=== PATIENT | male | born 1940 | race Caucasian/White ===

== ENCOUNTER 2017-06-27 11:31 | Inpatient (IN) | payer OTHER ==
[~2017-06-27] VITALS: Ht 182.9 cm; Wt 94.8 kg
[~2017-06-27 11:31] MED LIST: BENZ100C84 PO; CZR50 PO; FURO-85 PO; INSU0.01 SC; POTA20TA13 PO; TPRSR25 PO; TRAM-10 PO
--- NOTE | 2017-06-27 11:59 | EMERGENCY ROOM VISIT NOTE ---
History Report prepared by Smiley: Homa Heredia Under the Supervision of: Dr. James Olivo M.D. First contact with patient: 11:44 Chief Complaint: ILLNESS Stated Complaint: FLUID LEAKING FROM LEG AND STOMACH - HEART CONDITI History of Present Illness The patient is a 77 year old male who presents to the Emergency Room with complaints of sudden fluid leakage from his legs bilaterally and his abdomen beginning last night. The patient states that he is short of breath and that his abdomen feels "full." The patient has a pacemaker and is on Lasix. He also has kidney failure. Source of History: patient Onset: last night Position: abdomen, leg (bilateral) Quality: other (leaking) Timing: other (sudden) Associated Symptoms: + SOB, + abdominal pain (feels "full") Review of Systems See HPI for pertinent positives & negatives. A total of 10 systems reviewed and were otherwise negative. Past Medical & Surgical Medical Problems: (1) Anticoagulated on warfarin (2) Aortic stenosis (3) Atrial fibrillation (4) Balance disorder (5) Benign hypertension (6) CHF (congestive heart failure) (7) Chronic systolic heart failure (8) CKD (chronic kidney disease) stage 3, GFR 30-59 ml/min (9) Coronary artery disease (10) Depression (11) Diabetes mellitus type 2 (12) Diabetic peripheral neuropathy (13) Diabetic peripheral neuropathy associated with type 2 diabetes mellitus (14) Foot deformity (15) History of acute renal failure (16) History of diabetic ulcer of foot (17) History of MRSA infection of lungs (18) Hyperlipidemia (19) Hypothyroidism (20) LBBB (left bundle branch block) (21) Loss of sensation (22) Mild obstructive sleep apnea (23) Pulmonary hypertension (24) Rheumatoid arthritis (25) Secondary pulmonary hypertension Surgical Problems: (1) Status post A-V fisutla LUE (2) Status post coronary artery bypass grafting (3) Status post Maze operation for atrial fibrillation (4) Status post tracheostomy Family History FH: COPD (chronic obstructive pulmonary disease) FATHER SISTER SISTER FH: coronary artery disease MOTHER FH: diabetes mellitus SISTER FH: heart disease BROTHER BROTHER BROTHER SISTER Social History Smoking Status: Never Smoker Alcohol Use: none Drug Use: none Marital Status: Housing Status: lives with family Occupation Status: retired Current/Historical Medications Scheduled Amiodarone HCl (Amiodarone HCl), 200 MG PO DAILY Aspirin (Aspirin 81), 81 MG PO HS Budesonide (Pulmicort Respules 0.25MG/2ML), 2 ML INH BID Calcitriol (Calcitriol), 0.25 MCG PO 3XWK Cephalexin Monohydrate (Cephalexin), 500 MG PO BID Cholecalciferol (Vitamin D 1000 Unit), 2,000 INTER.UNIT PO HS Digoxin (Digoxin), 0.125 MG PO Q2D Docusate Sodium (Colace), 1 CAP PO HS Gabapentin (Neurontin), 200 MG PO BID Hydroxychloroquine Sulfate (Hydroxychloroquine Sulfat), 400 MG PO HS Insulin Human NPH (Humulin N), 12 UNITS SQ BID Levothyroxine Sodium (Levothyroxine Sodium), 112 MCG PO DAILY Losartan Potassium (Losartan Potassium), 12.5 MG PO DAILY Magnesium Oxide (Magnesium Oxide), 400 MG PO HS Pantoprazole (Pantoprazole Sodium), 40 MG PO DAILY Prednisone (Prednisone), 5 MG PO DAILY Sertraline HCl (Sertraline HCl), 25 MG PO HS Sertraline HCl (Sertraline HCl), 100 MG PO HS Sildenafil Citrate (Pulmonary (Sildenafil Citrate), 20 MG PO BID Simvastatin (Simvastatin), 10 MG PO HS Torsemide (Demadex), 20 MG PO DAILY Trazodone HCl (Trazodone HCl), 50 MG PO HS Warfarin Sodium (Warfarin Sodium), 2.5 MG PO 2XWK Warfarin Sodium (Warfarin Sodium), 5 MG PO 5XWK Scheduled PRN Acetaminophen (Tylenol), 650 MG PO Q4H PRN for Mild Pain Benzonatate (Tessalon Perles), 100-200 MG PO TID PRN for Cough Ipratropium [place] (Atrovent 0.02% Soln), 2.5 ML NEB TID PRN for SOB/Wheezing Levalbuterol (Levalbuterol HCl), 3 ML NEB TID PRN for SOB/Wheezing Nitroglycerin (Nitrostat), 0.4 MG UT UD PRN for Chest Pain Polyethylene Glycol 3350 (Miralax), 1 PKT PO DAILY PRN for Constipation Saline ([place] Nasal [place]), 2 SPRAYS NATALIO UD PRN for Nasal Dryness/Congestion Tramadol (Ultram), 50 MG PO Q12 PRN for Pain Allergies Coded Allergies: Lisinopril (Unverified Allergy, Unknown, dizzy, 06/27/17) Physical Exam Vital Signs Date Time Temp Pulse Resp B/P (MAP) Pulse Ox O2 Delivery O2 Flow Rate FiO2 06/27/17 13:25 71 14 134/82 94 Room Air 06/27/17 12:23 70 20 132/75 94 Room Air 06/27/17 12:21 70 06/27/17 12:14 96 Room Air 06/27/17 11:36 36.6 75 20 122/71 96 Room Air Physical Exam GENERAL: Patient is a healthy-appearing well-nourished male HEAD: Normocephalic atraumatic EYES: Ocular movements intact pupils equal and react to light OROPHARYNX mucous membranes are moist no exudates present no erythema or edema present NECK: Supple no nuchal rigidity CHEST: Good equal expansion LUNGS: Clear and equal to auscultation CARDIAC: Normal S1 and S2 ABDOMEN: Soft nontender no guarding BACK: No CVA tenderness SKIN: Multiple weeping wounds to abdomen and pelvis. Skin is tight. EXTREMITIES: No pain upon palpation normal muscle strength in all groups. 2+ pitting edema of upper legs. NEURO: Patient is following commands and answering questions appropriately. Alert and oriented x3 Cranial Nerves 2-12 grossly intact Medical Decision & Procedures ER Provider Diagnostic Interpretation: X-ray results as stated below per interpretation by me and the radiologist: CHEST ONE VIEW PORTABLE CLINICAL HISTORY: 77 years-old Male presenting with Pt c/o diffuse swelling, fluid leaking from legs and stomach. TECHNIQUE: Portable upright AP view of the chest was obtained. COMPARISON: 06/22/2016. FINDINGS: Left-sided pacer with leads to the right atrium and right ventricular apex now in place. An abandoned epicardial pacing wire may be present. Median sternotomy wire breakage is now evident, new from prior. Additional surgical device projects over the cardiac silhouette, which remains enlarged. Numerous surgical clips project over the aortic arch. Prominence of pulmonary vasculature. Apparent vague left retrocardiac opacity may be present. No large effusion or pneumothorax. Osseous structures normal. Upper abdomen normal. IMPRESSION: 1. Cardiomegaly with pulmonary vascular congestion. No aye evidence of pulmonary edema at this time. 2. Vague retrocardiac opacity is present. This could indicate atelectasis or mild developing pulmonary edema. 3. Additional new findings as above. Electronically signed by: Bryant Horn M.D. 06/27/2017 12:30 PM Dictated Date/Time: 06/27/2017 12:26 PM Laboratory Results Test 06/27/17 12:09 06/27/17 12:14 06/27/17 13:00 Ovalocytes 1+ Total Bilirubin 0.8 mg/dl (0.2-1) Aspartate Amino Transf (AST/SGOT) 19 U/L (15-37) Alanine Aminotransferase (ALT/SGPT) 23 U/L (12-78) Alkaline Phosphatase 108 U/L (45-117) Total Creatine Kinase 85 U/L (39-308) Creatine Kinase MB 2.1 ng/ml (0.5-3.6) Creatine Kinase MB Ratio 2.5 (0-3.0) Pro-B-Type Natriuretic Peptide 2147 pg/ml (0-1800) Total Protein 7.6 gm/dl (6.4-8.2) Albumin 3.4 gm/dl (3.4-5.0) Globulin 4.2 gm/dl (2.5-4.0) Albumin/Globulin Ratio 0.8 (0.9-2) Bedside Hemoglobin 11.9 g/dl (14.0-18.0) Bedside Hematocrit 35 % (42-52) Bedside Sodium 143 mEq/L (135-144) Bedside Potassium 3.8 mEq/L (3.3-5.0) Bedside Chloride 101 mEq/L (101-112) Bedside Total CO2 28 mEq/l (24-31) Bedside Blood Urea Nitrogen 39 mg/dl (7-18) Bedside Creatinine 1.9 mg/dl (0.6-1.3) Bedside Glucose (other) 100 mg/dl (70-99) Bedside Ionized Calcium (Tracey) 1.10 mmol/l (1.12-1.32) Urine Color YELLOW Urine Appearance CLEAR (CLEAR) Urine pH 5.5 (4.5-7.5) Urine Specific [place] 1.012 (1.000-1.030) Urine Protein NEG (NEG) Urine Glucose (UA) NEG (NEG) Urine Ketones NEG (NEG) Urine Occult Blood NEG (NEG) Urine Nitrite NEG (NEG) Urine Bilirubin NEG (NEG) Urine Urobilinogen NEG (NEG) Urine Leukocyte Esterase NEG (NEG) Labs reviewed by ED physician. Medications Administered Medications (Trade) Dose Ordered Sig/Nicolette Route Start Time Stop Time Status Last Admin Dose Admin Torsemide (Demadex Tab) 20 mg NOW STAT PO 06/27/17 12:28 06/27/17 12:29 DC 06/27/17 13:03 20 MG ECG Indication: other (heart condition) Rate (beats per minute): 70 Rhythm: other (paced rhythm) Findings: no acute ischemic change, no ectopy ED Course 1148: Past medical records reviewed. The patient was evaluated in room B6. A complete history and physical examination was performed. 1228: Ordered Torsemide 20 mg PO. 1330: Upon reexamination the patient is resting. I discussed results and treatment plan with the patient. He verbalizes agreement and understanding. I spoke with Dr. Holbrook from the [facility]. The patient will be evaluated for further management. Medical Decision Differential diagnosis: Etiologies such as infections, reactive airway disease, pneumonia, pneumothorax , COPD, CHF, cardiac ischemia, pulmonary embolism, musculoskeletal, gastrointestinal, as well as others were entertained. This is a 77-year-old male who presents emergency department complaining of fluid leak from both his legs as well as his abdomen. The patient has a history of congestive heart failure. He was given torsemide by his PCP yesterday however his leaking continue today so he was sent into the emergency department. I gave the patient additional dose of torsemide and discussed the case with the hospitalist service. In addition the patient also has an elevation in his troponin. Medication Reconcilliation Current Medication List: was personally reviewed by me Blood Pressure Screening Patient's blood pressure: Normal blood pressure Consults Time Called: 1235 Consulting Physician: Dr. Holbrook- [facility] Returned Call: [phone] I discussed the patient's case with Dr. Holbrook, he has agreed to evaluate the patient for further management and care. Impression Primary Impression: CHF exacerbation Scribe Attestation The scribe's documentation has been prepared under my direction and personally reviewed by me in its entirety. I confirm that the note above accurately reflects all work, treatment, procedures, and medical decision making performed by me. Departure Information Dispostion Being Evaluated By Hospitalist Prescriptions Docusate Sodium (COLACE) 100 Mg Cap 1 CAP PO HS for 15 Days, CAP Prov: Yogesh Holbrook MD 06/27/17 Digoxin (Digoxin) 0.125 Mg Tab 0.125 MG PO Q2D, #30 Prov: Yogesh Holbrook MD 06/27/17 Amiodarone HCl (Amiodarone HCl) 200 Mg Tab 200 MG PO DAILY, #30 Prov: Yogesh Holbrook MD 06/27/17 Levalbuterol (Levalbuterol HCl) 1.25 Mg/3 Ml Nebu 3 ML NEB TID Y for SOB/Wheezing, #1 Prov: Yogesh Holbrook MD 06/27/17 Ipratropium [place] (Atrovent 0.02% Soln) 2.5 Ml Nebu 2.5 ML NEB TID Y for SOB/Wheezing, #1 Prov: Yogesh Holbrook MD 06/27/17 Referrals Bryan Valerio MD (PCP) Patient Instructions My [facility] Problem Qualifiers Primary Impression: CHF exacerbation Congestive heart failure type: unspecified congestive heart failure type Qualified Codes: I50.9 - Heart failure, unspecified
[2017-06-27] MEDS ORDERED: CRD200 PO ×2 (12:23→14:09)
[2017-06-27] MEDS ORDERED: GABA-112 PO (12:23)
[2017-06-27] MEDS ORDERED: TORS20TA2 PO (12:23)
[2017-06-27] MEDS ORDERED: INSHNI SQ (12:23)
[2017-06-27] MEDS ORDERED: ALBUTEROL 0.5% NEB SOLN 2.5 MG/0.5 ML VIAL INH ONE (12:26)
[2017-06-27 12:27] LABS: ISTAT CREATININE 1.9 mg/dl (0.6-1.3); ISTAT HEMOGLOBIN 11.9 g/dl (14.0-18.0); ISTAT IONIZED CALCIUM 1.1 mmol/l (1.12-1.32)
[2017-06-27] MEDS ORDERED: KFL500HP PO (12:27)
[2017-06-27] MEDS ORDERED: TORSEMIDE 20 MG TAB PO STA (12:28)
--- NOTE | 2017-06-27 12:32 | DIAGNOSTIC IMAGING REPORT ---
CHEST ONE VIEW PORTABLE CLINICAL HISTORY: 77 years-old Male presenting with Pt c/o diffuse swelling, fluid leaking from legs and stomach. TECHNIQUE: Portable upright AP view of the chest was obtained. COMPARISON: 06/22/2016. FINDINGS: Left-sided pacer with leads to the right atrium and right ventricular apex now in place. An abandoned epicardial pacing wire may be present. Median sternotomy wire breakage is now evident, new from prior. Additional surgical device projects over the cardiac silhouette, which remains enlarged. Numerous surgical clips project over the aortic arch. Prominence of pulmonary vasculature. Apparent vague left retrocardiac opacity may be present. No large effusion or pneumothorax. Osseous structures normal. Upper abdomen normal. IMPRESSION: 1. Cardiomegaly with pulmonary vascular congestion. No aye evidence of pulmonary edema at this time. 2. Vague retrocardiac opacity is present. This could indicate atelectasis or mild developing pulmonary edema. 3. Additional new findings as above. Electronically signed by: Bryant Horn M.D. 06/27/2017 12:30 PM Dictated Date/Time: 06/27/2017 12:26 PM
[2017-06-27 12:38] LABS: BUN/CREATININE RATIO 22.9 (10-20); CALCIUM 8.9 mg/dl (8.5-10.1); CREATININE 1.9 mg/dl (0.60-1.40); POTASSIUM 3.8 mmol/L (3.5-5.1)
[2017-06-27 12:44] LABS: ALB/GLOB RATIO 0.8 (0.9-2); CKMB/CK RATIO 2.5 (0-3.0)
[2017-06-27 13:04] LABS: ANISOCYTOSIS PRESENT; BASO % 0.3 %; BASO ABS # 0.02 K/uL (0-0.2); COMPLETE YES; EOS % 0.7 %; HEMATOCRIT 35.7 % (42-52); HYPOCHROMIA PRESENT; IG% 0.1 %; LYMPH % 12.9 %; LYMPH ABS # 0.91 K/uL (1.2-3.4); MEAN CELL VOLUME 77.8 fL (80-100); MEAN CORPUSCULAR HEMOGLOBIN 20.9 pg (25-34); MEAN CORPUSCULAR HGB CONC 26.9 g/dl (32-36); MICROCYTOSIS PRESENT; MONO % 12.8 %; NEUT % 73.2 %; OVALOCYTES 1+; PLATELET COUNT 139 K/uL (130-400); PLT ESTIMATE NORMAL; RED BLOOD COUNT 4.59 M/uL (4.7-6.1); WHITE BLOOD COUNT 7.05 K/uL (4.8-10.8)
[2017-06-27 13:23] LABS: URINE APPEARANCE CLEAR (CLEAR); URINE BILIRUBIN NEG (NEG); URINE COLOR YELLOW; URINE NITRITE NEG (NEG); URINE PH 5.5 (4.5-7.5); URINE SPECIFIC GRAVITY 1.012 (1.000-1.030); UROBILINOGEN NEG (NEG)
[2017-06-27 13:26] LABS: MANUAL MICROSCOPIC REQUIRED? NO; REVIEW REQ? NO
[2017-06-27] MEDS ORDERED: MAGNESIUM HYDROXIDE SUSP 30 ML UDC PO PRN (14:00)
[2017-06-27] MEDS ORDERED: ACETAMINOPHEN 325 MG TAB PO PRN (14:00)
[2017-06-27] MEDS ORDERED: ALUMINUM/MAGNESIUM/SIMETH (MAALOX MAX) 30 ML UDC PO PRN (14:00)
[2017-06-27] MEDS ORDERED: NITROGLYCERIN 0.4 MG SL PER TAB CHARGE SL PRN (14:00)
[2017-06-27] MEDS ORDERED: TRAMADOL HCL 50 MG TAB PO PRN (14:00)
[2017-06-27] MEDS ORDERED: ONDANSETRON INJ 2 MG/ML 2 ML VIAL IV PRN (14:00)
[2017-06-27] MEDS ORDERED: ATRINSX NEB ×2 (14:09→18:45)
[2017-06-27] MEDS ORDERED: LNX125 PO (14:09)
[2017-06-27] MEDS ORDERED: DOCU-94 PO (14:09)
[2017-06-27] MEDS ORDERED: XPNINS125 NEB ×2 (14:09→18:45)
[2017-06-27] MEDS ORDERED: POLYETHYLENE (MIRALAX) 17 GM PACK PO PRN (14:45)
[2017-06-27 14:52] LABS: INR 2.2 (0.9-1.1); PROTHROMBIN TIME (PATIENT) 24.8 SECONDS (9.0-12.0)
--- NOTE | 2017-06-27 15:20 | DIAGNOSTIC IMAGING REPORT ---
ULTRASOUND VENOUS DOPPLER LWR EXT BILA CLINICAL HISTORY: Leg edema COMPARISON STUDY: 09/10/2012 FINDINGS: Real-time and color flow Doppler imaging were performed. Flow was seen within the femoral, popliteal and calf veins with no intraluminal thrombus demonstrated. The saphenous vein is patent. IMPRESSION: No evidence of lower extremity DVT. Electronically signed by: Andrea Sylvester M.D. 06/27/2017 3:19 PM Dictated Date/Time: 06/27/2017 3:19 PM
--- NOTE | 2017-06-27 15:24 | HISTORY & PHYSICAL EXAMINATION ---
DATE OF ADMISSION: 06/27/2017 CHIEF COMPLAINT: Increasing lower extremity edema. HISTORY OF PRESENT ILLNESS: This 77-year-old male with past medical history significant for systolic and diastolic biventricular CHF, status post pacemaker, history of paroxysmal atrial fibrillation on Coumadin, history of CAD status post CABG, history of pulmonary hypertension, history of chronic kidney disease stage III, history of depression, hyperlipidemia, history of MRSA pneumonia, history of mild obstructive sleep apnea, history of type 2 diabetes, chronic left bundle branch block, aortic valve stenosis, rheumatoid arthritis involving multiple sites, cor pulmonale, history of junctional bradycardia, history of hypothyroidism, history of peripheral neuropathy, presents with increasing lower extremity edema and increasing weight gain. The patient saw yesterday primary care doctor and found to have increasing lower extremity edema, gained about 10 pounds of weight gain in last 1 month and also edema and skin tears in his l left lower extremity. He was started on Keflex for possible cellulitis and an extra dose of torsemide was given but his symptoms did not improve so he came to the ER today. The patient states lately he is gaining weight. His abdominal girth is increasing and sometimes seeping from his belly and from lower extremities and since yesterday he has also noticed erythema in left lower extremity is getting worse. He cannot climb steps but he is ambulating okay with walker. No shortness of breath while ambulating. He can ambulate all around the house without difficulty. Denies any chest pain, has chronic cough, no fever, no chills, occasional headaches, occasional dizziness and some blurred vision. No nausea, no vomiting, no abdominal pain. Normal bowel and bladder movements. No blood in the stools or black stools, no blood in the urine. Appetite is okay. Currently resting comfortably and hemodynamically stable. The patient has extensive heart disease abnormal nuclear stress test and atrial fibrillation in june 2012. He had a cardiac catheterization at [facility] in 2011 showed multiple disease and he underwent CABG x3 at [place]. Postop course was complicated with resulting 30 days inpatient in [facility]. He was intubated a couple of times. He had elevated pulmonary artery pressure and hypoxia shortly after intubation. He developed acute renal failure necessitating dialysis. He was on dialysis for a couple months. He is status post tracheostomy at that time. He also had a respiratory cultures positive for Stenotrophomonas status post completion of a 10-day course of Bactrim and also blood cultures grew Enterobacter and was placed on broad-spectrum antibiotics, cefepime, which was changed to Levaquin per ID.Since then his kidney function not totally recovered and also since then he has had multiple admissions for heart failure. ALLERGIES: ALLERGIC TO LISINOPRIL. PAST MEDICAL HISTORY: As mentioned above. PAST SURGICAL HISTORY: CABG, cardiac catheterization, tracheostomy, dialysis catheter placement left ventricle, status post pacemaker. MEDICATIONS: The patient is on cephalexin 500 mg 1 tablet p.o. b.i.d. for 7 days, Xopenex and ipratropium nebs t.i.d. p.r.n., Zocor 10 mg p.o. at bedtime, Zoloft 125 mg p.o. daily, Protonix 40 mg p.o. daily, Humulin 10 units in the morning and evening, Plaquenil 400 mg p.o. at bedtime, trazodone 50 mg p.o. at bedtime p.r.n., torsemide 20 mg p.o. daily, take 10 mg p.r.n. for weight gain, tramadol 50 mg p.o. b.i.d. p.r.n., calcitriol 0.5 mg capsule 3 times a week, prednisone 5 mg p.o. daily, levothyroxine 112 mcg p.o. daily, magnesium oxide 400 mg p.o. at bedtime, Coumadin 2.5 mg twice weekly and 5 mg 5 times a week, amiodarone 200 mg p.o. daily, gabapentin 200 mg p.o. b.i.d., losartan 12.5 mg p.o. daily, digoxin 125 mcg 3 times a week, Revatio 20 mg p.o. b.i.d., Colace 100 mg p.o. at bedtime, MiraLax 17 mg p.o. daily p.r.n., budesonide 1 nebulization twice daily, aspirin 81 mg p.o. daily, vitamin D 2000 unit capsule p.o. daily. FAMILY HISTORY: Significant for father had COPD. Mother had heart problems. Sister has COPD. SOCIAL HISTORY: . No smoke history. No alcohol history. No drug use. REVIEW OF SYMPTOMS: As per HPI. Rest of review of symptoms negative. PHYSICAL EXAMINATION: GENERAL: The patient is obese, not in distress. VITAL SIGNS: Temperature 36.6, pulse 71, respiratory rate 14, blood pressure 134/84, oxygen 94% room air. HEAD, EYES, EARS, NOSE, AND THROAT: No pallor, no icterus. Pupils equal, round react to light. NECK: No JVD, no neck masses, no carotid bruits. CARDIOVASCULAR: S1, S2 heard, regular rate and rhythm, no murmur, no gallop. RESPIRATORY SYSTEM: Normal AP diameter. No accessory muscle use. No wheezing, no crackles. ABDOMEN: Soft, bowel sounds present, nontender, mild distention seen. CENTRAL NERVOUS SYSTEM: Cranial nerves II-XII grossly intact. Nonfocal. EXTREMITIES: Bilateral lower extremity gross edema present +2, right lower extremity erythematous and hard. LABORATORY DATA: Sodium 141, potassium 3.8, chloride 101, bicarb 30, BUN 13, creatinine 1.9, serum glucose 100, calcium 8.9, total bilirubin 0.8, AST 19, ALT 23, alkaline phosphatase 108, total creatine kinase 85, troponin I less than 0.04. BNP 2147. WBC 7.05, hemoglobin 9.6, hematocrit 35.7, platelets 139. Urinalysis negative. Chest x-ray: Cardiomegaly with pulmonary vascular congestion and no aye evidence of pulmonary edema. Basilar retrocardiac opacities present. EKG: paced rhythm rate of 70. ASSESSMENT AND PLAN: This is a 77-year-old male who presents with acute congestive heart failure. 1. 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 The patient is status post pacemaker. The patient failed outpatient treatment with increasing p.o. torsemide. Will place him on IV Lasix b.i.d. Consult cardiology for further recommendations. Daily weights, I's and O's, monitor in tele floor. 2. Acute renal failure on chronic kidney disease stage III. Baseline creatinine around 1.4-1.6. presented with 1.9. Starting on IV diuretics for chf. We will consult nephrology further recommendation. The patient was on dialysis in the past after his CABG. 3. Diabetes. We will place him on insulin sliding scale. Follow hemoglobin A1c levels. 4. Pulmonary hypertension. Continue this Revatio . 5. Hypothyroidism. Continue Synthroid. 6. Hyperlipidemia. Continue Zocor. 7. Depression. Continue Zoloft. 8. Atrial fibrillation. Continue his amiodarone and digoxin. Continue his Coumadin. Follow PT/INR. 9. Lower extremity cellulitis, placed on IV vancomycin and also will check for DVT. 10. Rheumatoid arthritis. Continue Plaquenil and prednisone. 11. Hypertension. On diuretics. on losartan. We will monitor the blood pressure. 12. Deep venous thrombosis prophylaxis. On Coumadin. Follow PT/INR. DISPOSITION: Close monitor in tele floor. Expect to discharge home and follow with family doctor, cardiology and nephrology. The patient is DNR as per my discussions with the patient and his daughter. PAUL
[2017-06-27 15:29] VITALS: BP 131/82; PULSE 73; TEMP 36.6; O2SAT 95; Ht 182.9 cm; Wt 94.8 kg
[2017-06-27] MEDS ORDERED: WARFARIN SOD 2.5 MG TAB PO SCH (16:00)
[2017-06-27] MEDS ORDERED: VANCOMYCIN CONSULT ACTIVE PRN (16:15)
[2017-06-27] MEDS ORDERED: SODIUM CHLORIDE 0.9% IV ONE (16:30)
[2017-06-27] MEDS ORDERED: VANCOMYCIN IV ONE (16:30)
[2017-06-27] MEDS: FUROSEMIDE INJ 40 MG in SYRINGE 0 ML IV SCH (16:58)
[2017-06-27] MEDS ORDERED: PLMINSR25 INH (17:23)
[2017-06-27] MEDS ORDERED: NITR0.4S UT (17:23)
--- NOTE | 2017-06-27 18:28 | Pharmacy Progress Note ---
Pharmacy Abx Initial Consult Date of Service Jun 27, 2017. Pharmacy Dosing Scope Date of Consult: 06/27/17 Consultation requested by: Dr. Holbrook Pharmacy is consulted to initiate vancomycin IV dosing therapy, order appropriate labs and adjust drug dose/frequency. Subjective The patient is a 77 year old male admitted on Jun 27, 2017 at 14:05. Objective Height (Feet): 6 Height (Inches): 0.00 Weight (Kilograms): 102.100 Vital Signs (Past 12Hrs) Vital Signs Past 12 Hours Date Time Temp Pulse Resp B/P (MAP) Pulse Ox O2 Delivery O2 Flow Rate FiO2 06/27/17 15:29 36.6 73 18 131/82 95 Room Air 06/27/17 14:48 73 18 139/75 94 Room Air 06/27/17 13:25 71 14 134/82 94 Room Air 06/27/17 12:23 70 20 132/75 94 Room Air 06/27/17 12:21 70 06/27/17 12:14 96 Room Air 06/27/17 11:36 36.6 75 20 122/71 96 Room Air Lab Results (24Hrs) Laboratory Tests (24 Hours) Test 06/27/17 12:09 White Blood Count 7.05 K/uL (4.8-10.8) Red Blood Count 4.59 M/uL (4.7-6.1) L Hemoglobin 9.6 g/dL (14.0-18.0) L Hematocrit 35.7 % (42-52) L Mean Corpuscular Volume 77.8 fL (80-100) L Mean Corpuscular Hemoglobin 20.9 pg (25-34) L Mean Corpuscular Hemoglobin Concent 26.9 g/dl (32-36) L Platelet Count 139 K/uL (130-400) Neutrophils (%) (Auto) 73.2 % Lymphocytes (%) (Auto) 12.9 % Monocytes (%) (Auto) 12.8 % Eosinophils (%) (Auto) 0.7 % Basophils (%) (Auto) 0.3 % Neutrophils # (Auto) 5.16 K/uL (1.4-6.5) Lymphocytes # (Auto) 0.91 K/uL (1.2-3.4) L Monocytes # (Auto) 0.90 K/uL (0.11-0.59) H Eosinophils # (Auto) 0.05 K/uL (0-0.5) Basophils # (Auto) 0.02 K/uL (0-0.2) Total Creatine Kinase 85 U/L (39-308) Risk Factors for Resistance * 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 He has a recent weight gain of 10 pounds with increased abdominal girth. His legs have increased in size as well as erythema. His legs and abdomen are weeping. He has tears on his legs. Plan vancomycin for treatment of cellulitis Vancomycin IV * Loading dose: 2550 mg (25 mg/kg) * Maintenance dose: 1750 mg IV (17 mg/kg) every 24 hours (population pharmacokinetics suggest half-life of 18.7 hr) * Goal trough level for cellulitis with history of MRSA : 15 to 20 mcg/mL * Trough ordered for 06/29/17 (prior to third dose but ordered early to check for accumulation) Pharmacy will continue to follow and will adjust dose/frequency as necessary. Thank you.
--- NOTE | 2017-06-27 18:29 | Cardiology Consultation ---
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 Patient is well known to the undersigned as I follow him as an outpatient he has a complex cardiac history as delineated below. The patient is followed by [facility] and the [facility] heart failure clinic with a home blue to scale and his weights have been trending up. We've been in close contact with the patient and he had felt subjectively well. Over the last 24 hours he has noted progressive swelling in his lower extremities, the left versus right, and he has some ulcerations on his left mid thigh that were weeping clear fluid. Yesterday his torsemide had been increased to 20 mg 2 times per day. He had been advised to take several extra doses of oral torsemide recently for weight increases. Overall, he states his shortness of breath is stable and not worse than his recent baseline. He is just concerned about the fluid in his legs and also abdominal fluid retention. His creatinine in the emergency room was 1.9 mg/dL, he has known moderate chronic kidney disease and as an outpatient his creatinine has trended from 1.3 to 2.55 to 1.4 over the last 3 months most recent reading in May 2017 of 1.4 mg /dl. History Past Medical History: His cardiac history dates back to June, when he was seen by the undersigned in outpatient consultation due to findings of atrial fibrillation in recent abnormal nuclear stress test. He had transitioned to a new primary care provider just before that and had not been followed by Cardiology in the past. At that point he described having been on Coumadin for atrial fibrillation for approximately 8 years. A nuclear stress test was performed as part of an ongoing evaluation of atrial fibrillation which was abnormal. Cardiac catheterization was performed in May, at [facility] with findings of multivessel disease. On 06/01/12 patient underwent CABG x 3 (PERSAUD to LAD, SVG to PL CX, and SVG to PDA ) and bi atrial Ching -Maze with left atrial appendage clip. Over the years he has been followed closely for biventricular systolic heart failure with progressive decline in his LVEF over the years most recent in the 30% range. He also has progressive right heart failure with right ventricular chamber enlargement and findings of pulmonary hypertension felt to be due to a mixed picture of left heart failure/diastolic and systolic dysfunction as well as underlying lung disease. His diuretic dose has been limited by underlying chronic kidney disease. He has had arrhythmia issues with having had paroxysmal atrial fibrillation despite having had the surgical Ching Maze procedure , and early in 2016 atrial flutter was noted. He developed progressive conduction system disease with sinus bradycardia, atrial flutter with slow ventricular rates, and left bundle branch block. This ultimately prompted placement of a biventricular pacemaker on 03/02/[address] Null at [facility], with successful reversion back to sinus rhythm post procedure on amiodarone therapy. Moderate aortic valve stenosis. Past Surgical History: As noted above Social History: , his spouse of cancer a few years ago. He has 2 children. His daughter typically accompanies him to the visit. His lifelong nonsmoker. Family History: History of COPD and mother and coronary heart disease in father both of whom passed with her 70s. Review Of Systems See above for pertinent positives & negatives. A total of 10 systems reviewed and were otherwise negative. Allergies Coded Allergies: Lisinopril (Unverified Allergy, Unknown, dizzy, 06/27/17) Medications Reported Home Medications Medications Dose Route/Sig Max Daily Dose Days Date Category Dose Instructions Colace (Docusate Sodium) 100 Mg Cap 1 Cap PO HS 15 06/27/17 Rx Digoxin 0.125 Mg Tab 0.125 Mg PO Q2D 06/27/17 Rx Amiodarone HCl 200 Mg Tab 200 Mg PO DAILY 06/27/17 Rx Levalbuterol HCl (Levalbuterol) 1.25 Mg/3 Ml Nebu 3 Ml NEB TID PRN 06/27/17 Rx Atrovent 0.02% Soln (Ipratropium [place]) 2.5 Ml Nebu 2.5 Ml NEB TID PRN 06/27/17 Rx Cephalexin (Cephalexin Monohydrate) 1 Homepack Ea 500 Mg PO BID 06/27/17 Reported started evening of 06/26/17 Neurontin (Gabapentin) 100 Mg Cap 200 Mg PO BID 06/27/17 Reported Sildenafil Citrate (Sildenafil Citrate (Pulmonary) 20 Mg Tab 20 Mg PO BID 06/27/17 Reported Losartan Potassium 25 Mg Tab 12.5 Mg PO DAILY 06/27/17 Reported Humulin N (Insulin Human NPH) 100 Units/Ml Susp 12 Units SQ BID 06/27/17 Reported Demadex (Torsemide) 20 Mg Tab 20 Mg PO DAILY 06/27/17 Reported Tylenol (Acetaminophen) 325 Mg Tab 650 Mg PO Q4H PRN 06/21/16 Reported NEEDED FOR MILD PAIN RATED 1-3 ON A SCALE OF "0-10" [place] Nasal [place] (Saline) 0.65 % Spr 2 Sprays NATALIO UD PRN 06/21/16 Reported Miralax (Polyethylene Glycol 3350) 1 Pow Pow 1 Pkt PO DAILY PRN 06/21/16 Reported Warfarin Sodium 5 Mg Tab 5 Mg PO 5XWK 06/21/16 Reported 5mg monday and monday Warfarin Sodium 2.5 Mg Tab 2.5 Mg PO 2XWK 06/21/16 Reported monday and monday Sertraline HCl 100 Mg Tab 100 Mg PO HS 06/21/16 Reported TAKE ONE 100 MG TABLET ALONG WITH ONE 25 MG TABLET TO EQUAL BEDTIME DOSE OF 125 MG Sertraline HCl 25 Mg Tab 25 Mg PO HS 06/21/16 Reported TAKE ONE 25 MG TABLET ALONG WITH ONE 100 MG TABLET TO EQUAL BEDTIME DOSE OF 125 MG Trazodone HCl 50 Mg Tab 50 Mg PO HS 06/21/16 Reported Pantoprazole Sodium (Pantoprazole) 40 Mg Tab 40 Mg PO DAILY 06/21/16 Reported Simvastatin 10 Mg Tab 10 Mg PO HS 06/21/16 Reported Calcitriol 0.25 Mcg Cap 0.25 Mcg PO 3XWK 06/21/16 Reported TAKE THIS MEDICATION EVERY MONDAY,MONDAY AND MONDAY. Prednisone 5 Mg Tab 5 Mg PO DAILY 06/21/16 Reported Hydroxychloroquine Sulfat (Hydroxychloroquine Sulfate) 200 Mg Tab 400 Mg PO HS 06/21/16 Reported Levothyroxine Sodium 112 Mcg Tab 112 Mcg PO DAILY 03/04/14 Reported Tessalon Perles (Benzonatate) 100 Mg Cap 100-200 Mg PO TID PRN 12/16/13 Reported DO NOT CUT,CRUSH OR CHEW Aspirin 81 (Aspirin) 81 Mg Tab 81 Mg PO HS 12/16/13 Reported Ultram (Tramadol HCl) 50 Mg Tab 50 Mg PO Q12 PRN 12/16/13 Reported Magnesium Oxide 400 Mg Cap 400 Mg PO HS 06/08/13 Reported Vitamin D 1000 Unit (Cholecalciferol) 1,000 Unit Cap 2,000 Inter.unit PO HS 06/08/13 Reported Pulmicort Respules 0.25MG/2ML (Budesonide) 0.25 Mg/2 Ml Nebu 2 Ml INH BID 09/10/12 Reported Nitrostat (Nitroglycerin) 0.4 Mg Sub 0.4 Mg UT UD PRN 09/10/[address] ONE TABLET UNDER THE TONGUE, IF CHEST PAIN CONTINUES TAKE ANOTHER TABLET AND CALL 911 Physical Exam Vital Signs (Last 8hrs): Last 8 Hrs Date Time Temp Pulse Resp B/P (MAP) Pulse Ox O2 Delivery O2 Flow Rate FiO2 06/27/17 14:48 73 18 139/75 94 Room Air 06/27/17 13:25 71 14 134/82 94 Room Air 06/27/17 12:23 70 20 132/75 94 Room Air 06/27/17 12:21 70 06/27/17 12:14 96 Room Air 06/27/17 11:36 36.6 75 20 122/71 96 Room Air General Appearance: Chronically ill in appearance Head: Normocephalic Atraumatic. Eyes: PERRLA, EOMI, conjunctiva and sclera clear Neck: Supple. No carotid bruits noted. No JVD. No HJD. Respiratory: Mildly decreased breath sounds at bases, no rhonchi or wheezing Cardiovascular: Reg rate and rhythm. S1 and S2 noted. 2/6 systolic murmur Abdomen: Abdominal distention consistent with fluid retention noted Extremities: 2+ lower extremity edema, right greater than left, several ulcerations on the medial aspect left thigh weeping clear fluid Neuro: No focal deficits. Data Last Resulted 06/27/17 12:09 Red Blood Count 4.59, Mean Corpuscular Volume 77.8, Mean Corpuscular Hemoglobin 20.9, Mean Corpuscular Hemoglobin Concent 26.9, Neutrophils (%) (Auto) 73.2, Lymphocytes (%) (Auto) 12.9, Monocytes (%) (Auto) 12.8, Eosinophils (%) (Auto) 0.7, Basophils (%) (Auto) 0.3, Neutrophils # (Auto) 5.16, Lymphocytes # (Auto) 0.91, Monocytes # (Auto) 0.90, Eosinophils # (Auto) 0.05, Basophils # (Auto) 0.02 Last Resulted 06/27/17 12:09 Past 24 Hours Test 06/27/17 12:09 Range/Units Creatine Kinase MB 2.1 0.5-3.6 ng/ml Creatine Kinase MB Ratio 2.5 0-3.0 Prothromb Time International Ratio 2.2 H 0.9-1.1 Prothrombin Time 24.8 H 9.0-12.0 SECONDS Total Creatine Kinase 85 39-308 U/L Troponin I 0.048 *H 0-0.045 ng/ml EKG performed on arrival to the emergency room reveals sinus rhythm, AV sequential pacemaker. Chest x-ray concerning for interstitial edema Summary of most recent outpatient transthoracic echocardiogram performed 12/30/16 , prior to biventricular pacemaker insertion The LV wall thickness is mildly increased (concentric). The septal motion is abnormal consistent with right ventricular pressure and volume overload as well as left bundle branch block. The remaining left ventricular wall segments are mildly to moderately hypokinetic. The qualitative LV ejection fraction is 3034% (moderately reduced). The right ventricular cavity is severely dilated. The right ventricular systolic function is moderately reduced . The left ventricular diastolic function is severely abnormal (grade III). Moderate aortic valve stenosis is present. Mild aortic valve regurgitation is present. Moderate mitral regurgitation is present. Moderate to severe tricuspid regurgitation is present. Intermediate IVC size and collapsability. Right atrial pressure estimated at 8 mmHg. Moderate to severe pulmonary hypertension is present. The estimated pulmonary artery systolic pressure is 54mm Hg. Compared to the prior study dated 09/09/2016, there has been an interval decline in the overall left ventricular and right ventricular systolic function. The severity Assessment & Plan Impression: 77-year-old male 1. 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 Underlying stage III chronic kidney disease Plan: Hold oral torsemide. Patient has had a 10 pound weight gain at home despite progressive increase in dose of oral diuretic. Patient has been admitted to [facility] in January 2017, for medication adjustment/ optimization prior to biventricular pacemaker implantation. At that time, his creatinine was in the 2.2 -2.4 mg/dl range. He received an IV furosemide infusion, with significant diuresis and subsequent improvement in his creatinine. I discussed dosing of his furosemide by phone with Dr Turner of nephrology. Will continue current dose of 40 mg IV BID , next dose due at 2100 for now. If necessary will consider furosemide infusion as hospital stay develops if necessary. Continue coumadin. Continue sildenafil. Update Echo to follow-up left ventricular ejection fraction and pulmonary pressure. I however am going to wait a few days to obtain echocardiogram until after we diurese him a little bit to try to optimize his pulmonary filling pressures. Tayler Márquez, DO
[2017-06-27] MEDS ORDERED: DSY50 PO (18:45)
[2017-06-27 18:56] VITALS: BP 138/83; PULSE 69; TEMP 36.5; O2SAT 94
[2017-06-27 19:10] VITALS: BP 145/75; PULSE 69; TEMP 36.6; O2SAT 94
[2017-06-27] MEDS: BUDESONIDE 0.25 MG/2 ML VIAL (PULMICORT) INH SCH (19:56)
[2017-06-27 19:59] VITALS: PULSE 81; O2SAT 95
[2017-06-27] MEDS ORDERED: SERTRALINE HCL 100 MG TAB PO SCH (21:00)
[2017-06-27] MEDS ORDERED: SERTRALINE HCL 50 MG TAB PO SCH (21:00)
[2017-06-27] MEDS: TRAZODONE HCL 50 MG TAB PO SCH (21:09)
[2017-06-27] MEDS: MAGNESIUM OXIDE 400 MG TAB PO SCH (21:09)
[2017-06-27] MEDS: SILDENAFIL CITRATE 20 MG TAB PO SCH (21:09)
[2017-06-27] MEDS: SERTRALINE HCL PO SCH ×2 (21:10)
[2017-06-27] MEDS: HYDROXYCHLOROQUINE SULFATE 200 MG TAB PO SCH (21:10)
[2017-06-27] MEDS: GABAPENTIN 100 MG CAP PO SCH (21:11)
[2017-06-27] MEDS: SIMVASTATIN 10 MG TAB PO SCH (21:11)
[2017-06-27] MEDS: CHOLECALCIFEROL 1000 INTER.UNIT TAB PO SCH (21:11)
[2017-06-27] MEDS: ASPIRIN 81 MG ECTAB PO SCH (21:30)
[2017-06-27 23:59] VITALS: O2SAT 95
[2017-06-28] VITALS (13 sets, daily range): BP systolic 94–133; BP diastolic 63–76; PULSE 69–88; TEMP 36.4–36.7; O2SAT 92–100
[2017-06-28] MEDS: LEVOTHYROXINE 112 MCG TAB PO SCH (05:34)
[2017-06-28 06:41] LABS: INR 2.1 (0.9-1.1); PROTHROMBIN TIME (PATIENT) 23.5 SECONDS (9.0-12.0)
[2017-06-28 07:10] LABS: BUN/CREATININE RATIO 21.8 (10-20); CALCIUM 8.4 mg/dl (8.5-10.1); CREATININE 1.7 mg/dl (0.60-1.40); MAGNESIUM 2.5 mg/dl (1.8-2.4); POTASSIUM 3.3 mmol/L (3.5-5.1)
[2017-06-28 07:12] LABS: HEMATOCRIT 32.8 % (42-52); MEAN CELL VOLUME 76.6 fL (80-100); MEAN CORPUSCULAR HEMOGLOBIN 22.2 pg (25-34); PLATELET COUNT 116 K/uL (130-400); RED BLOOD COUNT 4.28 M/uL (4.7-6.1); WHITE BLOOD COUNT 6.13 K/uL (4.8-10.8)
[2017-06-28 07:13] LABS: ANISOCYTOSIS PRESENT; BASO % 0.7 %; BASO ABS # 0.04 K/uL (0-0.2); COMPLETE YES; EOS % 1.3 %; HYPOCHROMIA PRESENT; IG% 0.2 %; LYMPH % 16.2 %; LYMPH ABS # 0.99 K/uL (1.2-3.4); MICROCYTOSIS PRESENT; NEUT % 71.6 %; PLT ESTIMATE DECREASED; TEAR DROP CELLS OCCASIONAL
[2017-06-28] MEDS: BUDESONIDE 0.25 MG/2 ML VIAL (PULMICORT) INH SCH ×2 (07:45→19:29)
[2017-06-28] MEDS: CALCITRIOL 0.25 MCG CAP PO SCH (07:48)
[2017-06-28] MEDS: PANTOprazole SOD 40 MG TAB PO SCH (07:48)
[2017-06-28] MEDS: FUROSEMIDE INJ 40 MG in SYRINGE 0 ML IV SCH ×2 (07:48→17:22)
[2017-06-28] MEDS: SILDENAFIL CITRATE 20 MG TAB PO SCH ×2 (07:48→21:08)
[2017-06-28] MEDS: GABAPENTIN 100 MG CAP PO SCH ×2 (07:49→21:08)
[2017-06-28] MEDS: LOSARTAN POTASSIUM 25 MG TAB PO SCH (07:49)
[2017-06-28] MEDS ORDERED: POTASSIUM CHLORIDE 10 MEQ TABCR PO ONE ×2 (08:30→10:15)
--- NOTE | 2017-06-28 10:49 | NEPHROLOGY CONSULTATION ---
DATE OF CONSULTATION: 06/28/2017 ATTENDING OF RECORD: Dr. Holbrook. REASON FOR CONSULTATION: JAVY and volume overload. HISTORY OF PRESENT ILLNESS: This is a 77-year-old male with biventricular heart failure, requiring a pacemaker as well as paroxysmal atrial fibrillation on Coumadin, status post CABG, who has pulmonary hypertension and CKD stage III with a baseline creatinine in the low 1s. The patient did have JAVY in the past, requiring dialysis and kidney function eventually recovered. He also has underlying type 2 diabetes, aortic stenosis, and rheumatoid arthritis. Cardiology has been working aggressively as an outpatient to try to control his fluid status. The patient though has been having worsening lower extremity swelling and had about a 10-pound weight gain and edema in his legs was worsening to the point that a boil broke open on his left upper extremity and started oozing fluid and his abdomen was much more distended. The patient started on IV diuretics of Lasix 40 IV b.i.d. and kept his legs up and his leg swelling has improved greatly over the last 24 hours and abdominal distention is also improving. The patient is negative close to 2 liters since admission. The patient did have an elevated creatinine on admission up to 1.9 and despite IV diuretics, creatinine has improved down to 1.7. Troponin has been around 0.05 and denying any chest pain. PAST MEDICAL HISTORY: CKD stage III with baseline creatinine in the low 1s with a history of JAVY, requiring dialysis in the past, biventricular heart failure with heart disease requiring bypass, pulmonary hypertension, aortic stenosis, type 2 diabetes, obstructive sleep apnea, hyperlipidemia, depression, rheumatoid arthritis, and hypothyroidism. PAST SURGICAL HISTORY: Bypass surgery, pacemaker, tracheostomy and dialysis catheter placement. FAMILY HISTORY: Significant for heart disease and lung disease. SOCIAL HISTORY: No alcohol. No drugs. No tobacco. Lives at home with family. REVIEW OF SYSTEMS: No shortness of breath. No chest pain. Positive abdominal distention. No constipation. No dysuria. Positive for worsening lower extremity edema. Good appetite. No fevers or chills. No headaches. Positive chronic hoarseness of voice. No blurry vision. No itching. All other review of systems is otherwise negative. CURRENT MEDICATIONS: Coumadin; vancomycin; calcitriol 0.25 Monday, Monday, and Monday; Cozaar 12.5 daily; Protonix 40 mg daily; prednisone 5 mg daily; levothyroxine 112 mcg daily; aspirin 81 mg at night; vitamin D 2000 units at night; Neurontin 200 mg p.o. b.i.d.; Plaquenil 400 mg at night; Revatio 20 mg p.o. b.i.d.; Zocor 10 mg at night; trazodone 50 mg at night; mag oxide 400 mg at night; Zoloft 125 mg at night and Lasix 40 IV b.i.d. PHYSICAL EXAMINATION: VITAL SIGNS: Temperature 36.4, pulse 71, respirations 14, blood pressure 123/76, and satting 95% on room air. GENERAL: Awake, alert, and oriented x3. EYES: No scleral icterus. ENT: Moist mucous membranes. NECK: Supple. PULMONARY: Clear to auscultation. CARDIAC: A 3/6 systolic murmur. ABDOMEN: Bowel sounds positive. Soft. Positive mild distention. EXTREMITIES: +1-2 edema NEUROLOGICALLY: Nonfocal. DERMATOLOGIC: He does have some open wounds from the worsening edema. No ulcers noted. LABORATORY DATA: Sodium level is 144, potassium 3.3, chloride is 105, bicarb is 33, BUN is 37, creatinine is 1.7, glucose 112, calcium is 8.4, and mag is 2.5. White count 6, H&H 9 and 32, and platelet count is 116. INR is 2. UA is bland. IMPRESSION AND PLAN: Acute kidney injury on chronic kidney disease stage III in the setting of volume overload, requiring leg elevation and Lasix 40 IV b.i.d. and is negative 2 liters. So, would continue the current diuretics since urinating better and edema appears to be improving. Fortunately, despite the diuresis, creatinine is trending down. I would like to follow the trend. Hopefully, will improve back down to baseline. No indication for emergent dialysis at this time. The patient is clinically improving. I greatly appreciate cardiology as well as primary hospitalist help in the treatment of this complicated unfortunate patient. PAUL
--- NOTE | 2017-06-28 15:03 | Cardiology Follow-Up ---
Subjective General Date of Service: Jun 28, 2017. Chief Complaint: follow up edema Pt evaluation today including: conversation w/ patient, physical exam History of Present Illness The patient is a 77 year old male seen in follow up. Patient notes Leg edema better. Abdomen still bloated. Ulceration on left thigh no longer oozing fluid. Allergies Coded Allergies: Lisinopril (Unverified Allergy, Unknown, dizzy, 06/27/17) Social History Smoking Status: Never Smoker Hx Tobacco Use In Past Year?: No Hx Alcohol Use - Type And Amou: No Hx Substance Use - Type And Am: No Problem List Medical Problems: (1) Atrial flutter Status: Acute (2) Bradycardia Status: Acute (3) CHF (congestive heart failure) Status: Acute (4) CHF exacerbation Status: Acute (5) Shortness of breath Status: Acute Physical Exam Vital Signs Last Vital Signs Documentation Date Time Temp Pulse Resp B/P (MAP) Pulse Ox O2 Delivery O2 Flow Rate FiO2 06/28/17 12:00 96 Room Air 06/28/17 11:30 36.6 71 20 126/66 (86) Physical Exam Constitutional: Level of Distress: chronically ill Psychiatric: Orientation: to time, to place, to person Neck: supple, trachea midline Lungs: Auscultation: no rhonchi Cardiovascular: Heart Auscultation: RRR, II/ [place] Abdomen: Inspection & Palpation: pertinent finding (Bloated, fluid retention) Extremities: pertinent finding (1-2+ L > R edema ) Neurologic: Gait & Station: pertinent finding (no focal deficits ) Assessment and Plan Assessment and Plan Impression: 77-year-old male 1. 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 Underlying stage III chronic kidney disease Plan: Diuresed 2.5 L prior to midnight and 2.4 L so far today. Continue furosemide 40 mg IV BID. INR at goal. Tayler Márquez DO Laboratory Results Last 24 Hours Test 06/27/17 16:30 06/27/17 18:27 06/27/17 19:15 06/28/17 06:04 Bedside Glucose 106 mg/dl 125 mg/dl Troponin I 0.047 ng/ml 0.050 ng/ml White Blood Count 6.13 K/uL Red Blood Count 4.28 M/uL Hemoglobin 9.5 g/dL Hematocrit 32.8 % Mean Corpuscular Volume 76.6 fL Mean Corpuscular Hemoglobin 22.2 pg Mean Corpuscular Hemoglobin Concent 29.0 g/dl Platelet Count 116 K/uL Neutrophils (%) (Auto) 71.6 % Lymphocytes (%) (Auto) 16.2 % Monocytes (%) (Auto) 10.0 % Eosinophils (%) (Auto) 1.3 % Basophils (%) (Auto) 0.7 % Neutrophils # (Auto) 4.40 K/uL Lymphocytes # (Auto) 0.99 K/uL Monocytes # (Auto) 0.61 K/uL Eosinophils # (Auto) 0.08 K/uL Basophils # (Auto) 0.04 K/uL RDW Standard Deviation 58.6 fL RDW Coefficient of Variation 20.9 % Immature Granulocyte % (Auto) 0.2 % Immature Granulocyte # (Auto) 0.01 K/uL Platelet Estimate DECREASED Hypochromasia PRESENT Anisocytosis PRESENT Microcytosis PRESENT Tear Drop Cells OCCASIONAL Prothrombin Time 23.5 SECONDS Prothromb Time International Ratio 2.1 Sodium Level 144 mmol/L Potassium Level 3.3 mmol/L Chloride Level 105 mmol/L Carbon Dioxide Level 33 mmol/L Anion Gap 6.0 mmol/L Blood Urea Nitrogen 37 mg/dl Creatinine 1.70 mg/dl Est Creatinine Clear Calc Drug Dose 43.6 ml/min Estimated GFR () 43.5 Estimated GFR (Non- 37.5 BUN/Creatinine Ratio 21.8 Random Glucose 112 mg/dl Calcium Level 8.4 mg/dl Magnesium Level 2.5 mg/dl Test 06/28/17 11:27 Bedside Glucose 141 mg/dl
[2017-06-28] MEDS ORDERED: VANCOMYCIN INJ 1,750 MG in SODIUM CHLORIDE 0.9% 500ML 500 ML IV SCH (16:00)
[2017-06-28] MEDS: WARFARIN SOD 5 MG TAB PO SCH (17:22)
[2017-06-28] MEDS: VANCOMYCIN INJ 1,750 MG in SODIUM CHLORIDE 0.9% 250ML 250 ML IV SCH (17:47)
--- NOTE | 2017-06-28 18:18 | Progress Note ---
Internal Med Progress Note Date of Service: Jun 28, 2017. Provider Documentation: SUBJECTIVE: resting comfortably no chest pain or sob diuresing well lower extremity edema improving OBJECTIVE: Vital Signs-as noted below Exam: General-alert and awake. Not in distress ENT-normal hearing Neck-no neck masses Lungs-cta b/l no wheezing or crackles Heart-s1 and s2 heard regular rhythm no murmurs Abdomen-soft bowel sounds present non tender no distension Extremities-b.l lower ext edema left lower extremity erythema improving Neuro-alert and awake moves extremities Lab data as noted below. ASSESSMENT & PLAN: This is a 77-year-old male who presents with acute congestive heart failure. 1. 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 The patient is status post pacemaker. The patient failed outpatient treatment with increasing p.o. torsemide. diuresing well on iv lasix 40mg bid i/o negative 1.4lt today so far to continue current tx appreciate cardiology and nephrology inputs. 2. Acute renal failure on chronic kidney disease stage III. Baseline creatinine around 1.4-1.6. presented with 1.9. Started on IV diuretics for chf. cr 1.7 today f/u labs. 3. Diabetes. on insulin sliding scale. Follow hemoglobin A1c levels. 4. Pulmonary hypertension. Continue this Revatio . 5. Hypothyroidism. Continue Synthroid. 6. Hyperlipidemia. Continue Zocor. 7. Depression. Continue Zoloft. 8. Atrial fibrillation. Continue his amiodarone and digoxin. Continue his Coumadin. Follow PT/INR. INR 2.1 today. 9. Lower extremity cellulitis, placed on IV vancomycin . improving. 10. Rheumatoid arthritis. Continue Plaquenil and prednisone. 11. Hypertension. On diuretics. on losartan. We will monitor the blood pressure. 12. Deep venous thrombosis prophylaxis. On Coumadin. Follow PT/INR. DISPOSITION monitor in tele pt/ot Vital Signs: Date Time Temp Pulse Resp B/P (MAP) Pulse Ox O2 Delivery O2 Flow Rate FiO2 06/28/17 16:52 95 Room Air 06/28/17 15:31 36.5 74 16 109/64 (79) 95 Room Air 06/28/17 12:00 96 Room Air 06/28/17 11:30 36.6 71 20 126/66 (86) 96 Room Air 06/28/17 09:00 92 Room Air 06/28/17 07:45 71 14 95 Room Air 06/28/17 07:39 36.4 88 18 123/76 (92) 94 Room Air 06/28/17 04:00 36.4 71 18 94/63 (73) 92 Room Air 06/28/17 04:00 92 Room Air 06/28/17 00:00 36.5 72 19 133/75 (94) 93 Room Air 06/27/17 23:59 95 Room Air 06/27/17 20:00 Room Air 06/27/17 19:59 81 14 95 Room Air 06/27/17 19:10 36.6 69 16 145/75 (98) 94 Room Air 06/27/17 18:56 36.5 69 20 138/83 (101) 94 Room Air Lab Results: Results Past 24 Hours Test 06/27/17 18:27 06/27/17 19:15 06/28/17 06:04 06/28/17 11:27 Range/Units Troponin I 0.047 0.050 0-0.045 ng/ml Bedside Glucose 125 141 70-99 mg/dl White Blood Count 6.13 4.8-10.8 K/uL Red Blood Count 4.28 4.7-6.1 M/uL Hemoglobin 9.5 14.0-18.0 g/dL Hematocrit 32.8 42-52 % Mean Corpuscular Volume 76.6 80-100 fL Mean Corpuscular Hemoglobin 22.2 25-34 pg Mean Corpuscular Hemoglobin Concent 29.0 32-36 g/dl Platelet Count 116 130-400 K/uL Neutrophils (%) (Auto) 71.6 % Lymphocytes (%) (Auto) 16.2 % Monocytes (%) (Auto) 10.0 % Eosinophils (%) (Auto) 1.3 % Basophils (%) (Auto) 0.7 % Neutrophils # (Auto) 4.40 1.4-6.5 K/uL Lymphocytes # (Auto) 0.99 1.2-3.4 K/uL Monocytes # (Auto) 0.61 0.11-0.59 K/uL Eosinophils # (Auto) 0.08 0-0.5 K/uL Basophils # (Auto) 0.04 0-0.2 K/uL RDW Standard Deviation 58.6 36.4-46.3 fL RDW Coefficient of Variation 20.9 11.5-14.5 % Immature Granulocyte % (Auto) 0.2 % Immature Granulocyte # (Auto) 0.01 0.00-0.02 K/uL Platelet Estimate DECREASED Hypochromasia PRESENT Anisocytosis PRESENT Microcytosis PRESENT Tear Drop Cells OCCASIONAL Prothrombin Time 23.5 9.0-12.0 SECONDS Prothromb Time International Ratio 2.1 0.9-1.1 Sodium Level 144 136-145 mmol/L Potassium Level 3.3 3.5-5.1 mmol/L Chloride Level 105 98-107 mmol/L Carbon Dioxide Level 33 21-32 mmol/L Anion Gap 6.0 3-11 mmol/L Blood Urea Nitrogen 37 7-18 mg/dl Creatinine 1.70 0.60-1.40 mg/dl Est Creatinine Clear Calc Drug Dose 43.6 ml/min Estimated GFR () 43.5 Estimated GFR (Non- 37.5 BUN/Creatinine Ratio 21.8 10-20 Random Glucose 112 70-99 mg/dl Calcium Level 8.4 8.5-10.1 mg/dl Magnesium Level 2.5 1.8-2.4 mg/dl Test 06/28/17 16:18 Range/Units Bedside Glucose 165 70-99 mg/dl
[2017-06-28] MEDS: MAGNESIUM OXIDE 400 MG TAB PO SCH (21:08)
[2017-06-28] MEDS: SIMVASTATIN 10 MG TAB PO SCH (21:08)
[2017-06-28] MEDS: SERTRALINE HCL PO SCH ×2 (21:08)
[2017-06-28] MEDS: ASPIRIN 81 MG ECTAB PO SCH (21:08)
[2017-06-28] MEDS: HYDROXYCHLOROQUINE SULFATE 200 MG TAB PO SCH (21:08)
[2017-06-28] MEDS: TRAZODONE HCL 50 MG TAB PO SCH (21:08)
[2017-06-28] MEDS: CHOLECALCIFEROL 1000 INTER.UNIT TAB PO SCH (21:08)
[2017-06-29] VITALS (7 sets, daily range): BP systolic 118–140; BP diastolic 69–73; PULSE 70–76; TEMP 36.4–36.6; O2SAT 93–98
[2017-06-29] MEDS: LEVOTHYROXINE 112 MCG TAB PO SCH (06:11)
[2017-06-29 06:35] LABS: CREATININE 1.5 mg/dl (0.60-1.40)
[2017-06-29 06:36] LABS: BUN/CREATININE RATIO 24.1 (10-20); CALCIUM 8.9 mg/dl (8.5-10.1); MAGNESIUM 2.6 mg/dl (1.8-2.4); POTASSIUM 3.4 mmol/L (3.5-5.1)
[2017-06-29 07:13] LABS: HEMATOCRIT 36.4 % (42-52); MEAN CELL VOLUME 78.3 fL (80-100); MEAN CORPUSCULAR HEMOGLOBIN 20.9 pg (25-34); MEAN CORPUSCULAR HGB CONC 26.6 g/dl (32-36); PLATELET COUNT 109 K/uL (130-400); RED BLOOD COUNT 4.65 M/uL (4.7-6.1); WHITE BLOOD COUNT 6.12 K/uL (4.8-10.8)
[2017-06-29 07:14] LABS: INR 2.1 (0.9-1.1); PROTHROMBIN TIME (PATIENT) 23.4 SECONDS (9.0-12.0)
[2017-06-29] MEDS: BUDESONIDE 0.25 MG/2 ML VIAL (PULMICORT) INH SCH ×2 (07:25→19:28)
[2017-06-29] MEDS ORDERED: POTASSIUM CHLORIDE 20 MEQ TABCR PO ONE (07:30)
[2017-06-29] MEDS: LOSARTAN POTASSIUM 25 MG TAB PO SCH (07:39)
[2017-06-29] MEDS: FUROSEMIDE INJ 40 MG in SYRINGE 0 ML IV SCH ×2 (07:39→16:40)
[2017-06-29] MEDS: PANTOprazole SOD 40 MG TAB PO SCH (07:40)
[2017-06-29] MEDS: GABAPENTIN 100 MG CAP PO SCH ×2 (07:40→20:02)
[2017-06-29] MEDS: SILDENAFIL CITRATE 20 MG TAB PO SCH ×2 (07:40→20:00)
--- NOTE | 2017-06-29 07:40 | Nephrology Progress Note ---
Nephrology Progress Note Date of Service: Jun 29, 2017. Subjective 77 yo male with mitch on ckd with volume overload and open blister which was draining and still runner. pt feels much better. appetite is good. breathing is good. pt feels his abdomen and legs are improving. not as much fluid on board. Objective Date Time Temp Pulse Resp B/P (MAP) Pulse Ox O2 Delivery O2 Flow Rate FiO2 06/29/17 07:25 72 14 98 Room Air 06/29/17 04:00 Room Air 06/29/17 04:00 36.5 74 18 118/73 (88) 93 Room Air 06/29/17 00:00 Room Air 06/28/17 23:40 36.7 72 19 108/69 (82) 95 Room Air 06/28/17 20:01 95 Room Air 06/28/17 19:38 36.4 77 16 128/72 (90) 100 06/28/17 19:30 69 14 96 Room Air 06/28/17 16:52 95 Room Air 06/28/17 15:31 36.5 74 16 109/64 (79) 95 Room Air 06/28/17 12:00 96 Room Air 06/28/17 11:30 36.6 71 20 126/66 (86) 96 Room Air 06/28/17 09:00 92 Room Air 06/28/17 07:45 71 14 95 Room Air 06/28/17 07:39 36.4 88 18 123/76 (92) 94 Room Air Physical Exam: General-aaox3 Eyes-no scleral icterus ENT-mmm, chronic hoarse voice Neck-supple Lungs-cta Heart-3/6 systolic murmur Abdomen-bs+/mildly distended Extremities-+1 to 2 edema up into his thighs, +mild erythema around open blister on left upper thigh Neuro-nonfocal Current Inpatient Medications Medications (Trade) Dose Ordered Sig/Nicolette Route Start Time Stop Time Status Last Admin Dose Admin Acetaminophen (Tylenol Tab) 650 mg Q4H PRN PO 06/27/17 14:00 07/27/17 13:59 Al Hydrox/Mg Hydrox/Simethicone (Maalox Max Susp) 15 ml Q4H PRN PO 06/27/17 14:00 07/27/17 13:59 Magnesium Hydroxide (Milk Of Magnesia Susp) 30 ml Q12H PRN PO 06/27/17 14:00 07/27/17 13:59 Ondansetron HCl (Zofran Inj) 4 mg Q6H PRN IV 06/27/17 14:00 07/27/17 13:59 Nitroglycerin (Nitrostat Tab) 0.4 mg UD PRN SL 06/27/17 14:00 07/27/17 13:59 Aspirin (Ecotrin Tab) 81 mg HS PO 06/27/17 21:00 07/27/17 20:59 06/28/17 21:08 81 MG Budesonide (Pulmicort Respules 0.25MG/ 2ML Neb Soln) 0.5 mg BIDR INH 06/27/17 20:00 07/27/17 19:59 06/29/17 07:25 0.5 MG Calcitriol (Rocaltrol Cap) 0.25 mcg MoWeFr@0900 PO 06/28/17 09:00 07/28/17 08:59 06/28/17 07:48 0.25 MCG Cholecalciferol (Vitamin D Tab) 2,000 inter.unit HS PO 06/27/17 21:00 07/27/17 20:59 06/28/17 21:08 2,000 INTER.UNIT Gabapentin (Neurontin Cap) 200 mg BID PO 06/27/17 21:00 07/27/17 20:59 06/28/17 21:08 200 MG Hydroxychloroquine Sulfate (Plaquenil Tab) 400 mg HS PO 06/27/17 21:00 07/27/17 20:59 06/28/17 21:08 400 MG Levothyroxine Sodium (Synthroid Tab) 112 mcg DAILYBB PO 06/28/17 06:00 07/28/17 06:59 06/29/17 06:11 112 MCG Losartan Potassium (coZAAR TAB) 12.5 mg DAILY PO 06/28/17 09:00 07/28/17 08:59 06/28/17 07:49 12.5 MG Pantoprazole Sodium (Protonix Tab) 40 mg DAILY PO 06/28/17 09:00 07/28/17 08:59 06/28/17 07:48 40 MG Prednisone (PredniSONE TAB) 5 mg DAILY PO 06/28/17 09:00 07/28/17 08:59 06/28/17 07:50 5 MG Sildenafil Citrate (Revatio Tab) 20 mg BID PO 06/27/17 21:00 07/27/17 20:59 06/28/17 21:08 20 MG Simvastatin (Zocor Tab) 10 mg HS PO 06/27/17 21:00 07/27/17 20:59 06/28/17 21:08 10 MG Tramadol HCl (Ultram Tab) 50 mg Q12 PRN PO 06/27/17 14:00 07/27/17 13:59 Trazodone HCl (Desyrel Tab) 50 mg HS PO 06/27/17 21:00 07/27/17 20:59 06/28/17 21:08 50 MG Warfarin Sodium (Coumadin Tab) 2.5 mg TuSa@1600 PO 06/27/17 16:00 07/27/17 15:59 06/27/17 16:58 2.5 MG Warfarin Sodium (Coumadin Tab) 5 mg SuMoWeThFr@1600 PO 06/28/17 16:00 07/28/17 15:59 06/28/17 17:22 5 MG Magnesium Oxide (Mag-Ox Tab) 400 mg HS PO 06/27/17 21:00 07/27/17 20:59 06/28/17 21:08 400 MG Polyethylene (Miralax Powder Packet) 17 gm DAILY PRN PO 06/27/17 14:45 07/27/17 14:44 Furosemide 40 mg/ Syringe 4 ml @ 4 mls/min BID17 IV 06/27/17 17:00 07/27/17 16:59 06/28/17 17:22 4 MLS/MIN Sertraline HCl (Zoloft Tab) 125 mg HS PO 06/27/17 21:00 07/27/17 20:59 06/28/17 21:08 125 MG Vancomycin HCl (Consult) 1 ea UD PRN N/A 06/27/17 16:15 07/27/17 16:14 Vancomycin HCl 1750 mg/Sodium Chloride 285 ml @ 100 mls/hr DAILY@1600 IV 06/28/17 16:00 07/08/17 15:59 06/28/17 17:47 100 MLS/HR Last 24 Hours Test 06/28/17 11:27 06/28/17 16:18 06/28/17 20:24 06/29/17 05:40 Bedside Glucose 141 mg/dl 165 mg/dl 163 mg/dl White Blood Count 6.12 K/uL Red Blood Count 4.65 M/uL Hemoglobin 9.7 g/dL Hematocrit 36.4 % Mean Corpuscular Volume 78.3 fL Mean Corpuscular Hemoglobin 20.9 pg Mean Corpuscular Hemoglobin Concent 26.6 g/dl Platelet Count 109 K/uL RDW Standard Deviation 59.7 fL RDW Coefficient of Variation 21.1 % Prothrombin Time 23.4 SECONDS Prothromb Time International Ratio 2.1 Sodium Level 145 mmol/L Potassium Level 3.4 mmol/L Chloride Level 107 mmol/L Carbon Dioxide Level 35 mmol/L Anion Gap 3.0 mmol/L Blood Urea Nitrogen 36 mg/dl Creatinine 1.50 mg/dl Est Creatinine Clear Calc Drug Dose 48.0 ml/min Estimated GFR () 50.6 Estimated GFR (Non- 43.7 BUN/Creatinine Ratio 24.1 Random Glucose 139 mg/dl Calcium Level 8.9 mg/dl Magnesium Level 2.6 mg/dl Test 06/29/17 06:40 Bedside Glucose 156 mg/dl Assessment & Plan mitch on ckd stage 3-creatinine continues to improve as we diurese the patient and pt mobilizes the third spaced fluid better. continue current diuretics. about 3 liters negative. pt inquiring about going home today. ok from renal perspective to go home today but would prefer one more day of iv diuresis to help with the edema in his legs. defer to hospitalist and cardiology. hypokalemia-repleting prn. k is low today from the iv diuretics.
[2017-06-29 07:54] LABS: ESTIMATED AVERAGE GLUCOSE 166 mg/dl; HA1C FLAG Normal (Normal)
[2017-06-29 08:07] LABS: ANISOCYTOSIS PRESENT; BASO % 0.3 %; BASO ABS # 0.02 K/uL (0-0.2); COMPLETE YES; EOS % 1.3 %; GIANT PLATELETS 2+; LYMPH % 14.7 %; MICROCYTOSIS PRESENT; MONO % 9.6 %; NEUT % 74.1 %; POIKILOCYTOSIS PRESENT
--- NOTE | 2017-06-29 10:28 | Cardiology Follow-Up ---
Subjective General Date of Service: Jun 29, 2017. Chief Complaint: follow up edema Pt evaluation today including: conversation w/ patient, physical exam History of Present Illness The patient is a 77 year old male seen in follow up. Patient feels improved. Edema better. Ulceration on left thigh sore and red. Telemetry reveals SR, AV sequential pacing. Allergies Coded Allergies: Lisinopril (Unverified Allergy, Unknown, dizzy, 06/27/17) Social History Smoking Status: Never Smoker Hx Tobacco Use In Past Year?: No Hx Alcohol Use - Type And Amou: No Hx Substance Use - Type And Am: No Problem List Medical Problems: (1) Atrial flutter Status: Acute (2) Bradycardia Status: Acute (3) CHF (congestive heart failure) Status: Acute (4) CHF exacerbation Status: Acute (5) Shortness of breath Status: Acute Physical Exam Vital Signs Last Vital Signs Documentation Date Time Temp Pulse Resp B/P (MAP) Pulse Ox O2 Delivery O2 Flow Rate FiO2 06/29/17 07:56 36.4 71 19 125/69 (87) 98 Room Air Physical Exam Constitutional: Level of Distress: chronically ill Psychiatric: Orientation: to time, to place, to person Neck: supple, trachea midline Lungs: Auscultation: no rhonchi Cardiovascular: Heart Auscultation: RRR, II/ [place] Abdomen: Inspection & Palpation: pertinent finding (Bloated, fluid retention) Extremities: pertinent finding (1-2+ L > R edema , red ucleration of medial left thigh) Neurologic: Gait & Station: pertinent finding (no focal deficits ) Assessment and Plan Assessment and Plan Impression: 77-year-old male 1. 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 Underlying stage III chronic kidney disease 3. left thigh ulcer Plan: Still diuresing well. Continue furosemide 40 mg IV BID. INR at goal. I am concerned about the thigh ulcer. He has a pacemaker, and we need to avoid bacteremia. Remain in hospital at least another 24 hrs for IV antibiotics and IV furosemide. Check wound culture given MRSA in past. Will need oral antibiotics at minimum at time of discharge. Replace potassium Tayler Márquez, DO Laboratory Results Last 24 Hours Test 06/28/17 11:27 06/28/17 16:18 06/28/17 20:24 06/29/17 05:40 Bedside Glucose 141 mg/dl 165 mg/dl 163 mg/dl White Blood Count 6.12 K/uL Red Blood Count 4.65 M/uL Hemoglobin 9.7 g/dL Hematocrit 36.4 % Mean Corpuscular Volume 78.3 fL Mean Corpuscular Hemoglobin 20.9 pg Mean Corpuscular Hemoglobin Concent 26.6 g/dl Platelet Count 109 K/uL Neutrophils (%) (Auto) 74.1 % Lymphocytes (%) (Auto) 14.7 % Monocytes (%) (Auto) 9.6 % Eosinophils (%) (Auto) 1.3 % Basophils (%) (Auto) 0.3 % Neutrophils # (Auto) 4.53 K/uL Lymphocytes # (Auto) 0.90 K/uL Monocytes # (Auto) 0.59 K/uL Eosinophils # (Auto) 0.08 K/uL Basophils # (Auto) 0.02 K/uL RDW Standard Deviation 59.7 fL RDW Coefficient of Variation 21.1 % Immature Granulocyte % (Auto) 0.0 % Immature Granulocyte # (Auto) 0.00 K/uL Giant Platelets 2+ Poikilocytosis PRESENT Anisocytosis PRESENT Microcytosis PRESENT Prothrombin Time 23.4 SECONDS Prothromb Time International Ratio 2.1 Sodium Level 145 mmol/L Potassium Level 3.4 mmol/L Chloride Level 107 mmol/L Carbon Dioxide Level 35 mmol/L Anion Gap 3.0 mmol/L Blood Urea Nitrogen 36 mg/dl Creatinine 1.50 mg/dl Est Creatinine Clear Calc Drug Dose 48.0 ml/min Estimated GFR () 50.6 Estimated GFR (Non- 43.7 BUN/Creatinine Ratio 24.1 Random Glucose 139 mg/dl Estimated Average Glucose 166 mg/dl Hemoglobin A1c 7.4 % Calcium Level 8.9 mg/dl Magnesium Level 2.6 mg/dl Test 06/29/17 06:40 Bedside Glucose 156 mg/dl
[2017-06-29] MEDS ORDERED: CIPROFLOXACIN 500 MG TAB PO STA (13:35)
[2017-06-29] MEDS ORDERED: VANCOMYCIN TROUGH SCH (15:30)
--- NOTE | 2017-06-29 15:59 | Progress Note ---
Internal Med Progress Note Date of Service: Jun 29, 2017. Provider Documentation: SUBJECTIVE: resting comfortably has pain in left thigh where he has open sore with bleb swelling in lower extremity improved afebrile no sob wanted to go home OBJECTIVE: Vital Signs-as noted below Exam: General-alert and awake. Not in distress ENT-normal hearing Neck-no neck masses Lungs-cta b/l no wheezing or crackles Heart-s1 and s2 heard regular rhythm no murmurs Abdomen-soft bowel sounds present non tender no distension Extremities-b.l lower ext edema left lower extremity erythema improving, medial aspect of thigh has 1cm open sore with bleb Neuro-alert and awake moves extremities Lab data as noted below. ASSESSMENT & PLAN: This is a 77-year-old male who presents with acute congestive heart failure. 1. 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 The patient is status post pacemaker. The patient failed outpatient treatment with increasing p.o. torsemide. diuresing well on iv lasix 40mg bid i/o negative 3lts so far to continue current tx appreciate cardiology and nephrology inputs. 2. Acute renal failure on chronic kidney disease stage III. Baseline creatinine around 1.4-1.6. presented with 1.9. Started on IV diuretics for chf. cr 1.5 today- at baseline f/u labs. 3. Diabetes. on insulin sliding scale. Follow hemoglobin A1c levels: 7.4 4. Pulmonary hypertension. Continue this Revatio . 5. Hypothyroidism. Continue Synthroid. 6. Hyperlipidemia. Continue Zocor. 7. Depression. Continue Zoloft. 8. Atrial fibrillation. Continue his amiodarone and digoxin. Continue his Coumadin. Follow PT/INR. INR 2.1 today. 9. Lower extremity cellulitis, with open sore on left thigh. placed on IV vancomycin . improving.added cipro.wound care 10. Rheumatoid arthritis. Continue Plaquenil and prednisone. 11. Hypertension. On diuretics. on losartan. We will monitor the blood pressure. 12. Deep venous thrombosis prophylaxis. On Coumadin. Follow PT/INR. DISPOSITION monitor in tele pt/ot possible d/c in am Vital Signs: Date Time Temp Pulse Resp B/P (MAP) Pulse Ox O2 Delivery O2 Flow Rate FiO2 06/29/17 15:50 36.5 76 20 123/70 (87) 96 Room Air 06/29/17 12:03 36.5 74 19 124/73 (90) 96 Room Air 06/29/17 12:00 Room Air 06/29/17 08:00 Room Air 06/29/17 07:56 36.4 71 19 125/69 (87) 98 Room Air 06/29/17 07:25 72 14 98 Room Air 06/29/17 04:00 Room Air 06/29/17 04:00 36.5 74 18 118/73 (88) 93 Room Air 06/29/17 00:00 Room Air 06/28/17 23:40 36.7 72 19 108/69 (82) 95 Room Air 06/28/17 20:01 95 Room Air 06/28/17 19:38 36.4 77 16 128/72 (90) 100 06/28/17 19:30 69 14 96 Room Air 06/28/17 16:52 95 Room Air Lab Results: Results Past 24 Hours Test 06/28/17 16:18 06/28/17 20:24 06/29/17 05:40 06/29/17 06:40 Range/Units Bedside Glucose 165 163 156 70-99 mg/dl White Blood Count 6.12 4.8-10.8 K/uL Red Blood Count 4.65 4.7-6.1 M/uL Hemoglobin 9.7 14.0-18.0 g/dL Hematocrit 36.4 42-52 % Mean Corpuscular Volume 78.3 80-100 fL Mean Corpuscular Hemoglobin 20.9 25-34 pg Mean Corpuscular Hemoglobin Concent 26.6 32-36 g/dl Platelet Count 109 130-400 K/uL Neutrophils (%) (Auto) 74.1 % Lymphocytes (%) (Auto) 14.7 % Monocytes (%) (Auto) 9.6 % Eosinophils (%) (Auto) 1.3 % Basophils (%) (Auto) 0.3 % Neutrophils # (Auto) 4.53 1.4-6.5 K/uL Lymphocytes # (Auto) 0.90 1.2-3.4 K/uL Monocytes # (Auto) 0.59 0.11-0.59 K/uL Eosinophils # (Auto) 0.08 0-0.5 K/uL Basophils # (Auto) 0.02 0-0.2 K/uL RDW Standard Deviation 59.7 36.4-46.3 fL RDW Coefficient of Variation 21.1 11.5-14.5 % Immature Granulocyte % (Auto) 0.0 % Immature Granulocyte # (Auto) 0.00 0.00-0.02 K/uL Giant Platelets 2+ Poikilocytosis PRESENT Anisocytosis PRESENT Microcytosis PRESENT Prothrombin Time 23.4 9.0-12.0 SECONDS Prothromb Time International Ratio 2.1 0.9-1.1 Sodium Level 145 136-145 mmol/L Potassium Level 3.4 3.5-5.1 mmol/L Chloride Level 107 98-107 mmol/L Carbon Dioxide Level 35 21-32 mmol/L Anion Gap 3.0 3-11 mmol/L Blood Urea Nitrogen 36 7-18 mg/dl Creatinine 1.50 0.60-1.40 mg/dl Est Creatinine Clear Calc Drug Dose 48.0 ml/min Estimated GFR () 50.6 Estimated GFR (Non- 43.7 BUN/Creatinine Ratio 24.1 10-20 Random Glucose 139 70-99 mg/dl Estimated Average Glucose 166 mg/dl Hemoglobin A1c 7.4 4.5-5.6 % Calcium Level 8.9 8.5-10.1 mg/dl Magnesium Level 2.6 1.8-2.4 mg/dl Test 06/29/17 11:15 06/29/17 15:17 Range/Units Bedside Glucose 172 70-99 mg/dl
[2017-06-29] MEDS: WARFARIN SOD 5 MG TAB PO SCH (16:39)
[2017-06-29] MEDS: VANCOMYCIN INJ 1,750 MG in SODIUM CHLORIDE 0.9% 250ML 250 ML IV SCH (16:43)
[2017-06-29] MEDS: SERTRALINE HCL PO SCH ×2 (19:58)
[2017-06-29] MEDS: ASPIRIN 81 MG ECTAB PO SCH (19:58)
[2017-06-29] MEDS: CIPROFLOXACIN 500 MG TAB PO SCH (19:59)
[2017-06-29] MEDS: SIMVASTATIN 10 MG TAB PO SCH (19:59)
[2017-06-29] MEDS: MAGNESIUM OXIDE 400 MG TAB PO SCH (20:00)
[2017-06-29] MEDS: HYDROXYCHLOROQUINE SULFATE 200 MG TAB PO SCH (20:00)
[2017-06-29] MEDS: CHOLECALCIFEROL 1000 INTER.UNIT TAB PO SCH (20:01)
[2017-06-29] MEDS: TRAZODONE HCL 50 MG TAB PO SCH (20:02)
[2017-06-30 00:13] VITALS: BP 117/64; PULSE 72; TEMP 36.6; O2SAT 94
[2017-06-30 04:19] VITALS: BP 121/76; PULSE 71; TEMP 36.5; O2SAT 95
[2017-06-30] MEDS: LEVOTHYROXINE 112 MCG TAB PO SCH (05:43)
[2017-06-30 06:30] LABS: INR 2.2 (0.9-1.1); PROTHROMBIN TIME (PATIENT) 24.7 SECONDS (9.0-12.0)
[2017-06-30 06:48] LABS: BUN/CREATININE RATIO 18.8 (10-20); CALCIUM 8.6 mg/dl (8.5-10.1); CREATININE 1.7 mg/dl (0.60-1.40); MAGNESIUM 2.5 mg/dl (1.8-2.4); POTASSIUM 3.9 mmol/L (3.5-5.1)
--- NOTE | 2017-06-30 06:55 | Nephrology Progress Note ---
Nephrology Progress Note Date of Service: Jun 30, 2017. Subjective 77 yo male with mitch on ckd with volume overload and open blister on left upper thigh. pt feels much better. leg swelling improved and abdominal distention also improved. pt really wants to go home today. Objective Date Time Temp Pulse Resp B/P (MAP) Pulse Ox O2 Delivery O2 Flow Rate FiO2 06/30/17 04:19 36.5 71 16 121/76 (91) 95 06/30/17 04:00 Room Air 06/30/17 00:13 36.6 72 16 117/64 (81) 94 06/30/17 00:00 Room Air 06/29/17 20:00 Room Air 06/29/17 19:38 36.6 72 22 140/71 (94) 98 Room Air 06/29/17 19:33 70 14 95 Room Air 06/29/17 16:00 Room Air 06/29/17 15:50 36.5 76 20 123/70 (87) 96 Room Air 06/29/17 12:03 36.5 74 19 124/73 (90) 96 Room Air 06/29/17 12:00 Room Air 06/29/17 08:00 Room Air 06/29/17 07:56 36.4 71 19 125/69 (87) 98 Room Air 06/29/17 07:25 72 14 98 Room Air Physical Exam: General-aaox3 Eyes-no scleral icterus ENT-mmm, chronic hoarse voice Neck-supple Lungs-clear Heart-3/6 systolic murmur Abdomen-bs+/mildly distended Extremities-+1 edema up into his thighs, +mild erythema around open blister on left upper thigh Neuro-nonfocal Current Inpatient Medications Medications (Trade) Dose Ordered Sig/Nicolette Route Start Time Stop Time Status Last Admin Dose Admin Acetaminophen (Tylenol Tab) 650 mg Q4H PRN PO 06/27/17 14:00 07/27/17 13:59 Al Hydrox/Mg Hydrox/Simethicone (Maalox Max Susp) 15 ml Q4H PRN PO 06/27/17 14:00 07/27/17 13:59 Magnesium Hydroxide (Milk Of Magnesia Susp) 30 ml Q12H PRN PO 06/27/17 14:00 07/27/17 13:59 Ondansetron HCl (Zofran Inj) 4 mg Q6H PRN IV 06/27/17 14:00 07/27/17 13:59 Nitroglycerin (Nitrostat Tab) 0.4 mg UD PRN SL 06/27/17 14:00 07/27/17 13:59 Aspirin (Ecotrin Tab) 81 mg HS PO 06/27/17 21:00 07/27/17 20:59 06/29/17 19:58 81 MG Budesonide (Pulmicort Respules 0.25MG/ 2ML Neb Soln) 0.5 mg BIDR INH 06/27/17 20:00 07/27/17 19:59 06/29/17 19:28 0.5 MG Calcitriol (Rocaltrol Cap) 0.25 mcg MoWeFr@0900 PO 06/28/17 09:00 07/28/17 08:59 06/28/17 07:48 0.25 MCG Cholecalciferol (Vitamin D Tab) 2,000 inter.unit HS PO 06/27/17 21:00 07/27/17 20:59 06/29/17 20:01 2,000 INTER.UNIT Gabapentin (Neurontin Cap) 200 mg BID PO 06/27/17 21:00 07/27/17 20:59 06/29/17 20:02 200 MG Hydroxychloroquine Sulfate (Plaquenil Tab) 400 mg HS PO 06/27/17 21:00 07/27/17 20:59 06/29/17 20:00 400 MG Levothyroxine Sodium (Synthroid Tab) 112 mcg DAILYBB PO 06/28/17 06:00 07/28/17 06:59 06/30/17 05:43 112 MCG Losartan Potassium (coZAAR TAB) 12.5 mg DAILY PO 06/28/17 09:00 07/28/17 08:59 06/29/17 07:39 12.5 MG Pantoprazole Sodium (Protonix Tab) 40 mg DAILY PO 06/28/17 09:00 07/28/17 08:59 06/29/17 07:40 40 MG Prednisone (PredniSONE TAB) 5 mg DAILY PO 06/28/17 09:00 07/28/17 08:59 06/29/17 07:40 5 MG Sildenafil Citrate (Revatio Tab) 20 mg BID PO 06/27/17 21:00 07/27/17 20:59 06/29/17 20:00 20 MG Simvastatin (Zocor Tab) 10 mg HS PO 06/27/17 21:00 07/27/17 20:59 06/29/17 19:59 10 MG Tramadol HCl (Ultram Tab) 50 mg Q12 PRN PO 06/27/17 14:00 07/27/17 13:59 Trazodone HCl (Desyrel Tab) 50 mg HS PO 06/27/17 21:00 07/27/17 20:59 06/29/17 20:02 50 MG Warfarin Sodium (Coumadin Tab) 2.5 mg TuSa@1600 PO 06/27/17 16:00 07/27/17 15:59 06/27/17 16:58 2.5 MG Warfarin Sodium (Coumadin Tab) 5 mg SuMoWeThFr@1600 PO 06/28/17 16:00 07/28/17 15:59 06/29/17 16:39 5 MG Magnesium Oxide (Mag-Ox Tab) 400 mg HS PO 06/27/17 21:00 07/27/17 20:59 06/29/17 20:00 400 MG Polyethylene (Miralax Powder Packet) 17 gm DAILY PRN PO 06/27/17 14:45 07/27/17 14:44 Furosemide 40 mg/ Syringe 4 ml @ 4 mls/min BID17 IV 06/27/17 17:00 07/27/17 16:59 06/29/17 16:40 4 MLS/MIN Sertraline HCl (Zoloft Tab) 125 mg HS PO 06/27/17 21:00 07/27/17 20:59 06/29/17 19:58 100 MG Vancomycin HCl (Consult) 1 ea UD PRN N/A 06/27/17 16:15 07/27/17 16:14 Vancomycin HCl 1750 mg/Sodium Chloride 285 ml @ 100 mls/hr DAILY@1600 IV 06/28/17 16:00 07/08/17 15:59 06/29/17 16:43 100 MLS/HR Ciprofloxacin (Cipro Tab) 500 mg BID PO 06/29/17 21:00 07/09/17 20:59 06/29/17 19:59 500 MG Last 24 Hours Test 06/29/17 11:15 06/29/17 15:17 06/29/17 16:38 06/29/17 20:13 Bedside Glucose 172 mg/dl 162 mg/dl 158 mg/dl Vancomycin Level Trough 14.6 mcg/ml Test 06/30/17 05:41 Prothrombin Time 24.7 SECONDS Prothromb Time International Ratio 2.2 Sodium Level 140 mmol/L Potassium Level 3.9 mmol/L Chloride Level 105 mmol/L Carbon Dioxide Level 33 mmol/L Anion Gap 2.0 mmol/L Blood Urea Nitrogen 32 mg/dl Creatinine 1.70 mg/dl Est Creatinine Clear Calc Drug Dose 42.1 ml/min Estimated GFR () 43.5 Estimated GFR (Non- 37.5 BUN/Creatinine Ratio 18.8 Random Glucose 140 mg/dl Calcium Level 8.6 mg/dl Magnesium Level 2.5 mg/dl Date/Time Source Procedure Growth Status 06/29/17 14:20 Skin Thigh Gram Stain Pending Received 06/29/17 14:20 Skin Thigh Wound Culture Pending Received Assessment & Plan mitch on ckd stage 3-creatinine initially improved from 2 to 1.5 and is up to 1.7 this morning. will stop the iv diuretics and give him his oral torsemide 20mg a day. ok from renal perspective to go home on previous dose of diuretics and recheck bmp again in a week. volume status much improved. respectfully defer to cardiology.
[2017-06-30 07:01] LABS: HEMATOCRIT 35.3 % (42-52); MEAN CELL VOLUME 78.6 fL (80-100); MEAN CORPUSCULAR HEMOGLOBIN 21.6 pg (25-34); MEAN CORPUSCULAR HGB CONC 27.5 g/dl (32-36); PLATELET COUNT 116 K/uL (130-400); RED BLOOD COUNT 4.49 M/uL (4.7-6.1); WHITE BLOOD COUNT 6.56 K/uL (4.8-10.8)
[2017-06-30 07:03] LABS: ANISOCYTOSIS PRESENT; BASO % 0.3 %; BASO ABS # 0.02 K/uL (0-0.2); COMPLETE YES; EOS % 1.2 %; GIANT PLATELETS 1+; HYPOCHROMIA PRESENT; IG% 0.2 %; LYMPH % 14.6 %; LYMPH ABS # 0.96 K/uL (1.2-3.4); MONO % 9.9 %; NEUT % 73.8 %; OVALOCYTES 1+; PLT ESTIMATE DECREASED
[2017-06-30 07:04] VITALS: PULSE 75; O2SAT 96
[2017-06-30] MEDS: BUDESONIDE 0.25 MG/2 ML VIAL (PULMICORT) INH SCH (07:04)
[2017-06-30 08:03] VITALS: BP 141/75; PULSE 61; TEMP 36.5; O2SAT 96
[2017-06-30] MEDS ORDERED: TORSEMIDE 20 MG TAB PO SCH (09:00)
[2017-06-30] MEDS: CALCITRIOL 0.25 MCG CAP PO SCH (09:06)
[2017-06-30] MEDS: SILDENAFIL CITRATE 20 MG TAB PO SCH (09:06)
[2017-06-30] MEDS: PANTOprazole SOD 40 MG TAB PO SCH (09:07)
[2017-06-30] MEDS: GABAPENTIN 100 MG CAP PO SCH (09:07)
[2017-06-30] MEDS: CIPROFLOXACIN 500 MG TAB PO SCH (09:07)
[2017-06-30] MEDS: LOSARTAN POTASSIUM 25 MG TAB PO SCH (09:07)
--- NOTE | 2017-06-30 09:34 | Cardiology Follow-Up ---
Subjective General Date of Service: Jun 30, 2017. Chief Complaint: follow up edema Pt evaluation today including: conversation w/ patient, physical exam History of Present Illness The patient is a 77 year old male patient feeling improved. Diuresed another 3 L overnight. AM weight pending. Creatinine 1.7 mg/dl this am, compared to 1.9 on admission. Telemetry reveals stable SR Allergies Coded Allergies: Lisinopril (Unverified Allergy, Unknown, dizzy, 06/27/17) Social History Smoking Status: Never Smoker Hx Tobacco Use In Past Year?: No Hx Alcohol Use - Type And Amou: No Hx Substance Use - Type And Am: No Problem List Medical Problems: (1) Atrial flutter Status: Acute (2) Bradycardia Status: Acute (3) CHF (congestive heart failure) Status: Acute (4) CHF exacerbation Status: Acute (5) Shortness of breath Status: Acute Physical Exam Vital Signs Last Vital Signs Documentation Date Time Temp Pulse Resp B/P (MAP) Pulse Ox O2 Delivery O2 Flow Rate FiO2 06/30/17 08:03 36.5 61 16 141/75 (97) 96 Room Air Physical Exam Constitutional: Level of Distress: chronically ill Psychiatric: Orientation: to time, to place, to person Neck: supple, trachea midline Lungs: Auscultation: no rhonchi Cardiovascular: Heart Auscultation: RRR, II/ [place] Abdomen: Inspection & Palpation: pertinent finding (Bloated, fluid retention) Extremities: pertinent finding (1-2+ L > R edema , red ucleration of medial left thigh) Neurologic: Gait & Station: pertinent finding (no focal deficits ) Assessment and Plan Assessment and Plan Impression: 77-year-old male 1. 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 Underlying stage III chronic kidney disease 3. left thigh ulcer Plan: Agree with nephro plan to DC IV diuretic and RX home torsemide 20 mg daily. Was on torsemide 20 mg daily recently prior to this admission, I would DC on torsemide 20 mg, 1.5 tablets daily in am (30 mg daily) and repeat BMP in next week about Monday. Continue blue tooth scale monitoring. Will need oral antibiotics at minimum at time of discharge. Would avoid bactrim due to CKD. Perhaps Keflex is good option (although pt does have h/o MRSA in past). Tayler Márquez, Laboratory Results Last 24 Hours Test 06/29/17 11:15 06/29/17 15:17 06/29/17 16:38 06/29/17 20:13 Bedside Glucose 172 mg/dl 162 mg/dl 158 mg/dl Vancomycin Level Trough 14.6 mcg/ml Test 06/30/17 05:41 06/30/17 06:39 White Blood Count 6.56 K/uL Red Blood Count 4.49 M/uL Hemoglobin 9.7 g/dL Hematocrit 35.3 % Mean Corpuscular Volume 78.6 fL Mean Corpuscular Hemoglobin 21.6 pg Mean Corpuscular Hemoglobin Concent 27.5 g/dl Platelet Count 116 K/uL Neutrophils (%) (Auto) 73.8 % Lymphocytes (%) (Auto) 14.6 % Monocytes (%) (Auto) 9.9 % Eosinophils (%) (Auto) 1.2 % Basophils (%) (Auto) 0.3 % Neutrophils # (Auto) 4.84 K/uL Lymphocytes # (Auto) 0.96 K/uL Monocytes # (Auto) 0.65 K/uL Eosinophils # (Auto) 0.08 K/uL Basophils # (Auto) 0.02 K/uL RDW Standard Deviation 60.0 fL RDW Coefficient of Variation 21.2 % Immature Granulocyte % (Auto) 0.2 % Immature Granulocyte # (Auto) 0.01 K/uL Platelet Estimate DECREASED Giant Platelets 1+ Hypochromasia PRESENT Anisocytosis PRESENT Ovalocytes 1+ Prothrombin Time 24.7 SECONDS Prothromb Time International Ratio 2.2 Sodium Level 140 mmol/L Potassium Level 3.9 mmol/L Chloride Level 105 mmol/L Carbon Dioxide Level 33 mmol/L Anion Gap 2.0 mmol/L Blood Urea Nitrogen 32 mg/dl Creatinine 1.70 mg/dl Est Creatinine Clear Calc Drug Dose 42.1 ml/min Estimated GFR () 43.5 Estimated GFR (Non- 37.5 BUN/Creatinine Ratio 18.8 Random Glucose 140 mg/dl Calcium Level 8.6 mg/dl Magnesium Level 2.5 mg/dl Bedside Glucose 175 mg/dl
[2017-06-30] MEDS ORDERED: LCTX PO (09:53)
[2017-06-30] MEDS ORDERED: DOXY100C41 PO (09:53)
[2017-06-30] MEDS ORDERED: AMOX875T PO (09:53)
[2017-06-30] MEDS ORDERED: DMD20 PO (09:54)
--- NOTE | 2017-06-30 10:03 | Discharge Instructions ---
Discharge Instructions Date of Service Jun 30, 2017. Admission Reason for Admission: CHF Discharge Discharge Diagnosis / Problem: acute chf, arf, cellulitis Discharge Goals Goal(s): Decrease discomfort, Improve function Activity Recommendations Activity Limitations: resume your previous activity . Instructions / Follow-Up Instructions / Follow-Up FOLLOWUP WITH FAMILY DOCTOR Bryan Mcginnis ON June AT 12:45PM. FOLLOWUP WITH CARDIOLOGY SCHEDULED. LAB: BMP IN 4-5 DAYS AND FOLLOW RESULTS WITH FAMILY DOCTOR. CHANGE IN MEDICATION: CHANGED TORSEMIDE TO 30MG ONCE DAILY.( ONE AND HALF PILL OF 20MG TABLET). NEW ANTIBIOTICS FOR ONE WEEK COURSE: DOXYCYCLINE 100MG TWICE DAILY AUGMENTIN 875MG TWICE DAILY AND PROBIOTIC LACTINEX 2 TAB TWICE DAILY Call your Primary Care doctor if any of the following symptoms or problems start or get worse: * Shortness of breath or difficulty breathing * Wake up at night short of breath * Chest pain * Cough * Swelling of your hands, feet, or legs * More fatigued or tired with your normal activity * Palpitations - sudden fast heart beats WEIGHT * Weigh yourself every morning after using the bathroom. * Use the same scale. * Wear the same amount of clothing. * Write your weight down on a chart. * Call your Primary Care doctor if you gain more than 2-3 pounds in 1-2 days. MEDICATIONS * Use this discharge instruction sheet for medication instructions. * Take your medications at the time your doctor ordered. * Do not skip a dose of your medicines. * If you miss a dose of medicine, take it as soon as possible, but DO NOT DOUBLE A DOSE. * Read your medicine information when you get home. * Know all of the side effects of your medicine. If in doubt, ask your pharmacist * Call your Primary Care doctor's office if you have any side effects. * Be sure all of your doctors know what medicine and herbs you take (including cold, flu, and herbal medicine). Take the following with you to your follow-up doctor appointments: * Weight Chart * Medication List * List of questions Do not drink excessive alcohol, beer or wine. Current Hospital Diet Patient's current hospital diet: AHA Diet (Heart Healthy), Diabetes Type 2 Diet Discharge Diet Recommended Diet: AHA Diet (Heart Healthy), Diabetes Type 2 Diet Pending Studies Studies pending at discharge: no Laboratory Results Hemoglobin A1c Test 06/29/17 05:40 Range/Units Estimated Average Glucose 166 mg/dl Hemoglobin A1c 7.4 H 4.5-5.6 % Medical Emergencies . Who to Call and When: Call 911 or go to the Emergency Room if: * If at any time you feel your situation is an emergency * You have tightness or pain in your chest that does not go away with rest or Nitroglycerin * You are very short of breath even with rest . Non-Emergent Contact Non-Emergency issues call your: Primary Care Provider . . "Provider Documentation" section prepared by Yogesh Holbrook. . VTE Core Measure Inpt VTE Proph given/why not?: Warfarin (Coumadin)
[2017-06-30 10:13] VITALS: BP 141/75; PULSE 61; TEMP 36.5; O2SAT 96
--- NOTE | 2017-06-30 19:18 | Progress Note ---
Internal Med Progress Note Date of Service: Jun 30, 2017. Provider Documentation: SUBJECTIVE: resting comfortably ambulated ok eating ok no sob ok to go home OBJECTIVE: Vital Signs-as noted below Exam: General-alert and awake. Not in distress ENT-normal hearing Neck-no neck masses Lungs-cta b/l no wheezing or crackles Heart-s1 and s2 heard regular rhythm no murmurs Abdomen-soft bowel sounds present non tender no distension Extremities-b.l lower ext edema left lower extremity erythema improving, medial aspect of thigh has 1cm open sore with bleb-improving Neuro-alert and awake moves extremities Lab data as noted below. ASSESSMENT & PLAN: This is a 77-year-old male who presents with acute congestive heart failure. 1. 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 The patient is status post pacemaker. The patient failed outpatient treatment with increasing p.o. torsemide. diuresing well on iv lasix 40mg bid i/o negative 3lts so far to continue current tx appreciate cardiology and nephrology inputs. discharged on toresmide 30mg daily f/u wth pcp and cardiology 2. Acute renal failure on chronic kidney disease stage III. Baseline creatinine around 1.4-1.6. presented with 1.9. Started on IV diuretics for chf. cr 1.5 06/29/17 cr 1.7 on 06/30/17 - discharged on torsemide 30mg daily f/u labs with pcp 3. Diabetes. on insulin sliding scale. Follow hemoglobin A1c levels: 7.4. d/c on home meds 4. Pulmonary hypertension. Continue this Revatio . 5. Hypothyroidism. Continue Synthroid. 6. Hyperlipidemia. Continue Zocor. 7. Depression. Continue Zoloft. 8. Atrial fibrillation. Continue his amiodarone and digoxin. Continue his Coumadin. Follow PT/INR. INR 2.2 today. 9. Lower extremity cellulitis, with open sore on left thigh. placed on IV vancomycin . improving. d/salvador on doxycycline and po Augmentin. 10. Rheumatoid arthritis. Continue Plaquenil and prednisone. 11. Hypertension. On diuretics. on losartan. We will monitor the blood pressure. Discharged home Vital Signs: Date Time Temp Pulse Resp B/P (MAP) Pulse Ox O2 Delivery O2 Flow Rate FiO2 06/30/17 10:13 36.5 61 16 96 Room Air 06/30/17 08:03 36.5 61 16 141/75 (97) 96 Room Air 06/30/17 08:00 Room Air 06/30/17 07:04 75 14 96 Room Air 06/30/17 04:19 36.5 71 16 121/76 (91) 95 06/30/17 04:00 Room Air 06/30/17 00:13 36.6 72 16 117/64 (81) 94 06/30/17 00:00 Room Air 06/29/17 20:00 Room Air 06/29/17 19:38 36.6 72 22 140/71 (94) 98 Room Air 06/29/17 19:33 70 14 95 Room Air Lab Results: Results Past 24 Hours Test 06/29/17 20:13 06/30/17 05:41 06/30/17 06:39 Range/Units Bedside Glucose 158 175 70-99 mg/dl White Blood Count 6.56 4.8-10.8 K/uL Red Blood Count 4.49 4.7-6.1 M/uL Hemoglobin 9.7 14.0-18.0 g/dL Hematocrit 35.3 42-52 % Mean Corpuscular Volume 78.6 80-100 fL Mean Corpuscular Hemoglobin 21.6 25-34 pg Mean Corpuscular Hemoglobin Concent 27.5 32-36 g/dl Platelet Count 116 130-400 K/uL Neutrophils (%) (Auto) 73.8 % Lymphocytes (%) (Auto) 14.6 % Monocytes (%) (Auto) 9.9 % Eosinophils (%) (Auto) 1.2 % Basophils (%) (Auto) 0.3 % Neutrophils # (Auto) 4.84 1.4-6.5 K/uL Lymphocytes # (Auto) 0.96 1.2-3.4 K/uL Monocytes # (Auto) 0.65 0.11-0.59 K/uL Eosinophils # (Auto) 0.08 0-0.5 K/uL Basophils # (Auto) 0.02 0-0.2 K/uL RDW Standard Deviation 60.0 36.4-46.3 fL RDW Coefficient of Variation 21.2 11.5-14.5 % Immature Granulocyte % (Auto) 0.2 % Immature Granulocyte # (Auto) 0.01 0.00-0.02 K/uL Platelet Estimate DECREASED Giant Platelets 1+ Hypochromasia PRESENT Anisocytosis PRESENT Ovalocytes 1+ Prothrombin Time 24.7 9.0-12.0 SECONDS Prothromb Time International Ratio 2.2 0.9-1.1 Sodium Level 140 136-145 mmol/L Potassium Level 3.9 3.5-5.1 mmol/L Chloride Level 105 98-107 mmol/L Carbon Dioxide Level 33 21-32 mmol/L Anion Gap 2.0 3-11 mmol/L Blood Urea Nitrogen 32 7-18 mg/dl Creatinine 1.70 0.60-1.40 mg/dl Est Creatinine Clear Calc Drug Dose 42.1 ml/min Estimated GFR () 43.5 Estimated GFR (Non- 37.5 BUN/Creatinine Ratio 18.8 10-20 Random Glucose 140 70-99 mg/dl Calcium Level 8.6 8.5-10.1 mg/dl Magnesium Level 2.5 1.8-2.4 mg/dl
--- NOTE | 2017-06-30 19:21 | Discharge Summary ---
Discharge Summary Date of Service Jun 30, 2017. Discharge Summary Admission Date: Jun 27, 2017 at 14:05 Discharge Date: Jun 30, 2017 Discharge Disposition: Home with services Principal Diagnosis: acute chf arf cellulitis Secondary Diagnoses/Problems: systolic and diastolic biventricular CHF, status post pacemaker, history of paroxysmal atrial fibrillation on Coumadin, history of CAD status post CABG, history of pulmonary hypertension, history of chronic kidney disease stage III, history of depression, hyperlipidemia, history of MRSA pneumonia, history of mild obstructive sleep apnea, history of type 2 diabetes, chronic left bundle branch block, aortic valve stenosis, rheumatoid arthritis involving multiple sites, cor pulmonale, history of junctional bradycardia, history of hypothyroidism, history of peripheral neuropathy, Procedures: CXR: 1. Cardiomegaly with pulmonary vascular congestion. No aye evidence of pulmonary edema at this time. 2. Vague retrocardiac opacity is present. This could indicate atelectasis or mild developing pulmonary edema. VENOUS DOPPLER: No evidence of lower extremity DVT. Consultations: CARDIOLOGY NEPHROLOGY Medication Reconciliation New Medications: Amoxicillin & Pot Clavulanate (Augmentin 875-125 mg) 1 Tab Tab 875 MG PO BID, #14 TAB Doxycycline (Monohydrate) (Monodox) 100 Mg Cap 100 MG PO BID for 7 Days, #14 CAP Lactobacillus Acidophilus (Lactinex) Tab 2 TAB PO BID for 10 Days, TAB Torsemide (Torsemide) 20 Mg Tab 30 MG PO DAILY for 30 Days, 2 Refills Continued Medications: Acetaminophen (Tylenol) 325 Mg Tab 650 MG PO Q4H PRN for Mild Pain, TAB NEEDED FOR MILD PAIN RATED 1-3 ON A SCALE OF "0-10" Amiodarone HCl (Amiodarone HCl) 200 Mg Tab 200 MG PO DAILY, #30 Aspirin (Aspirin 81) 81 Mg Tab 81 MG PO HS Benzonatate (Tessalon Perles) 100 Mg Cap 100-200 MG PO TID PRN for Cough, CAP DO NOT CUT,CRUSH OR CHEW Budesonide (Pulmicort Respules 0.25MG/2ML) 0.25 Mg/2 Ml Nebu 2 ML INH BID, EA Calcitriol (Calcitriol) 0.25 Mcg Cap 0.25 MCG PO 3XWK TAKE THIS MEDICATION EVERY MONDAY,MONDAY AND MONDAY. Cholecalciferol (Vitamin D 1000 Unit) 1,000 Unit Cap 2000 INTER.UNIT PO HS, CAP Digoxin (Digoxin) 0.125 Mg Tab 0.125 MG PO Q2D, #30 Docusate Sodium (Colace) 100 Mg Cap 1 CAP PO HS for 15 Days, CAP Gabapentin (Neurontin) 100 Mg Cap 200 MG PO BID, CAP Hydroxychloroquine Sulfate (Hydroxychloroquine Sulfat) 200 Mg Tab 400 MG PO HS Insulin Human NPH (Humulin N) 100 Units/Ml Susp 12 UNITS SQ BID Ipratropium [place] (Atrovent 0.02% Soln) 2.5 Ml Nebu 2.5 ML NEB TID PRN for SOB/Wheezing, #1 Levalbuterol (Levalbuterol HCl) 1.25 Mg/3 Ml Nebu 3 ML NEB TID PRN for SOB/Wheezing, #1 Levothyroxine Sodium (Levothyroxine Sodium) 112 Mcg Tab 112 MCG PO DAILY Losartan Potassium (Losartan Potassium) 25 Mg Tab 12.5 MG PO DAILY Magnesium Oxide (Magnesium Oxide) 400 Mg Cap 400 MG PO HS Nitroglycerin (Nitrostat) 0.4 Mg Sub 0.4 MG UT UD PRN for Chest Pain, BTL PLACE ONE TABLET UNDER THE TONGUE, IF CHEST PAIN CONTINUES TAKE ANOTHER TABLET AND CALL 911 Pantoprazole (Pantoprazole Sodium) 40 Mg Tab 40 MG PO DAILY Polyethylene Glycol 3350 (Miralax) 1 Pow Pow 1 PKT PO DAILY PRN for Constipation, GM Prednisone (Prednisone) 5 Mg Tab 5 MG PO DAILY, #30 Saline (Vian Nasal [place]) 0.65 % Spr 2 SPRAYS NATALIO UD PRN for Nasal Dryness/Congestion Sertraline HCl (Sertraline HCl) 25 Mg Tab 25 MG PO HS TAKE ONE 25 MG TABLET ALONG WITH ONE 100 MG TABLET TO EQUAL BEDTIME DOSE OF 125 MG Sertraline HCl (Sertraline HCl) 100 Mg Tab 100 MG PO HS TAKE ONE 100 MG TABLET ALONG WITH ONE 25 MG TABLET TO EQUAL BEDTIME DOSE OF 125 MG Sildenafil Citrate (Pulmonary (Sildenafil Citrate) 20 Mg Tab 20 MG PO BID, #60 Simvastatin (Simvastatin) 10 Mg Tab 10 MG PO HS Tramadol (Ultram) 50 Mg Tab 50 MG PO Q12 PRN for Pain, TAB Trazodone HCl (Trazodone HCl) 50 Mg Tab 50 MG PO HS Warfarin Sodium (Warfarin Sodium) 2.5 Mg Tab 2.5 MG PO 2XWK monday and monday Warfarin Sodium (Warfarin Sodium) 5 Mg Tab 5 MG PO 5XWK 5mg monday and monday Discontinued Medications: Cephalexin Monohydrate (Cephalexin) 1 Homepack Ea 500 MG PO BID, #14 started evening of 06/26/17 Torsemide (Demadex) 20 Mg Tab 20 MG PO DAILY, TAB Admission Information HPI (per Admitting provider): This 77-year-old male with past medical history significant for systolic and diastolic biventricular CHF, status post pacemaker, history of paroxysmal atrial fibrillation on Coumadin, history of CAD status post CABG, history of pulmonary hypertension, history of chronic kidney disease stage III, history of depression, hyperlipidemia, history of MRSA pneumonia, history of mild obstructive sleep apnea, history of type 2 diabetes, chronic left bundle branch block, aortic valve stenosis, rheumatoid arthritis involving multiple sites, cor pulmonale, history of junctional bradycardia, history of hypothyroidism, history of peripheral neuropathy, presents with increasing lower extremity edema and increasing weight gain. The patient saw yesterday primary care doctor and found to have increasing lower extremity edema, gained about 10 pounds of weight gain in last 1 month and also edema and skin tears in his l left lower extremity. He was started on Keflex for possible cellulitis and an extra dose of torsemide was given but his symptoms did not improve so he came to the ER today. The patient states lately he is gaining weight. His abdominal girth is increasing and sometimes seeping from his belly and from lower extremities and since yesterday he has also noticed erythema in left lower extremity is getting worse. He cannot climb steps but he is ambulating okay with walker. No shortness of breath while ambulating. He can ambulate all around the house without difficulty. Denies any chest pain, has chronic cough, no fever, no chills, occasional headaches, occasional dizziness and some blurred vision. No nausea, no vomiting, no abdominal pain. Normal bowel and bladder movements. No blood in the stools or black stools, no blood in the urine. Appetite is okay. Currently resting comfortably and hemodynamically stable. The patient has extensive heart disease abnormal nuclear stress test and atrial fibrillation in june 2012. He had a cardiac catheterization at [facility] in 2011 showed multiple disease and he underwent CABG x3 at [place]. Postop course was complicated with resulting 30 days inpatient in [facility]. He was intubated a couple of times. He had elevated pulmonary artery pressure and hypoxia shortly after intubation. He developed acute renal failure necessitating dialysis. He was on dialysis for a couple months. He is status post tracheostomy at that time. He also had a respiratory cultures positive for Stenotrophomonas status post completion of a 10-day course of Bactrim and also blood cultures grew Enterobacter and was placed on broad-spectrum antibiotics, cefepime, which was changed to Levaquin per ID.Since then his kidney function not totally recovered and also since then he has had multiple admissions for heart failure. Physical Exam (per Admitting): GENERAL: The patient is obese, not in distress. VITAL SIGNS: Temperature 36.6, pulse 71, respiratory rate 14, blood pressure 134/84, oxygen 94% room air. HEAD, EYES, EARS, NOSE, AND THROAT: No pallor, no icterus. Pupils equal, round react to light. NECK: No JVD, no neck masses, no carotid bruits. CARDIOVASCULAR: S1, S2 heard, regular rate and rhythm, no murmur, no gallop. RESPIRATORY SYSTEM: Normal AP diameter. No accessory muscle use. No wheezing, no crackles. ABDOMEN: Soft, bowel sounds present, nontender, mild distention seen. CENTRAL NERVOUS SYSTEM: Cranial nerves II-XII grossly intact. Nonfocal. EXTREMITIES: Bilateral lower extremity gross edema present +2, right lower extremity erythematous and hard. Hospital Course This is a 77-year-old male who presents with acute congestive heart failure. 1. 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 The patient is status post pacemaker. The patient failed outpatient treatment with increasing p.o. torsemide. diuresing well on iv lasix 40mg bid i/o negative 3lts so far to continue current tx appreciate cardiology and nephrology inputs. discharged on toresmide 30mg daily f/u wth pcp and cardiology 2. Acute renal failure on chronic kidney disease stage III. Baseline creatinine around 1.4-1.6. presented with 1.9. Started on IV diuretics for chf. cr 1.5 06/29/17 cr 1.7 on 06/30/17 - discharged on torsemide 30mg daily f/u labs with pcp 3. Diabetes. on insulin sliding scale. Follow hemoglobin A1c levels: 7.4. d/c on home meds 4. Pulmonary hypertension. Continue this Revatio . 5. Hypothyroidism. Continue Synthroid. 6. Hyperlipidemia. Continue Zocor. 7. Depression. Continue Zoloft. 8. Atrial fibrillation. Continue his amiodarone and digoxin. Continue his Coumadin. Follow PT/INR. INR 2.2 today. 9. Lower extremity cellulitis, with open sore on left thigh. placed on IV vancomycin . improving. d/salvador on doxycycline and po Augmentin. 10. Rheumatoid arthritis. Continue Plaquenil and prednisone. 11. Hypertension. On diuretics. on losartan. We will monitor the blood pressure. Discharged home Total time spent on discharge = 35MINUTES This includes examination of the patient, discharge planning, medication reconciliation, and communication with other providers. Discharge Instructions Discharge Instructions Date of Service Jun 30, 2017. Admission Reason for Admission: CHF Discharge Discharge Diagnosis / Problem: acute chf, arf, cellulitis Discharge Goals Goal(s): Decrease discomfort, Improve function Activity Recommendations Activity Limitations: resume your previous activity . Instructions / Follow-Up Instructions / Follow-Up FOLLOWUP WITH FAMILY DOCTOR Bryan Mcginnis ON June AT 12:45PM. FOLLOWUP WITH CARDIOLOGY SCHEDULED. LAB: BMP IN 4-5 DAYS AND FOLLOW RESULTS WITH FAMILY DOCTOR. CHANGE IN MEDICATION: CHANGED TORSEMIDE TO 30MG ONCE DAILY.( ONE AND HALF PILL OF 20MG TABLET). NEW ANTIBIOTICS FOR ONE WEEK COURSE: DOXYCYCLINE 100MG TWICE DAILY AUGMENTIN 875MG TWICE DAILY AND PROBIOTIC LACTINEX 2 TAB TWICE DAILY Call your Primary Care doctor if any of the following symptoms or problems start or get worse: * Shortness of breath or difficulty breathing * Wake up at night short of breath * Chest pain * Cough * Swelling of your hands, feet, or legs * More fatigued or tired with your normal activity * Palpitations - sudden fast heart beats WEIGHT * Weigh yourself every morning after using the bathroom. * Use the same scale. * Wear the same amount of clothing. * Write your weight down on a chart. * Call your Primary Care doctor if you gain more than 2-3 pounds in 1-2 days. MEDICATIONS * Use this discharge instruction sheet for medication instructions. * Take your medications at the time your doctor ordered. * Do not skip a dose of your medicines. * If you miss a dose of medicine, take it as soon as possible, but DO NOT DOUBLE A DOSE. * Read your medicine information when you get home. * Know all of the side effects of your medicine. If in doubt, ask your pharmacist * Call your Primary Care doctor's office if you have any side effects. * Be sure all of your doctors know what medicine and herbs you take (including cold, flu, and herbal medicine). Take the following with you to your follow-up doctor appointments: * Weight Chart * Medication List * List of questions Do not drink excessive alcohol, beer or wine. Current Hospital Diet Patient's current hospital diet: AHA Diet (Heart Healthy), Diabetes Type 2 Diet Discharge Diet Recommended Diet: AHA Diet (Heart Healthy), Diabetes Type 2 Diet Pending Studies Studies pending at discharge: no Laboratory Results Hemoglobin A1c Test 06/29/17 05:40 Range/Units Estimated Average Glucose 166 mg/dl Hemoglobin A1c 7.4 H 4.5-5.6 % Medical Emergencies . Who to Call and When: Call 911 or go to the Emergency Room if: * If at any time you feel your situation is an emergency * You have tightness or pain in your chest that does not go away with rest or Nitroglycerin * You are very short of breath even with rest . Non-Emergent Contact Non-Emergency issues call your: Primary Care Provider . . "Provider Documentation" section prepared by Yogesh Holbrook. . VTE Core Measure Inpt VTE Proph given/why not?: Warfarin (Coumadin)
[2017-06-30] MEDS ORDERED: BUDESONIDE 0.5 MG/2 ML VIAL (PULMICORT) INH SCH (20:00)
[2017-06-30] MEDS ORDERED: VANCOMYCIN INJ 1,750 MG in SODIUM CHLORIDE 0.9% 250ML 250 ML IV SCH (22:00)
[2017-07-17] MEDS ORDERED: ASPI-435 PO (02:23)
[2017-07-17] MEDS ORDERED: SILD1TAB20 PO (12:23)
[2017-07-17] MEDS ORDERED: CZR25 PO (12:23)
[2017-07-26] MEDS ORDERED: TORS20TA2 PO (11:00)
== END 2017-06-30 10:42 | disposition home health service (06) | DRG 291 ==
LOC: C.EDB 11:33 → C.2E 14:05 → ENRESERV 14:46
PROVIDERS: ADMIT Internal Medicine; ATTEND Internal Medicine
DX: I13.0 Hypertensive heart and chronic kidney disease with heart failure and stage 1 through stage 4 chronic kidney disease, or unspecified chronic kidney disease (principal); I50.41 Acute combined systolic (congestive) and diastolic (congestive) heart failure; N17.9 Acute kidney failure, unspecified; L03.116 Cellulitis of left lower limb; L03.115 Cellulitis of right lower limb; L97.909 Non-pressure chronic ulcer of unspecified part of unspecified lower leg with unspecified severity; I48.92 Unspecified atrial flutter; Z95.0 Presence of cardiac pacemaker; Z79.01 Long term (current) use of anticoagulants; I48.91 Unspecified atrial fibrillation; E11.40 Type 2 diabetes mellitus with diabetic neuropathy, unspecified; E78.5 Hyperlipidemia, unspecified; Z95.1 Presence of aortocoronary bypass graft; E03.9 Hypothyroidism, unspecified; N18.3 Chronic kidney disease, stage 3 (moderate); I27.2 Other secondary pulmonary hypertension; M06.9 Rheumatoid arthritis, unspecified; I44.7 Left bundle-branch block, unspecified

== ENCOUNTER 2017-07-11 13:12 | Emergency (ER) | payer OTHER ==
[~2017-07-11] VITALS: Ht 182.9 cm; Wt 95.3 kg
[~2017-07-11 13:12] MED LIST changes: +AMOX875T PO; +ATRINSX NEB; -BENZ100C84 PO; +CRD200 PO; -CZR50 PO; +DMD20 PO; +DOCU-94 PO; +DSY50 PO; -FURO-85 PO; +GABA-112 PO; +INSHNI SQ; -INSU0.01 SC; +LCTX PO; +LNX125 PO; +PLMINSR25 INH; -POTA20TA13 PO; -TPRSR25 PO; +XPNINS125 NEB
[2017-07-11 13:29] VITALS: TEMP 36.6; Ht 182.9 cm; Wt 95.3 kg
[2017-07-11 15:42] VITALS: BP 125/72; PULSE 71; O2SAT 96
--- NOTE | 2017-07-12 10:11 | EMERGENCY ROOM VISIT NOTE ---
ED Visit Note First contact with patient: 13:48 Chief Complaint: I accidentally cut part of my PICC line. History of Present Illness: Mr. Sanders is a 77-year-old white male who ambulates into the ED accompanied by a care provider. He reports he was trying to cut off a piece of string that was on the netting surrounding his PICC line and he accidentally cut off the distal aspect of the PICC line. Patient reports he has a PICC line in for antibiotic therapy. He has no other complaints at this time. There is no drainage from or bleeding from the PICC line. Review of Systems: As noted above in history of present illness. Past Medical History: (1) Anticoagulated on warfarin (2) Aortic stenosis (3) Atrial fibrillation (4) Balance disorder (5) Benign hypertension (6) CHF (congestive heart failure) (7) Chronic systolic heart failure (8) CKD (chronic kidney disease) stage 3, GFR 30-59 ml/min (9) Coronary artery disease (10) Depression (11) Diabetes mellitus type 2 (12) Diabetic peripheral neuropathy (13) Diabetic peripheral neuropathy associated with type 2 diabetes mellitus (14) Foot deformity (15) History of acute renal failure (16) History of diabetic ulcer of foot (17) History of MRSA infection of lungs (18) Hyperlipidemia (19) Hypothyroidism (20) LBBB (left bundle branch block) (21) Loss of sensation (22) Mild obstructive sleep apnea (23) Pulmonary hypertension (24) Rheumatoid arthritis (25) Secondary pulmonary hypertension Surgical Problems: (1) Status post A-V fisutla LUE (2) Status post coronary artery bypass grafting (3) Status post Maze operation for atrial fibrillation (4) Status post tracheostomy Current Medications: Medications Dose Route/Sig Max Daily Dose Days Date Category Dose Instructions Colace (Docusate Sodium) 100 Mg Cap 100 Mg PO DAILY 07/11/17 Reported Torsemide 20 Mg Tab 30 Mg PO DAILY 30 06/30/17 Rx Digoxin 0.125 Mg Tab 0.125 Mg PO Q2D 06/27/17 Rx Amiodarone HCl 200 Mg Tab 200 Mg PO DAILY 06/27/17 Rx Levalbuterol HCl (Levalbuterol) 1.25 Mg/3 Ml Nebu 3 Ml NEB TID PRN 06/27/17 Rx Atrovent 0.02% Soln (Ipratropium [place]) 2.5 Ml Nebu 2.5 Ml NEB TID PRN 06/27/17 Rx Neurontin (Gabapentin) 100 Mg Cap 200 Mg PO BID 06/27/17 Reported Sildenafil Citrate (Sildenafil Citrate (Pulmonary) 20 Mg Tab 20 Mg PO BID 06/27/17 Reported Losartan Potassium 25 Mg Tab 12.5 Mg PO DAILY 06/27/17 Reported Humulin N (Insulin Human NPH) 100 Units/Ml Susp 12 Units SQ BID 06/27/17 Reported Tylenol (Acetaminophen) 325 Mg Tab 650 Mg PO Q4H PRN 06/21/16 Reported NEEDED FOR MILD PAIN RATED 1-3 ON A SCALE OF "0-10" [place] Nasal [place] (Saline) 0.65 % Spr 2 Sprays NATALIO UD PRN 06/21/16 Reported Miralax (Polyethylene Glycol 3350) 1 Pow Pow 1 Pkt PO DAILY 06/21/16 Reported Warfarin Sodium 5 Mg Tab 5 Mg PO 5XWK 06/21/16 Reported Take on Monday, Monday, Monday, and Monday Warfarin Sodium 2.5 Mg Tab 2.5 Mg PO 2XWK 06/21/16 Reported Take on Monday and Monday Sertraline HCl 100 Mg Tab 100 Mg PO HS 06/21/16 Reported TAKE ONE 100 MG TABLET ALONG WITH ONE 25 MG TABLET TO EQUAL BEDTIME DOSE OF 125 MG Sertraline HCl 25 Mg Tab 25 Mg PO HS 06/21/16 Reported TAKE ONE 25 MG TABLET ALONG WITH ONE 100 MG TABLET TO EQUAL BEDTIME DOSE OF 125 MG Trazodone HCl 50 Mg Tab 50 Mg PO HS 06/21/16 Reported Pantoprazole Sodium (Pantoprazole) 40 Mg Tab 40 Mg PO DAILY 06/21/16 Reported Simvastatin 10 Mg Tab 10 Mg PO HS 06/21/16 Reported Calcitriol 0.25 Mcg Cap 0.25 Mcg PO 3XWK 06/21/16 Reported TAKE THIS MEDICATION EVERY MONDAY,MONDAY AND MONDAY. Prednisone 5 Mg Tab 5 Mg PO DAILY 06/21/16 Reported Hydroxychloroquine Sulfat (Hydroxychloroquine Sulfate) 200 Mg Tab 400 Mg PO HS 06/21/16 Reported Levothyroxine Sodium 112 Mcg Tab 112 Mcg PO DAILY 03/04/14 Reported Aspirin 81 (Aspirin) 81 Mg Tab 81 Mg PO HS 12/16/13 Reported Ultram (Tramadol HCl) 50 Mg Tab 50 Mg PO Q12 PRN 12/16/13 Reported Magnesium Oxide 400 Mg Cap 400 Mg PO HS 06/08/13 Reported Vitamin D 1000 Unit (Cholecalciferol) 1,000 Unit Cap 2,000 Inter.unit PO HS 06/08/13 Reported Pulmicort Respules 0.25MG/2ML (Budesonide) 0.25 Mg/2 Ml Nebu 2 Ml INH BID 09/10/12 Reported Allergies to Medications: Lisinopril. Social History: Patient is not employed; he feels safe in his home environment; he admits to tobacco use. Physical Examination: Vital Signs: Date Time Temp Pulse Resp B/P (MAP) Pulse Ox O2 Delivery O2 Flow Rate FiO2 07/11/17 15:42 71 18 125/72 96 07/11/17 13:29 36.6 86 16 102/61 94 Room Air GENERAL: 77-year-old male in distress, chronically ill-appearing, afebrile and hemodynamically stable. NEUROLOGICAL: Awake, alert and oriented to person and place. Answering questions appropriately and following commands. Good hand eye coordination. ED Course: Patient is assessed as noted above. Patient's medication list was reviewed. The IV team was contacted and evaluated the patient; they recommended replacing the line. Patient's case was reviewed with Dr. Bustillos; she consented the patient for replacement of his PICC line per IV team completed PICC line insertion without complication. Patient and care provider were educated about today's findings and instructed on his treatment plan; they verbalized understanding and agreement with this plan. Clinical Impression: PICC line replacement. Disposition: Patient discharged with his care provider in stable condition; he remained symptom-free. Plan: Was encouraged that patient continue his current medications. IV team had written instructions for PICU on use and they were encouraged to follow these recommendations. Was encouraged that the patient return to the ED or follow-up with his PCP as needed.
[2017-07-17] MEDS ORDERED: ASPI-435 PO (02:23)
[2017-07-17] MEDS ORDERED: SILD1TAB20 PO (12:23)
[2017-07-17] MEDS ORDERED: CZR25 PO (12:23)
[2017-07-26] MEDS ORDERED: TORS20TA2 PO (11:00)
== END 2017-07-11 15:42 | disposition home or self-care (01) ==
LOC: C.EDB 13:15 → C.EDD 15:42
DX: Z45.2 Encounter for adjustment and management of vascular access device (principal); I48.91 Unspecified atrial fibrillation; I13.0 Hypertensive heart and chronic kidney disease with heart failure and stage 1 through stage 4 chronic kidney disease, or unspecified chronic kidney disease; I50.22 Chronic systolic (congestive) heart failure; N18.3 Chronic kidney disease, stage 3 (moderate); M06.9 Rheumatoid arthritis, unspecified; I27.2 Other secondary pulmonary hypertension; F32.9 Major depressive disorder, single episode, unspecified; E03.9 Hypothyroidism, unspecified; I25.10 Atherosclerotic heart disease of native coronary artery without angina pectoris; E78.5 Hyperlipidemia, unspecified; E11.42 Type 2 diabetes mellitus with diabetic polyneuropathy; Z72.0 Tobacco use; Z86.14 Personal history of Methicillin resistant Staphylococcus aureus infection; Z93.0 Tracheostomy status; Z95.1 Presence of aortocoronary bypass graft; Z98.890 Other specified postprocedural states; Z79.01 Long term (current) use of anticoagulants; Z79.4 Long term (current) use of insulin; Z79.52 Long term (current) use of systemic steroids; Z79.82 Long term (current) use of aspirin; Z79.899 Other long term (current) drug therapy

== ENCOUNTER → 2017-07-12 | Outpatient (CLI) | payer OTHER ==
[~2017-07-12] MED LIST changes: +ACET-1311 PO; +AMIO200T4 PO; -AMOX875T PO; +ASPI-435 PO; +ATRINSX INH; +CALC1CAP36 PO; +CHOL100027 PO; +CZR25 PO; +INSU1INJ23 SC; -LCTX PO; +LEVO112T4 PO; +MAGN400C2 PO; +NRN100 PO; +PLQ200 PO; +POLY335019 PO; +PRED-301 PO; +PRT/40 PO; +SALI0.6510 NAE; +SERT1TAB88 PO; +SILD1TAB20 PO; +SIMV-150 PO; +TORS10TA14 PO; +TORS20TA2 PO; +TRAZ1TAB5 PO; +ULT50 PO; +WARF-246 PO; +WARF-280 PO; +XPNINS125 INH; +ZLF/100 PO
[2017-07-12 18:03] LABS: ALT/SGPT 19 U/L (12-78); BLOOD UREA NITROGEN 45 mg/dl (7-18); BUN/CREATININE RATIO 24.9 (10-20); CARBON DIOXIDE 32 mmol/L (21-32); CHLORIDE 104 mmol/L (98-107); GLUCOSE 109 mg/dl (70-99); POTASSIUM 4.2 mmol/L (3.5-5.1); SODIUM 140 mmol/L (136-145)
[2017-07-12 18:06] LABS: ALB/GLOB RATIO 0.8 (0.9-2); ALKALINE PHOSPHATASE 114 U/L (45-117); AST/SGOT 22 U/L (15-37)
[2017-07-12 19:11] LABS: HEMATOCRIT 31.8 % (42-52); MEAN CELL VOLUME 77.9 fL (80-100); MEAN CORPUSCULAR HEMOGLOBIN 21.1 pg (25-34); PLATELET COUNT 124 K/uL (130-400); RED BLOOD COUNT 4.08 M/uL (4.7-6.1); WHITE BLOOD COUNT 6.89 K/uL (4.8-10.8)
[2017-07-12 19:12] LABS: PLT ESTIMATE DECREASED
== END | disposition home or self-care (01) ==
LOC: C.LABSPEC 06:35
PROVIDERS: ATTEND Internal Medicine Infectious Disease

== ENCOUNTER 2017-07-17 15:14 | Inpatient (IN) | payer OTHER ==
[2017-07-17] VITALS (17 sets, daily range): BP systolic 114–138; BP diastolic 50–83; PULSE 70–74; TEMP 36–37.3; O2SAT 90–100; Ht 182.9 cm; Wt 93.9 kg
[~2017-07-17] VITALS: Ht 182.9 cm; Wt 93.9 kg
[~2017-07-17 15:14] MED LIST changes: -ACET-1311 PO; -AMIO200T4 PO; -ATRINSX INH; -CALC1CAP36 PO; -CHOL100027 PO; -DOCU-94 PO; -INSU1INJ23 SC; -LEVO112T4 PO; -MAGN400C2 PO; -NRN100 PO; -PLQ200 PO; -POLY335019 PO; -PRED-301 PO; -PRT/40 PO; -SALI0.6510 NAE; -SERT1TAB88 PO; -SIMV-150 PO; -TORS10TA14 PO; -TORS20TA2 PO; -TRAZ1TAB5 PO; -ULT50 PO; -WARF-246 PO; -WARF-280 PO; -XPNINS125 INH; -ZLF/100 PO
[2017-07-17] MEDS ORDERED: DOCU-94 PO (15:31)
[2017-07-17] MEDS ORDERED: OXYMETAZOLINE HCL 0.05% NA SPR 15 ML BTL ONE (15:45)
[2017-07-17] MEDS ORDERED: LIDOCAINE/EPINEPHRINE 1% 20 ML VIAL INFIL ONE (15:45)
[2017-07-17] MEDS ORDERED: LEVO112T4 PO (16:15)
[2017-07-17 16:41] LABS: VEN BLD GAS O2 SATURATION 92.5 %
[2017-07-17] MEDS ORDERED: OPTIRAY 320 IV PRN (16:45)
[2017-07-17] MEDS ORDERED: NRN100 PO (16:56)
[2017-07-17] MEDS ORDERED: INSU1INJ23 SC (16:56)
[2017-07-17] MEDS ORDERED: ULT50 PO (16:56)
[2017-07-17] MEDS ORDERED: TORS20TA2 PO (16:56)
[2017-07-17] MEDS ORDERED: TRAZ1TAB5 PO (16:59)
[2017-07-17] MEDS ORDERED: AMIO200T4 PO (17:01)
[2017-07-17] MEDS ORDERED: LNX125 PO (17:01)
[2017-07-17 17:05] LABS: BUN/CREATININE RATIO 27.7 (10-20); CALCIUM 8.5 mg/dl (8.5-10.1); CREATININE 1.7 mg/dl (0.60-1.40); MAGNESIUM 2.5 mg/dl (1.8-2.4); POTASSIUM 4.2 mmol/L (3.5-5.1)
[2017-07-17] MEDS ORDERED: SODIUM CHLORIDE 0.9% 500ML 500 ML IV STA (17:09)
--- NOTE | 2017-07-17 17:15 | DIAGNOSTIC IMAGING REPORT ---
CHEST ONE VIEW PORTABLE HISTORY: 77 years-old Male s/p fall acute chest injury status post fall. Initial exam. COMPARISON: Chest radiograph 07/07/2017 TECHNIQUE: Portable upright AP view of the chest FINDINGS: Cardiac silhouette is moderately enlarged, unchanged. Left atrial appendage exclusion device is seen. Left subclavian pacer is seen with leads intact. Prior median sternotomy. There is atherosclerosis of the aorta. There is prominent vascular congestion without overt pulmonary edema. No pneumothorax or pleural effusion. Chronic left basilar opacity is noted suggesting atelectasis or scarring. There has been interval removal of the right-sided PICC. IMPRESSION: 1. Cardiomegaly and pulmonary vascular congestion without overt pulmonary edema. 2. Interval removal of the right-sided PICC. The above report was generated using voice recognition software. It may contain grammatical, syntax or spelling errors. Electronically signed by: Ad Bello M.D. 07/17/2017 5:14 PM Dictated Date/Time: 07/17/2017 5:12 PM
[2017-07-17 17:21] LABS: HEMATOCRIT 25.2 % (42-52); MEAN CELL VOLUME 76.6 fL (80-100); MEAN CORPUSCULAR HEMOGLOBIN 20.7 pg (25-34); PLATELET COUNT 141 K/uL (130-400); RED BLOOD COUNT 3.29 M/uL (4.7-6.1); WHITE BLOOD COUNT 8.99 K/uL (4.8-10.8)
[2017-07-17 17:22] LABS: ANISOCYTOSIS PRESENT; BASO % 0.3 %; BASO ABS # 0.03 K/uL (0-0.2); COMPLETE YES; EOS % 0.7 %; HYPOCHROMIA PRESENT; IG% 0.4 %; LYMPH % 8.7 %; LYMPH ABS # 0.78 K/uL (1.2-3.4); MICROCYTOSIS PRESENT; MONO % 8.3 %; NEUT % 81.6 %; OVALOCYTES 1+; PLT ESTIMATE NORMAL; POLYCHROMASIA 1+; SCHISTOCYTES OCCASIONAL
--- NOTE | 2017-07-17 17:53 | DIAGNOSTIC IMAGING REPORT ---
HEAD WITHOUT CONTRAST (CT) CLINICAL HISTORY: 77 years-old Male with fall on coumadin, epistaxis. Acute fall while on anticoagulation therapy. Head injury. Initial exam. TECHNIQUE: Multiple axial CT images of the head were obtained without contrast. A dose lowering technique was utilized adhering to the principles of ALARA. COMPARISON: CT head 06/12/2009. FINDINGS: No acute intracranial hemorrhage, midline shift, mass, large territorial ischemia or abnormal extra-axial collection. There is mild atrophy with ex vacuo ventriculomegaly. The calvarium is intact. The mastoid air cells and middle air cavities are generally clear with the exception of a trace left mastoid effusion. Moderate air-fluid levels are seen within the maxillary sinuses. There is apparent nasogastric tube present within the right turbinate. IMPRESSION: 1. No acute intracranial abnormality. 2. Moderate paranasal sinus disease The above report was generated using voice recognition software. It may contain grammatical, syntax or spelling errors. Electronically signed by: Ad Bello M.D. 07/17/2017 5:52 PM Dictated Date/Time: 07/17/2017 5:48 PM
[2017-07-17 17:58] LABS: INR 3.1 (0.9-1.1); PARTIAL THROMBOPLASTIN RATIO 1.5; PROTHROMBIN TIME (PATIENT) 34.2 SECONDS (9.0-12.0)
--- NOTE | 2017-07-17 17:59 | DIAGNOSTIC IMAGING REPORT ---
FACIAL BONES-MXILLOFAC WITHOUT CLINICAL HISTORY: 77 years-old Male presenting with fall, prolonged epistaxis. Acute fall with facial trauma. COMPARISON STUDY: CT head and cervical spine of same day. TECHNIQUE: High-resolution CT scan of the facial bones is performed. Images are reviewed in the axial, sagittal, and coronal planes. IV contrast was not administered for this examination. A dose lowering technique was utilized adhering to the principles of ALARA. FINDINGS: The zygomatic arches, pterygoid plates, maxillary brody, orbital brody and mandible appear intact. Moderate degenerative changes of the temporomandibular joints are noted. There is an acute minimally displaced fracture of the right nasal bone with acute nondisplaced left nasal bone fracture also noted. The nasal septum and vomer appear to be intact. Moderate mucosal thickening involves the paranasal sinuses with hemorrhage and air-fluid levels present within the bilateral maxillary sinuses. Hemorrhage and mucosal thickening seen within the ethmoid air cells and nasal turbinates. Tube devices are present within the bilateral nasal turbinates. Moderate degree of secretions are seen within the nasopharynx. Moderate soft tissue swelling surrounds the nasal bone fractures. Negative for opaque foreign body. Orbits are symmetric. Remaining soft tissues are unremarkable. Multilevel degenerative changes of the cervical spine are noted. IMPRESSION: 1. Acute bilateral nasal bone fractures with mild displacement on the right. Moderate degree of associated hemorrhage and mucosal thickening is seen within the paranasal sinuses with air-fluid levels of the bilateral maxillary sinuses. 2. No additional acute facial bone fracture or dislocation identified. 3. Moderate degenerative changes of the bilateral temporomandibular joints. The above report was generated using voice recognition software. It may contain grammatical, syntax or spelling errors. Electronically signed by: Ad Bello M.D. 07/17/2017 5:57 PM Dictated Date/Time: 07/17/2017 5:52 PM
--- NOTE | 2017-07-17 18:08 | DIAGNOSTIC IMAGING REPORT ---
CHEST CT WITH CONTRAST HISTORY: Acute fall while on Coumadin therapy. Patient presents with abdominal wall bruising. Initial exam. s/p fall on coumadin TECHNIQUE: Multiaxial CT images of the chest were performed following the intravenous administration of 65 mL Optiray 320 IV contrast. A dose lowering technique was utilized adhering to the principles of ALARA. COMPARISON: CT abdomen and pelvis 06/21/2016. FINDINGS: Right lobe of the thyroid is asymmetrically enlarged compared to the left. Punctate calcifications are seen within the left thyroid lobe. Findings suggest multinodular thyroid. Scattered nonenlarged lymph nodes are seen about the mediastinum. No pathologic adenopathy by CT size criteria. Left subclavian pacer is present with leads intact. There is moderate enlargement of the heart, notably involving the right heart. Prior median sternotomy and CABG with [place] coronary arterial calcifications seen. Annular calcifications involving the aortic and mitral valves. Moderate atherosclerotic plaquing is seen within the aorta. No evidence of vascular injury. There is no pneumothorax. Small left pleural effusion is noted. Bilateral partially calcified pleural plaques are seen with unchanged pleural based consolidative opacity of the medial basal left lower lobe, 4.9 cm which appears stable from 06/21/2016 suggesting round atelectasis. Additional pleural plaques with areas of atelectasis are seen bilaterally. Centrilobular opacities are noted within a subsegmental distribution within the right upper and lower lobes the lesser extent within the left lower lobe.. The questioned 10 mm nodule of the inferior segment lingula is not identified. Moderate layering secretions are seen within the airway Abdominal structures demonstrate trace perihepatic ascites with marginal nodularity of the liver suggesting cirrhosis. Soft tissues are unremarkable. Evaluation of the bony structures demonstrates no acute fracture. No compression deformity there appears to be chronic nonunion of the midline sternotomy. IMPRESSION: 1. No acute posttraumatic abnormality of the chest identified. No pneumothorax or fracture identified. 2. Bilateral pleural plaques redemonstrated with round atelectasis of the left lower lobe. Findings suggest prior asbestos exposure. 3. Centrilobular subsegmental groundglass opacities of the bilateral lower lobes and right upper lobe suggest pneumonitis. Moderate degree of layering secretions are seen in the airway. Correlate with clinical history to exclude aspiration pneumonitis. 4. Cardiomegaly. 5. Trace left pleural effusion. 6. Cirrhosis with trace perihepatic ascites partially imaged. Electronically signed by: Ad Bello M.D. 07/17/2017 6:06 PM Dictated Date/Time: 07/17/2017 5:57 PM
--- NOTE | 2017-07-17 18:12 | DIAGNOSTIC IMAGING REPORT ---
CERVICAL SPINE W/O CLINICAL HISTORY: 77 years-old Male with fall on coumadin. Acute neck injury status post fall. Initial exam. COMPARISON: None. TECHNIQUE: Multiple axial CT images of the cervical spine were obtained without contrast. A dose lowering technique was utilized adhering to the principles of ALARA. FINDINGS: No acute fracture or subluxation of the cervical spine. The bones are mildly demineralized. Multilevel facet arthropathy and uncovertebral spurring is noted. Posterior intervertebral disc space narrowing is most pronounced at the C5-C6 interspace. Degenerative changes are noted about C1-C2. No high-grade central canal or foraminal narrowing identified, however CT is suboptimal in evaluating these findings. No pneumothorax. There is atherosclerotic plaquing the bilateral carotid bulbs. Layering secretions are seen within the nasopharynx. There is moderate sphenoid sinus disease. Mastoid air cells and middle ear cavities are clear. IMPRESSION: 1. No acute cervical spine fracture or subluxation. 2. Multilevel facet arthropathy and uncovertebral spurring. Posterior intervertebral disc space narrowing is most pronounced at C5-C6. The above report was generated using voice recognition software. It may contain grammatical, syntax or spelling errors. Electronically signed by: Ad Bello M.D. 07/17/2017 6:10 PM Dictated Date/Time: 07/17/2017 6:06 PM
[2017-07-17] MEDS ORDERED: CLINDAMYCIN 600 MG/54 ML D5W IV ONE (18:15)
[2017-07-17] MEDS ORDERED: PHYTONADIONE INJ 10 MG in SODIUM CHLORIDE 0.9% 50ML 50 ML IV ONE (18:15)
--- NOTE | 2017-07-17 18:19 | DIAGNOSTIC IMAGING REPORT ---
ABD/PELVIS IV CONTRAST ONLY HISTORY: 77 years-old Male s/p fall on coumadin, abdominal wall bruising acute fall with abdominal wall bruising. Patient is currently on anticoagulation therapy. COMPARISON: CT abdomen and pelvis 06/21/2016, CT chest of same day. TECHNIQUE: Multiple axial CT images of the abdomen and pelvis were obtained following intravenous administration of 65 mL Optiray 320. A dose lowering technique was used consistent with the principals of GRETCHEN. FINDINGS: Small bilateral pleural effusions are again noted with redemonstration of pleural plaques and round atelectasis of the medial left lower lobe, 5.[address] chest same day for further details. Centrilobular opacities of the lung bases are noted. Unchanged 7 mm nodular opacity of the left lung base is again seen suggesting scarring. There is no pneumoperitoneum. Marked enlargement of the heart is again seen as described on chest CT of same day. Heterogeneous appearance of the liver is noted with marginal nodularity suggesting cirrhosis. Mild perihepatic ascites is noted. Gallbladder is mildly contracted. The spleen, pancreas and adrenal glands are within normal limits. Cyst of the medial interpolar left kidney is seen, 2.4 cm. Kidneys are otherwise within normal limits. Ureters and urinary bladder are unremarkable. No significant prostate enlargement. There is moderate to extensive atherosclerotic plaquing of the abdominal aorta. No bulky retroperitoneal adenopathy or retroperitoneal hematoma. Small sliding type hiatal hernia. No bowel obstruction or focal bowel wall thickening. Scattered colonic diverticulosis without diverticulitis. Trace ascites tracks along the paracolic gutters. Moderate stool burden. Appendix not seen, no secondary signs of acute appendicitis. Small fat filled umbilical hernia is seen, diastases 1.7 cm. Mild diffuse body wall edema is present. 6 mm sclerotic focus of the posterior right iliac bone is seen suggesting bone island. Severe multilevel degenerative changes of the lumbar spine is seen without acute fracture. IMPRESSION: 1. No acute intra-abdominal or intrapelvic abnormality identified. No evidence of solid organ injury or fracture. 2. Evidence of cirrhotic liver disease with trace intra-abdominal and intrapelvic ascites. 3. Colonic diverticulosis without diverticulitis. 4. Small bilateral pleural effusions with left lung base round atelectasis. Superimposed centrilobular nodules of the lung bases suggest pneumonitis, further evaluated on CT chest of same day. 5. Cardiomegaly. 6. No evidence of retroperitoneal hematoma. The above report was generated using voice recognition software. It may contain grammatical, syntax or spelling errors. Electronically signed by: Ad Bello M.D. 07/17/2017 6:18 PM Dictated Date/Time: 07/17/2017 6:11 PM
[2017-07-17] MEDS ORDERED: CLINDAMYCIN IV 900 MG in DEXTROSE 5% ADD-VANTAGE 100ML 100 ML IV SCH (18:30)
[2017-07-17] MEDS ORDERED: PRED-301 PO (18:45)
[2017-07-17] MEDS ORDERED: PLQ200 PO (18:45)
[2017-07-17] MEDS ORDERED: ZLF/100 PO (18:45)
[2017-07-17] MEDS ORDERED: PRT/40 PO (18:45)
[2017-07-17] MEDS ORDERED: SIMV-150 PO (18:45)
[2017-07-17] MEDS ORDERED: SERT1TAB88 PO (18:45)
[2017-07-17] MEDS ORDERED: CALC1CAP36 PO (18:45)
[2017-07-17] MEDS ORDERED: WARF-246 PO (18:55)
[2017-07-17] MEDS ORDERED: WARF-280 PO (18:55)
[2017-07-17] MEDS ORDERED: POLY335019 PO (18:59)
[2017-07-17] MEDS ORDERED: SALI0.6510 NAE (18:59)
[2017-07-17] MEDS ORDERED: ACET-1311 PO (19:01)
[2017-07-17] MEDS ORDERED: ONDANSETRON INJ 2 MG/ML 2 ML VIAL IV PRN (19:15)
[2017-07-17] MEDS ORDERED: POLYETHYLENE (MIRALAX) 17 GM PACK PO PRN (19:15)
--- NOTE | 2017-07-17 21:10 | History and Physical ---
History & Physical Date & Time of Service: Jul 17, 2017 at 20:54 Chief Complaint: Fall, Severe Epistaxis Primary Care Physician: Bryan Valerio MD History of Present Illness Source: patient, family Patient is a 77 yo male who was brought the ER today for complaints of fall and severe epistaxis that ensued right after. The patient states he was on his tractor cutting grass earlier today when it ran out of gas, he parked it and began walking up a ramp into his apartment when he had a slight feeling of dizziness so he went to reach for the hand rail on the ramp and missed, and ended up falling on his right side across the ramp, his abdomen was against the edge of the ramp and half his body was in the flower bed next to the ramp. His daughter lives in the same building and another daughter right next door; they attempted to hold pressure but the bleeding did not stop so they came to the ER. The patient was bleeding from his nose close to 90 minutes before he came to the ER and had rocket packing placed. He denies feeling any bleeding in his posterior pharynx any longer. States he did not feel any difficulty breathing until after the epistaxis occurred. He denied any CP or additional dizziness/ lightheadedness. He denies any symptoms of palpitations, DIETRICH, N/V/D, melena, hematochezia, urinary symptoms, or fever/chills. He states he has a slight headache now after the fall but otherwise has no complaints. He reports having some difficulty breathing since the fall as well which he relates to feeling irritation/mucus and probably blood in his airway that he can't seem to expectorate. Past Medical/Surgical History Medical Problems: (1) Anticoagulated on warfarin Status: Chronic (2) Aortic stenosis Permanent Comment: moderate on echo 03/17/2016 Status: Chronic (3) Atrial fibrillation Status: Chronic (4) Benign hypertension Status: Chronic (5) Chronic systolic heart failure Permanent Comment: LV EF 45-49% by echo 03/17/2016 Status: Chronic (6) CKD (chronic kidney disease) stage 3, GFR 30-59 ml/min Permanent Comment: baseline creatinine 1.5 12/30/13 Status: Chronic (7) Coronary artery disease Status: Chronic (8) Depression Status: Chronic (9) Diabetes mellitus type 2 Status: Chronic (10) Diabetic peripheral neuropathy Status: Chronic (11) History of acute renal failure Permanent Comment: required hemodialysis 2012 after CABG Status: Chronic (12) History of MRSA infection of lungs Status: Chronic (13) Hyperlipidemia Status: Chronic (14) Hypothyroidism Status: Chronic (15) Mild obstructive sleep apnea Status: Chronic (16) Pulmonary hypertension Status: Chronic (17) Rheumatoid arthritis Status: Chronic (18) Secondary pulmonary hypertension Status: Chronic Surgical Problems: (1) Status post A-V fisutla LUE Status: Chronic (2) Status post coronary artery bypass grafting Permanent Comment: 06/01/12 [facility] [place] Dr. Frank CABG x 3 PERSAUD - LAD, SVG - PL, SVG - PDA Status: Chronic (3) Status post Maze operation for atrial fibrillation Permanent Comment: 06/01/12 [facility] [place] Dr. Frank Status: Chronic (4)Pacemaker placement (5) Status post tracheostomy Permanent Comment: after CABG 2011 Status: Chronic Family History FH: COPD (chronic obstructive pulmonary disease) FATHER SISTER SISTER FH: coronary artery disease MOTHER FH: diabetes mellitus SISTER FH: heart disease BROTHER BROTHER BROTHER SISTER Social History Smoking Status: Never Smoker Drug Use: none Marital Status: Housing status: lives with family Occupational Status: retired Immunizations History of Influenza Vaccine: Yes Influenza Vaccine Date: Aug 08, 2013 History of Tetanus Vaccine?: Yes Tetanus Immunization Date: Jun 09, 2012 History of Pneumococcal: Yes Pneumococcal Date: Oct 08, 2012 History of Hepatitis B Vaccine: No Multi-Drug Resistant Organisms History of MDRO: Yes Type of MDRO: MRSA, CRE Allergies Coded Allergies: Lisinopril (Unverified Allergy, Unknown, dizzy, 07/11/17) Home Medications Scheduled Amiodarone Hcl (Cordarone), 200 MG PO DAILY Aspirin (Aspirin 81), 81 MG PO QAM Budesonide (Pulmicort Respules 0.25MG/2ML), 2 ML INH BID Calcitriol (Calcitriol), 0.25 MCG PO 3XWK Cholecalciferol (Vitamin D 1000 Unit), 2,000 INTER.UNIT PO HS Digoxin (Digoxin), 0.125 MG PO Q2D Docusate Sodium (Colace), 100 MG PO DAILY Gabapentin (Gabapentin), 200 MG PO BID Hydroxychloroquine Sulfate (Hydroxychloroquine Sulfat), 400 MG PO HS Insulin Isophane (Human) (Humulin N Kwikpen), 12 UNITS SC BID Levothyroxine Sodium (Levothyroxine Sodium), 112 MCG PO DAILY Losartan Potassium (Losartan Potassium), 12.5 MG PO DAILY Magnesium Oxide (Magnesium Oxide), 400 MG PO HS Pantoprazole (Pantoprazole Sodium), 40 MG PO DAILY Polyethylene Glycol 3350 (Miralax), 1 PKT PO DAILY Prednisone (Prednisone), 5 MG PO DAILY Sertraline HCl (Sertraline HCl), 25 MG PO HS Sertraline HCl (Sertraline HCl), 100 MG PO HS Sildenafil Citrate (Pulmonary (Sildenafil Citrate), 20 MG PO BID Simvastatin (Simvastatin), 10 MG PO HS Torsemide (Demadex), 20 MG PO DAILY Trazodone Hcl (Desyrel), 25-50 MG PO HS Warfarin Sodium (Warfarin Sodium), 2.5 MG PO 2XWK Warfarin Sodium (Warfarin Sodium), 5 MG PO 5XWK Scheduled PRN Acetaminophen (Tylenol), 650 MG PO Q4H PRN for Mild Pain Ipratropium Iroquois (Atrovent 0.02% Soln), 2.5 ML NEB TID PRN for SOB/Wheezing Levalbuterol (Levalbuterol HCl), 3 ML NEB TID PRN for SOB/Wheezing Saline (Hart[place] Nasal Souris), 2 SPRAYS NATALIO UD PRN for Nasal Dryness/Congestion Tramadol HCl (Tramadol HCl), 50 MG PO Q12 PRN for Pain Review of Systems 10 systems reviewed; pertinent positives are in the HPI, all other reviewed systems negative Physical Exam Vital Signs Date Time Temp Pulse Resp B/P (MAP) Pulse Ox O2 Delivery O2 Flow Rate FiO2 07/17/17 20:53 36.4 70 18 120/66 99 07/17/17 19:39 36.0 70 20 134/71 100 5.0 07/17/17 19:11 36.2 70 21 120/69 100 Partial Rebreather 5.0 Mask 07/17/17 19:10 36.7 70 21 120/69 100 5.0 07/17/17 18:48 70 20 121/70 99 Oxymask 5.0 07/17/17 18:45 36.3 70 20 125/69 99 5.0 07/17/17 18:34 36.5 70 18 138/72 99 5.0 07/17/17 18:27 36.6 70 18 114/63 98 5.0 07/17/17 18:16 36.6 70 22 119/67 94 0.0 07/17/17 18:10 99 Oxymask 5.0 07/17/17 18:09 36.7 70 22 119/67 100 11.0 07/17/17 17:46 70 20 107/53 100 Non-Rebreather 11.0 07/17/17 17:04 70 15 107/53 99 Partial Rebreather 11.0 07/17/17 16:54 70 07/17/17 15:18 71 20 102/57 87 Room Air General Appearance: WD/WN, no apparent distress Head: normocephalic, + evidence of trama Eyes: PERRL, EOMI, sclerae normal ENT: hearing grossly normal, + nasal drainage (bilateral rhinorockets with dried blood surrounding the packs), + trismus Neck: supple, no JVD, no carotid bruits, trachea midline Respiratory/Chest: chest non-tender, no respiratory distress, no accessory muscle use, + decreased breath sounds Cardiovascular: regular rate, rhythm, no edema, no gallop, + systolic murmur, + abnormal peripheral pulses (LE distal pulses not palpable) Abdomen/GI: normal bowel sounds, non tender, soft, no organomegaly Back: normal inspection, no CVA tenderness Extremities/Musculoskelatal: no calf tenderness, normal capillary refill, no pedal edema, non-tender Neurologic/Psych: no motor/sensory deficits, alert, normal mood/affect, oriented x 3 Skin: warm/dry, no rash, + pallor Diagnostics Laboratory Results Results Past 24 Hours Test 07/17/17 16:23 07/17/17 16:32 Range/Units White Blood Count 8.99 4.8-10.8 K/uL Red Blood Count 3.29 4.7-6.1 M/uL Hemoglobin 6.8 14.0-18.0 g/dL Hematocrit 25.2 42-52 % Mean Corpuscular Volume 76.6 80-100 fL Mean Corpuscular Hemoglobin 20.7 25-34 pg Mean Corpuscular Hemoglobin Concent 27.0 32-36 g/dl Platelet Count 141 130-400 K/uL Neutrophils (%) (Auto) 81.6 % Lymphocytes (%) (Auto) 8.7 % Monocytes (%) (Auto) 8.3 % Eosinophils (%) (Auto) 0.7 % Basophils (%) (Auto) 0.3 % Neutrophils # (Auto) 7.33 1.4-6.5 K/uL Lymphocytes # (Auto) 0.78 1.2-3.4 K/uL Monocytes # (Auto) 0.75 0.11-0.59 K/uL Eosinophils # (Auto) 0.06 0-0.5 K/uL Basophils # (Auto) 0.03 0-0.2 K/uL RDW Standard Deviation 56.8 36.4-46.3 fL RDW Coefficient of Variation 20.5 11.5-14.5 % Immature Granulocyte % (Auto) 0.4 % Immature Granulocyte # (Auto) 0.04 0.00-0.02 K/uL Nucleated RBC Absolute Count (auto) 0.07 0-0 K/uL Nucleated Red Blood Cells % 0.8 % Platelet Estimate NORMAL Polychromasia 1+ Hypochromasia PRESENT Anisocytosis PRESENT Microcytosis PRESENT Ovalocytes 1+ Schistocytes OCCASIONAL Prothrombin Time 34.2 9.0-12.0 SECONDS Prothromb Time International Ratio 3.1 0.9-1.1 Activated Partial Thromboplast Time 37.8 21.0-31.0 SECONDS Partial Thromboplastin Ratio 1.5 Venous Blood pH 7.38 7.36-7.41 Venous Blood Partial Pressure CO2 46 38.0-50.0 mmHg Venous Blood Partial Pressure O2 78 mmHg Venous Blood HCO3 26 mmol/L Venous Blood Oxygen Saturation 92.5 % Venous Blood Base Excess 1.0 mEq/L Sodium Level 141 136-145 mmol/L Potassium Level 4.2 3.5-5.1 mmol/L Chloride Level 106 98-107 mmol/L Carbon Dioxide Level 28 21-32 mmol/L Anion Gap 7.0 3-11 mmol/L Blood Urea Nitrogen 47 7-18 mg/dl Creatinine 1.70 0.60-1.40 mg/dl Est Creatinine Clear Calc Drug Dose 38.7 ml/min Estimated GFR () 43.5 Estimated GFR (Non- 37.5 BUN/Creatinine Ratio 27.7 10-20 Random Glucose 103 70-99 mg/dl Calcium Level 8.5 8.5-10.1 mg/dl Magnesium Level 2.5 1.8-2.4 mg/dl Total Bilirubin 0.5 0.2-1 mg/dl Direct Bilirubin 0.3 0-0.2 mg/dl Aspartate Amino Transf (AST/SGOT) 20 15-37 U/L Alanine Aminotransferase (ALT/SGPT) 18 12-78 U/L Alkaline Phosphatase 109 45-117 U/L Troponin I 0.038 0-0.045 ng/ml Pro-B-Type Natriuretic Peptide 1743 0-1800 pg/ml Total Protein 6.6 6.4-8.2 gm/dl Albumin 3.0 3.4-5.0 gm/dl Bedside Lactic Acid Venous 1.31 0.90-1.70 mmol/L Impression Assessment and Plan ACUTE BLOOD LOSS ANEMIA FROM EPISTAXIS: -has nasal packing placed in the ER which have tamponaded the epistaxis -recheck CBC in AM -receiving transfusion with 2 unit PRBCs -baseline Hb in 9's FALL: -due to dizziness and inability to grab onto the hand rail while the patient was walking up a ramp -monitor in tele -pacemaker interrogation (recently placed) -obtain serial CM -check orthostatics HYPOXIA: -likely secondary to pneumonitis as per CT chest -no PE -questionable aspiration during the epistaxis -will continue clindamycin to cover for open nasal bone fracture as well as possibility of aspiration CHRONIC SYSTOLIC CHF: -CXR negative -last TTE EF 30-34% -daily weights -monitor intake and output -not in exacerbation at this time -continue fluid restriction CKD STAGE III: -recent baseline creatinine of 1.6-1.7; at baseline presently -has had prior history of chf exacerbation and cardiorenal syndrome -monitor fluid status and renal function closely ATRIAL FIBRILLATION: -was on warfarin, INR supratherapeutic; Dr. Montero spoke with Cardiology and were ok with reversing INR; hold coumadin until epistaxis and Hb stable -s/p pacemaker -s/p maze (in 2011) -continued on amiodarone and digoxin; check dig level HTN: -stable -continue losartan -monitor and titrate PULMONARY HTN: -continue revatio CHRONIC THROMBOCYTOPENIA: -platelet count stable -monitor DM TYPE II: -last HbA1c -at home on insulin isophane; will hold and use lantus + SSI CHRONIC LLE WOUND INFECTION: -on invanz for 4 more days -has a PICC line -follows with ID and wound care clinic CAD: -prior history of CABG -continue aspirin and statin -not on BB due to intolerance/bradycardia HYPOTHYROIDISM: -continue levothyroxine CECILIA: -cpap qHS RA: -continue hydroxychloroquine and prednisone DEPRESSION: -continue sertraline and trazodone VTE Prophylaxis VTE Risk Assessment Done? Y/N: Yes Risk Level: Moderate
[2017-07-17] MEDS ORDERED: GLUCOSE 10 TABS/TUBE PO PRN (21:45)
[2017-07-17] MEDS ORDERED: LEVALBUTEROL 1.25MG/3ML NEB INH PRN (21:45)
[2017-07-17] MEDS ORDERED: GLUCOSE 40% GEL 15 GM TUBE PO PRN (21:45)
[2017-07-17] MEDS ORDERED: IPRATROPIUM BROMIDE NEB SOLN 0.02% 2.5 ML VIAL INH PRN (21:45)
[2017-07-17] MEDS ORDERED: DEXTROSE 50% 50 ML SYR IV PRN (21:45)
[2017-07-17] MEDS ORDERED: SODIUM CHLORIDE 0.65% NA SOLN 45 ML (OCEAN) NAE PRN (21:45)
[2017-07-17] MEDS ORDERED: CALCITRIOL 0.25 MCG CAP PO SCH (21:45)
[2017-07-17] MEDS ORDERED: GLUCAGON FOR INJ 1 MG VIAL SQ PRN (21:45)
[2017-07-17] MEDS: ACETAMINOPHEN 325 MG TAB PO PRN (22:03)
[2017-07-17] MEDS: ERTAPENEM IV 1 GM in SODIUM CHLOR 0.9% AD-VAN 50ML 50 ML IV SCH (22:48)
[2017-07-17] MEDS: TRAMADOL HCL 50 MG TAB PO PRN (23:12)
[2017-07-17] MEDS ORDERED: CHOL100027 PO (23:33)
[2017-07-17] MEDS ORDERED: MAGN400C2 PO (23:41)
[2017-07-18] VITALS (11 sets, daily range): BP systolic 96–137; BP diastolic 56–78; PULSE 68–94; TEMP 36.5–36.8; O2SAT 94–98
[2017-07-18] MEDS ORDERED: HYDROmorphone INJ 0.5 MG/0.5 ML SYR IV PRN (02:00)
[2017-07-18] MEDS: OXYCODONE/ACETAMINOPHEN 5-325 TAB PO PRN ×2 (02:04→11:59)
[2017-07-18] MEDS: CLINDAMYCIN IV 900 MG in DEXTROSE 5% 100ML 100 ML IV SCH ×2 (03:39→11:59)
[2017-07-18 04:07] LABS: MEAN CELL VOLUME 77.1 fL (80-100); MEAN CORPUSCULAR HEMOGLOBIN 22.3 pg (25-34); MEAN CORPUSCULAR HGB CONC 28.9 g/dl (32-36); PLATELET COUNT 122 K/uL (130-400); PLT ESTIMATE DECREASED; RED BLOOD COUNT 3.63 M/uL (4.7-6.1); WHITE BLOOD COUNT 8.91 K/uL (4.8-10.8)
[2017-07-18 04:15] LABS: CKMB/CK RATIO 3.1 (0-3.0)
[2017-07-18] MEDS: LEVOTHYROXINE 112 MCG TAB PO SCH (04:45)
[2017-07-18] MEDS ORDERED: BUDESONIDE 0.25 MG/2 ML VIAL (PULMICORT) INH SCH (08:00)
[2017-07-18] MEDS: LOSARTAN POTASSIUM 25 MG TAB PO SCH (08:14)
[2017-07-18] MEDS: PANTOprazole SOD 40 MG TAB PO SCH (08:15)
[2017-07-18] MEDS: TORSEMIDE 20 MG TAB PO SCH (08:16)
[2017-07-18] MEDS: ASPIRIN 81 MG ECTAB PO SCH (08:16)
[2017-07-18] MEDS: CHOLECALCIFEROL 1000 INTER.UNIT TAB PO SCH (08:17)
[2017-07-18] MEDS: AMIODARONE 200 MG TAB PO SCH (08:17)
[2017-07-18] MEDS: DOCUSATE SODIUM 100 MG CAP PO SCH (08:17)
[2017-07-18] MEDS: GABAPENTIN 100 MG CAP PO SCH ×2 (08:18→19:49)
[2017-07-18] MEDS: SERTRALINE HCL 50 MG TAB PO SCH (08:18)
[2017-07-18] MEDS: HYDROXYCHLOROQUINE SULFATE 200 MG TAB PO SCH (08:18)
[2017-07-18] MEDS: SIMVASTATIN 10 MG TAB PO SCH (08:19)
[2017-07-18] MEDS: SERTRALINE HCL 100 MG TAB PO SCH (08:19)
[2017-07-18] MEDS: SILDENAFIL CITRATE 20 MG TAB PO SCH ×2 (08:19→19:49)
[2017-07-18] MEDS: INSULIN HUMAN NPH SC SCH ×2 (08:21→16:33)
[2017-07-18] MEDS ORDERED: TORSEMIDE 20 MG TAB PO SCH (09:00)
[2017-07-18 09:21] LABS: INR 1.7 (0.9-1.1); PROTHROMBIN TIME (PATIENT) 19.1 SECONDS (9.0-12.0)
[2017-07-18 09:41] LABS: BUN/CREATININE RATIO 28.7 (10-20); CALCIUM 8.9 mg/dl (8.5-10.1); CREATININE 1.5 mg/dl (0.60-1.40); MAGNESIUM 2.7 mg/dl (1.8-2.4); POTASSIUM 4.4 mmol/L (3.5-5.1)
[2017-07-18] MEDS: ACETAMINOPHEN 325 MG TAB PO PRN (11:04)
--- NOTE | 2017-07-18 11:37 | Medical Consult ---
Consultation Date of Consultation: Jul 18, 2017. 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 Patient was being treated with IV ertapenem for a 2 week course, scheduled and this week. He was admitted to the hospital after suffering a fall and fracturing nose, with severe nosebleed leading to significant anemia. Has been treated and improved and being followed by ENT. His thigh wound has been improving, apparently had some increased erythema 1-2 days ago which has since resolved. No purulent drainage. No report of fever or chills. Otherwise has been tolerating antibiotic without apparent difficulty. Past Medical/Surgical History Medical Problems: (1) Atrial flutter Status: Acute (2) Bradycardia Status: Acute (3) CHF (congestive heart failure) Status: Acute (4) CHF exacerbation Status: Acute (5) Shortness of breath Status: Acute Medical Problems: (1) Anticoagulated on warfarin (2) Aortic stenosis (3) Atrial fibrillation (4) Balance disorder (5) Benign hypertension (6) CHF (congestive heart failure) (7) Chronic systolic heart failure (8) CKD (chronic kidney disease) stage 3, GFR 30-59 ml/min (9) Coronary artery disease (10) Depression (11) Diabetes mellitus type 2 (12) Diabetic peripheral neuropathy (13) Diabetic peripheral neuropathy associated with type 2 diabetes mellitus (14) Fall (15) Foot deformity (16) History of acute renal failure (17) History of diabetic ulcer of foot (18) History of MRSA infection of lungs (19) Hyperlipidemia (20) Hypothyroidism (21) LBBB (left bundle branch block) (22) Loss of sensation (23) Mild obstructive sleep apnea (24) Pulmonary hypertension (25) Rheumatoid arthritis (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 (27) Severe epistaxis Surgical Problems: (1) Status post A-V fisutla LUE (2) Status post coronary artery bypass grafting (3) Status post Maze operation for atrial fibrillation (4) Status post tracheostomy Family History FH: COPD (chronic obstructive pulmonary disease) FATHER SISTER SISTER FH: coronary artery disease MOTHER FH: diabetes mellitus SISTER FH: heart disease BROTHER BROTHER BROTHER SISTER Social History Smoking Status: Never Smoker Drug Use: none Marital Status: Housing Status: lives with family Occupation Status: retired Allergies Coded Allergies: Lisinopril (Unverified Allergy, Unknown, dizzy, 07/11/17) Current Inpatient Medications Current Inpatient Medications Medications (Trade) Dose Ordered Sig/Nicolette Route Start Time Stop Time Status Last Admin Dose Admin Ioversol (Optiray 320) 100 ml UD PRN IV 07/17/17 16:45 07/21/17 16:44 Acetaminophen (Tylenol Tab) 650 mg Q4H PRN PO 07/17/17 19:15 08/16/17 19:14 07/18/17 11:04 650 MG Ondansetron HCl (Zofran Inj) 4 mg Q6H PRN IV 07/17/17 19:15 08/16/17 19:14 Polyethylene (Miralax Powder Packet) 17 gm DAILY PRN PO 07/17/17 19:15 08/16/17 19:14 Amiodarone HCl (Cordarone Tab) 200 mg DAILY PO 07/18/17 09:00 08/17/17 08:59 07/18/17 08:17 200 MG Aspirin (Ecotrin Tab) 81 mg QAM PO 07/18/17 09:00 08/17/17 08:59 07/18/17 08:16 81 MG Cholecalciferol (Vitamin D Tab) 2,000 inter.unit HS PO 07/18/17 21:00 08/17/17 20:59 07/18/17 08:17 2,000 INTER.UNIT Digoxin (Lanoxin Tab) 0.125 mg Q2D PO 07/18/17 16:00 08/17/17 15:59 Docusate Sodium (coLACE CAP) 100 mg DAILY PO 07/18/17 09:00 08/17/17 08:59 07/18/17 08:17 100 MG Gabapentin (Neurontin Cap) 200 mg BID PO 07/18/17 09:00 08/17/17 08:59 07/18/17 08:18 200 MG Hydroxychloroquine Sulfate (Plaquenil Tab) 400 mg HS PO 07/18/17 21:00 08/17/17 20:59 07/18/17 08:18 400 MG Insulin Human NPH (novoLIN-N NPH) 12 units BIDM SC 07/18/17 07:30 08/17/17 07:29 07/18/17 08:21 12 UNITS Ipratropium Seymour (Atrovent 0.02% 0.5MG/2.5ML Neb) 0.5 mg TID PRN INH 07/17/17 21:45 08/16/17 21:44 Levalbuterol (Xopenex 1.25MG/ 3ML Neb) 1.25 mg TID PRN INH 07/17/17 21:45 08/16/17 21:44 Levothyroxine Sodium (Synthroid Tab) 112 mcg DAILYBB PO 07/18/17 06:00 08/17/17 05:59 07/18/17 04:45 112 MCG Losartan Potassium (coZAAR TAB) 12.5 mg DAILY PO 07/18/17 09:00 08/17/17 08:59 07/18/17 08:14 12.5 MG Pantoprazole Sodium (Protonix Tab) 40 mg DAILY PO 07/18/17 09:00 08/17/17 08:59 07/18/17 08:15 40 MG Prednisone (PredniSONE TAB) 5 mg DAILY PO 07/18/17 09:00 08/17/17 08:59 07/18/17 08:19 5 MG Sodium Chloride ([place] Nasal [place]) 2 sprays UD PRN NATALIO 07/17/17 21:45 08/16/17 21:44 Sertraline HCl (Zoloft Tab) 100 mg HS PO 07/18/17 21:00 08/17/17 20:59 07/18/17 08:19 100 MG Sildenafil Citrate (Revatio Tab) 20 mg BID PO 07/18/17 09:00 08/17/17 08:59 07/18/17 08:19 20 MG Simvastatin (Zocor Tab) 10 mg HS PO 07/18/17 21:00 08/17/17 20:59 07/18/17 08:19 10 MG Tramadol HCl (Ultram Tab) 50 mg Q12 PRN PO 07/17/17 21:45 08/16/17 21:44 07/17/17 23:12 50 MG Trazodone HCl (Desyrel Tab) 25 mg HS PO 07/18/17 21:00 08/17/17 20:59 Magnesium Oxide (Mag-Ox Tab) 400 mg HS PO 07/18/17 21:00 08/17/17 20:59 Sertraline HCl (Zoloft Tab) 25 mg HS PO 07/18/17 21:00 08/17/17 20:59 07/18/17 08:18 25 MG Glucose (Glucose 40% Gel) 15-30 GRAMS 15 GRAMS... UD PRN PO 07/17/17 21:45 08/16/17 21:44 Glucose (Glucose Chew Tab) 4-8 Tablets 4 Tabl... UD PRN PO 07/17/17 21:45 08/16/17 21:44 Dextrose (Dextrose 50% 50ML Syringe) 25-50ML OF 50% DW IV FOR... UD PRN IV 07/17/17 21:45 08/16/17 21:44 Glucagon (Glucagon Inj) 1 mg UD PRN SQ 07/17/17 21:45 08/16/17 21:44 Torsemide (Demadex Tab) 30 mg DAILY PO 07/18/17 09:00 08/17/17 08:59 07/18/17 08:16 30 MG Calcitriol (Rocaltrol Cap) 0.25 mcg MoWeFr PO 07/19/17 09:00 08/18/17 08:59 Clindamycin Phosphate 900 mg/ Dextrose 106 ml @ 100 mls/hr Q8H IV 07/18/17 04:00 07/25/17 03:59 07/18/17 03:39 100 MLS/HR Ertapenem 1 gm/ Sodium Chloride 50 ml @ 120 mls/hr Q24H IV 07/17/17 22:30 07/21/17 22:29 07/17/17 22:48 120 MLS/HR Oxycodone/ Acetaminophen (Percocet 5-325mg Tab) 1 tab Q4H PRN PO 07/18/17 02:00 08/01/17 01:59 07/18/17 02:04 1 TAB Hydromorphone HCl (Dilaudid Inj) 0.5 mg Q3H PRN IV 07/18/17 02:00 08/01/17 01:59 Budesonide (Pulmicort Respules 0.5MG/ 2ML Neb Soln) 0.5 mg BIDR INH 07/18/17 20:00 08/17/17 19:59 Review of Systems All systems were reviewed and are negative except as per HPI Physical Exam Date Time Temp Pulse Resp B/P (MAP) Pulse Ox O2 Delivery O2 Flow Rate FiO2 07/18/17 08:00 98 Room Air 07/18/17 07:31 36.5 71 22 137/78 (97) 98 Room Air 07/18/17 07:09 94 18 97 Room Air 07/18/17 04:00 94 Room Air 07/18/17 03:58 36.8 70 18 116/69 (85) 95 Room Air 07/17/17 23:59 94 Room Air 07/17/17 23:43 37.3 74 22 131/83 (99) 94 Room Air 07/17/17 22:40 37.1 70 18 131/83 94 07/17/17 21:42 36.9 70 18 127/74 99 07/17/17 21:37 36.4 70 20 120/72 99 Mask 5.0 07/17/17 21:28 70 18 119/57 93 07/17/17 21:20 70 18 121/50 90 07/17/17 21:13 70 18 121/50 93 5.0 07/17/17 21:05 70 18 127/80 96 07/17/17 20:53 36.4 70 18 120/66 99 07/17/17 19:39 36.0 70 20 134/71 100 5.0 07/17/17 19:11 36.2 70 21 120/69 100 Partial Rebreather 5.0 Mask 07/17/17 19:10 36.7 70 21 120/69 100 5.0 07/17/17 18:48 70 20 121/70 99 Oxymask 5.0 07/17/17 18:45 36.3 70 20 125/69 99 5.0 07/17/17 18:34 36.5 70 18 138/72 99 5.0 07/17/17 18:27 36.6 70 18 114/63 98 5.0 07/17/17 18:16 36.6 70 22 119/67 94 0.0 07/17/17 18:10 99 Oxymask 5.0 07/17/17 18:09 36.7 70 22 119/67 100 11.0 07/17/17 17:46 70 20 107/53 100 Non-Rebreather 11.0 07/17/17 17:04 70 15 107/53 99 Partial Rebreather 11.0 07/17/17 16:54 70 07/17/17 15:18 71 20 102/57 87 Room Air General Appearance: WD/WN, no apparent distress Head: normocephalic, atraumatic Eyes: normal inspection, EOMI, sclerae normal ENT: pharynx normal, + pertinent finding ( bruising around face) Neck: supple, no adenopathy, thyroid normal, trachea midline Respiratory/Chest: chest non-tender, lungs clear, normal breath sounds, no respiratory distress Cardiovascular: regular rate, rhythm, no gallop, + systolic murmur Abdomen/GI: normal bowel sounds, non tender, soft, no organomegaly Back: normal inspection, no CVA tenderness Extremities/Musculoskelatal: no calf tenderness, non-tender Neurologic/Psych: alert, oriented x 3 Skin: normal color, no rash, + pertinent finding ( multiple bruises, thigh wounds appear without purulence or significant cellulitis) Laboratory Results -------- RUN DATE: 07/03/[address] [facility] LAB PAGE 1 RUN TIME: 1044 Specimen Inquiry PATIENT: [facility]: [id number] LOC: [facility] # : [id number] AGE/SX: 77/M ROOM: 08 REG : 06/27/[address]: Yogesh Holbrook MD : 1940 BED: 1 DIS : 06/30/17 STATUS: DIS IN TLOC: SPEC #: [id number] ALEJANDRO: 06/29/17 STATUS: COMP REQ #: [id number] RECD: 06/29/17 [facility] DR: Fahad Márquez, D.O. SOURCE: SKIN ENTR: 06/29/17-[address]: Bryan Valerio MD [facility]: THIGH Oncu, Guicho Mora, Yogesh Holland MD ORDERED: SURF WND CU/[facility] [place] COMMENTS: Has Specimen Been Obtained/Collected? 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 PHONED TO 'S OFFICE ([facility]) ON 07/03/17 AT 0904 BY Finn Elias / Dionne Hightower. Results were verbalized back to JAZMINE. RESULTS WERE ALSO CALLED TO [facility] INFECTION CONTROL ANSWERING MACHINE ON 07/03/17 BY [employer]. 2. KLEBSIELLA PNEUMONIAE Target Route Dose RX AB Cost M.I.C. IQ ------ ----- ------ -- ------ -------- - ------ TRIMET/SULFA R >2/38 AMPICILLIN/SUL R >16/8 CEFAZOLIN R >16 CEFOTAXIME R >32 CEFTRIAXONE R >32 CEFEPIME R >16 CEFUROXIME R >16 IMIPENEM R >8 GENTAMICIN I 8 TOBRAMYCIN R >8 TIGECYCLINE S <=2 AMIKACIN S <=16 CIPROFLOXACIN R >2 LEVOFLOXACIN R >4 ERTAPENEM R >4 PIP/TAZO R >64 CONTINUED ON NEXT PAGE RUN DATE: 07/03/[address] [facility] LAB PAGE 2 RUN TIME: 1044 Specimen Inquiry SPEC: [id number] PATIENT: NATHAN ESCALANTE [id number] ( Continued) Procedure Result Verified Site SURFACE WOUND CULTURE Final (continued) S = SENSITIVE I = INTERMEDIATE R = RESISTANT Last 24 Hours Test 07/17/17 16:23 07/17/17 16:32 07/17/17 20:30 07/18/17 02:38 White Blood Count 8.99 K/uL Red Blood Count 3.29 M/uL Hemoglobin 6.8 g/dL Hematocrit 25.2 % Mean Corpuscular Volume 76.6 fL Mean Corpuscular Hemoglobin 20.7 pg Mean Corpuscular Hemoglobin Concent 27.0 g/dl Platelet Count 141 K/uL Neutrophils (%) (Auto) 81.6 % Lymphocytes (%) (Auto) 8.7 % Monocytes (%) (Auto) 8.3 % Eosinophils (%) (Auto) 0.7 % Basophils (%) (Auto) 0.3 % Neutrophils # (Auto) 7.33 K/uL Lymphocytes # (Auto) 0.78 K/uL Monocytes # (Auto) 0.75 K/uL Eosinophils # (Auto) 0.06 K/uL Basophils # (Auto) 0.03 K/uL RDW Standard Deviation 56.8 fL RDW Coefficient of Variation 20.5 % Immature Granulocyte % (Auto) 0.4 % Immature Granulocyte # (Auto) 0.04 K/uL Nucleated RBC Absolute Count (auto) 0.07 K/uL Nucleated Red Blood Cells % 0.8 % Platelet Estimate NORMAL Polychromasia 1+ Hypochromasia PRESENT Anisocytosis PRESENT Microcytosis PRESENT Ovalocytes 1+ Schistocytes OCCASIONAL Prothrombin Time 34.2 SECONDS Prothromb Time International Ratio 3.1 Activated Partial Thromboplast Time 37.8 SECONDS Partial Thromboplastin Ratio 1.5 Venous Blood pH 7.38 Venous Blood Partial Pressure CO2 46 mmHg Venous Blood Partial Pressure O2 78 mmHg Venous Blood HCO3 26 mmol/L Venous Blood Oxygen Saturation 92.5 % Venous Blood Base Excess 1.0 mEq/L Sodium Level 141 mmol/L Potassium Level 4.2 mmol/L Chloride Level 106 mmol/L Carbon Dioxide Level 28 mmol/L Anion Gap 7.0 mmol/L Blood Urea Nitrogen 47 mg/dl Creatinine 1.70 mg/dl Est Creatinine Clear Calc Drug Dose 38.7 ml/min Estimated GFR () 43.5 Estimated GFR (Non- 37.5 BUN/Creatinine Ratio 27.7 Random Glucose 103 mg/dl Calcium Level 8.5 mg/dl Magnesium Level 2.5 mg/dl Total Bilirubin 0.5 mg/dl Direct Bilirubin 0.3 mg/dl Aspartate Amino Transf (AST/SGOT) 20 U/L Alanine Aminotransferase (ALT/SGPT) 18 U/L Alkaline Phosphatase 109 U/L Troponin I 0.038 ng/ml Pro-B-Type Natriuretic Peptide 1743 pg/ml Total Protein 6.6 gm/dl Albumin 3.0 gm/dl Bedside Lactic Acid Venous 1.31 mmol/L Bedside Glucose 148 mg/dl 136 mg/dl Test 07/18/17 03:26 07/18/17 08:47 White Blood Count 8.91 K/uL Red Blood Count 3.63 M/uL Hemoglobin 8.1 g/dL Hematocrit 28.0 % Mean Corpuscular Volume 77.1 fL Mean Corpuscular Hemoglobin 22.3 pg Mean Corpuscular Hemoglobin Concent 28.9 g/dl RDW Standard Deviation 55.5 fL RDW Coefficient of Variation 19.8 % Platelet Count 122 K/uL Nucleated RBC Absolute Count (auto) 0.07 K/uL Nucleated Red Blood Cells % 0.8 % Platelet Estimate DECREASED Total Creatine Kinase 68 U/L Creatine Kinase MB 2.1 ng/ml Creatine Kinase MB Ratio 3.1 Troponin I 0.041 ng/ml Prothrombin Time 19.1 SECONDS Prothromb Time International Ratio 1.7 Sodium Level 141 mmol/L Potassium Level 4.4 mmol/L Chloride Level 106 mmol/L Carbon Dioxide Level 31 mmol/L Anion Gap 4.0 mmol/L Blood Urea Nitrogen 43 mg/dl Creatinine 1.50 mg/dl Est Creatinine Clear Calc Drug Dose 43.8 ml/min Estimated GFR () 50.6 Estimated GFR (Non- 43.7 BUN/Creatinine Ratio 28.7 Random Glucose 170 mg/dl Calcium Level 8.9 mg/dl Magnesium Level 2.7 mg/dl Digoxin Level 0.8 ng/ml Patient Name: NATHAN ESCALANTE Unit Number: [id number] Dictated: 07/17/171810 Transcribed: 07/17/171810 JRB Printed Date/Time: [~ rep prt dt]/[~ rep prt tm] [~ rep ct labl] - [~ rep ct ivnm] [facility] [place] [address] Dictated: 07/17/171810 Transcribed: 07/17/171810 JRB Printed Date/Time: [~ rep prt dt]/[~ rep prt tm] [~ rep ct labl] - [~ rep ct ivnm] [~ rep ct add3]] ABD/PELVIS IV CONTRAST ONLY HISTORY: 77 years-old Male s/p fall on coumadin, abdominal wall bruising acute fall with abdominal wall bruising. Patient is currently on anticoagulation therapy. COMPARISON: CT abdomen and pelvis 06/21/2016, CT chest of same day. TECHNIQUE: Multiple axial CT images of the abdomen and pelvis were obtained following intravenous administration of 65 mL Optiray 320. A dose lowering technique was used consistent with the principals of GRETCHEN. FINDINGS: Small bilateral pleural effusions are again noted with redemonstration of pleural plaques and round atelectasis of the medial left lower lobe, 5.[address] chest same day for further details. Centrilobular opacities of the lung bases are noted. Unchanged 7 mm nodular opacity of the left lung base is again seen suggesting scarring. There is no pneumoperitoneum. Marked enlargement of the heart is again seen as described on chest CT of same day. Heterogeneous appearance of the liver is noted with marginal nodularity suggesting cirrhosis. Mild perihepatic ascites is noted. Gallbladder is mildly contracted. The spleen, pancreas and adrenal glands are within normal limits. Cyst of the medial interpolar left kidney is seen, 2.4 cm. Kidneys are otherwise within normal limits. Ureters and urinary bladder are unremarkable. No significant prostate enlargement. There is moderate to extensive atherosclerotic plaquing of the abdominal aorta. No bulky retroperitoneal adenopathy or retroperitoneal hematoma. Small sliding type hiatal hernia. No bowel obstruction or focal bowel wall thickening. Scattered colonic diverticulosis without diverticulitis. Trace ascites tracks along the paracolic gutters. Moderate stool burden. Appendix not seen, no secondary signs of acute appendicitis. Small fat filled umbilical hernia is seen, diastases 1.7 cm. Mild diffuse body wall edema is present. 6 mm sclerotic focus of the posterior right iliac bone is seen suggesting bone island. Severe multilevel degenerative changes of the lumbar spine is seen without acute fracture. IMPRESSION: 1. No acute intra-abdominal or intrapelvic abnormality identified. No evidence of solid organ injury or fracture. 2. Evidence of cirrhotic liver disease with trace intra-abdominal and intrapelvic ascites. 3. Colonic diverticulosis without diverticulitis. 4. Small bilateral pleural effusions with left lung base round atelectasis. Superimposed centrilobular nodules of the lung bases suggest pneumonitis, further evaluated on CT chest of same day. 5. Cardiomegaly. 6. No evidence of retroperitoneal hematoma. The above report was generated using voice recognition software. It may contain grammatical, syntax or spelling errors. Electronically signed by: Ad Bello M.D. 07/17/2017 6:18 PM Dictated Date/Time: 07/17/2017 6:11 PM The status of this report is Signed. Draft = Not yet reviewed or approved by Radiologist. Signed = Reviewed and approved by Radiologist. <AttendingPhy></AttendingPhy> <FamilyPhy>Bryan Valerio MD</FamilyPhy> <PrimaryPhy>Bryan Valerio MD</PrimaryPhy> <UnitNumber>[id number]</ UnitNumber> <VisitNumber>[id number]</VisitNumber> <PatientName>NATHAN ESCALANTE< /PatientName> <DateOfBirth>1940</DateOfBirth> <Location>[facility]</Location> < ServiceDate>07/17/17</ServiceDate> <MNE>ESINDI</MNE> <OrderingPhy>Jose Luis Montero M.D.</OrderingPhy> <OrderingPhyMNE>f rep ord dr james</OrderingPhyMNE> < DictatingPhyMNE>f rep dict dr james</DictatingPhyMNE> <CCListMNE>f rep ct mne</ CCListMNE> <AdmittingPhyMNE>f pt admit dr james</AdmittingPhyMNE> <AttendingPhyMNE >f pt attend dr james</AttendingPhyMNE> <ConsultingPhyMNE>f pt consult dr james</ConsultingPhyMNE> <FamilyPhyMNE>f pt fam dr james</FamilyPhyMNE> <OtherPhyMNE>f pt other dr james</OtherPhyMNE> < PrimaryPhyMNE>f pt prim care dr ajmes</PrimaryPhyMNE> <ReferringPhyMNE>f pt referring dr james</ReferringPhyMNE> Assessment & Plan chronic left lower extremity open wounds with secondary infection with resistant Klebsiella, on treatment with IV ertapenem. Patient should continue for now to complete course as planned. Wound Care to follow. We will continue to follow while in hospital.
[2017-07-18] MEDS ORDERED: OXYMETAZOLINE HCL 0.05% NA SPR 15 ML BTL PRN (13:00)
[2017-07-18 13:06] LABS: CKMB/CK RATIO 3.7 (0-3.0)
--- NOTE | 2017-07-18 13:31 | Progress Note ---
Medicine Progress Note Date & Time of Visit: Jul 18, 2017 at 10:11. (Marlen Rowley PA-C) Subjective Patient seen after being admitted yesterday (07/17) for acute blood loss anemia from epistaxis in setting of nasal fracture s/p fall, pneumonitis with questionable aspiration. Bilateral rhino rockets were placed in ER yesterday with successful hemostasis. Patient is on Coumadin for Afib. INR of 3.1 in ER was reversed with IV Vitamin K. He received 2 units of pRBCs for Hg of 6.8. Denies further bleeding. Per daughter, patient fell yesterday while walking up a ramp in his yard, became dizzy, tried to grab railing but fell sustaining nasal fractures and skin tears to his right shoulder, right arm, and left knee. No further dizziness. Daughter reports chronic cough with clear sputum. She reports concern for aspiration as she heard "gurgling" during the epistaxis. Patient reports persistent headache not controlled with Percocet. Feels generally weak, requiring assistance to transfer to the commode, while usually he can ambulate unassisted. Has left medial thigh wound being treated with Invanz (3 days of treatment remaining) via RUE PICC line as directed by Dr. Childs. No longer having drainage from the LLE wound. Daughter states there was increased erythema and warmth around the left thigh wound yesterday post-fall which improved today. [place] subjectively warm this morning, but has been afebrile. Had mild nausea which resolved. Tolerating liquid diet. Denies chest pain, SOB, vomiting, difficulty voiding, LE edema. (Marlen Rowley PA-C) Objective Last 8 Hrs Date Time Temp Pulse Resp B/P (MAP) Pulse Ox O2 Delivery O2 Flow Rate FiO2 07/18/17 08:00 98 Room Air 07/18/17 07:31 36.5 71 22 137/78 (97) 98 Room Air 07/18/17 07:09 94 18 97 Room Air 07/18/17 04:00 94 Room Air 07/18/17 03:58 36.8 70 18 116/69 (85) 95 Room Air Physical Exam: General-alert 77 year old male, sitting up in bedside chair, appears mildly uncomfortable, daughter at bedside Eyes- anicteric ENT- ecchymosis of nose and bilateral maxillary areas, rhino rockets in bilateral nares with dried blood surrounding, one clot visible in posterior pharynx, no active bleeding Neck- + JVD, trachea midline Lungs-decreased breath sounds, no wheezing, rhonchi, or crackles, no respiratory distress Heart- RRR, + systolic murmur Abdomen-mildly protuberant, soft, nontender, normal BS, (limited exam while sitting up in chair) Extremities- PICC line present RUE, no edema, + venous stasis discoloration bilateral lower legs, DP pulses not palpable Neuro-alert, oriented x 3, affect normal Skin- dressings in place on right shoulder, right upper arm, left knee (skin tear present underneath), left medial thigh (1 cm superficial ulceration underneath without erythema or drainage) Laboratory Results: Last 24 Hours Test 07/17/17 16:23 07/17/17 16:32 07/17/17 20:30 07/18/17 02:38 White Blood Count 8.99 K/uL Red Blood Count 3.29 M/uL Hemoglobin 6.8 g/dL Hematocrit 25.2 % Mean Corpuscular Volume 76.6 fL Mean Corpuscular Hemoglobin 20.7 pg Mean Corpuscular Hemoglobin Concent 27.0 g/dl Platelet Count 141 K/uL Neutrophils (%) (Auto) 81.6 % Lymphocytes (%) (Auto) 8.7 % Monocytes (%) (Auto) 8.3 % Eosinophils (%) (Auto) 0.7 % Basophils (%) (Auto) 0.3 % Neutrophils # (Auto) 7.33 K/uL Lymphocytes # (Auto) 0.78 K/uL Monocytes # (Auto) 0.75 K/uL Eosinophils # (Auto) 0.06 K/uL Basophils # (Auto) 0.03 K/uL RDW Standard Deviation 56.8 fL RDW Coefficient of Variation 20.5 % Immature Granulocyte % (Auto) 0.4 % Immature Granulocyte # (Auto) 0.04 K/uL Nucleated RBC Absolute Count (auto) 0.07 K/uL Nucleated Red Blood Cells % 0.8 % Platelet Estimate NORMAL Polychromasia 1+ Hypochromasia PRESENT Anisocytosis PRESENT Microcytosis PRESENT Ovalocytes 1+ Schistocytes OCCASIONAL Prothrombin Time 34.2 SECONDS Prothromb Time International Ratio 3.1 Activated Partial Thromboplast Time 37.8 SECONDS Partial Thromboplastin Ratio 1.5 Venous Blood pH 7.38 Venous Blood Partial Pressure CO2 46 mmHg Venous Blood Partial Pressure O2 78 mmHg Venous Blood HCO3 26 mmol/L Venous Blood Oxygen Saturation 92.5 % Venous Blood Base Excess 1.0 mEq/L Sodium Level 141 mmol/L Potassium Level 4.2 mmol/L Chloride Level 106 mmol/L Carbon Dioxide Level 28 mmol/L Anion Gap 7.0 mmol/L Blood Urea Nitrogen 47 mg/dl Creatinine 1.70 mg/dl Est Creatinine Clear Calc Drug Dose 38.7 ml/min Estimated GFR () 43.5 Estimated GFR (Non- 37.5 BUN/Creatinine Ratio 27.7 Random Glucose 103 mg/dl Calcium Level 8.5 mg/dl Magnesium Level 2.5 mg/dl Total Bilirubin 0.5 mg/dl Direct Bilirubin 0.3 mg/dl Aspartate Amino Transf (AST/SGOT) 20 U/L Alanine Aminotransferase (ALT/SGPT) 18 U/L Alkaline Phosphatase 109 U/L Troponin I 0.038 ng/ml Pro-B-Type Natriuretic Peptide 1743 pg/ml Total Protein 6.6 gm/dl Albumin 3.0 gm/dl Bedside Lactic Acid Venous 1.31 mmol/L Bedside Glucose 148 mg/dl 136 mg/dl Test 07/18/17 03:26 07/18/17 08:47 White Blood Count 8.91 K/uL Red Blood Count 3.63 M/uL Hemoglobin 8.1 g/dL Hematocrit 28.0 % Mean Corpuscular Volume 77.1 fL Mean Corpuscular Hemoglobin 22.3 pg Mean Corpuscular Hemoglobin Concent 28.9 g/dl RDW Standard Deviation 55.5 fL RDW Coefficient of Variation 19.8 % Platelet Count 122 K/uL Nucleated RBC Absolute Count (auto) 0.07 K/uL Nucleated Red Blood Cells % 0.8 % Platelet Estimate DECREASED Total Creatine Kinase 68 U/L Creatine Kinase MB 2.1 ng/ml Creatine Kinase MB Ratio 3.1 Troponin I 0.041 ng/ml Prothrombin Time 19.1 SECONDS Prothromb Time International Ratio 1.7 Sodium Level 141 mmol/L Potassium Level 4.4 mmol/L Chloride Level 106 mmol/L Carbon Dioxide Level 31 mmol/L Anion Gap 4.0 mmol/L Blood Urea Nitrogen 43 mg/dl Creatinine 1.50 mg/dl Est Creatinine Clear Calc Drug Dose 43.8 ml/min Estimated GFR () 50.6 Estimated GFR (Non- 43.7 BUN/Creatinine Ratio 28.7 Random Glucose 170 mg/dl Calcium Level 8.9 mg/dl Magnesium Level 2.7 mg/dl Digoxin Level 0.8 ng/ml (Marlen Rowley PA-C) Assessment & Plan ACUTE BLOOD LOSS ANEMIA 2/2 EPISTAXIS In setting of Coumadin use (INR 3.1 on presentation). ER provider discussed with cardiology, Coumadin held, given 10 mg IV vitamin K -> INR 1.7 today Nasal packing placed in ER, removed by ENT Dr. Buck today, no bleeding upon removal Hg 6.8 on presentation (baseline 9's), transfused 2 units pRBC with appropriate response (Hg 8.1) Discussed with Dr. Merritt, appreciate input, no need for Vit K, would have considered Vit K for procedure, however packing had just been removed when I finished speaking with her Continue to hold Coumadin until acceptable from ENT standpoint Noted to have schistocytes on CBC with diff on admission Recheck CBC with diff in AM S/P FALL Reported dizziness at time of fall Ddx includes symptomatic anemia, orthostasis, r/o arrhythmia Monitor in telemetry Awaiting pacemaker interrogation Check orthostatic VS Troponin negative x 2 (3rd set pending) HYPOXIA- resolved, now saturating well on RA CT chest suggestive of pneumonitis Has chronic cough with clear sputum, afebrile, no leukocytosis Has been on clindamycin for nasal packing and to cover for ? aspiration; per Dr. Buck, ok to d/c clindamycin from ENT standpoint ABDOMINAL PAIN/ CIRRHOSIS/ ASCITES CT a/p showed cirrhosis with trace intra-abdominal and intrapelvic ascites Cirrhosis is a new finding, also noted to have schistocytes on CBC with diff Attending physician discussed case with GI, recommended outpatient GI evaluation CHRONIC SYSTOLIC CHF Clinically compensated CXR on admission showed pulmonary vascular congestion without overt pulmonary edema Last TTE showed EF 30-34% Monitor daily weights and I/O CKD STAGE III Creatinine 1.5 (stable from baseline 1.6-1.7) Monitor renal function ATRIAL FIBRILLATION Was on Coumadin, INR 3.1 on admission, ER provider discussed with cardiology, given 10 mg IV vitamin K -> INR 1.7 today Coumadin on hold for epistaxis, anemia S/p pacemaker, s/p maze in 2011 Rate is controlled Continue amiodarone and digoxin (dig level WNL) HTN Stable, continue losartan PULMONARY HTN Continue Revatio CHRONIC THROMBOCYTOPENIA Platelet count 140s ->120's Monitor DM TYPE II A1c 7.4 in 06/2017 Hold home insulin isophane Utilize Lantus and Novolog sliding scale CHRONIC LLE WOUND INFECTION On Invanz via PICC line, has 3 days left per daughter ID consulted, seen by Dr. Childs, appreciate input Wound care nurse consulted CAD S/P CABG Continue aspirin and statin Per H&P, not on beta shana due to intolerance/ bradycardia HYPOTHYROIDISM Continue levothyroxine CECILIA Continue CPAP RHEUMATOID ARTHRITIS continue hydroxychloroquine and prednisone DEPRESSION Continue sertraline and trazodone CODE STATUS DNR as per admitting physician order DVT PROPHYLAXIS SCD's due to epistaxis/ anemia DISPOSITION Telemetry Follows with Dr. Valerio for primary care PT/ OT evals requested Patient seen in collaboration with Dr. Johnson. Please see her addendum. Current Inpatient Medications: Current Inpatient Medications Medications (Trade) Dose Ordered Sig/Nicolette Route Start Time Stop Time Status Last Admin Dose Admin Ioversol (Optiray 320) 100 ml UD PRN IV 07/17/17 16:45 07/21/17 16:44 Acetaminophen (Tylenol Tab) 650 mg Q4H PRN PO 07/17/17 19:15 08/16/17 19:14 07/17/17 22:03 650 MG Ondansetron HCl (Zofran Inj) 4 mg Q6H PRN IV 07/17/17 19:15 08/16/17 19:14 Polyethylene (Miralax Powder Packet) 17 gm DAILY PRN PO 07/17/17 19:15 08/16/17 19:14 Amiodarone HCl (Cordarone Tab) 200 mg DAILY PO 07/18/17 09:00 08/17/17 08:59 07/18/17 08:17 200 MG Aspirin (Ecotrin Tab) 81 mg QAM PO 07/18/17 09:00 08/17/17 08:59 07/18/17 08:16 81 MG Cholecalciferol (Vitamin D Tab) 2,000 inter.unit HS PO 07/18/17 21:00 08/17/17 20:59 07/18/17 08:17 2,000 INTER.UNIT Digoxin (Lanoxin Tab) 0.125 mg Q2D PO 07/18/17 16:00 08/17/17 15:59 Docusate Sodium (coLACE CAP) 100 mg DAILY PO 07/18/17 09:00 08/17/17 08:59 07/18/17 08:17 100 MG Gabapentin (Neurontin Cap) 200 mg BID PO 07/18/17 09:00 08/17/17 08:59 07/18/17 08:18 200 MG Hydroxychloroquine Sulfate (Plaquenil Tab) 400 mg HS PO 07/18/17 21:00 08/17/17 20:59 07/18/17 08:18 400 MG Insulin Human NPH (novoLIN-N NPH) 12 units BIDM SC 07/18/17 07:30 08/17/17 07:29 07/18/17 08:21 12 UNITS Ipratropium [place] (Atrovent 0.02% 0.5MG/2.5ML Neb) 0.5 mg TID PRN INH 07/17/17 21:45 08/16/17 21:44 Levalbuterol (Xopenex 1.25MG/ 3ML Neb) 1.25 mg TID PRN INH 07/17/17 21:45 08/16/17 21:44 Levothyroxine Sodium (Synthroid Tab) 112 mcg DAILYBB PO 07/18/17 06:00 08/17/17 05:59 07/18/17 04:45 112 MCG Losartan Potassium (coZAAR TAB) 12.5 mg DAILY PO 07/18/17 09:00 08/17/17 08:59 07/18/17 08:14 12.5 MG Pantoprazole Sodium (Protonix Tab) 40 mg DAILY PO 07/18/17 09:00 08/17/17 08:59 07/18/17 08:15 40 MG Prednisone (PredniSONE TAB) 5 mg DAILY PO 07/18/17 09:00 08/17/17 08:59 07/18/17 08:19 5 MG Sodium Chloride ([place] Nasal [place]) 2 sprays UD PRN NATALIO 07/17/17 21:45 08/16/17 21:44 Sertraline HCl (Zoloft Tab) 100 mg HS PO 07/18/17 21:00 08/17/17 20:59 07/18/17 08:19 100 MG Sildenafil Citrate (Revatio Tab) 20 mg BID PO 07/18/17 09:00 08/17/17 08:59 07/18/17 08:19 20 MG Simvastatin (Zocor Tab) 10 mg HS PO 07/18/17 21:00 08/17/17 20:59 07/18/17 08:19 10 MG Tramadol HCl (Ultram Tab) 50 mg Q12 PRN PO 07/17/17 21:45 08/16/17 21:44 07/17/17 23:12 50 MG Trazodone HCl (Desyrel Tab) 25 mg HS PO 07/18/17 21:00 08/17/17 20:59 Magnesium Oxide (Mag-Ox Tab) 400 mg HS PO 07/18/17 21:00 08/17/17 20:59 Sertraline HCl (Zoloft Tab) 25 mg HS PO 07/18/17 21:00 08/17/17 20:59 07/18/17 08:18 25 MG Glucose (Glucose 40% Gel) 15-30 GRAMS 15 GRAMS... UD PRN PO 07/17/17 21:45 08/16/17 21:44 Glucose (Glucose Chew Tab) 4-8 Tablets 4 Tabl... UD PRN PO 07/17/17 21:45 08/16/17 21:44 Dextrose (Dextrose 50% 50ML Syringe) 25-50ML OF 50% DW IV FOR... UD PRN IV 07/17/17 21:45 08/16/17 21:44 Glucagon (Glucagon Inj) 1 mg UD PRN SQ 07/17/17 21:45 08/16/17 21:44 Torsemide (Demadex Tab) 30 mg DAILY PO 07/18/17 09:00 08/17/17 08:59 07/18/17 08:16 30 MG Calcitriol (Rocaltrol Cap) 0.25 mcg MoWeFr PO 07/19/17 09:00 08/18/17 08:59 Clindamycin Phosphate 900 mg/ Dextrose 106 ml @ 100 mls/hr Q8H IV 07/18/17 04:00 07/25/17 03:59 07/18/17 03:39 100 MLS/HR Ertapenem 1 gm/ Sodium Chloride 50 ml @ 120 mls/hr Q24H IV 07/17/17 22:30 07/21/17 22:29 07/17/17 22:48 120 MLS/HR Oxycodone/ Acetaminophen (Percocet 5-325mg Tab) 1 tab Q4H PRN PO 07/18/17 02:00 08/01/17 01:59 07/18/17 02:04 1 TAB Hydromorphone HCl (Dilaudid Inj) 0.5 mg Q3H PRN IV 07/18/17 02:00 08/01/17 01:59 Budesonide (Pulmicort Respules 0.5MG/ 2ML Neb Soln) 0.5 mg BIDR INH 07/18/17 20:00 08/17/17 19:59 (Marlen Rowley PA-C) ADDENDUM: I have seen and evaluated the patient above and agree with the assessment and plan. I would like to add that I believe his presence of shistocytes and thrombocytopenia, possibly his chronic abdominal discomfort are related to new onset cirrhosis 2/2 NAFLD seen on imaging this admission. He has minimal ascites and without fevers, chills and with chronicity of abdominal pain without changes as well as falling down last night into the railing, this was discussed with the GI provider international specialist and felt to be appropriate for an outpatient referral and workup. Will cont to focus this admission on replacing blood loss and preventing bleeding. I am sendding an outpatient note to his [employer], Dr. Márquez, that we are leaving him off coumadin at least for one week per ENT and will defer to him to restart it for stroke prophylaxis in atrial fibrilation. I also discussed the case with the international specialist Rate Setter who advised that in this setting, the Invanz should provide enough coverage of upper airway anaerobes in addition to the blood that might have been aspirated last night. For now, the patient has only continued to improve and is off oxygen, doing well post-rocket removal without cautery. Will cont close monitoring, following ENT instructions and trend H/H. PT/OT were also ordered to ensure he is safe to return home at discharge. DO Alex (Lillie Johnson, )
--- NOTE | 2017-07-18 14:06 | ENT CONSULTATION ---
DATE OF CONSULTATION: 07/18/2017 DATE OF CONSULTATION: 07/18/2017 I have been asked by Dr. Johnson to evaluate this patient with epistaxis and nasal fractures. HISTORY OF PRESENT ILLNESS: The patient is a 77-year-old male who presented to the [facility] Emergency Room yesterday after falling where he sustained nasal trauma and for which Dr. JoseL uis Montero in the Emergency Room placed a 7.5 cm Rapid Rhino balloon in the right nasal cavity as well as try to place a similar pack in the left side, but was not successful in placing it fully. This did control his epistaxis. Dr. Montero did call me about this patient and I asked him to call me if he was unable to control the epistaxis. Since the packs were placed, he has had no further epistaxis or bloody postnasal drip. The patient is on warfarin for chronic atrial fibrillation and his INR upon presenting to the Emergency Room was 3.1. He was given vitamin K and required 2 units of packed red blood cells due to having anemia with a hematocrit of 25.2, which subsequently increased to 28.0 after replacement of packed red blood cells. The patient currently is complaining of some right greater than left nasal discomfort and sinus discomfort as expected. His INR this morning was 1.7. He had a CT scan of the maxillofacial area which I reviewed the report as well as the films and there does appear to be bilateral nasal bone fractures with a slight depression of a right nasal bone fracture and a nondisplaced left nasal bone fracture with perhaps mild deviation of the bony nasal dorsum to the left on the CT scan. There are no other facial fractures seen on the CT scan. ALLERGIES: LISINOPRIL. CURRENT MEDICATIONS: Clindamycin, Tylenol p.r.n., amiodarone, baby aspirin, DuoNebs, calcitriol, vitamin D, digoxin, Colace, Neurontin, hydroxychloroquine, Dilaudid p.r.n., insulin, Xopenex p.r.n., levothyroxine, losartan, magnesium oxide, Zofran p.r.n., Percocet p.r.n., pantoprazole, MiraLax p.r.n., prednisone, Zoloft, sildenafil, Zocor, Demadex, tramadol p.r.n., trazodone. PAST MEDICAL HISTORY: 1. Atrial fibrillation. 2. Aortic stenosis. 3. Hypertension. 4. Congestive heart failure. 5. Chronic renal insufficiency. 6. Coronary artery disease. 7. Type 2 diabetes mellitus. 8. Depression. 9. Diabetic peripheral neuropathy. 10. Dyslipidemia. 11. Hypothyroidism. 12. Mild obstructive sleep apnea. 13. Pulmonary hypertension. 14. Rheumatoid arthritis. PAST SURGICAL HISTORY: 1. Status post pacemaker placement. 2. Status post left upper extremity AV fistula. 3. Status post coronary artery bypass grafting x3 vessels in 2011. 4. Status post maze operation for atrial fibrillation. 5. Status post tracheostomy. FAMILY HISTORY: Noncontributory. No bleeding disorders or malignant hyperthermia. SOCIAL HISTORY: The patient is . He lives with his family. His daughter is at the bedside. He is retired. There is no tobacco, alcohol or illicit drug use. REVIEW OF SYSTEMS: The patient has no current epistaxis or bloody postnasal drip. He does complain of right greater than left nasal and sinus pain. He has some mild lightheadedness but no shortness of breath or chest pain. PHYSICAL EXAMINATION: GENERAL: This is an elderly white male in no acute distress who has abrasions over his nasal dorsum as well as bilateral periorbital mild ecchymosis. He has mild nasal dorsal deviation to the left. He has a right-sided Rapid Rhino balloon that is in place and filled with saline rather than air as it should be. He has a left Rapid Rhino that is 3/4 out of his left nasal cavity and also filled with saline as opposed to air as it should be. He does not have any bloody postnasal drip. He is awake and alert and oriented x3. Cranial nerves II-XII are grossly intact. Neck examination reveals no lymphadenopathy, thyroid nodularity, or masses. The left-sided Rapid Rhino balloon was deflated from the saline. This was then removed. There was no active bleeding from the left hand side and no bloody postnasal drip. The right Rapid Rhino was then also deflated of the saline, of which there is 3 mL of saline in place. There was no bleeding from the right nasal cavity or from the oropharynx and therefore balloon was removed. There was no active bleeding from either nasal cavity, but there was some excoriation of the right nasal septum. There was also some mild pressure changes involving the left nasal vestibular skin. Diagnostic nasal endoscopy was performed on the right hand side to rule out any active bleeding with a flexible laryngoscope and there was no active bleeding and therefore no further intervention was undertaken. IMPRESSION AND RECOMMENDATIONS: A 77-year-old male with nasal trauma with nonoperative nasal bone fractures given his multiple medical comorbidities and lack of complaints currently. He did have severe epistaxis, which required a bilateral nasal packing, of which this was not placed correctly and the balloon was inflated with saline rather than air. Both balloons are now out as the patient's INR is now 1.7 as opposed to 3.1 and there has been no active bleeding since removal. I have recommended the use of Afrin nasal spray as needed, followed by direct pressure for epistaxis and to call me if there is any epistaxis that is recalcitrant to this method. I have also stopped his nasal saline as there is no moisturization problem with his current nose bleeds and it was likely due to the trauma. Followup is as needed. I will sign off on this consultation. If you have any further symptoms regarding this consultation, please do not hesitate to contact me. PAUL
[2017-07-18] MEDS: DIGOXIN 0.125 MG TAB PO SCH (16:31)
--- NOTE | 2017-07-18 19:13 | EMERGENCY ROOM VISIT NOTE ---
History Report prepared by Paolaibmaryjane: Anthony Clement Under the Supervision of: Dr. Jose Luis Montero M.D. First contact with patient: 15:24 Chief Complaint: NOSE BLEED (MAJOR) Stated Complaint: NOSE BLEED History of Present Illness The patient is a 77 year old white male who presents to the ED with a cc of a persistent nosebleed s/p fall occurring 1 hour ago. He is reported to have felt a little dizzy prior to falling. He feels that most of the bleeding is coming from his right nostril. On blood thinners. Positive chest pain. Negative abdominal pain. Source of History: patient Onset: 1 hour ago Position: nose Quality: other (bleeding) Timing: other (persistent) Associated Symptoms: + abdominal pain, No chest pain Review of Systems See HPI for pertinent positives and negatives. A total of ten systems were reviewed and were otherwise negative. Past Medical & Surgical Medical Problems: (1) Anticoagulated on warfarin (2) Aortic stenosis (3) Atrial fibrillation (4) Balance disorder (5) Benign hypertension (6) CHF (congestive heart failure) (7) Chronic systolic heart failure (8) CKD (chronic kidney disease) stage 3, GFR 30-59 ml/min (9) Coronary artery disease (10) Depression (11) Diabetes mellitus type 2 (12) Diabetic peripheral neuropathy (13) Diabetic peripheral neuropathy associated with type 2 diabetes mellitus (14) Fall (15) Foot deformity (16) History of acute renal failure (17) History of diabetic ulcer of foot (18) History of MRSA infection of lungs (19) Hyperlipidemia (20) Hypothyroidism (21) LBBB (left bundle branch block) (22) Loss of sensation (23) Mild obstructive sleep apnea (24) Pulmonary hypertension (25) Rheumatoid arthritis (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 (27) Severe epistaxis Surgical Problems: (1) Status post A-V fisutla LUE (2) Status post coronary artery bypass grafting (3) Status post Maze operation for atrial fibrillation (4) Status post tracheostomy Family History FH: COPD (chronic obstructive pulmonary disease) FATHER SISTER SISTER FH: coronary artery disease MOTHER FH: diabetes mellitus SISTER FH: heart disease BROTHER BROTHER BROTHER SISTER Social History Smoking Status: Never Smoker Alcohol Use: none Drug Use: none Marital Status: Housing Status: lives with family Occupation Status: retired Current/Historical Medications Scheduled Amiodarone Hcl (Cordarone), 200 MG PO DAILY Aspirin (Aspirin 81), 81 MG PO QAM Budesonide (Pulmicort Respules 0.25MG/2ML), 2 ML INH BID Calcitriol (Calcitriol), 0.25 MCG PO 3XWK Cholecalciferol (Vitamin D 1000 Unit), 2,000 INTER.UNIT PO HS Digoxin (Digoxin), 0.125 MG PO Q2D Docusate Sodium (Colace), 100 MG PO DAILY Gabapentin (Gabapentin), 200 MG PO BID Hydroxychloroquine Sulfate (Hydroxychloroquine Sulfat), 400 MG PO HS Insulin Isophane (Human) (Humulin N Kwikpen), 12 UNITS SC BID Levothyroxine Sodium (Levothyroxine Sodium), 112 MCG PO DAILY Losartan Potassium (Losartan Potassium), 12.5 MG PO DAILY Magnesium Oxide (Magnesium Oxide), 400 MG PO HS Pantoprazole (Pantoprazole Sodium), 40 MG PO DAILY Polyethylene Glycol 3350 (Miralax), 1 PKT PO DAILY Prednisone (Prednisone), 5 MG PO DAILY Sertraline HCl (Sertraline HCl), 25 MG PO HS Sertraline HCl (Sertraline HCl), 100 MG PO HS Sildenafil Citrate (Pulmonary (Sildenafil Citrate), 20 MG PO BID Simvastatin (Simvastatin), 10 MG PO HS Torsemide (Demadex), 20 MG PO DAILY Trazodone Hcl (Desyrel), 25-50 MG PO HS Warfarin Sodium (Warfarin Sodium), 2.5 MG PO 2XWK Warfarin Sodium (Warfarin Sodium), 5 MG PO 5XWK Scheduled PRN Acetaminophen (Tylenol), 650 MG PO Q4H PRN for Mild Pain Ipratropium [place] (Atrovent 0.02% Soln), 2.5 ML NEB TID PRN for SOB/Wheezing Levalbuterol (Levalbuterol HCl), 3 ML NEB TID PRN for SOB/Wheezing Saline (Rivanna Nasal [place]), 2 SPRAYS NATALIO UD PRN for Nasal Dryness/Congestion Tramadol HCl (Tramadol HCl), 50 MG PO Q12 PRN for Pain Allergies Coded Allergies: Lisinopril (Unverified Allergy, Unknown, dizzy, 07/11/17) Physical Exam Vital Signs Date Time Temp Pulse Resp B/P (MAP) Pulse Ox O2 Delivery O2 Flow Rate FiO2 07/17/17 19:11 36.2 70 21 120/69 100 Partial Rebreather 5.0 Mask 07/17/17 19:10 36.7 70 21 120/69 100 5.0 07/17/17 18:48 70 20 121/70 99 Oxymask 5.0 07/17/17 18:45 36.3 70 20 125/69 99 5.0 07/17/17 18:34 36.5 70 18 138/72 99 5.0 07/17/17 18:27 36.6 70 18 114/63 98 5.0 07/17/17 18:16 36.6 70 22 119/67 94 0.0 07/17/17 18:10 99 Oxymask 5.0 07/17/17 18:09 36.7 70 22 119/67 100 11.0 07/17/17 17:46 70 20 107/53 100 Non-Rebreather 11.0 07/17/17 17:04 70 15 107/53 99 Partial Rebreather 11.0 07/17/17 16:54 70 07/17/17 15:18 71 20 102/57 87 Room Air Physical Exam GENERAL: Awake, alert, well-appearing, NAD HENT: Normocephalic. Ecchymosis over the nasal bridge. No hyphema noted. Blood from bilateral nares, does not appear to be anterior. Posterior oropharynx with blood. Abrasion with ecchymosis to the right shoulder. Abrasion to the right forearm. EYES: Normal conjunctiva. Sclera non-icteric. NECK: Supple. No nuchal rigidity. FROM. No midline C-spine tenderness. RESPIRATORY: Crackles and rhonchi throughout the lung mora. CARDIAC: RRR, no MRG ABDOMEN: Soft, ND, BS+. Mild diffuse abdominal tenderness. MSK: No chest wall TTP. RUE pic line. 2+ bilateral lower extremity edema. Wound care patch over the left anterior thigh. NEURO: GCS 15, CN 2-12 intact, moves all 4s on command. PERRL. 5/5 UE and LE strength bilaterally. No sensory deficit. SKIN: No rash or jaundice noted. Medical Decision & Procedures ER Provider Diagnostic Interpretation: Radiology results as stated below per my review and radiologist interpretation: CHEST ONE VIEW PORTABLE FINDINGS: Cardiac silhouette is moderately enlarged, unchanged. Left atrial appendage exclusion device is seen. Left subclavian pacer is seen with leads intact. Prior median sternotomy. There is atherosclerosis of the aorta. There is prominent vascular congestion without overt pulmonary edema. No pneumothorax or pleural effusion. Chronic left basilar opacity is noted suggesting atelectasis or scarring. There has been interval removal of the right-sided PICC. IMPRESSION: 1. Cardiomegaly and pulmonary vascular congestion without overt pulmonary edema. 2. Interval removal of the right-sided PICC. The above report was generated using voice recognition software. It may contain grammatical, syntax or spelling errors. Electronically signed by: Ad Bello M.D. HEAD WITHOUT CONTRAST (CT) FINDINGS: No acute intracranial hemorrhage, midline shift, mass, large territorial ischemia or abnormal extra-axial collection. There is mild atrophy with ex vacuo ventriculomegaly. The calvarium is intact. The mastoid air cells and middle air cavities are generally clear with the exception of a trace left mastoid effusion. Moderate air-fluid levels are seen within the maxillary sinuses. There is apparent nasogastric tube present within the right turbinate. IMPRESSION: 1. No acute intracranial abnormality. 2. Moderate paranasal sinus disease The above report was generated using voice recognition software. It may contain grammatical, syntax or spelling errors. Electronically signed by: Ad Bello M.D. 07/17/2017 5:52 PM CERVICAL SPINE W/O FINDINGS: No acute fracture or subluxation of the cervical spine. The bones are mildly demineralized. Multilevel facet arthropathy and uncovertebral spurring is noted. Posterior intervertebral disc space narrowing is most pronounced at the C5-C6 interspace. Degenerative changes are noted about C1-C2. No high-grade central canal or foraminal narrowing identified, however CT is suboptimal in evaluating these findings. No pneumothorax. There is atherosclerotic plaquing the bilateral carotid bulbs. Layering secretions are seen within the nasopharynx. There is moderate sphenoid sinus disease. Mastoid air cells and middle ear cavities are clear. IMPRESSION: 1. No acute cervical spine fracture or subluxation. 2. Multilevel facet arthropathy and uncovertebral spurring. Posterior intervertebral disc space narrowing is most pronounced at C5-C6. The above report was generated using voice recognition software. It may contain grammatical, syntax or spelling errors. Electronically signed by: Ad Bello M.D. 07/17/2017 6:10 PM FACIAL BONES-MXILLOFAC WITHOUT FINDINGS: The zygomatic arches, pterygoid plates, maxillary brody, orbital brody and mandible appear intact. Moderate degenerative changes of the temporomandibular joints are noted. There is an acute minimally displaced fracture of the right nasal bone with acute nondisplaced left nasal bone fracture also noted. The nasal septum and vomer appear to be intact. Moderate mucosal thickening involves the paranasal sinuses with hemorrhage and air-fluid levels present within the bilateral maxillary sinuses. Hemorrhage and mucosal thickening seen within the ethmoid air cells and nasal turbinates. Tube devices are present within the bilateral nasal turbinates. Moderate degree of secretions are seen within the nasopharynx. Moderate soft tissue swelling surrounds the nasal bone fractures. Negative for opaque foreign body. Orbits are symmetric. Remaining soft tissues are unremarkable. Multilevel degenerative changes of the cervical spine are noted. IMPRESSION: 1. Acute bilateral nasal bone fractures with mild displacement on the right. Moderate degree of associated hemorrhage and mucosal thickening is seen within the paranasal sinuses with air-fluid levels of the bilateral maxillary sinuses. 2. No additional acute facial bone fracture or dislocation identified. 3. Moderate degenerative changes of the bilateral temporomandibular joints. The above report was generated using voice recognition software. It may contain grammatical, syntax or spelling errors. Electronically signed by: Ad Bello M.D. CHEST CT WITH CONTRAST FINDINGS: Right lobe of the thyroid is asymmetrically enlarged compared to the left. Punctate calcifications are seen within the left thyroid lobe. Findings suggest multinodular thyroid. Scattered nonenlarged lymph nodes are seen about the mediastinum. No pathologic adenopathy by CT size criteria. Left subclavian pacer is present with leads intact. There is moderate enlargement of the heart, notably involving the right heart. Prior median sternotomy and CABG with [place] coronary arterial calcifications seen. Annular calcifications involving the aortic and mitral valves. Moderate atherosclerotic plaquing is seen within the aorta. No evidence of vascular injury. There is no pneumothorax. Small left pleural effusion is noted. Bilateral partially calcified pleural plaques are seen with unchanged pleural based consolidative opacity of the medial basal left lower lobe, 4.9 cm which appears stable from 06/21/2016 suggesting round atelectasis. Additional pleural plaques with areas of atelectasis are seen bilaterally. Centrilobular opacities are noted within a subsegmental distribution within the right upper and lower lobes the lesser extent within the left lower lobe.. The questioned 10 mm nodule of the inferior segment lingula is not identified. Moderate layering secretions are seen within the airway Abdominal structures demonstrate trace perihepatic ascites with marginal nodularity of the liver suggesting cirrhosis. Soft tissues are unremarkable. Evaluation of the bony structures demonstrates no acute fracture. No compression deformity there appears to be chronic nonunion of the midline sternotomy. IMPRESSION: 1. No acute posttraumatic abnormality of the chest identified. No pneumothorax or fracture identified. 2. Bilateral pleural plaques redemonstrated with round atelectasis of the left lower lobe. Findings suggest prior asbestos exposure. 3. Centrilobular subsegmental groundglass opacities of the bilateral lower lobes and right upper lobe suggest pneumonitis. Moderate degree of layering secretions are seen in the airway. Correlate with clinical history to exclude aspiration pneumonitis. 4. Cardiomegaly. 5. Trace left pleural effusion. 6. Cirrhosis with trace perihepatic ascites partially imaged. Electronically signed by: Ad Bello M.D. ABD/PELVIS IV CONTRAST ONLY FINDINGS: Small bilateral pleural effusions are again noted with redemonstration of pleural plaques and round atelectasis of the medial left lower lobe, 5.[address] chest same day for further details. Centrilobular opacities of the lung bases are noted. Unchanged 7 mm nodular opacity of the left lung base is again seen suggesting scarring. There is no pneumoperitoneum. Marked enlargement of the heart is again seen as described on chest CT of same day. Heterogeneous appearance of the liver is noted with marginal nodularity suggesting cirrhosis. Mild perihepatic ascites is noted. Gallbladder is mildly contracted. The spleen, pancreas and adrenal glands are within normal limits. Cyst of the medial interpolar left kidney is seen, 2.4 cm. Kidneys are otherwise within normal limits. Ureters and urinary bladder are unremarkable. No significant prostate enlargement. There is moderate to extensive atherosclerotic plaquing of the abdominal aorta. No bulky retroperitoneal adenopathy or retroperitoneal hematoma. Small sliding type hiatal hernia. No bowel obstruction or focal bowel wall thickening. Scattered colonic diverticulosis without diverticulitis. Trace ascites tracks along the paracolic gutters. Moderate stool burden. Appendix not seen, no secondary signs of acute appendicitis. Small fat filled umbilical hernia is seen, diastases 1.7 cm. Mild diffuse body wall edema is present. 6 mm sclerotic focus of the posterior right iliac bone is seen suggesting bone island. Severe multilevel degenerative changes of the lumbar spine is seen without acute fracture. IMPRESSION: 1. No acute intra-abdominal or intrapelvic abnormality identified. No evidence of solid organ injury or fracture. 2. Evidence of cirrhotic liver disease with trace intra-abdominal and intrapelvic ascites. 3. Colonic diverticulosis without diverticulitis. 4. Small bilateral pleural effusions with left lung base round atelectasis. Superimposed centrilobular nodules of the lung bases suggest pneumonitis, further evaluated on CT chest of same day. 5. Cardiomegaly. 6. No evidence of retroperitoneal hematoma. The above report was generated using voice recognition software. It may contain grammatical, syntax or spelling errors. Electronically signed by: Ad Bello M.D. Laboratory Results Test 07/17/17 16:23 07/17/17 16:32 Immature Granulocyte % (Auto) 0.4 % White Blood Count 8.99 K/uL (4.8-10.8) Red Blood Count 3.29 M/uL (4.7-6.1) Hemoglobin 6.8 g/dL (14.0-18.0) Hematocrit 25.2 % (42-52) Mean Corpuscular Volume 76.6 fL (80-100) Mean Corpuscular Hemoglobin 20.7 pg (25-34) Mean Corpuscular Hemoglobin Concent 27.0 g/dl (32-36) Platelet Count 141 K/uL (130-400) Neutrophils (%) (Auto) 81.6 % Lymphocytes (%) (Auto) 8.7 % Monocytes (%) (Auto) 8.3 % Eosinophils (%) (Auto) 0.7 % Basophils (%) (Auto) 0.3 % Neutrophils # (Auto) 7.33 K/uL (1.4-6.5) Lymphocytes # (Auto) 0.78 K/uL (1.2-3.4) Monocytes # (Auto) 0.75 K/uL (0.11-0.59) Eosinophils # (Auto) 0.06 K/uL (0-0.5) Basophils # (Auto) 0.03 K/uL (0-0.2) Immature Granulocyte # (Auto) 0.04 K/uL (0.00-0.02) Polychromasia 1+ Hypochromasia PRESENT Anisocytosis PRESENT Microcytosis PRESENT Ovalocytes 1+ Schistocytes OCCASIONAL Activated Partial Thromboplast Time 37.8 SECONDS (21.0-31.0) Partial Thromboplastin Ratio 1.5 Venous Blood pH 7.38 (7.36-7.41) Venous Blood Partial Pressure CO2 46 mmHg (38.0-50.0) Venous Blood Partial Pressure O2 78 mmHg Venous Blood HCO3 26 mmol/L Venous Blood Oxygen Saturation 92.5 % Venous Blood Base Excess 1.0 mEq/L Total Bilirubin 0.5 mg/dl (0.2-1) Direct Bilirubin 0.3 mg/dl (0-0.2) Aspartate Amino Transf (AST/SGOT) 20 U/L (15-37) Alanine Aminotransferase (ALT/SGPT) 18 U/L (12-78) Alkaline Phosphatase 109 U/L (45-117) Pro-B-Type Natriuretic Peptide 1743 pg/ml (0-1800) Total Protein 6.6 gm/dl (6.4-8.2) Albumin 3.0 gm/dl (3.4-5.0) Bedside Lactic Acid Venous 1.31 mmol/L (0.90-1.70) Laboratory results reviewed by me Medications Administered Medications (Trade) Dose Ordered Sig/Nicolette Route Start Time Stop Time Status Last Admin Dose Admin Oxymetazoline HCl (Afrin 0.05% Nasal [place]) 1 sprays NOW ONCE NA 07/17/17 15:45 07/17/17 15:46 DC 07/17/17 15:41 1 SPRAYS Lidocaine/ Epinephrine (Xylocaine/Epine 1% Inj) 20 ml NOW ONCE INFIL 07/17/17 15:45 07/17/17 15:46 DC 07/17/17 15:41 20 ML Sodium Chloride 500 ml @ 999 mls/hr Q31M STAT IV 07/17/17 17:09 07/18/17 12:50 DC 07/17/17 17:09 999 MLS/HR Phytonadione 10 mg/Sodium Chloride 51 ml @ 102 mls/hr ONE ONCE IV 07/17/17 18:15 07/17/17 18:44 DC 07/17/17 18:43 102 MLS/HR Clindamycin Phosphate 900 mg/ Dextrose 106 ml @ 106 mls/hr 1830 IV 07/17/17 18:30 07/17/17 19:29 DC 07/17/17 19:14 106 MLS/HR ECG Indication: chest pain Rate (beats per minute): 70 Rhythm: other (AV dual paced rhythm) Findings: other (Wide QRS) Comparison ECG Date: June 27, 2017 Change: no significant change ED Course 1527: The patient was evaluated in room B3B. A complete history and physical exam was performed. 1545: Ordered Xylocaine/Epine 1% Inj 20 mL INFIL, Afrin 0.05% Nasal [place] 1 spray. 1709: Ordered Sodium Chloride 500 ml @ 999 mls/hr IV. 1718: I discussed the patient's case with him and his family. They informed me that the patient is DNR/DNI. 1815: Ordered Phytonadione 10 mg/Sodium Chloride 51 ml @ 102 mls/hr IV. 1825: Upon reexamination, the patient was resting comfortably. I discussed the test results and treatment plan with him. The patient will be evaluated for further management. 1830: Ordered Clindamycin Phosphate 900 mg/Dextrorse 106 mL @ 106 mL/hr IV. Medical Decision The patient is a 77 year old white male who presents to the ED with a cc of a persistent nosebleed s/p fall occurring 1 hour ago. Differential diagnosis includes: ICH, fracture, sprain, strain, hematoma, intraabdominal injury, hemothorax, and pneumothorax. Patient was seen and evaluated at the bedside. Patient was having severe epistaxis coming from the nares. Patient did have some packing in the right naris and a clamp was placed. Patient did have labs ordered. Patient was further evaluated using suction at which point Afrin was sprayed into the bilateral nares and 2 Rhino Rocket's were placed one in each naris. The right nares was placed successfully although the left was have out. Given the concern of the acute epistaxis and the prolonged nature I believe briefly spoke with ENT who recommended that he continue to have posterior bleeding visible in the pharynx to call him. I also spoke with cardiology. The patient's use of Coumadin if it would be appropriate to reverse as needed. Upon reassessment patient's bleeding seemed to lessen. He did have clot in the posterior pharynx and the patient did not complain of tasting blood in the back of his throat. Patient was quite low pathic with an elevated INR greater than 3. Patient was given vitamin K. Patient did have CTs of the head and neck face chest abdomen and pelvis. Patient was noted to have bilateral nasal bone fractures but no other acute traumatic process or bleeding within the chest or abdomen. Patient was otherwise neuro intact intact. Patient was given clindamycin for his possible aspiration pneumonitis in addition to possible open nasal bone fractures. I discussed CODE STATUS with the patient and family and they stated that they would not like chest compressions of the heart were to stop and would not like a breathing tube in the patient stops breathing. Patient was also ordered 2 units of PRBCs in addition to fluids. Patient did have CKD but needed to undergo scans pain and traumatic process, thus was given some fluids. Patient's hgb was 6.8 which is why he was ordered 2 units PRBCs. I spoke with the hospitalists patient was admitted. Medication Reconcilliation Current Medication List: was personally reviewed by me Blood Pressure Screening Patient's blood pressure: Normal blood pressure Blood pressure disposition: Did not require urgent referral Consults Time Called: 1600 Consulting Physician: Dr. Perry -Cardiology Returned Call: [phone] Discussed the patient's case. Dr. Perry feels that there is no need for intervention at this time from a cardiology stand-point. Additional Consults: Time Called: 1605 Consulted Physician: Dr. Wright -ENT Returned Call: [phone] Additional Comments: Discussed the patient's case. Dr. Wright recommends calling him back if the bleeding persists in which case he will come evaluate the patient. Time Called: 0620 Consulted Physician: Dr. Beronica Auguste Returned Call: [phone] Additional Comments: Discussed the patient's case. The patient will be evaluated for further treatment and disposition. Impression Primary Impression: Severe epistaxis Additional Impressions: Bleeding on Coumadin Warfarin-induced coagulopathy Acute post-hemorrhagic anemia Nasal bone fracture Critical Care I have personally spent greater than 52 minutes of critical care time in the direct management of this patient. This includes bedside care, interpretation of diagnostic studies, and testing, discussion with consultants, patient, and family members, and other required patient management activities. This 52 minutes is in excess of all separately billable procedures. Scribe Attestation The scribe's documentation has been prepared under my direction and personally reviewed by me in its entirety. I confirm that the note above accurately reflects all work, treatment, procedures, and medical decision making performed by me. Departure Information Dispostion Being Evaluated By Hospitalist Referrals Bryan Valerio MD (PCP) Patient Instructions My [facility] Problem Qualifiers Additional Impressions: Nasal bone fracture Encounter type: initial encounter Fracture type: open Qualified Codes: S02.2XXB - Fracture of nasal bones, initial encounter for open fracture
[2017-07-18] MEDS: BUDESONIDE 0.5 MG/2 ML VIAL (PULMICORT) INH SCH (19:19)
[2017-07-18] MEDS: TRAZODONE HCL 50 MG TAB PO SCH (19:50)
[2017-07-18] MEDS: MAGNESIUM OXIDE 400 MG TAB PO SCH (19:50)
[2017-07-18] MEDS: ERTAPENEM IV 1 GM in SODIUM CHLOR 0.9% AD-VAN 50ML 50 ML IV SCH (22:30)
[2017-07-19] VITALS (13 sets, daily range): BP systolic 107–159; BP diastolic 63–86; PULSE 71–83; TEMP 36.5–37.1; O2SAT 87–100
[2017-07-19] MEDS: LEVOTHYROXINE 112 MCG TAB PO SCH (05:34)
[2017-07-19 05:50] LABS: MEAN CORPUSCULAR HGB CONC 29.9 g/dl (32-36)
[2017-07-19 06:04] LABS: INR 1.3 (0.9-1.1)
[2017-07-19 06:16] LABS: HEMATOCRIT 27.4 % (42-52); MEAN CELL VOLUME 77.4 fL (80-100); MEAN CORPUSCULAR HEMOGLOBIN 23.2 pg (25-34); PLATELET COUNT 122 K/uL (130-400); RED BLOOD COUNT 3.54 M/uL (4.7-6.1); WHITE BLOOD COUNT 8.16 K/uL (4.8-10.8)
[2017-07-19 06:23] LABS: BUN/CREATININE RATIO 25.3 (10-20); CALCIUM 8.9 mg/dl (8.5-10.1); CREATININE 1.6 mg/dl (0.60-1.40); POTASSIUM 4.1 mmol/L (3.5-5.1)
[2017-07-19 06:26] LABS: ALB/GLOB RATIO 0.8 (0.9-2)
[2017-07-19 06:31] LABS: ANISOCYTOSIS PRESENT; BASO % 0.2 %; BASO ABS # 0.02 K/uL (0-0.2); COMPLETE YES; EOS % 0.7 %; IG% 0.4 %; LYMPH % 10.2 %; LYMPH ABS # 0.83 K/uL (1.2-3.4); MONO % 11.4 %; NEUT % 77.1 %; OVALOCYTES 1+; PLT ESTIMATE DECREASED; POLYCHROMASIA 1+
[2017-07-19] MEDS: BUDESONIDE 0.5 MG/2 ML VIAL (PULMICORT) INH SCH ×2 (07:12→19:26)
[2017-07-19] MEDS: INSULIN HUMAN NPH SC SCH ×2 (07:59→16:58)
[2017-07-19] MEDS: DOCUSATE SODIUM 100 MG CAP PO SCH (10:02)
[2017-07-19] MEDS: AMIODARONE 200 MG TAB PO SCH (10:03)
[2017-07-19] MEDS: LOSARTAN POTASSIUM 25 MG TAB PO SCH (10:06)
[2017-07-19] MEDS: TORSEMIDE 20 MG TAB PO SCH (10:07)
[2017-07-19] MEDS: ASPIRIN 81 MG ECTAB PO SCH (10:08)
[2017-07-19] MEDS: GABAPENTIN 100 MG CAP PO SCH (10:09)
[2017-07-19] MEDS: PANTOprazole SOD 40 MG TAB PO SCH (10:11)
[2017-07-19] MEDS: SILDENAFIL CITRATE 20 MG TAB PO SCH ×2 (10:11→20:51)
[2017-07-19] MEDS: CALCITRIOL 0.25 MCG CAP PO SCH (10:12)
[2017-07-19] MEDS: NITROGLYCERIN 0.4 MG SL PER TAB CHARGE SL PRN ×3 (18:33→18:43)
[2017-07-19] MEDS ORDERED: GI COCKTAIL PO PRN (18:45)
[2017-07-19] MEDS ORDERED: MoRPHine SULFATE 4 MG/ML 1 ML CARP\\VIAL ONE (18:46)
[2017-07-19] MEDS ORDERED: ALUMINUM/MAGNESIUM SUSP 72 ML, LIDOCAINE HCL 2% VISCOUS SOLN 24 ML, BARCODE IDENTIFIER ... PO PRN ×2 (19:15)
--- NOTE | 2017-07-19 20:11 | Progress Note ---
Medicine Progress Note Date & Time of Visit: Jul 19, 2017 at 19:44. (Marlen Rowley PA-C) Subjective Patient seen this morning. Nasal packing was removed yesterday. RN reports minimal trickling of blood from the nares which resolves with Afrin. Pt states pain is controlled. PO intake is good. Coughs up a small amount of blood since the epistaxis episode. He reports intermittent abdominal pain for several months (points to periumbilical area). States abdomen has swollen in the past requiring diuretics. Ambulates across room with walker and assistance. Used a cane at home. Pt admits to frequent lightheadedness x 6 months. Denies chest pain or SOB. (Marlen Rowley PA-C) Objective Last 8 Hrs Date Time Temp Pulse Resp B/P (MAP) Pulse Ox O2 Delivery O2 Flow Rate FiO2 07/19/17 19:27 78 16 87 Room Air 07/19/17 16:30 Room Air 07/19/17 15:01 36.7 75 18 107/64 (78) 95 Room Air 07/19/17 13:27 71 16 112/63 (79) 07/19/17 12:47 36.7 72 20 98 5.0 07/19/17 12:00 98 Room Air Physical Exam: General-alert elderly male, lying in bed, appears more comfortable, daughter at bedside Eyes- anicteric ENT- ecchymosis of nose and bilateral maxillary areas, left nare with scant red wet blood, right nare with dried blood Neck-trachea midline Lungs-decreased breath sounds, no wheezing, rhonchi, or crackles, no respiratory distress Heart- RRR, + systolic murmur Abdomen-mildly protuberant, soft, tender in RUQ, normal BS Extremities- PICC line present RUE with scabbing present, no edema, + venous stasis discoloration bilateral lower legs Neuro-alert, oriented x 3, affect normal, grossly nonfocal Laboratory Results: Last 24 Hours Test 07/18/17 20:20 07/19/17 05:28 07/19/17 07:17 07/19/17 11:26 Bedside Glucose 135 mg/dl 82 mg/dl 107 mg/dl White Blood Count 8.16 K/uL Red Blood Count 3.54 M/uL Hemoglobin 8.2 g/dL Hematocrit 27.4 % Mean Corpuscular Volume 77.4 fL Mean Corpuscular Hemoglobin 23.2 pg Mean Corpuscular Hemoglobin Concent 29.9 g/dl Platelet Count 122 K/uL Neutrophils (%) (Auto) 77.1 % Lymphocytes (%) (Auto) 10.2 % Monocytes (%) (Auto) 11.4 % Eosinophils (%) (Auto) 0.7 % Basophils (%) (Auto) 0.2 % Neutrophils # (Auto) 6.29 K/uL Lymphocytes # (Auto) 0.83 K/uL Monocytes # (Auto) 0.93 K/uL Eosinophils # (Auto) 0.06 K/uL Basophils # (Auto) 0.02 K/uL RDW Standard Deviation 57.1 fL RDW Coefficient of Variation 20.0 % Immature Granulocyte % (Auto) 0.4 % Immature Granulocyte # (Auto) 0.03 K/uL Nucleated RBC Absolute Count (auto) 0.05 K/uL Nucleated Red Blood Cells % 0.6 % Platelet Estimate DECREASED Polychromasia 1+ Anisocytosis PRESENT Ovalocytes 1+ Prothrombin Time 14.0 SECONDS Prothromb Time International Ratio 1.3 Sodium Level 143 mmol/L Potassium Level 4.1 mmol/L Chloride Level 106 mmol/L Carbon Dioxide Level 33 mmol/L Anion Gap 4.0 mmol/L Blood Urea Nitrogen 41 mg/dl Creatinine 1.60 mg/dl Est Creatinine Clear Calc Drug Dose 41.1 ml/min Estimated GFR () 46.8 Estimated GFR (Non- 40.4 BUN/Creatinine Ratio 25.3 Random Glucose 75 mg/dl Calcium Level 8.9 mg/dl Total Bilirubin 0.6 mg/dl Aspartate Amino Transf (AST/SGOT) 22 U/L Alanine Aminotransferase (ALT/SGPT) 19 U/L Alkaline Phosphatase 92 U/L Total Protein 6.7 gm/dl Albumin 3.0 gm/dl Globulin 3.7 gm/dl Albumin/Globulin Ratio 0.8 Test 07/19/17 16:30 Bedside Glucose 135 mg/dl (Marlen Rowley PA-C) Assessment & Plan ACUTE BLOOD LOSS ANEMIA 2/2 EPISTAXIS In setting of Coumadin use (INR 3.1 on presentation). ER provider discussed with cardiology, Coumadin held, given 10 mg IV vitamin K Nasal packing placed in ER, removed by ENT Dr. Buck on 07/18, no bleeding upon removal Hg 6.8 on presentation (baseline 9's), transfused 2 units pRBC with appropriate response (Hg 8.1), Hg remains stable at 8.[address] Merritt, appreciate input, no need for Vitamin K Continue to hold Coumadin for 1 week per ENT Noted to have schistocytes on CBC with diff on admission- not present on repeat CBC diff S/P FALL Reported lightheadedness at time of fall, has been intermittent x 6 months Ddx includes symptomatic anemia, orthostasis, r/o arrhythmia, medication side effect Monitor in telemetry- no significant arrhythmia Pacemaker interrogation- reviewed with Dr. Tracy, shows Afib but no other arrhythmia Troponin negative x 3 Check orthostatic VS Discontinue gabapentin which has side effect of dizziness HYPOXIA- resolved, now saturating well on RA CT chest suggestive of pneumonitis Afebrile, no leukocytosis, has chronic cough with clear sputum (now producing small amount of blood since epistaxis epsiode) Invanz for coverage of aspiration of blood ABDOMINAL PAIN/ CIRRHOSIS- new diagnosis Likely secondary to NAFLD CT a/p showed cirrhosis with trace intra-abdominal and intrapelvic ascites LFT's WNL Attending physician discussed case with GI, recommended outpatient GI evaluation Patient informed of diagnosis CHRONIC SYSTOLIC CHF Clinically compensated CXR on admission showed pulmonary vascular congestion without overt pulmonary edema Last TTE showed EF 30-34% Monitor daily weights and I/O CKD STAGE III Creatinine 1.6 (stable from baseline 1.6-1.7) Monitor renal function ATRIAL FIBRILLATION Was on Coumadin, INR 3.1 on admission, ER provider discussed with cardiology, given 10 mg IV vitamin K Coumadin on hold for epistaxis, anemia- continue to hold for 1 week per ENT, will defer to cardiology to resume as outpatient S/p pacemaker, s/p maze in 2011 Rate is controlled Continue amiodarone and digoxin (dig level WNL) HTN Stable, continue losartan PULMONARY HTN Continue Revatio CHRONIC THROMBOCYTOPENIA Platelet count 140s ->120's Monitor DM TYPE II A1c 7.4 in 06/2017 Hold home insulin isophane Utilize Lantus and Novolog sliding scale CHRONIC LLE WOUND INFECTION On Invanz ID consulted, seen by Dr. Childs, appreciate input Wound care nurse consulted CAD S/P CABG Continue aspirin and statin Per H&P, not on beta shana due to intolerance/ bradycardia HYPOTHYROIDISM Continue levothyroxine RHEUMATOID ARTHRITIS continue hydroxychloroquine and prednisone DEPRESSION Continue sertraline and trazodone CODE STATUS DNR as per admitting physician order DVT PROPHYLAXIS SCD's due to epistaxis/ anemia DISPOSITION Telemetry -> med/ surg Follows with Dr. Valerio for primary care Lives with daughter PT/ OT evals requested- PT recommended rehab, social service consult placed Patient seen in collaboration with Dr. Johnson. Please see her addendum. Current Inpatient Medications: Current Inpatient Medications Medications (Trade) Dose Ordered Sig/Nicolette Route Start Time Stop Time Status Last Admin Dose Admin Acetaminophen (Tylenol Tab) 650 mg Q4H PRN PO 07/17/17 19:15 08/16/17 19:14 07/18/17 11:04 650 MG Ondansetron HCl (Zofran Inj) 4 mg Q6H PRN IV 07/17/17 19:15 08/16/17 19:14 Polyethylene (Miralax Powder Packet) 17 gm DAILY PRN PO 07/17/17 19:15 08/16/17 19:14 Amiodarone HCl (Cordarone Tab) 200 mg DAILY PO 07/18/17 09:00 08/17/17 08:59 07/19/17 10:03 200 MG Aspirin (Ecotrin Tab) 81 mg QAM PO 07/18/17 09:00 08/17/17 08:59 07/19/17 10:08 81 MG Cholecalciferol (Vitamin D Tab) 2,000 inter.unit HS PO 07/18/17 21:00 08/17/17 20:59 07/18/17 08:17 2,000 INTER.UNIT Digoxin (Lanoxin Tab) 0.125 mg Q2D PO 07/18/17 16:00 08/17/17 15:59 07/18/17 16:31 0.125 MG Docusate Sodium (coLACE CAP) 100 mg DAILY PO 07/18/17 09:00 08/17/17 08:59 07/19/17 10:02 100 MG Hydroxychloroquine Sulfate (Plaquenil Tab) 400 mg HS PO 07/18/17 21:00 08/17/17 20:59 07/18/17 08:18 400 MG Insulin Human NPH (novoLIN-N NPH) 12 units BIDM SC 07/18/17 07:30 08/17/17 07:29 07/19/17 16:58 12 UNITS Ipratropium [place] (Atrovent 0.02% 0.5MG/2.5ML Neb) 0.5 mg TID PRN INH 07/17/17 21:45 08/16/17 21:44 Levalbuterol (Xopenex 1.25MG/ 3ML Neb) 1.25 mg TID PRN INH 07/17/17 21:45 08/16/17 21:44 Levothyroxine Sodium (Synthroid Tab) 112 mcg DAILYBB PO 07/18/17 06:00 08/17/17 05:59 07/19/17 05:34 112 MCG Losartan Potassium (coZAAR TAB) 12.5 mg DAILY PO 07/18/17 09:00 08/17/17 08:59 07/19/17 10:06 12.5 MG Pantoprazole Sodium (Protonix Tab) 40 mg DAILY PO 07/18/17 09:00 08/17/17 08:59 07/19/17 10:11 40 MG Prednisone (PredniSONE TAB) 5 mg DAILY PO 07/18/17 09:00 08/17/17 08:59 07/19/17 10:10 5 MG Sertraline HCl (Zoloft Tab) 100 mg HS PO 07/18/17 21:00 08/17/17 20:59 07/18/17 08:19 100 MG Sildenafil Citrate (Revatio Tab) 20 mg BID PO 07/18/17 09:00 08/17/17 08:59 07/19/17 10:11 20 MG Simvastatin (Zocor Tab) 10 mg HS PO 07/18/17 21:00 08/17/17 20:59 07/18/17 08:19 10 MG Tramadol HCl (Ultram Tab) 50 mg Q12 PRN PO 07/17/17 21:45 08/16/17 21:44 07/17/17 23:12 50 MG Trazodone HCl (Desyrel Tab) 25 mg HS PO 07/18/17 21:00 08/17/17 20:59 07/18/17 19:50 25 MG Magnesium Oxide (Mag-Ox Tab) 400 mg HS PO 07/18/17 21:00 08/17/17 20:59 07/18/17 19:50 400 MG Sertraline HCl (Zoloft Tab) 25 mg HS PO 07/18/17 21:00 08/17/17 20:59 07/18/17 08:18 25 MG Glucose (Glucose 40% Gel) 15-30 GRAMS 15 GRAMS... UD PRN PO 07/17/17 21:45 08/16/17 21:44 Glucose (Glucose Chew Tab) 4-8 Tablets 4 Tabl... UD PRN PO 07/17/17 21:45 08/16/17 21:44 Dextrose (Dextrose 50% 50ML Syringe) 25-50ML OF 50% DW IV FOR... UD PRN IV 07/17/17 21:45 08/16/17 21:44 Glucagon (Glucagon Inj) 1 mg UD PRN SQ 07/17/17 21:45 08/16/17 21:44 Torsemide (Demadex Tab) 30 mg DAILY PO 07/18/17 09:00 08/17/17 08:59 07/19/17 10:07 30 MG Calcitriol (Rocaltrol Cap) 0.25 mcg MoWeFr PO 07/19/17 09:00 08/18/17 08:59 07/19/17 10:12 0.25 MCG Ertapenem 1 gm/ Sodium Chloride 50 ml @ 120 mls/hr Q24H IV 07/17/17 22:30 07/21/17 22:29 07/18/17 22:30 120 MLS/HR Oxycodone/ Acetaminophen (Percocet 5-325mg Tab) 1 tab Q4H PRN PO 07/18/17 02:00 08/01/17 01:59 07/18/17 11:59 1 TAB Hydromorphone HCl (Dilaudid Inj) 0.5 mg Q3H PRN IV 07/18/17 02:00 08/01/17 01:59 Budesonide (Pulmicort Respules 0.5MG/ 2ML Neb Soln) 0.5 mg BIDR INH 07/18/17 20:00 08/17/17 19:59 07/19/17 19:26 0.5 MG Oxymetazoline HCl (Afrin 0.05% Nasal [place]) 2 sprays Q1HWA PRN NA 07/18/17 13:00 08/17/17 12:59 07/18/17 18:04 2 SPRAYS Nitroglycerin (Nitrostat Tab) 0.4 mg PRN PRN SL 07/19/17 18:30 08/18/17 18:29 07/19/17 18:43 0.4 MG Morphine Sulfate (MoRPHine SULFATE INJ) 4 mg Q2H PRN IV 07/19/17 18:30 08/02/17 18:29 Al Hydroxide/Mg Hydroxide/ Lidocaine HCl/ Barcode Q8H PRN PO 07/19/17 19:15 08/18/17 19:14 (Marlen Rowley PA-C) Mr. Sanders appears again clinically improved today. His facial ecchymosis is resolving and he appears somewhat stronger today. We discussed the new diagnosis of cirrhosis with he and his daughter and they are aware of the need for an outpatient GI referral on discharge and the need for frequent follow- ups. His anemia is stable with rhino rockets removed yesterday; he continues on the Afrin. We discussed his lightheadedness which has plagued him for the last 6 months, around the time he was admitted to [facility] and gabapentin was begun. We decided to hold the gabapentin now as lightheadedness affects him daily. Other medication causes include sertraline, trazodone, and ultram to name a few of many causes which will need further investigation by PCP. Otherwise, I have seen and evaluated the patient and agree with the assessment and plan as stated. DO Alex (Lillie Johnson, DO)
--- NOTE | 2017-07-19 20:17 | DIAGNOSTIC IMAGING REPORT ---
CHEST ONE VIEW PORTABLE CLINICAL HISTORY: Acute substernal chest pain, h/o CABG. COMPARISON STUDY: Chest radiograph and chest CT July 17, 2017. FINDINGS: Exam is mildly compromised by motion artifact. There are median sternotomy wires and a left subclavian pacer. No pneumothorax is present. A trace left pleural effusion is unchanged. Left lower lung airspace opacity is unchanged. Moderate cardiomegaly is noted. There is no evidence for pulmonary edema. Pulmonary vascular congestion is noted. IMPRESSION: 1. No change in appearance of the chest. Stable cardiomegaly and pulmonary vascular congestion without overt edema. 2. No change in left lower lung airspace opacity which likely reflect atelectasis, as shown on prior chest CT. Electronically signed by: Jason Florez M.D. 07/19/2017 8:16 PM Dictated Date/Time: 07/19/2017 8:14 PM
[2017-07-19] MEDS: SERTRALINE HCL 100 MG TAB PO SCH (20:51)
[2017-07-19] MEDS: CHOLECALCIFEROL 1000 INTER.UNIT TAB PO SCH (20:51)
[2017-07-19] MEDS: HYDROXYCHLOROQUINE SULFATE 200 MG TAB PO SCH (20:51)
[2017-07-19] MEDS: TRAZODONE HCL 50 MG TAB PO SCH (20:51)
[2017-07-19] MEDS: MAGNESIUM OXIDE 400 MG TAB PO SCH (20:51)
[2017-07-19] MEDS: SIMVASTATIN 10 MG TAB PO SCH (20:52)
[2017-07-19] MEDS: SERTRALINE HCL 50 MG TAB PO SCH (20:52)
[2017-07-19 20:56] LABS: HEMATOCRIT 27.8 % (42-52); MEAN CELL VOLUME 76.8 fL (80-100); MEAN CORPUSCULAR HEMOGLOBIN 21.8 pg (25-34); MEAN CORPUSCULAR HGB CONC 28.4 g/dl (32-36); PLATELET COUNT 143 K/uL (130-400); RED BLOOD COUNT 3.62 M/uL (4.7-6.1); WHITE BLOOD COUNT 10.93 K/uL (4.8-10.8)
[2017-07-19 21:00] LABS: ANISOCYTOSIS PRESENT; BASO % 0.2 %; BASO ABS # 0.02 K/uL (0-0.2); COMPLETE YES; EOS % 0.2 %; HYPOCHROMIA PRESENT; IG% 0.4 %; LYMPH % 7.3 %; MONO % 9.4 %; NEUT % 82.5 %; PLT ESTIMATE NORMAL; POIKILOCYTOSIS PRESENT; POLYCHROMASIA 1+
[2017-07-19 21:07] LABS: BUN/CREATININE RATIO 20.1 (10-20); CALCIUM 8.6 mg/dl (8.5-10.1); CKMB/CK RATIO 3.1 (0-3.0); POTASSIUM 4.1 mmol/L (3.5-5.1)
[2017-07-19] MEDS ORDERED: LEVALBUTEROL/IPRATROPIUM NEB INH ONE (21:28)
[2017-07-19] MEDS: MoRPHine SULFATE 4 MG/ML 1 ML CARP\\VIAL IV PRN (21:29)
[2017-07-19] MEDS: ERTAPENEM IV 1 GM in SODIUM CHLOR 0.9% AD-VAN 50ML 50 ML IV SCH (21:29)
[2017-07-19] MEDS ORDERED: IPRATROPIUM BROMIDE NEB SOLN 0.02% 2.5 ML VIAL INH STA (21:33)
[2017-07-19] MEDS ORDERED: LEVALBUTEROL 1.25MG/0.5ML NEB INH STA (21:33)
[2017-07-20] VITALS (22 sets, daily range): BP systolic 103–119; BP diastolic 59–75; PULSE 69–76; TEMP 36.5–36.9; O2SAT 90–100
[2017-07-20] MEDS: LEVALBUTEROL 1.25MG/0.5ML NEB INH SCH ×4 (02:14→20:30)
[2017-07-20] MEDS: IPRATROPIUM BROMIDE NEB SOLN 0.02% 2.5 ML VIAL INH SCH ×4 (02:14→20:30)
[2017-07-20] MEDS ORDERED: NURSING VERBAL MED ORDER ONE ×2 (03:00→05:45)
[2017-07-20] MEDS ORDERED: LEVALBUTEROL/IPRATROPIUM NEB INH SCH (03:00)
[2017-07-20] MEDS: MoRPHine SULFATE 4 MG/ML 1 ML CARP\\VIAL IV PRN ×3 (03:44→20:14)
[2017-07-20 03:47] LABS: INR 1.2 (0.9-1.1); PROTHROMBIN TIME (PATIENT) 12.9 SECONDS (9.0-12.0)
[2017-07-20 03:59] LABS: BUN/CREATININE RATIO 19.9 (10-20); CALCIUM 8.3 mg/dl (8.5-10.1); POTASSIUM 4.1 mmol/L (3.5-5.1)
[2017-07-20 04:03] LABS: CKMB/CK RATIO 2.8 (0-3.0)
[2017-07-20 04:18] LABS: HEMATOCRIT 30.5 % (42-52); MEAN CELL VOLUME 79.2 fL (80-100); MEAN CORPUSCULAR HEMOGLOBIN 22.1 pg (25-34); MEAN CORPUSCULAR HGB CONC 27.9 g/dl (32-36); PLATELET COUNT 145 K/uL (130-400); RED BLOOD COUNT 3.85 M/uL (4.7-6.1); WHITE BLOOD COUNT 11.02 K/uL (4.8-10.8)
[2017-07-20 04:19] LABS: ANISOCYTOSIS PRESENT; BASO % 0.1 %; BASO ABS # 0.01 K/uL (0-0.2); COMPLETE YES; EOS % 0.1 %; IG% 0.2 %; LYMPH % 10.4 %; LYMPH ABS # 1.15 K/uL (1.2-3.4); MONO % 10.1 %; NEUT % 79.1 %; OVALOCYTES 1+; PLT ESTIMATE NORMAL; POLYCHROMASIA 1+; SCHISTOCYTES OCCASIONAL
[2017-07-20] MEDS: LEVOTHYROXINE 112 MCG TAB PO SCH (05:39)
--- NOTE | 2017-07-20 07:07 | DIAGNOSTIC IMAGING REPORT ---
CT SCAN OF THE BRAIN WITHOUT IV CONTRAST CLINICAL HISTORY: Change in mental status. COMPARISON STUDY: CT of the brain dated 07/17/2017. TECHNIQUE: Unenhanced axial CT scan of the brain is performed from the vertex to the skull base. CT DOSE: 700.26 mGy.cm FINDINGS: Brain parenchyma: There are age-related involutional changes noting mild subcortical and periventricular microangiopathic change. There is no hemorrhage, mass effect, or evidence of acute territorial ischemia by CT criteria. Hdez-white matter is preserved. No extra-axial fluid collection is seen. Ventricles, sulci, cisterns: Prominent secondary to involutional change. Intracranial vasculature: There is atherosclerotic calcification of the cavernous carotid arteries. Calvarium: Unremarkable. Sinuses and mastoids: There is mild mucosal thickening within the maxillary antra and the frontal sinuses. Trace fluid is seen in the right maxillary sinus. The mastoid air cells are well pneumatized. Orbits: The bony orbits are grossly intact. IMPRESSION: There is no hemorrhage, mass effect, or evidence of acute territorial ischemia by CT criteria. Electronically signed by: Alhaji Holm M.D. 07/20/2017 7:06 AM Dictated Date/Time: 07/20/2017 7:04 AM
[2017-07-20] MEDS: BUDESONIDE 0.5 MG/2 ML VIAL (PULMICORT) INH SCH ×2 (07:12→20:30)
[2017-07-20 09:02] LABS: CKMB/CK RATIO 2.8 (0-3.0)
[2017-07-20] MEDS: TRAMADOL HCL 50 MG TAB PO PRN (09:02)
[2017-07-20] MEDS: GABAPENTIN 100 MG CAP PO SCH ×2 (09:03→20:05)
[2017-07-20] MEDS: LOSARTAN POTASSIUM 25 MG TAB PO SCH (09:05)
[2017-07-20] MEDS: TORSEMIDE 20 MG TAB PO SCH (09:06)
[2017-07-20] MEDS: SILDENAFIL CITRATE 20 MG TAB PO SCH ×2 (09:06→20:05)
[2017-07-20] MEDS: PANTOprazole SOD 40 MG TAB PO SCH (09:07)
[2017-07-20] MEDS: AMIODARONE 200 MG TAB PO SCH (09:07)
[2017-07-20] MEDS: ASPIRIN 81 MG ECTAB PO SCH (09:07)
[2017-07-20] MEDS: DOCUSATE SODIUM 100 MG CAP PO SCH (09:07)
[2017-07-20] MEDS: INSULIN HUMAN NPH SC SCH ×2 (09:47→15:50)
[2017-07-20] MEDS: ACETAMINOPHEN 325 MG TAB PO PRN (10:07)
--- NOTE | 2017-07-20 10:25 | DIAGNOSTIC IMAGING REPORT ---
CHEST ONE VIEW PORTABLE HISTORY: 77 years-old Male SOB acute shortness of breath. Initial exam. COMPARISON: Portable chest radiograph 07/19/2017 at 8:04 PM, chest CT 07/17/2017 TECHNIQUE: Portable upright AP view of the chest FINDINGS: Cardiac silhouette is moderately enlarged, unchanged. Prior median sternotomy. Left atrial exclusion device is redemonstrated. Left pectoral pacer is noted with leads intact. There is atherosclerosis of the aorta. There is no pneumothorax identified. Only vascular congestion persists without overt pulmonary edema. Subsegmental left basilar opacities are again noted IMPRESSION: 1. Cardiomegaly and mild pulmonary vascular congestion without overt pulmonary edema. 2. Persistent subsegmental left basilar opacities suggest scarring with atelectasis as noted on comparison CT of the chest 07/17/2017. The above report was generated using voice recognition software. It may contain grammatical, syntax or spelling errors. Electronically signed by: Ad Bello M.D. 07/20/2017 10:24 AM Dictated Date/Time: 07/20/2017 10:22 AM
--- NOTE | 2017-07-20 11:27 | Infectious Disease Progress Nt ---
Progress Note Date of Service Jul 20, 2017. Subjective Pt evaluation today including: conversation w/ patient, conversation w/ family , physical exam, chart review, lab review, review of studies, conversation w/ recruitment consultant, review of inpatient medication list Had episode of chest pain, now improved. Remains afebrile. Nasal bleeding improved. Left thigh wounds remains healed. All Other Systems: Reviewed and Negative Medications Current Inpatient Medications Medications (Trade) Dose Ordered Sig/Nicolette Route Start Time Stop Time Status Last Admin Dose Admin Ondansetron HCl (Zofran Inj) 4 mg Q6H PRN IV 07/17/17 19:15 08/16/17 19:14 Polyethylene (Miralax Powder Packet) 17 gm DAILY PRN PO 07/17/17 19:15 08/16/17 19:14 Amiodarone HCl (Cordarone Tab) 200 mg DAILY PO 07/18/17 09:00 08/17/17 08:59 07/20/17 09:07 200 MG Aspirin (Ecotrin Tab) 81 mg QAM PO 07/18/17 09:00 08/17/17 08:59 07/20/17 09:07 81 MG Cholecalciferol (Vitamin D Tab) 2,000 inter.unit HS PO 07/18/17 21:00 08/17/17 20:59 07/19/17 20:51 2,000 INTER.UNIT Digoxin (Lanoxin Tab) 0.125 mg Q2D PO 07/18/17 16:00 08/17/17 15:59 07/18/17 16:31 0.125 MG Docusate Sodium (coLACE CAP) 100 mg DAILY PO 07/18/17 09:00 08/17/17 08:59 07/20/17 09:07 100 MG Hydroxychloroquine Sulfate (Plaquenil Tab) 400 mg HS PO 07/18/17 21:00 08/17/17 20:59 07/19/17 20:51 400 MG Insulin Human NPH (novoLIN-N NPH) 12 units BIDM SC 07/18/17 07:30 08/17/17 07:29 07/20/17 09:47 6 UNITS Levothyroxine Sodium (Synthroid Tab) 112 mcg DAILYBB PO 07/18/17 06:00 08/17/17 05:59 07/19/17 05:34 112 MCG Losartan Potassium (coZAAR TAB) 12.5 mg DAILY PO 07/18/17 09:00 08/17/17 08:59 07/20/17 09:05 12.5 MG Pantoprazole Sodium (Protonix Tab) 40 mg DAILY PO 07/18/17 09:00 08/17/17 08:59 07/20/17 09:07 40 MG Prednisone (PredniSONE TAB) 5 mg DAILY PO 07/18/17 09:00 08/17/17 08:59 07/20/17 09:07 5 MG Sertraline HCl (Zoloft Tab) 100 mg HS PO 07/18/17 21:00 08/17/17 20:59 07/19/17 20:51 100 MG Sildenafil Citrate (Revatio Tab) 20 mg BID PO 07/18/17 09:00 08/17/17 08:59 07/20/17 09:06 20 MG Simvastatin (Zocor Tab) 10 mg HS PO 07/18/17 21:00 08/17/17 20:59 07/19/17 20:52 10 MG Trazodone HCl (Desyrel Tab) 25 mg HS PO 07/18/17 21:00 08/17/17 20:59 07/19/17 20:51 25 MG Magnesium Oxide (Mag-Ox Tab) 400 mg HS PO 07/18/17 21:00 08/17/17 20:59 07/19/17 20:51 400 MG Sertraline HCl (Zoloft Tab) 25 mg HS PO 07/18/17 21:00 08/17/17 20:59 07/19/17 20:52 25 MG Glucose (Glucose 40% Gel) 15-30 GRAMS 15 GRAMS... UD PRN PO 07/17/17 21:45 08/16/17 21:44 Glucose (Glucose Chew Tab) 4-8 Tablets 4 Tabl... UD PRN PO 07/17/17 21:45 08/16/17 21:44 Dextrose (Dextrose 50% 50ML Syringe) 25-50ML OF 50% DW IV FOR... UD PRN IV 07/17/17 21:45 08/16/17 21:44 Glucagon (Glucagon Inj) 1 mg UD PRN SQ 07/17/17 21:45 08/16/17 21:44 Torsemide (Demadex Tab) 30 mg DAILY PO 07/18/17 09:00 08/17/17 08:59 07/20/17 09:06 30 MG Calcitriol (Rocaltrol Cap) 0.25 mcg MoWeFr PO 07/19/17 09:00 08/18/17 08:59 07/19/17 10:12 0.25 MCG Ertapenem 1 gm/ Sodium Chloride 50 ml @ 120 mls/hr Q24H IV 07/17/17 22:30 07/21/17 22:29 07/19/17 21:29 120 MLS/HR Oxycodone/ Acetaminophen (Percocet 5-325mg Tab) 1 tab Q4H PRN PO 07/18/17 02:00 08/01/17 01:59 07/18/17 11:59 1 TAB Hydromorphone HCl (Dilaudid Inj) 0.5 mg Q3H PRN IV 07/18/17 02:00 08/01/17 01:59 Budesonide (Pulmicort Respules 0.5MG/ 2ML Neb Soln) 0.5 mg BIDR INH 07/18/17 20:00 08/17/17 19:59 07/20/17 07:12 0.5 MG Oxymetazoline HCl (Afrin 0.05% Nasal [place]) 2 sprays Q1HWA PRN NA 07/18/17 13:00 08/17/17 12:59 07/18/17 18:04 2 SPRAYS Nitroglycerin (Nitrostat Tab) 0.4 mg PRN PRN SL 07/19/17 18:30 08/18/17 18:29 07/19/17 18:43 0.4 MG Morphine Sulfate (MoRPHine SULFATE INJ) 4 mg Q2H PRN IV 07/19/17 18:30 08/02/17 18:29 07/20/17 10:05 4 MG Al Hydroxide/Mg Hydroxide/ Lidocaine HCl/ Barcode Q8H PRN PO 07/19/17 19:15 08/18/17 19:14 Ipratropium [place] (Atrovent 0.02% 0.5MG/2.5ML Neb) 0.5 mg Q6R INH 07/20/17 03:00 08/19/17 02:59 07/20/17 07:12 0.5 MG Levalbuterol (Xopenex 1.25MG/ 0.5ML Neb) 1.25 mg Q6R INH 07/20/17 03:00 08/19/17 02:59 07/20/17 07:12 1.25 MG Gabapentin (Neurontin Cap) 200 mg BID PO 07/20/17 09:00 08/19/17 08:59 07/20/17 09:03 200 MG Acetaminophen (Tylenol Tab) 500 mg Q8 PO 07/20/17 16:00 07/22/17 15:59 UNV Tramadol HCl (Ultram Tab) 50 mg Q8 PO 07/20/17 16:00 07/22/17 15:59 UNV Objective Vital Signs Date Time Temp Pulse Resp B/P (MAP) Pulse Ox O2 Delivery O2 Flow Rate FiO2 07/20/17 08:00 94 Room Air 07/20/17 07:47 36.9 69 20 104/59 (74) 92 07/20/17 07:14 73 16 91 Room Air 07/20/17 04:00 36.8 70 20 111/68 (82) 93 Room Air 07/20/17 04:00 Oxymask 2.0 07/20/17 03:13 36.8 70 14 113/66 90 07/20/17 02:38 36.6 70 14 119/75 90 1.0 07/20/17 02:14 70 16 93 Room Air 07/20/17 02:07 36.5 69 14 107/66 91 1.0 07/20/17 01:29 36.8 70 16 110/66 94 1.0 07/20/17 01:07 36.7 69 14 115/70 91 1.0 07/20/17 00:52 36.7 75 14 110/68 96 1.0 07/20/17 00:37 36.5 70 16 112/69 96 1.0 07/20/17 00:23 36.9 70 14 106/63 96 1.0 07/20/17 00:00 36.7 72 18 119/67 (84) 100 Oxymask 1.0 07/20/17 00:00 Oxymask 1.0 07/19/17 21:53 83 16 91 Mask 2.0 07/19/17 21:20 37.1 71 19 113/69 (84) 100 Nasal Cannula 2.0 07/19/17 19:27 78 16 87 Room Air 07/19/17 16:30 Room Air 07/19/17 15:01 36.7 75 18 107/64 (78) 95 Room Air 07/19/17 13:27 71 16 112/63 (79) 07/19/17 12:47 36.7 72 20 98 5.0 07/19/17 12:00 98 Room Air Physical Exam General Appearance: WD/WN, + mild distress Eyes: normal inspection, sclerae normal ENT: pharynx normal, + pertinent finding ( Facial bruising) Neck: supple, no adenopathy, thyroid normal, trachea midline Respiratory/Chest: chest non-tender, lungs clear, normal breath sounds, no respiratory distress Cardiovascular: regular rate, rhythm, no gallop, no murmur Abdomen: normal bowel sounds, non tender, soft, no organomegaly Extremities: non-tender, no calf tenderness Neurologic/Psychiatric: alert, oriented x 3 Skin: normal color, no rash, + pertinent finding ( left thigh wounds remained closed without cellulitis, multiple areas of ecchymosis) Lymphatic: no adenopathy Laboratory Results Last 24 Hours Test 07/19/17 11:26 07/19/17 16:30 07/19/17 20:10 07/19/17 20:22 Bedside Glucose 107 mg/dl 135 mg/dl 142 mg/dl White Blood Count 10.93 K/uL Red Blood Count 3.62 M/uL Hemoglobin 7.9 g/dL Hematocrit 27.8 % Mean Corpuscular Volume 76.8 fL Mean Corpuscular Hemoglobin 21.8 pg Mean Corpuscular Hemoglobin Concent 28.4 g/dl Platelet Count 143 K/uL Neutrophils (%) (Auto) 82.5 % Lymphocytes (%) (Auto) 7.3 % Monocytes (%) (Auto) 9.4 % Eosinophils (%) (Auto) 0.2 % Basophils (%) (Auto) 0.2 % Neutrophils # (Auto) 9.02 K/uL Lymphocytes # (Auto) 0.80 K/uL Monocytes # (Auto) 1.03 K/uL Eosinophils # (Auto) 0.02 K/uL Basophils # (Auto) 0.02 K/uL RDW Standard Deviation 57.5 fL RDW Coefficient of Variation 20.3 % Immature Granulocyte % (Auto) 0.4 % Immature Granulocyte # (Auto) 0.04 K/uL Nucleated RBC Absolute Count (auto) 0.07 K/uL Nucleated Red Blood Cells % 0.6 % Platelet Estimate NORMAL Polychromasia 1+ Hypochromasia PRESENT Poikilocytosis PRESENT Anisocytosis PRESENT Sodium Level 141 mmol/L Potassium Level 4.1 mmol/L Chloride Level 104 mmol/L Carbon Dioxide Level 32 mmol/L Anion Gap 5.0 mmol/L Blood Urea Nitrogen 40 mg/dl Creatinine 2.00 mg/dl Est Creatinine Clear Calc Drug Dose 32.9 ml/min Estimated GFR () 35.7 Estimated GFR (Non- 30.8 BUN/Creatinine Ratio 20.1 Random Glucose 124 mg/dl Calcium Level 8.6 mg/dl Total Creatine Kinase 67 U/L Creatine Kinase MB 2.1 ng/ml Creatine Kinase MB Ratio 3.1 Troponin I 0.038 ng/ml Test 07/19/17 20:29 07/20/17 03:27 07/20/17 07:03 07/20/17 08:19 Ammonia 25.0 umol/L White Blood Count 11.02 K/uL Red Blood Count 3.85 M/uL Hemoglobin 8.5 g/dL Hematocrit 30.5 % Mean Corpuscular Volume 79.2 fL Mean Corpuscular Hemoglobin 22.1 pg Mean Corpuscular Hemoglobin Concent 27.9 g/dl Platelet Count 145 K/uL Neutrophils (%) (Auto) 79.1 % Lymphocytes (%) (Auto) 10.4 % Monocytes (%) (Auto) 10.1 % Eosinophils (%) (Auto) 0.1 % Basophils (%) (Auto) 0.1 % Neutrophils # (Auto) 8.72 K/uL Lymphocytes # (Auto) 1.15 K/uL Monocytes # (Auto) 1.11 K/uL Eosinophils # (Auto) 0.01 K/uL Basophils # (Auto) 0.01 K/uL RDW Standard Deviation 60.0 fL RDW Coefficient of Variation 20.7 % Immature Granulocyte % (Auto) 0.2 % Immature Granulocyte # (Auto) 0.02 K/uL Nucleated RBC Absolute Count (auto) 0.07 K/uL Nucleated Red Blood Cells % 0.6 % Platelet Estimate NORMAL Polychromasia 1+ Anisocytosis PRESENT Ovalocytes 1+ Schistocytes OCCASIONAL Prothrombin Time 12.9 SECONDS Prothromb Time International Ratio 1.2 Sodium Level 143 mmol/L Potassium Level 4.1 mmol/L Chloride Level 105 mmol/L Carbon Dioxide Level 32 mmol/L Anion Gap 6.0 mmol/L Blood Urea Nitrogen 40 mg/dl Creatinine 2.00 mg/dl Est Creatinine Clear Calc Drug Dose 32.9 ml/min Estimated GFR () 35.7 Estimated GFR (Non- 30.8 BUN/Creatinine Ratio 19.9 Random Glucose 150 mg/dl Calcium Level 8.3 mg/dl Total Creatine Kinase 58 U/L 50 U/L Creatine Kinase MB 1.6 ng/ml 1.4 ng/ml Creatine Kinase MB Ratio 2.8 2.8 Troponin I 0.031 ng/ml 0.036 ng/ml Bedside Glucose 129 mg/dl [~ rep ct add3]] CHEST ONE VIEW PORTABLE HISTORY: 77 years-old Male SOB acute shortness of breath. Initial exam. COMPARISON: Portable chest radiograph 07/19/2017 at 8:04 PM, chest CT 07/17/2017 TECHNIQUE: Portable upright AP view of the chest FINDINGS: Cardiac silhouette is moderately enlarged, unchanged. Prior median sternotomy. Left atrial exclusion device is redemonstrated. Left pectoral pacer is noted with leads intact. There is atherosclerosis of the aorta. There is no pneumothorax identified. Only vascular congestion persists without overt pulmonary edema. Subsegmental left basilar opacities are again noted IMPRESSION: 1. Cardiomegaly and mild pulmonary vascular congestion without overt pulmonary edema. 2. Persistent subsegmental left basilar opacities suggest scarring with atelectasis as noted on comparison CT of the chest 07/17/2017. The above report was generated using voice recognition software. It may contain grammatical, syntax or spelling errors. 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 From standpoint of his wound infection, antibiotics can be discontinued. Will discuss with all involved.
--- NOTE | 2017-07-20 12:45 | Progress Note ---
Medicine Progress Note Date & Time of Visit: Jul 20, 2017 at 10:03. (Marlen Rowley PA-C) Subjective Patient developed chest pain yesterday evening for which he received nitro and morphine without improvement. EKG showed paced rhythm, troponin has been negative x 2. Chest pain is now resolved. He received a unit of blood overnight for drop in Hg to 7.9. Denies feeling short of breath, but reports difficulty taking deep breaths. O2 sats are fluctuating high 80s-low 90's on RA. Has trickling of blood from the nares at times. Still coughing up small amount of blood (size of thumbnail). Patient did not sleep overnight. Had episode of choking on water last night around 2139. Family has also reported pain with swallowing. Family noted slurring of speech starting around [address] head which was negative. Family states speech is still worse than baseline. Feels more generally weak today, has difficulty lifting bilateral arms , unable to get out of bed. Reports being unable to bend the left knee due to pain. 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 Denies abdominal pain, N/V. Nursing has noted black stool in the setting of patient recently swallowing blood. (Marlen Rowley PA-C) Objective Last 8 Hrs Date Time Temp Pulse Resp B/P (MAP) Pulse Ox O2 Delivery O2 Flow Rate FiO2 07/20/17 07:47 36.9 69 20 104/59 (74) 92 07/20/17 07:14 73 16 91 Room Air 07/20/17 04:00 36.8 70 20 111/68 (82) 93 Room Air 07/20/17 04:00 Oxymask 2.0 07/20/17 03:13 36.8 70 14 113/66 90 07/20/17 02:38 36.6 70 14 119/75 90 1.0 07/20/17 02:14 70 16 93 Room Air 07/20/17 02:07 36.5 69 14 107/66 91 1.0 Physical Exam: General-alert elderly male, lying in bed, appears more comfortable, daughter at bedside Eyes- anicteric ENT- ecchymosis of nose and bilateral maxillary areas- improving, no active bleeding, oral mucosa dry, pharynx normal, no blood in posterior pharynx Neck-trachea midline, +JVD Lungs-decreased breath sounds, no wheezing, rhonchi, or crackles, no respiratory distress Heart- RRR, + systolic murmur Abdomen-mildly protuberant, soft, mildly tender in RUQ, normal BS Extremities- PICC line present RUE, no edema, + venous stasis discoloration bilateral lower legs, left knee tender to palpation, + pain with L knee ROM Neuro-alert, oriented x 3, affect normal, no focal deficit noted- speech unchanged from baseline, facial movements symmetric, upper arms weak bilaterally , 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, moves bilateral toes equally, lifts RLE off the bed, lifts LLE minimally secondary to L knee pain Laboratory Results: Last 24 Hours Test 07/19/17 11:26 07/19/17 16:30 07/19/17 20:10 07/19/17 20:22 Bedside Glucose 107 mg/dl 135 mg/dl 142 mg/dl White Blood Count 10.93 K/uL Red Blood Count 3.62 M/uL Hemoglobin 7.9 g/dL Hematocrit 27.8 % Mean Corpuscular Volume 76.8 fL Mean Corpuscular Hemoglobin 21.8 pg Mean Corpuscular Hemoglobin Concent 28.4 g/dl Platelet Count 143 K/uL Neutrophils (%) (Auto) 82.5 % Lymphocytes (%) (Auto) 7.3 % Monocytes (%) (Auto) 9.4 % Eosinophils (%) (Auto) 0.2 % Basophils (%) (Auto) 0.2 % Neutrophils # (Auto) 9.02 K/uL Lymphocytes # (Auto) 0.80 K/uL Monocytes # (Auto) 1.03 K/uL Eosinophils # (Auto) 0.02 K/uL Basophils # (Auto) 0.02 K/uL RDW Standard Deviation 57.5 fL RDW Coefficient of Variation 20.3 % Immature Granulocyte % (Auto) 0.4 % Immature Granulocyte # (Auto) 0.04 K/uL Nucleated RBC Absolute Count (auto) 0.07 K/uL Nucleated Red Blood Cells % 0.6 % Platelet Estimate NORMAL Polychromasia 1+ Hypochromasia PRESENT Poikilocytosis PRESENT Anisocytosis PRESENT Sodium Level 141 mmol/L Potassium Level 4.1 mmol/L Chloride Level 104 mmol/L Carbon Dioxide Level 32 mmol/L Anion Gap 5.0 mmol/L Blood Urea Nitrogen 40 mg/dl Creatinine 2.00 mg/dl Est Creatinine Clear Calc Drug Dose 32.9 ml/min Estimated GFR () 35.7 Estimated GFR (Non- 30.8 BUN/Creatinine Ratio 20.1 Random Glucose 124 mg/dl Calcium Level 8.6 mg/dl Total Creatine Kinase 67 U/L Creatine Kinase MB 2.1 ng/ml Creatine Kinase MB Ratio 3.1 Troponin I 0.038 ng/ml Test 07/19/17 20:29 07/20/17 03:27 07/20/17 07:03 07/20/17 08:19 Ammonia 25.0 umol/L White Blood Count 11.02 K/uL Red Blood Count 3.85 M/uL Hemoglobin 8.5 g/dL Hematocrit 30.5 % Mean Corpuscular Volume 79.2 fL Mean Corpuscular Hemoglobin 22.1 pg Mean Corpuscular Hemoglobin Concent 27.9 g/dl Platelet Count 145 K/uL Neutrophils (%) (Auto) 79.1 % Lymphocytes (%) (Auto) 10.4 % Monocytes (%) (Auto) 10.1 % Eosinophils (%) (Auto) 0.1 % Basophils (%) (Auto) 0.1 % Neutrophils # (Auto) 8.72 K/uL Lymphocytes # (Auto) 1.15 K/uL Monocytes # (Auto) 1.11 K/uL Eosinophils # (Auto) 0.01 K/uL Basophils # (Auto) 0.01 K/uL RDW Standard Deviation 60.0 fL RDW Coefficient of Variation 20.7 % Immature Granulocyte % (Auto) 0.2 % Immature Granulocyte # (Auto) 0.02 K/uL Nucleated RBC Absolute Count (auto) 0.07 K/uL Nucleated Red Blood Cells % 0.6 % Platelet Estimate NORMAL Polychromasia 1+ Anisocytosis PRESENT Ovalocytes 1+ Schistocytes OCCASIONAL Prothrombin Time 12.9 SECONDS Prothromb Time International Ratio 1.2 Sodium Level 143 mmol/L Potassium Level 4.1 mmol/L Chloride Level 105 mmol/L Carbon Dioxide Level 32 mmol/L Anion Gap 6.0 mmol/L Blood Urea Nitrogen 40 mg/dl Creatinine 2.00 mg/dl Est Creatinine Clear Calc Drug Dose 32.9 ml/min Estimated GFR () 35.7 Estimated GFR (Non- 30.8 BUN/Creatinine Ratio 19.9 Random Glucose 150 mg/dl Calcium Level 8.3 mg/dl Total Creatine Kinase 58 U/L 50 U/L Creatine Kinase MB 1.6 ng/ml 1.4 ng/ml Creatine Kinase MB Ratio 2.8 2.8 Troponin I 0.031 ng/ml 0.036 ng/ml Bedside Glucose 129 mg/dl (Marlen Rowley PA-C) Assessment & Plan ACUTE BLOOD LOSS ANEMIA 2/2 EPISTAXIS In setting of Coumadin use (INR 3.1 on presentation). ER provider discussed with cardiology, Coumadin held, given 10 mg IV vitamin K, INR has trended down to 1.2 Nasal packing placed in ER, removed by ENT Dr. Buck on 07/18, minimal bleeding since removal Hg 6.8 on presentation (baseline 9's), transfused 2 units pRBC with appropriate response (Hg 8.1 ->8.2), then mildly dropped to 7.9 on 07/19 evening, received additional 1 unit pRBC with appropriate response (Hg 8.5 today) Discussed with Dr. Merritt on 07/18, no need for Vitamin K Continue to hold Coumadin for 1 week per ENT Noted to have schistocytes on CBC with diff S/P FALL/ DIZZINESS Reported lightheadedness at time of fall, has been intermittent x 6 months Ddx includes symptomatic anemia, orthostasis, r/o arrhythmia, medication side effect Monitor in telemetry- no significant arrhythmia Pacemaker interrogation- reviewed with Dr. Tracy, shows Afib but no other arrhythmia Troponin negative x 3 Gabapentin discontinued due to side effect of dizziness, however it was resumed overnight due to insomnia/ restless legs HYPOXIA/ POSSIBLE ASPIRATION PNEUMONITIS Was hypoxic on presentation (87% on RA), required oxygen mask (could not use nasal cannula) then was saturating well on RA, however overnight sats started fluctuating 80's on RA after possible aspiration on water, now on oxygen mask Initial CT chest was suggestive of pneumonitis, on Invanz for coverage of aspiration of blood Repeat CXR 07/19 evening showed no change, stable cardiomegaly and pulm vasc congestion without overt edema, no change in L lower lung airspace opacity which likely reflects atelectasis as shown on prior chest CT Repeat CXR 07/20 am- similar findings Developed mild leukocytosis (WBC 11K), afebrile, has chronic cough with clear sputum (now producing small amount of blood since epistaxis episode) Pulmonology consult placed Currently NPO pending speech eval CHEST PAIN- resolved Had episode 07/19 evening, received nitro and morphine without improvement, EKG showed paced rhythm, troponin has been negative x 3, was transferred back to telemetry Hx CAD s/p CABG On aspirin and statin Per H&P, not on beta shana due to intolerance/ bradycardia L KNEE AND BILATERAL ARM PAIN Add scheduled tramadol and acetaminophen PRN morphine GENERALIZED WEAKNESS No focal deficit on exam Had negative CT head 9 evening Likely multifactorial from anemia, possible infection, JAVY JAVY ON CKD STAGE III Creat is 2.0 from 1.6 (baseline) Monitor renal function closely ABDOMINAL PAIN/ CIRRHOSIS- new diagnosis Likely secondary to NAFLD CT a/p showed cirrhosis with trace intra-abdominal and intrapelvic ascites LFT's WNL Attending physician discussed case with GI, recommended outpatient GI evaluation Patient informed of diagnosis CHRONIC SYSTOLIC CHF Clinically compensated CXR on admission showed pulmonary vascular congestion without overt pulmonary edema Last TTE showed EF 30-34% Monitor daily weights and I/O PULMONARY HTN Continue Revatio ATRIAL FIBRILLATION Was on Coumadin, INR 3.1 on admission, ER provider discussed with cardiology, given 10 mg IV vitamin K Coumadin on hold for epistaxis, anemia- continue to hold for 1 week per ENT, will defer to cardiology to resume as outpatient S/p pacemaker, s/p maze in 2011 Rate is controlled Continue amiodarone and digoxin (dig level WNL) HTN Stable, continue losartan CHRONIC THROMBOCYTOPENIA Stable Monitor DM TYPE II A1c 7.4 in 06/2017 Hold home insulin isophane Utilize Lantus and Novolog sliding scale CHRONIC LLE WOUND INFECTION On Invanz, OK to stop from wound standpoint as per Dr. Childs, but will continue for pulmonary coverage Wound care nurse consulted HYPOTHYROIDISM Continue levothyroxine RHEUMATOID ARTHRITIS continue hydroxychloroquine and prednisone DEPRESSION Continue sertraline and trazodone CODE STATUS DNR as per admitting physician order DVT PROPHYLAXIS SCD's due to epistaxis/ anemia DISPOSITION Telemetry Follows with Dr. Valerio for primary care Lives with daughter PT/ OT evals requested- PT recommended rehab, social service consult placed Patient seen in collaboration with Dr. Johnson. Please see her addendum. Current Inpatient Medications: Current Inpatient Medications Medications (Trade) Dose Ordered Sig/Nicolette Route Start Time Stop Time Status Last Admin Dose Admin Acetaminophen (Tylenol Tab) 650 mg Q4H PRN PO 07/17/17 19:15 08/16/17 19:14 07/18/17 11:04 650 MG Ondansetron HCl (Zofran Inj) 4 mg Q6H PRN IV 07/17/17 19:15 08/16/17 19:14 Polyethylene (Miralax Powder Packet) 17 gm DAILY PRN PO 07/17/17 19:15 08/16/17 19:14 Amiodarone HCl (Cordarone Tab) 200 mg DAILY PO 07/18/17 09:00 08/17/17 08:59 07/20/17 09:07 200 MG Aspirin (Ecotrin Tab) 81 mg QAM PO 07/18/17 09:00 08/17/17 08:59 07/20/17 09:07 81 MG Cholecalciferol (Vitamin D Tab) 2,000 inter.unit HS PO 07/18/17 21:00 08/17/17 20:59 07/19/17 20:51 2,000 INTER.UNIT Digoxin (Lanoxin Tab) 0.125 mg Q2D PO 07/18/17 16:00 08/17/17 15:59 07/18/17 16:31 0.125 MG Docusate Sodium (coLACE CAP) 100 mg DAILY PO 07/18/17 09:00 08/17/17 08:59 07/20/17 09:07 100 MG Hydroxychloroquine Sulfate (Plaquenil Tab) 400 mg HS PO 07/18/17 21:00 08/17/17 20:59 07/19/17 20:51 400 MG Insulin Human NPH (novoLIN-N NPH) 12 units BIDM SC 07/18/17 07:30 08/17/17 07:29 07/20/17 09:47 6 UNITS Levothyroxine Sodium (Synthroid Tab) 112 mcg DAILYBB PO 07/18/17 06:00 08/17/17 05:59 07/19/17 05:34 112 MCG Losartan Potassium (coZAAR TAB) 12.5 mg DAILY PO 07/18/17 09:00 08/17/17 08:59 07/20/17 09:05 12.5 MG Pantoprazole Sodium (Protonix Tab) 40 mg DAILY PO 07/18/17 09:00 08/17/17 08:59 07/20/17 09:07 40 MG Prednisone (PredniSONE TAB) 5 mg DAILY PO 07/18/17 09:00 08/17/17 08:59 07/20/17 09:07 5 MG Sertraline HCl (Zoloft Tab) 100 mg HS PO 07/18/17 21:00 08/17/17 20:59 07/19/17 20:51 100 MG Sildenafil Citrate (Revatio Tab) 20 mg BID PO 07/18/17 09:00 08/17/17 08:59 07/20/17 09:06 20 MG Simvastatin (Zocor Tab) 10 mg HS PO 07/18/17 21:00 08/17/17 20:59 07/19/17 20:52 10 MG Tramadol HCl (Ultram Tab) 50 mg Q12 PRN PO 07/17/17 21:45 08/16/17 21:44 07/20/17 09:02 50 MG Trazodone HCl (Desyrel Tab) 25 mg HS PO 07/18/17 21:00 08/17/17 20:59 07/19/17 20:51 25 MG Magnesium Oxide (Mag-Ox Tab) 400 mg HS PO 07/18/17 21:00 08/17/17 20:59 07/19/17 20:51 400 MG Sertraline HCl (Zoloft Tab) 25 mg HS PO 07/18/17 21:00 08/17/17 20:59 07/19/17 20:52 25 MG Glucose (Glucose 40% Gel) 15-30 GRAMS 15 GRAMS... UD PRN PO 07/17/17 21:45 08/16/17 21:44 Glucose (Glucose Chew Tab) 4-8 Tablets 4 Tabl... UD PRN PO 07/17/17 21:45 08/16/17 21:44 Dextrose (Dextrose 50% 50ML Syringe) 25-50ML OF 50% DW IV FOR... UD PRN IV 07/17/17 21:45 08/16/17 21:44 Glucagon (Glucagon Inj) 1 mg UD PRN SQ 07/17/17 21:45 08/16/17 21:44 Torsemide (Demadex Tab) 30 mg DAILY PO 07/18/17 09:00 08/17/17 08:59 07/20/17 09:06 30 MG Calcitriol (Rocaltrol Cap) 0.25 mcg MoWeFr PO 07/19/17 09:00 08/18/17 08:59 07/19/17 10:12 0.25 MCG Ertapenem 1 gm/ Sodium Chloride 50 ml @ 120 mls/hr Q24H IV 07/17/17 22:30 07/21/17 22:29 07/19/17 21:29 120 MLS/HR Oxycodone/ Acetaminophen (Percocet 5-325mg Tab) 1 tab Q4H PRN PO 07/18/17 02:00 08/01/17 01:59 07/18/17 11:59 1 TAB Hydromorphone HCl (Dilaudid Inj) 0.5 mg Q3H PRN IV 07/18/17 02:00 08/01/17 01:59 Budesonide (Pulmicort Respules 0.5MG/ 2ML Neb Soln) 0.5 mg BIDR INH 07/18/17 20:00 08/17/17 19:59 07/20/17 07:12 0.5 MG Oxymetazoline HCl (Afrin 0.05% Nasal [place]) 2 sprays Q1HWA PRN NA 07/18/17 13:00 08/17/17 12:59 07/18/17 18:04 2 SPRAYS Nitroglycerin (Nitrostat Tab) 0.4 mg PRN PRN SL 07/19/17 18:30 08/18/17 18:29 07/19/17 18:43 0.4 MG Morphine Sulfate (MoRPHine SULFATE INJ) 4 mg Q2H PRN IV 07/19/17 18:30 08/02/17 18:29 07/20/17 03:44 4 MG Al Hydroxide/Mg Hydroxide/ Lidocaine HCl/ Barcode Q8H PRN PO 07/19/17 19:15 08/18/17 19:14 Ipratropium Hundred (Atrovent 0.02% 0.5MG/2.5ML Neb) 0.5 mg Q6R INH 07/20/17 03:00 08/19/17 02:59 07/20/17 07:12 0.5 MG Levalbuterol (Xopenex 1.25MG/ 0.5ML Neb) 1.25 mg Q6R INH 07/20/17 03:00 08/19/17 02:59 07/20/17 07:12 1.25 MG Gabapentin (Neurontin Cap) 200 mg BID PO 07/20/17 09:00 08/19/17 08:59 07/20/17 09:03 200 MG (Marlen Rowley PA-C) I have seen and examined the patient and agree with the note above. Better from an ENT standpoint and s/p 1 Unit of blood overnight in setting of active chest pain in patient with CAD. Cardiac workup was negative overnight. His main concern this morning is pain in his upper arms and in his R knee. He denies that he is having an RA flare, and does report that he takes Tylenol and Tramadol at home when he gets his aches and pains. He is anemic and not ambulatory as before, contributing to restlessness and discomfort. Gabapentin was restarted-only one dose missed. This may be a contributing factor to lightheadedness for the last 6 months, however, other contributors include trazodone, ultram and sertraline. His pain improved with morphine and we are scheduling some lower dose Tylenol (in presence of cirrhosis) and Tramadol to stay ahead of this pain. He will need [facility]pending [facility]. He is stable from a pulmonary perspective but with issues of chest pain and pleurisy overnight, pulm was asked to see him. PFTs reviewed with Dr. Fink from 2012. With CT findings and likely blood aspiration, we are continuing to cover with Augmentin as he stopped the Invanz. Will plan to remove PICC prior to discharge. DO Alex (Lillie Johnson, )
--- NOTE | 2017-07-20 15:07 | PULMONARY CONSULTATION ---
DATE OF CONSULTATION: 07/20/2017 DATE OF CONSULTATION: 07/20/2017 TIME: 1:45 p.m. REPORT OF CONSULTATION: The patient was seen in room 232 bed 2. He was accompanied by his daughter. Mr. Sanders is a 77-year-old male who was admitted to the hospital on 07/17/2017. 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 He stopped the tractor because it ran out of gas. He got off the tractor and went walking towards the home where he walked up a ramp. He felt some dizziness. The patient then subsequently thinks that he went to reach for the hand rail on the ramp and missed it. He and his daughter believe that his nose struck the side of the ramp. He then fell into some flower bed. He began hemorrhaging from his nose both internally and externally. The patient was on anticoagulation chronically at home and he bled quite a bit. He was subsequently brought to the ER. He had bilateral nasal packing placed. There was some suggestion that the patient may have aspirated a fair amount of blood. His breathing however was not a major issue. He does have chronic breathing problems. According to his daughter, they say he has got severe lung disease, but they say it is not COPD. The patient had never smoked. He has had pulmonary functions through [facility] in the past. Reportedly, he has had some respiratory difficulties since 2011. At that time he had a coronary artery bypass graft done. He developed severe respiratory failure postoperatively. He was in the ICU for 3-4 months. He was on a ventilator for a prolonged time and subsequently had a tracheostomy done. He then went to an LTACH at [facility] where subsequently the tracheostomy tube was removed. According to his daughter, he has had chest congestion since that time. At one point in time the patient was followed for a left pleural effusion. He had seen Dr. Brock in the past for this. Since his hospital stay, his breathing had been fairly good. However, last evening he started to develop what nursing thought was stridor. He also developed chest pain in the left and right side of his chest. It first was in the lower chest and then subsequently in the higher chest and then somewhat down his arm. He was given nitro without benefit. He then was given an injection of narcotic according to his daughter and this seemed to work. At the present time, the patient is very comfortable. He was transferred from fourth floor down to second floor. He denies any shortness of breath at present. He has been intermittently coughing up some bloody sputum since he came in. The color of the sputum is now getting brownish. At home he has a chronic cough. He expectorates a couple times per day. He has chronic hoarseness. This apparently is since the tracheostomy was done. The patient was evaluated by speech. They do not feel that he is aspirating. PAST SURGICAL HISTORY: 1. AV fistula in the left arm. 2. Coronary artery bypass graft. 3. Maze procedure 4. Pacemaker insertion. 5. Status post tracheostomy and subsequent removal. PAST MEDICAL HISTORY: 1. At least moderate aortic stenosis. 2. Atrial fibrillation by history. 3. Hypertension. 4. Diabetes type 2. 5. Diabetic neuropathy. 6. Systolic CHF. 7. Chronic kidney disease. 8. Coronary artery disease. 9. Depression. 10. MRSA infection. 11. Hypothyroidism. 12. Obstructive sleep apnea for which he wears CPAP at 7 cm. 13. Rheumatoid arthritis. 14. Questionable pulmonary hypertension. SOCIAL HISTORY: Tobacco never. FAMILY HISTORY: Father , COPD. Mother valvular heart disease. Sister has COPD. Brother is in hospice care secondary to heart and lung disease. ALLERGIES: LISINOPRIL. MEDICATIONS AT HOME: 1. Amiodarone 200 mg daily. 2. Aspirin 81 mg daily. 3. Budesonide 0.25 mg b.i.d. by nebulizer. 4. Calcitriol 0.25 mcg 3 times weekly. 5. Vitamin D 1000 units 2 caps at bedtime. 6. Digoxin 0.125 mg every other day. 7. Docusate daily. 8. Gabapentin 200 mg b.i.d. 9. Hydroxychloroquine 400 mg at bedtime. 10. Humulin N 12 units b.i.d. 11. Levalbuterol 1.25 and ipratropium 2.5 t.i.d. p.r.n. -- the patient typically takes twice a day. 12. Levothyroxine 112 mcg daily. 13. Losartan 12.5 mg daily. 14. Magnesium 400 mg at bedtime. 15. Pantoprazole 40 mg daily. 16. MiraLax p.r.n. 17. Prednisone 5 mg daily. 18. Sertraline 25 mg at bedtime and 100 mg at bedtime for a total of 125 mg at bedtime. 19. Sildenafil 20 mg b.i.d. 20. Simvastatin 10 mg at bedtime. 21. Demadex 20 mg daily. 22. Tramadol 50 mg q. 12 hours p.r.n. 23. Trazodone 50 mg at bedtime. 24. Coumadin 5 mg 5 days per week and 2.5 mg on Tuesdays and . REVIEW OF SYSTEMS: The patient's energy level is low. He lives by himself, but his daughter is in the other part of a duplex. The patient is having nasal congestion. He is still oozing a little bit of blood from the right nostril. His appetite is good. Denies difficulty swallowing. Still has soreness on his face. He has been unable to use his CPAP apparently. Still some weakness more than normal. The patient has chronic hoarseness. The remainder of the review of systems is otherwise negative. PHYSICAL EXAMINATION: GENERAL: The patient is a 77-year-old male who looks chronically ill. He was cooperative, alert and oriented. His voice was weak. HEAD, EYES, EARS, NOSE, AND THROAT: Pupils were reactive to light. There was some yellow exudate in the left nostril and some blood in the right nostril. Mouth exam was unremarkable. His face shows areas of ecchymosis in the area of the forehead and in the maxillary regions. He has dried blood on the bridge of his nose. HEART: Rate was 72 per minute. The rhythm was regular and appeared to be predominantly pacemaker capture. Blood pressure 103/62. LUNGS: Lung mora revealed generally good breath sounds. No significant rhonchi were heard at present. There was nothing to suggest stridor at all. Current oxygen saturation on room air was 97%. ABDOMEN: Soft and nontender. Bowel sounds were present. There was no tenderness to palpation or masses. EXTREMITIES: Show a dressing on the area of the left knee. He has some chronic skin changes. There is some swelling of the left leg much greater than the right leg. He has had left thigh wounds which have been with cellulitis. He has been seeing infectious disease for this. He has been on treatment I believe for a few weeks from what I understand. LABORATORY DATA: The patient had a chest x-ray done today that showed mild pulmonary vascular congestion with left base opacification which has been somewhat chronic. CAT scan of the chest done 07/17/2017 showed evidence of bilateral pleural plaques. He has round atelectasis in the left lower lobe. The pleural plaques could suggest asbestos exposure. There is a consolidative density at the left base which is unchanged. Compared with June 2016 is reported as probable round atelectasis. He has some patchy small bilateral lower lobe and right upper lobe ground-glass opacities, possibly representing pneumonitis. This was done on July 17. CAT scan of the head was done yesterday and showed no acute findings. CAT scan of the abdomen did show evidence of cirrhotic liver disease. Diverticulosis was seen without diverticulitis. IMPRESSIONS: 1. Chronic lung disease by history -- exact type unknown. 2. Acute shortness of breath last night with reported stridor -- no symptoms at present. 3. Pleural plaques. 4. Round atelectasis left lower lobe. 5. Pneumonitis right upper lobe, right lower lobe, and left lower lobe -- possibly secondary to blood aspiration. 6. Obstructive sleep apnea -- wears CPAP at home, but not thus far in the hospital. 7. Status post tracheostomy. The patient currently at this minute seems very comfortable and his exam is unremarkable from a pulmonary perspective. His oxygenation is good. He obviously does have aortic stenosis on exam which could be contributing to his symptoms. I suspect that perhaps he had some mucoid material that may have been on his vocal cords or perhaps even in the upper trachea at the site of the former tracheostomy. Perhaps this resulted in the stridor type sounds that he reportedly was having. This is obviously just speculation. He does have a longstanding history of chronic productive cough. His mucous however is clearly some partially dried blood. The patient does have significant hoarseness. I would suggest an ENT evaluation to at least evaluate the upper airway above the vocal cords and the vocal cords themselves. The patient has had pulmonary function tests done through [facility]. It would be great to obtain the most recent pulmonary functions from them if feasible. I would continue the patient's nebulizer treatments as already ordered. He has been on ertapenem since admission. This should be adequate for the presumed infectious process in the lungs itself. I believe this could be changed to oral Augmentin whenever infectious disease no longer wanted to have the ertapenem in place. Thank you for asking me to assist in his care.
[2017-07-20] MEDS: ACETAMINOPHEN 500 MG TAB PO SCH ×2 (15:49→23:35)
[2017-07-20] MEDS: TRAMADOL HCL 50 MG TAB PO SCH ×2 (15:51→23:35)
[2017-07-20] MEDS: DIGOXIN 0.125 MG TAB PO SCH (15:52)
[2017-07-20] MEDS: CHOLECALCIFEROL 1000 INTER.UNIT TAB PO SCH (20:03)
[2017-07-20] MEDS: MAGNESIUM OXIDE 400 MG TAB PO SCH (20:03)
[2017-07-20] MEDS: TRAZODONE HCL 50 MG TAB PO SCH (20:04)
[2017-07-20] MEDS: HYDROXYCHLOROQUINE SULFATE 200 MG TAB PO SCH (20:04)
[2017-07-20] MEDS: SERTRALINE HCL 50 MG TAB PO SCH (20:06)
[2017-07-20] MEDS: SIMVASTATIN 10 MG TAB PO SCH (20:06)
[2017-07-20] MEDS: SERTRALINE HCL 100 MG TAB PO SCH (20:06)
[2017-07-21] VITALS (11 sets, daily range): BP systolic 97–123; BP diastolic 54–71; PULSE 71–102; TEMP 36.3–36.7; O2SAT 86–99
[2017-07-21] MEDS: IPRATROPIUM BROMIDE NEB SOLN 0.02% 2.5 ML VIAL INH SCH ×4 (01:57→20:12)
[2017-07-21] MEDS: LEVALBUTEROL 1.25MG/0.5ML NEB INH SCH ×4 (01:57→20:12)
[2017-07-21] MEDS: LEVOTHYROXINE 112 MCG TAB PO SCH (05:38)
[2017-07-21 06:06] LABS: CALCIUM 8.5 mg/dl (8.5-10.1); POTASSIUM 3.9 mmol/L (3.5-5.1)
[2017-07-21 06:13] LABS: HEMATOCRIT 29.2 % (42-52); MEAN CELL VOLUME 80.2 fL (80-100); MEAN CORPUSCULAR HEMOGLOBIN 23.1 pg (25-34); MEAN CORPUSCULAR HGB CONC 28.8 g/dl (32-36); PLATELET COUNT 124 K/uL (130-400); RED BLOOD COUNT 3.64 M/uL (4.7-6.1); WHITE BLOOD COUNT 9.57 K/uL (4.8-10.8)
[2017-07-21 06:22] LABS: ANISOCYTOSIS PRESENT; BASO % 0.1 %; BASO ABS # 0.01 K/uL (0-0.2); COMPLETE YES; EOS % 0.3 %; HYPOCHROMIA PRESENT; IG% 0.3 %; LYMPH % 8.2 %; LYMPH ABS # 0.78 K/uL (1.2-3.4); NEUT % 80.1 %; OVALOCYTES 1+; PLT ESTIMATE DECREASED; POLYCHROMASIA 1+; TEAR DROP CELLS OCCASIONAL
[2017-07-21] MEDS: BUDESONIDE 0.5 MG/2 ML VIAL (PULMICORT) INH SCH ×2 (06:58→20:13)
[2017-07-21] MEDS: INSULIN HUMAN NPH SC SCH ×2 (08:50→17:10)
[2017-07-21] MEDS: TRAMADOL HCL 50 MG TAB PO SCH ×3 (09:05→23:35)
[2017-07-21] MEDS: ACETAMINOPHEN 500 MG TAB PO SCH ×3 (09:05→23:34)
[2017-07-21] MEDS: DOCUSATE SODIUM 100 MG CAP PO SCH (09:06)
[2017-07-21] MEDS: AMIODARONE 200 MG TAB PO SCH (09:06)
[2017-07-21] MEDS: ASPIRIN 81 MG ECTAB PO SCH (09:07)
[2017-07-21] MEDS: LOSARTAN POTASSIUM 25 MG TAB PO SCH (09:07)
[2017-07-21] MEDS: TORSEMIDE 20 MG TAB PO SCH (09:08)
[2017-07-21] MEDS: SILDENAFIL CITRATE 20 MG TAB PO SCH ×2 (09:09→20:57)
[2017-07-21] MEDS: GABAPENTIN 100 MG CAP PO SCH ×2 (09:09→20:59)
[2017-07-21] MEDS: CALCITRIOL 0.25 MCG CAP PO SCH (09:09)
[2017-07-21] MEDS: PANTOprazole SOD 40 MG TAB PO SCH (09:09)
[2017-07-21] MEDS: AMOXICILLIN/CLAVULANATE TAB 875 MG TAB PO SCH ×2 (09:10→16:36)
[2017-07-21] MEDS ORDERED: GUAIFENESIN 600 MG TABCR PO ONE (10:45)
[2017-07-21] MEDS ORDERED: MoRPHine SULFATE 4 MG/ML 1 ML CARP\\VIAL IV ONE (11:45)
--- NOTE | 2017-07-21 13:24 | DIAGNOSTIC IMAGING REPORT ---
LEFT KNEE 1 OR 2 VIEWS ROUTINE HISTORY: 77 years-old Male left knee pain acute left-sided knee pain. COMPARISON: None available. TECHNIQUE: 2 views of the left knee FINDINGS: Chondrocalcinosis is present. Moderate patellofemoral with mild medial and lateral compartment osteoarthritis is present. There is no acute fracture or dislocation. Small joint effusion is noted. Vascular calcifications are seen. 6 mm metallic density focus projects adjacent to the medial proximal tibial metaphysis. IMPRESSION: 1. Small joint effusion without acute bony abnormality. 2. Moderate patellofemoral with mild medial and lateral compartment osteoarthritis. 3. Chondrocalcinosis. The above report was generated using voice recognition software. It may contain grammatical, syntax or spelling errors. Electronically signed by: Ad Bello M.D. 07/21/2017 1:23 PM Dictated Date/Time: 07/21/2017 1:22 PM
--- NOTE | 2017-07-21 14:57 | Progress Note ---
Medicine Progress Note Date & Time of Visit: Jul 21, 2017 at 10:31. (Marlen Rowley PA-C) Subjective Patient seen with daughter at bedside. Reports feeling "so-so". He is smiling and in much better spirits than yesterday. He slept well overnight. Still having pain, worst in the L knee rated 8/10, and also bilateral upper arm pain R >L rated 4-6/10. Did not ambulate yesterday or today. No bleeding from the nares. No longer coughing up blood. Feels he has sputum but is unable to expectorate. Dizziness is about the same. Denies chest pain, SOB, abdominal pain , N/V, focal weakness or numbness. Eating normally. No further swallowing issues. Passed normal BM x2 yesterday. Voiding normally. (Marlen Rowley PA-C) Objective Last 8 Hrs Date Time Temp Pulse Resp B/P (MAP) Pulse Ox O2 Delivery O2 Flow Rate FiO2 07/21/17 07:54 36.7 72 20 109/65 (80) 91 Room Air 07/21/17 06:58 71 16 90 Room Air 07/21/17 04:00 99 Oxymask 4.0 07/21/17 03:20 36.3 77 20 119/57 (77) 98 Oxymask 4.0 Physical Exam: General-alert elderly male, propped up in bed, smiling, no distress, daughter at bedside Eyes- anicteric ENT- ecchymosis of nose and bilateral maxillary areas- improving, no active bleeding, oral mucosa dry, pharynx normal, no blood in posterior pharynx Neck-trachea midline, +JVD Lungs- occasional cough, decreased breath sounds, no wheezing, rhonchi, or crackles, no stridor, no respiratory distress, saturating 92% on RA Heart- RRR, + systolic murmur Abdomen-mildly protuberant, soft, nontender, normal BS Extremities- PICC line present RUE, no edema, + venous stasis discoloration bilateral lower legs, L knee tender to palpation medially, L knee pain with ROM Neuro-alert, oriented x 3, affect normal, no focal deficit- speech unchanged from baseline, facial movements symmetric, bilat UE strength 5/5, lifts both legs off the bed equally Laboratory Results: Last 24 Hours Test 07/20/17 11:51 07/20/17 16:07 07/20/17 20:04 07/21/17 05:30 Bedside Glucose 145 mg/dl 188 mg/dl 152 mg/dl White Blood Count 9.57 K/uL Red Blood Count 3.64 M/uL Hemoglobin 8.4 g/dL Hematocrit 29.2 % Mean Corpuscular Volume 80.2 fL Mean Corpuscular Hemoglobin 23.1 pg Mean Corpuscular Hemoglobin Concent 28.8 g/dl Platelet Count 124 K/uL Neutrophils (%) (Auto) 80.1 % Lymphocytes (%) (Auto) 8.2 % Monocytes (%) (Auto) 11.0 % Eosinophils (%) (Auto) 0.3 % Basophils (%) (Auto) 0.1 % Neutrophils # (Auto) 7.67 K/uL Lymphocytes # (Auto) 0.78 K/uL Monocytes # (Auto) 1.05 K/uL Eosinophils # (Auto) 0.03 K/uL Basophils # (Auto) 0.01 K/uL RDW Standard Deviation 61.6 fL RDW Coefficient of Variation 20.9 % Immature Granulocyte % (Auto) 0.3 % Immature Granulocyte # (Auto) 0.03 K/uL Nucleated RBC Absolute Count (auto) 0.04 K/uL Nucleated Red Blood Cells % 0.5 % Platelet Estimate DECREASED Polychromasia 1+ Hypochromasia PRESENT Anisocytosis PRESENT Tear Drop Cells OCCASIONAL Ovalocytes 1+ Sodium Level 142 mmol/L Potassium Level 3.9 mmol/L Chloride Level 105 mmol/L Carbon Dioxide Level 32 mmol/L Anion Gap 5.0 mmol/L Blood Urea Nitrogen 44 mg/dl Creatinine 2.00 mg/dl Est Creatinine Clear Calc Drug Dose 35.6 ml/min Estimated GFR () 35.7 Estimated GFR (Non- 30.8 BUN/Creatinine Ratio 22.0 Random Glucose 139 mg/dl Calcium Level 8.5 mg/dl Test 07/21/17 06:29 Bedside Glucose 141 mg/dl (Marlen Rowley PA-C) Assessment & Plan EXTREMITY PAIN No evidence of RA flare, has underlying OA, recent trauma (fell on knee [employer] H[employer]ITAL[employer]) Takes tramadol and acetaminophen at home Changed tramadol and acetaminophen to scheduled- still having pain PRN morphine Check x-ray left knee- Small joint effusion without acute bony abnormality. 2. Moderate patellofemoral with mild medial and lateral compartment osteoarthritis. 3. Chondrocalcinosis. Consider ortho consult PLEURISY Had episode of chest pain 07/19 evening, received nitro and morphine without improvement, EKG showed paced rhythm, troponin has been negative x 3, was transferred back to telemetry; chest pain now resolved 1 unit pRBC given 07/19 evening due to ? ACS Possible pneumonitis seen on imaging 2/ aspiration of blood- Invanz changed to Augmentin per pulm Seen by speech for possible aspiration of water- no s/s aspiration, rec regular diet, General aspiration precautions: fully upright; straws okay Pulmonology on board, appreciate input JAVY ON CKD STAGE III Creat is 2.0 from 1.6 (baseline) -> remains 2.0, torsemide dose decreased Monitor renal function closely ANEMIA- stable In setting of Coumadin use (INR 3.1 on presentation). ER provider discussed with cardiology, Coumadin held, given 10 mg IV vitamin K, INR has trended down to 1.2 Nasal packing placed in ER, removed by ENT Dr. Buck on 07/18, no longer bleeding Hg 6.8 on presentation, transfused 2 units pRBC with appropriate response, received another 1 unit for ?ACS, Hg now stable at 8.[address] Merritt on 07/18, no need for Vitamin K Continue to hold Coumadin for 1 week per ENT S/P FALL/ DIZZINESS Reported lightheadedness at time of fall, has been intermittent x 6 months Ddx includes symptomatic anemia, orthostasis, r/o arrhythmia, medication side effect Monitor in telemetry- no significant arrhythmia Pacemaker interrogation- reviewed with Dr. Tracy, shows Afib but no other arrhythmia Troponin negative x 3 Gabapentin discontinued due to side effect of dizziness, however it was resumed due to insomnia/ restless legs Hx CAD s/p CABG On aspirin and statin Per H&P, not on beta shana due to intolerance/ bradycardia ABDOMINAL PAIN/ CIRRHOSIS- new diagnosis Likely secondary to NAFLD CT a/p showed cirrhosis with trace intra-abdominal and intrapelvic ascites LFT's WNL Attending physician discussed case with GI, recommended outpatient GI evaluation Patient informed of diagnosis CHRONIC SYSTOLIC CHF Clinically compensated CXR on admission showed pulmonary vascular congestion without overt pulmonary edema Last TTE showed EF 30-34% Monitor daily weights and I/O PULMONARY HTN Continue Revatio ATRIAL FIBRILLATION Was on Coumadin, INR 3.1 on admission, ER provider discussed with cardiology, given 10 mg IV vitamin K Coumadin on hold for epistaxis, anemia- continue to hold for 1 week per ENT, will defer to cardiology to resume as outpatient S/p pacemaker, s/p maze in 2011 Rate is controlled Continue amiodarone and digoxin (dig level WNL) HTN Stable, continue losartan CHRONIC THROMBOCYTOPENIA Stable Monitor DM TYPE II A1c 7.4 in 06/2017 Hold home insulin isophane Utilize Lantus and Novolog sliding scale CHRONIC LLE WOUND INFECTION Invanz stopped from wound standpoint as per Dr. Childs, but will continue for pulmonary coverage Wound care nurse consulted HYPOTHYROIDISM Continue levothyroxine RHEUMATOID ARTHRITIS continue hydroxychloroquine and prednisone DEPRESSION Continue sertraline and trazodone CODE STATUS DNR as per admitting physician order DVT PROPHYLAXIS SCD's due to epistaxis/ anemia DISPOSITION Telemetry Follows with Dr. Valerio for primary care Lives with daughter PT/ OT terry requested- PT recommended rehab, social service consult placed Patient seen in collaboration with Dr. Johnson. Please see her addendum. Current Inpatient Medications: Current Inpatient Medications Medications (Trade) Dose Ordered Sig/Nicolette Route Start Time Stop Time Status Last Admin Dose Admin Ondansetron HCl (Zofran Inj) 4 mg Q6H PRN IV 07/17/17 19:15 08/16/17 19:14 Polyethylene (Miralax Powder Packet) 17 gm DAILY PRN PO 07/17/17 19:15 08/16/17 19:14 Amiodarone HCl (Cordarone Tab) 200 mg DAILY PO 07/18/17 09:00 08/17/17 08:59 07/21/17 09:06 200 MG Aspirin (Ecotrin Tab) 81 mg QAM PO 07/18/17 09:00 08/17/17 08:59 07/21/17 09:07 81 MG Cholecalciferol (Vitamin D Tab) 2,000 inter.unit HS PO 07/18/17 21:00 08/17/17 20:59 07/20/17 20:03 2,000 INTER.UNIT Digoxin (Lanoxin Tab) 0.125 mg Q2D PO 07/18/17 16:00 08/17/17 15:59 07/20/17 15:52 0.125 MG Docusate Sodium (coLACE CAP) 100 mg DAILY PO 07/18/17 09:00 08/17/17 08:59 07/21/17 09:06 100 MG Hydroxychloroquine Sulfate (Plaquenil Tab) 400 mg HS PO 07/18/17 21:00 08/17/17 20:59 07/20/17 20:04 400 MG Insulin Human NPH (novoLIN-N NPH) 12 units BIDM SC 07/18/17 07:30 08/17/17 07:29 07/21/17 08:50 12 UNITS Levothyroxine Sodium (Synthroid Tab) 112 mcg DAILYBB PO 07/18/17 06:00 08/17/17 05:59 07/21/17 05:38 112 MCG Losartan Potassium (coZAAR TAB) 12.5 mg DAILY PO 07/18/17 09:00 08/17/17 08:59 07/21/17 09:07 12.5 MG Pantoprazole Sodium (Protonix Tab) 40 mg DAILY PO 07/18/17 09:00 08/17/17 08:59 07/21/17 09:09 40 MG Prednisone (PredniSONE TAB) 5 mg DAILY PO 07/18/17 09:00 08/17/17 08:59 07/21/17 09:09 5 MG Sertraline HCl (Zoloft Tab) 100 mg HS PO 07/18/17 21:00 08/17/17 20:59 07/20/17 20:06 100 MG Sildenafil Citrate (Revatio Tab) 20 mg BID PO 07/18/17 09:00 08/17/17 08:59 07/21/17 09:09 20 MG Simvastatin (Zocor Tab) 10 mg HS PO 07/18/17 21:00 08/17/17 20:59 07/20/17 20:06 10 MG Trazodone HCl (Desyrel Tab) 25 mg HS PO 07/18/17 21:00 08/17/17 20:59 07/20/17 20:04 25 MG Magnesium Oxide (Mag-Ox Tab) 400 mg HS PO 07/18/17 21:00 08/17/17 20:59 07/20/17 20:03 400 MG Sertraline HCl (Zoloft Tab) 25 mg HS PO 07/18/17 21:00 08/17/17 20:59 07/20/17 20:06 25 MG Glucose (Glucose 40% Gel) 15-30 GRAMS 15 GRAMS... UD PRN PO 07/17/17 21:45 08/16/17 21:44 Glucose (Glucose Chew Tab) 4-8 Tablets 4 Tabl... UD PRN PO 07/17/17 21:45 08/16/17 21:44 Dextrose (Dextrose 50% 50ML Syringe) 25-50ML OF 50% DW IV FOR... UD PRN IV 07/17/17 21:45 08/16/17 21:44 Glucagon (Glucagon Inj) 1 mg UD PRN SQ 07/17/17 21:45 08/16/17 21:44 Calcitriol (Rocaltrol Cap) 0.25 mcg MoWeFr PO 07/19/17 09:00 08/18/17 08:59 07/21/17 09:09 0.25 MCG Oxycodone/ Acetaminophen (Percocet 5-325mg Tab) 1 tab Q4H PRN PO 07/18/17 02:00 08/01/17 01:59 07/18/17 11:59 1 TAB Hydromorphone HCl (Dilaudid Inj) 0.5 mg Q3H PRN IV 07/18/17 02:00 08/01/17 01:59 Budesonide (Pulmicort Respules 0.5MG/ 2ML Neb Soln) 0.5 mg BIDR INH 07/18/17 20:00 08/17/17 19:59 07/21/17 06:58 0.5 MG Oxymetazoline HCl (Afrin 0.05% Nasal [place]) 2 sprays Q1HWA PRN NA 07/18/17 13:00 08/17/17 12:59 07/18/17 18:04 2 SPRAYS Nitroglycerin (Nitrostat Tab) 0.4 mg PRN PRN SL 07/19/17 18:30 08/18/17 18:29 07/19/17 18:43 0.4 MG Morphine Sulfate (MoRPHine SULFATE INJ) 4 mg Q2H PRN IV 07/19/17 18:30 08/02/17 18:29 07/20/17 20:14 4 MG Al Hydroxide/Mg Hydroxide/ Lidocaine HCl/ Barcode Q8H PRN PO 07/19/17 19:15 10/6/17 19:14 Ipratropium [place] (Atrovent 0.02% 0.5MG/2.5ML Neb) 0.5 mg Q6R INH 07/20/17 03:00 08/19/17 02:59 07/21/17 06:57 0.5 MG Levalbuterol (Xopenex 1.25MG/ 0.5ML Neb) 1.25 mg Q6R INH 07/20/17 03:00 08/19/17 02:59 07/21/17 06:57 1.25 MG Gabapentin (Neurontin Cap) 200 mg BID PO 07/20/17 09:00 08/19/17 08:59 07/21/17 09:09 200 MG Acetaminophen (Tylenol Tab) 500 mg Q8H PO 07/20/17 16:00 08/19/17 15:59 07/21/17 09:05 500 MG Tramadol HCl (Ultram Tab) 50 mg Q8H PO 07/20/17 16:00 08/19/17 15:59 07/21/17 09:05 50 MG Amoxicillin/ Clavulanate Potassium (Augmentin Tab) 875 mg BIDM PO 07/21/17 07:30 07/25/17 07:29 07/21/17 09:10 875 MG Torsemide (Demadex Tab) 20 mg DAILY PO 07/21/17 09:00 08/17/17 08:59 07/21/17 09:08 20 MG Guaifenesin (Mucinex Contr Rel Tab) 600 mg Q12 PO 07/21/17 21:00 08/20/17 20:59 Guaifenesin (Mucinex Contr Rel Tab) 600 mg NOW ONCE PO 07/21/17 10:45 07/21/17 10:46 (Marlen Rowley PA-C) I have seen and examined the patient and agree with the assessment and plan above. The patient is clinically improved today, however, discharge was held up because of severe knee pain. This was xray'd and Ortho was consulted for evaluation because of effusion. Ultimately with the joint and muscle aches, this is consistent with a poss RA flare vs PMR and a steroid taper was started. Additionally, he states the pleurisy and chest pain have completely resolved and he is starting to ambulate. Would consider for discharge to rehab in am. DO Alex (Lillie Johnson, )
[2017-07-21] MEDS ORDERED: ETHYL CHLORIDE AER SPR 100 ML CAN EXT ONE (16:30)
--- NOTE | 2017-07-21 18:10 | PULMONARY PROGRESS NOTE ---
DATE: 07/21/2017 TIME: 5:30 p.m. SUBJECTIVE: The patient in general is feeling better. He did not have any acute episodes of shortness of breath. There was no further reported stridor. The patient states he still feels like he has mucus to come out that is not coming. Nursing reports no major problems today. OBJECTIVE: GENERAL: The patient appeared comfortable. He seemed to have a stronger voice today than yesterday. He seemed more awake. Temperature is 36.7. HEENT: Neck veins today were noted to be markedly distended. This was even with the patient in the upright position. HEART: The cardiac rate is 71. The rhythm was pacer. Blood pressure is 100/61. LUNGS: Lung mora revealed mild rhonchi bilaterally. Respirations were easy. Respiratory rate was 18 breaths per minute. Saturation was 92% on room air. EXTREMITIES: Show chronic skin changes. Again, there was some edema of the left leg greater than the right leg. LABORATORY DATA: CBC today showed a white count of 9.57. Hemoglobin was 8.4. Platelets 124,000. Electrolytes today show sodium 142, potassium 3.9, chloride 105, bicarb 32. The BUN was 44 with a creatinine of 2.0. These are similar to yesterday. Blood sugar today was as high as 170. I was able to review the patient's pulmonary functions that had been done as an outpatient through [facility] in 2012. I appreciate getting those results for me. The pattern at that time showed a mild restrictive pattern; however, it was 4-1/2 years ago. IMPRESSIONS: 1. Chronic lung disease by history -- restrictive on prior PFT. 2. Status post severe epistaxis following a fall. 3. Pleural plaques. 4. Round atelectasis of the left lower lobe. 5. Pneumonitis, right upper lobe, right lower lobe and left lower lobe, possibly secondary to blood aspiration. 6. Obstructive sleep apnea -- wear CPAP at home. 7. Status post tracheostomy. COMMENTS AND RECOMMENDATIONS: The patient seems to be clinically stable. He has not had any acute episodes of shortness of breath in the past 36 hours or thereabouts. He seems to be making progress. I believe you can continue the prednisone taper as an outpatient. Would continue with the Augmentin up to a total of 10 days of antibiotic therapy. I will sign off for now, but will be happy to see the patient again if you felt it was indicated.
--- NOTE | 2017-07-21 18:48 | Orthopedic Consultation ---
Orthopedic Consultation Date of Consultation: Jul 21, 2017. Attending Physician: Lillie Johnson DO Reason for Consultation: Left knee effusion History of Present Illness 77-year-old male who states he's had left knee pain for several months. He was having pain prior to this fall. He was admitted for treatment of epistaxis after a fall. He fell onto the left knee around Labor Day he states. He is no abrasion over the knee. He began having some medial sided pain prior to this however. He has some mild discomfort today. He is chronically on warfarin therapy his admission INR 3.1. Past Medical/Surgical History Medical Problems: (1) Acute post-hemorrhagic anemia Status: Acute (2) Atrial flutter Status: Acute (3) Bleeding on Coumadin Status: Acute (4) Bradycardia Status: Acute (5) CHF (congestive heart failure) Status: Acute (6) CHF exacerbation Status: Acute (7) Nasal bone fracture Status: Acute (8) Shortness of breath Status: Acute (9) Warfarin-induced coagulopathy Status: Acute Family History FH: COPD (chronic obstructive pulmonary disease) FATHER SISTER SISTER FH: coronary artery disease MOTHER FH: diabetes mellitus SISTER FH: heart disease BROTHER BROTHER BROTHER SISTER Social History Smoking Status: Never Smoker Drug Use: none Marital Status: Housing Status: lives with family Occupation Status: retired Allergies Coded Allergies: Lisinopril (Unverified Allergy, Unknown, dizzy, 07/11/17) Home Medications Scheduled Amiodarone Hcl (Cordarone), 200 MG PO DAILY Aspirin (Aspirin 81), 81 MG PO QAM Budesonide (Pulmicort Respules 0.25MG/2ML), 2 ML INH BID Calcitriol (Calcitriol), 0.25 MCG PO 3XWK Cholecalciferol (Vitamin D 1000 Unit), 2,000 INTER.UNIT PO HS Digoxin (Digoxin), 0.125 MG PO Q2D Docusate Sodium (Colace), 100 MG PO DAILY Gabapentin (Gabapentin), 200 MG PO BID Hydroxychloroquine Sulfate (Hydroxychloroquine Sulfat), 400 MG PO HS Insulin Isophane (Human) (Humulin N Kwikpen), 12 UNITS SC BID Levothyroxine Sodium (Levothyroxine Sodium), 112 MCG PO DAILY Losartan Potassium (Losartan Potassium), 12.5 MG PO DAILY Magnesium Oxide (Magnesium Oxide), 400 MG PO HS Pantoprazole (Pantoprazole Sodium), 40 MG PO DAILY Polyethylene Glycol 3350 (Miralax), 1 PKT PO DAILY Prednisone (Prednisone), 5 MG PO DAILY Sertraline HCl (Sertraline HCl), 25 MG PO HS Sertraline HCl (Sertraline HCl), 100 MG PO HS Sildenafil Citrate (Pulmonary (Sildenafil Citrate), 20 MG PO BID Simvastatin (Simvastatin), 10 MG PO HS Torsemide (Demadex), 20 MG PO DAILY Trazodone Hcl (Desyrel), 25-50 MG PO HS Warfarin Sodium (Warfarin Sodium), 2.5 MG PO 2XWK Warfarin Sodium (Warfarin Sodium), 5 MG PO 5XWK Scheduled PRN Acetaminophen (Tylenol), 650 MG PO Q4H PRN for Mild Pain Ipratropium Floyd (Atrovent 0.02% Soln), 2.5 ML NEB TID PRN for SOB/Wheezing Levalbuterol (Levalbuterol HCl), 3 ML NEB TID PRN for SOB/Wheezing Saline (Centuria Nasal [place]), 2 SPRAYS NATALIO UD PRN for Nasal Dryness/Congestion Tramadol HCl (Tramadol HCl), 50 MG PO Q12 PRN for Pain Current Inpatient Medications Current Inpatient Medications Medications (Trade) Dose Ordered Sig/Nicolette Route Start Time Stop Time Status Last Admin Dose Admin Ondansetron HCl (Zofran Inj) 4 mg Q6H PRN IV 07/17/17 19:15 08/16/17 19:14 Polyethylene (Miralax Powder Packet) 17 gm DAILY PRN PO 07/17/17 19:15 08/16/17 19:14 Amiodarone HCl (Cordarone Tab) 200 mg DAILY PO 07/18/17 09:00 08/17/17 08:59 07/21/17 09:06 200 MG Aspirin (Ecotrin Tab) 81 mg QAM PO 07/18/17 09:00 08/17/17 08:59 07/21/17 09:07 81 MG Cholecalciferol (Vitamin D Tab) 2,000 inter.unit HS PO 07/18/17 21:00 08/17/17 20:59 07/20/17 20:03 2,000 INTER.UNIT Digoxin (Lanoxin Tab) 0.125 mg Q2D PO 07/18/17 16:00 08/17/17 15:59 07/20/17 15:52 0.125 MG Docusate Sodium (coLACE CAP) 100 mg DAILY PO 07/18/17 09:00 08/17/17 08:59 07/21/17 09:06 100 MG Hydroxychloroquine Sulfate (Plaquenil Tab) 400 mg HS PO 07/18/17 21:00 08/17/17 20:59 07/20/17 20:04 400 MG Insulin Human NPH (novoLIN-N NPH) 12 units BIDM SC 07/18/17 07:30 08/17/17 07:29 07/21/17 17:10 12 UNITS Levothyroxine Sodium (Synthroid Tab) 112 mcg DAILYBB PO 07/18/17 06:00 08/17/17 05:59 07/21/17 05:38 112 MCG Losartan Potassium (coZAAR TAB) 12.5 mg DAILY PO 07/18/17 09:00 08/17/17 08:59 07/21/17 09:07 12.5 MG Pantoprazole Sodium (Protonix Tab) 40 mg DAILY PO 07/18/17 09:00 08/17/17 08:59 07/21/17 09:09 40 MG Sertraline HCl (Zoloft Tab) 100 mg HS PO 07/18/17 21:00 08/17/17 20:59 07/20/17 20:06 100 MG Sildenafil Citrate (Revatio Tab) 20 mg BID PO 07/18/17 09:00 08/17/17 08:59 07/21/17 09:09 20 MG Simvastatin (Zocor Tab) 10 mg HS PO 07/18/17 21:00 08/17/17 20:59 07/20/17 20:06 10 MG Trazodone HCl (Desyrel Tab) 25 mg HS PO 07/18/17 21:00 08/17/17 20:59 07/20/17 20:04 25 MG Magnesium Oxide (Mag-Ox Tab) 400 mg HS PO 07/18/17 21:00 08/17/17 20:59 07/20/17 20:03 400 MG Sertraline HCl (Zoloft Tab) 25 mg HS PO 07/18/17 21:00 08/17/17 20:59 07/20/17 20:06 25 MG Glucose (Glucose 40% Gel) 15-30 GRAMS 15 GRAMS... UD PRN PO 07/17/17 21:45 08/16/17 21:44 Glucose (Glucose Chew Tab) 4-8 Tablets 4 Tabl... UD PRN PO 07/17/17 21:45 08/16/17 21:44 Dextrose (Dextrose 50% 50ML Syringe) 25-50ML OF 50% DW IV FOR... UD PRN IV 07/17/17 21:45 08/16/17 21:44 Glucagon (Glucagon Inj) 1 mg UD PRN SQ 07/17/17 21:45 08/16/17 21:44 Calcitriol (Rocaltrol Cap) 0.25 mcg MoWeFr PO 07/19/17 09:00 08/18/17 08:59 07/21/17 09:09 0.25 MCG Oxycodone/ Acetaminophen (Percocet 5-325mg Tab) 1 tab Q4H PRN PO 07/18/17 02:00 08/01/17 01:59 07/18/17 11:59 1 TAB Hydromorphone HCl (Dilaudid Inj) 0.5 mg Q3H PRN IV 07/18/17 02:00 08/01/17 01:59 Budesonide (Pulmicort Respules 0.5MG/ 2ML Neb Soln) 0.5 mg BIDR INH 07/18/17 20:00 08/17/17 19:59 07/21/17 06:58 0.5 MG Oxymetazoline HCl (Afrin 0.05% Nasal [place]) 2 sprays Q1HWA PRN NA 07/18/17 13:00 08/17/17 12:59 07/18/17 18:04 2 SPRAYS Nitroglycerin (Nitrostat Tab) 0.4 mg PRN PRN SL 07/19/17 18:30 08/18/17 18:29 07/19/17 18:43 0.4 MG Morphine Sulfate (MoRPHine SULFATE INJ) 4 mg Q2H PRN IV 07/19/17 18:30 08/02/17 18:29 07/20/17 20:14 4 MG Al Hydroxide/Mg Hydroxide/ Lidocaine HCl/ Barcode Q8H PRN PO 07/19/17 19:15 08/18/17 19:14 Ipratropium Floyd (Atrovent 0.02% 0.5MG/2.5ML Neb) 0.5 mg Q6R INH 07/20/17 03:00 08/19/17 02:59 07/21/17 14:32 0.5 MG Levalbuterol (Xopenex 1.25MG/ 0.5ML Neb) 1.25 mg Q6R INH 07/20/17 03:00 08/19/17 02:59 07/21/17 14:32 1.25 MG Gabapentin (Neurontin Cap) 200 mg BID PO 07/20/17 09:00 08/19/17 08:59 07/21/17 09:09 200 MG Acetaminophen (Tylenol Tab) 500 mg Q8H PO 07/20/17 16:00 08/19/17 15:59 07/21/17 16:32 500 MG Tramadol HCl (Ultram Tab) 50 mg Q8H PO 07/20/17 16:00 08/19/17 15:59 07/21/17 16:36 50 MG Amoxicillin/ Clavulanate Potassium (Augmentin Tab) 875 mg BIDM PO 07/21/17 07:30 07/25/17 07:29 07/21/17 16:36 875 MG Torsemide (Demadex Tab) 20 mg DAILY PO 07/21/17 09:00 08/17/17 08:59 07/21/17 09:08 20 MG Guaifenesin (Mucinex Contr Rel Tab) 600 mg Q12 PO 07/21/17 21:00 08/20/17 20:59 Prednisone (PredniSONE TAB) 30 mg Taper QDD PO 07/21/17 16:45 07/27/17 16:44 07/21/17 17:08 30 MG Physical Exam Date Time Temp Pulse Resp B/P (MAP) Pulse Ox O2 Delivery O2 Flow Rate FiO2 07/21/17 16:00 Room Air 07/21/17 15:34 36.7 80 18 100/61 (74) 92 Room Air 07/21/17 14:36 73 18 92 Room Air 07/21/17 12:00 Room Air 07/21/17 11:59 36.6 74 20 97/54 (68) 94 07/21/17 08:00 Room Air 07/21/17 07:54 36.7 72 20 109/65 (80) 91 Room Air 07/21/17 06:58 71 16 90 Room Air 07/21/17 04:00 99 Oxymask 4.0 07/21/17 03:20 36.3 77 20 119/57 (77) 98 Oxymask 4.0 07/21/17 01:56 102 16 86 Room Air 07/21/17 00:00 Room Air 07/20/17 23:00 36.5 74 18 111/65 (80) 95 Room Air 07/20/17 20:42 76 16 95 Room Air 07/20/17 20:00 96 Room Air 07/20/17 19:22 36.8 70 22 115/68 (84) 96 Room Air General Appearance: no apparent distress Head: + pertinent finding (ecchymoses over the bridge of the nose and face) Respiratory/Chest: chest non-tender Cardiovascular: no edema Extremities/Musculoskelatal: + pertinent finding (left knee: Mild abrasion over the patella. No tenderness to the patella itself. Minimal effusion. Some mild joint space tenderness in the medial side. Mild pain with Faby' s. Range of motion 0-130. No erythema. No signs or symptoms of infection. No tenderness to palpation laterally or posteriorly) Laboratory Results Last 24 Hours Test 07/20/17 20:04 07/21/17 05:30 07/21/17 06:29 07/21/17 11:58 Bedside Glucose 152 mg/dl 141 mg/dl 170 mg/dl White Blood Count 9.57 K/uL Red Blood Count 3.64 M/uL Hemoglobin 8.4 g/dL Hematocrit 29.2 % Mean Corpuscular Volume 80.2 fL Mean Corpuscular Hemoglobin 23.1 pg Mean Corpuscular Hemoglobin Concent 28.8 g/dl Platelet Count 124 K/uL Neutrophils (%) (Auto) 80.1 % Lymphocytes (%) (Auto) 8.2 % Monocytes (%) (Auto) 11.0 % Eosinophils (%) (Auto) 0.3 % Basophils (%) (Auto) 0.1 % Neutrophils # (Auto) 7.67 K/uL Lymphocytes # (Auto) 0.78 K/uL Monocytes # (Auto) 1.05 K/uL Eosinophils # (Auto) 0.03 K/uL Basophils # (Auto) 0.01 K/uL RDW Standard Deviation 61.6 fL RDW Coefficient of Variation 20.9 % Immature Granulocyte % (Auto) 0.3 % Immature Granulocyte # (Auto) 0.03 K/uL Nucleated RBC Absolute Count (auto) 0.04 K/uL Nucleated Red Blood Cells % 0.5 % Platelet Estimate DECREASED Polychromasia 1+ Hypochromasia PRESENT Anisocytosis PRESENT Tear Drop Cells OCCASIONAL Ovalocytes 1+ Sodium Level 142 mmol/L Potassium Level 3.9 mmol/L Chloride Level 105 mmol/L Carbon Dioxide Level 32 mmol/L Anion Gap 5.0 mmol/L Blood Urea Nitrogen 44 mg/dl Creatinine 2.00 mg/dl Est Creatinine Clear Calc Drug Dose 35.6 ml/min Estimated GFR () 35.7 Estimated GFR (Non- 30.8 BUN/Creatinine Ratio 22.0 Random Glucose 139 mg/dl Calcium Level 8.5 mg/dl Test 07/21/17 16:13 Bedside Glucose 138 mg/dl Assessment & Plan Aggravation of knee osteoarthritis status post fall His x-rays demonstrate he has some osteophytic change in the medial compartment as well as patellofemoral compartment. He also has some calcific changes in the joint space consistent with medial meniscus calcific chondrosis. He had been having some medial sided pain prior to this fall. He likely had aggravation of his arthritis when he fell on the patella. He has a mild amount of swelling. No signs or symptoms of infection currently. Nothing concerning for fracture. He is not having a lot of pain on examination today. He may weight-bear as tolerated. We will sign off for now. If he has persistent knee pain he can be evaluated as an outpatient.
[2017-07-21] MEDS: CHOLECALCIFEROL 1000 INTER.UNIT TAB PO SCH (20:57)
[2017-07-21] MEDS: SERTRALINE HCL 50 MG TAB PO SCH (20:58)
[2017-07-21] MEDS: TRAZODONE HCL 50 MG TAB PO SCH (20:58)
[2017-07-21] MEDS: GUAIFENESIN 600 MG TABCR PO SCH (20:59)
[2017-07-21] MEDS: HYDROXYCHLOROQUINE SULFATE 200 MG TAB PO SCH (21:00)
[2017-07-21] MEDS: MAGNESIUM OXIDE 400 MG TAB PO SCH (21:00)
[2017-07-21] MEDS: SIMVASTATIN 10 MG TAB PO SCH (22:23)
[2017-07-21] MEDS: SERTRALINE HCL 100 MG TAB PO SCH (23:33)
[2017-07-22] VITALS (11 sets, daily range): BP systolic 94–127; BP diastolic 51–68; PULSE 70–84; TEMP 36.3–36.7; O2SAT 90–98
[2017-07-22] MEDS: LEVALBUTEROL 1.25MG/0.5ML NEB INH SCH ×4 (02:19→19:16)
[2017-07-22] MEDS: IPRATROPIUM BROMIDE NEB SOLN 0.02% 2.5 ML VIAL INH SCH ×4 (02:19→19:16)
[2017-07-22] MEDS: LEVOTHYROXINE 112 MCG TAB PO SCH (06:33)
[2017-07-22] MEDS: TORSEMIDE 20 MG TAB PO SCH ×2 (08:00→09:40)
[2017-07-22] MEDS: BUDESONIDE 0.5 MG/2 ML VIAL (PULMICORT) INH SCH ×2 (08:00→19:16)
[2017-07-22] MEDS: GUAIFENESIN 600 MG TABCR PO SCH ×2 (08:27→21:01)
[2017-07-22] MEDS: PANTOprazole SOD 40 MG TAB PO SCH (08:27)
[2017-07-22] MEDS: AMOXICILLIN/CLAVULANATE TAB 875 MG TAB PO SCH (08:27)
[2017-07-22] MEDS: AMIODARONE 200 MG TAB PO SCH (08:27)
[2017-07-22] MEDS: SILDENAFIL CITRATE 20 MG TAB PO SCH ×2 (08:27→21:03)
[2017-07-22] MEDS: GABAPENTIN 100 MG CAP PO SCH ×2 (08:27→21:02)
[2017-07-22] MEDS: LOSARTAN POTASSIUM 25 MG TAB PO SCH (08:30)
[2017-07-22] MEDS: DOCUSATE SODIUM 100 MG CAP PO SCH (08:30)
[2017-07-22] MEDS: ASPIRIN 81 MG ECTAB PO SCH (08:31)
[2017-07-22] MEDS: ACETAMINOPHEN 500 MG TAB PO SCH ×2 (08:33→16:23)
[2017-07-22] MEDS: INSULIN HUMAN NPH SC SCH ×2 (08:35→16:47)
[2017-07-22 09:19] LABS: BUN/CREATININE RATIO 23.8 (10-20); CALCIUM 9.1 mg/dl (8.5-10.1); CREATININE 2.6 mg/dl (0.60-1.40); MAGNESIUM 2.9 mg/dl (1.8-2.4)
[2017-07-22] MEDS ORDERED: SODIUM CHLORIDE 0.65% NA SOLN 45 ML (OCEAN) ONE (09:19)
[2017-07-22 09:24] LABS: ANISOCYTOSIS PRESENT; BASO % 0.1 %; BASO ABS # 0.01 K/uL (0-0.2); COMPLETE YES; HEMATOCRIT 28.5 % (42-52); IG% 0.4 %; LYMPH ABS # 0.37 K/uL (1.2-3.4); MEAN CELL VOLUME 78.3 fL (80-100); MEAN CORPUSCULAR HEMOGLOBIN 23.4 pg (25-34); MEAN CORPUSCULAR HGB CONC 29.8 g/dl (32-36); MONO % 6.6 %; NEUT % 90.9 %; PLATELET COUNT 135 K/uL (130-400); PLT ESTIMATE DECREASED; POLYCHROMASIA 1+; RED BLOOD COUNT 3.64 M/uL (4.7-6.1); WHITE BLOOD COUNT 18.23 K/uL (4.8-10.8)
[2017-07-22] MEDS ORDERED: NURSING DECISION MEDICATION ORDER SCH (09:30)
[2017-07-22] MEDS ORDERED: SODIUM CHLORIDE 0.65% NA SOLN 45 ML (OCEAN) PRN (09:30)
[2017-07-22] MEDS: TRAMADOL HCL 50 MG TAB PO SCH ×2 (09:39→16:23)
[2017-07-22] MEDS ORDERED: [UNRECOGNIZED DRUG - REMARK] PRN (11:00)
--- NOTE | 2017-07-22 11:20 | DIAGNOSTIC IMAGING REPORT ---
CHEST ONE VIEW PORTABLE CLINICAL HISTORY: worsening hypoxia overnight COMPARISON STUDY: 07/20/2017 FINDINGS: Moderate stable cardiomegaly. Persistent prominence of the pulmonary vasculature. Prior median sternotomy. Trace pleural fluid left base. IMPRESSION: Mild congestive failure. No major change compared to the prior study. The above report was generated using voice recognition software. It may contain grammatical, syntax or spelling errors. Electronically signed by: Neel Pierre M.D. 07/22/2017 11:18 AM Dictated Date/Time: 07/22/2017 11:18 AM
--- NOTE | 2017-07-22 16:03 | Cardiology Consultation ---
Cardiology Consultation Date of Consultation: Jul 22, 2017 History of Present Illness Mason Sanders is a 77 year old male seen in cardiology follow up per the request of Dr Johnson for continued management of the patient's biventricular systolic heart failure. Patient is well known to the undersigned as I have followed him on an inpatient and outpatient basis for years. I most recently seen the patient in June 2017 when he was admitted due to progressive lower extremity edema, abdominal fluid retention, and ulcers on his left thigh that were weeping clear fluid. He was treated for an acute onset on chronic systolic biventricular heart failure and he responded well to IV diuretics, diuresing vigorously. His weight trended down and his creatinine actually improved from an admission creatinine of 1.9 to a discharge creatinine of 1.7 several days later. During discussions with the patient is family during that admission it was noted that he has not been adhering to his diet as advised and he was drinking a lot of fluid such as drinking an excessive amount of milk every day. His torsemide was increased from a prior dose of 20 mg daily to 30 mg daily. When he left the hospital he apparently made significant adjustments and was not drinking as much fluid. He was however on a higher dose of diuretic, and subsequently he presented to the hospital 07/17/17 having had a syncopal episode while walking up a ramp into his apartment with resultant fall, facial trauma, nasal fracture, and severe epistaxis. Coumadin has been discontinued due to his facial trauma and he has significant residual facial ecchymosis. He has been doing poorly during his hospital stay as per interview with his daughter, Damaris, and he has been confused. His been sleeping most of the day. He has not been using his CPAP therapy because he does not have his home machine in the hospital and I think it was likely held initially because of concerns of not tolerating the mask with his recent facial trauma. His creatinine is trended up to 2.6 mg/dL. I went to interview him today, he was somnolent, and sleeping soundly and snoring. He looked exhausted, was difficult to arouse, so I did not interview him. Others in the history noted above, it is noted that when he was hospitalized in June, he had a wound culture that yielded resistant Klebsiella pneumonia bacteria and therefore he is finished a course of IV antibiotics as followed by Dr. Childs of infectious disease and he is now on Augmentin. History Past Medical History: His cardiac history dates back to June, when he was seen by the undersigned in outpatient consultation due to findings of atrial fibrillation in recent abnormal nuclear stress test. He had transitioned to a new primary care provider just before that and had not been followed by Cardiology in the past. At that point he described having been on Coumadin for atrial fibrillation for approximately 8 years. A nuclear stress test was performed as part of an ongoing evaluation of atrial fibrillation which was abnormal. Cardiac catheterization was performed in May, at [facility] with findings of multivessel disease. On 06/01/12 patient underwent CABG x 3 (PERSAUD to LAD, SVG to PL CX, and SVG to PDA ) and bi atrial Ching -Maze with left atrial appendage clip. Over the years he has been followed closely for biventricular systolic heart failure with progressive decline in his LVEF over the years most recent in the 30% range. He also has progressive right heart failure with right ventricular chamber enlargement and findings of pulmonary hypertension felt to be due to a mixed picture of left heart failure/diastolic and systolic dysfunction as well as underlying lung disease. His diuretic dose has been limited by underlying chronic kidney disease. He has had arrhythmia issues with having had paroxysmal atrial fibrillation despite having had the surgical Chnig Maze procedure , and early in 2016 atrial flutter was noted. He developed progressive conduction system disease with sinus bradycardia, atrial flutter with slow ventricular rates, and left bundle branch block. This ultimately prompted placement of a biventricular pacemaker on 03/02/[address] [place] [facility] with successful reversion back to sinus rhythm post procedure on amiodarone therapy. Moderate aortic valve stenosis. Left thigh ulcers with resistant Klebsiella pneumoniae on wound culture. Past Surgical History: As noted above Social History: , his spouse of cancer a few years ago. He has 2 children. His daughter typically accompanies him to the visit. His lifelong nonsmoker. Family History: History of COPD and mother and coronary heart disease in father both of whom passed with her 70s. Review Of Systems Conference review of systems is not obtainable due to his somnolent state. Allergies Coded Allergies: Lisinopril (Unverified Allergy, Unknown, dizzy, 07/11/17) Medications Reported Home Medications Medications Dose Route/Sig Max Daily Dose Days Date Category Dose Instructions Cordarone (Amiodarone Hcl) 200 Mg Tab 200 Mg PO DAILY 07/17/17 Reported Digoxin 0.125 Mg Tab 0.125 Mg PO Q2D 07/17/17 Reported Desyrel (Trazodone Hcl) 50 Mg Tab 25-50 Mg PO HS 07/17/17 Reported Gabapentin 100 Mg Cap 200 Mg PO BID 07/17/17 Reported Tramadol HCl 50 Mg Tab 50 Mg PO Q12 PRN 07/17/17 Reported Humulin N Kwikpen (Insulin Isophane (Human)) 100 Unit/Ml Inj 12 Units SC BID 07/17/17 Reported Demadex (Torsemide) 20 Mg Tab 20 Mg PO DAILY 07/17/17 Reported Colace (Docusate Sodium) 100 Mg Cap 100 Mg PO DAILY 07/11/17 Reported Levalbuterol HCl (Levalbuterol) 1.25 Mg/3 Ml Nebu 3 Ml NEB TID PRN 06/27/17 Rx Atrovent 0.02% Soln (Ipratropium [place]) 2.5 Ml Nebu 2.5 Ml NEB TID PRN 06/27/17 Rx Sildenafil Citrate (Sildenafil Citrate (Pulmonary) 20 Mg Tab 20 Mg PO BID 06/27/17 Reported Losartan Potassium 25 Mg Tab 12.5 Mg PO DAILY 06/27/17 Reported Tylenol (Acetaminophen) 325 Mg Tab 650 Mg PO Q4H PRN 06/21/16 Reported NEEDED FOR MILD PAIN RATED 1-3 ON A SCALE OF "0-10" Hinds Nasal [place] (Saline) 0.65 % Spr 2 Sprays NATALIO UD PRN 06/21/16 Reported Miralax (Polyethylene Glycol 3350) 1 Pow Pow 1 Pkt PO DAILY 06/21/16 Reported Warfarin Sodium 5 Mg Tab 5 Mg PO 5XWK 06/21/16 Reported TAKE 5 MG EVERY MONDAY,MONDAY,MONDAY,MONDAY AND MONDAY OR OTHERWISE DIRECTED TO TAKE BY ANTICOAGULATION CLINIC/MD Warfarin Sodium 2.5 Mg Tab 2.5 Mg PO 2XWK 06/21/16 Reported TAKE 2.5 MG EVERY MONDAY AND MONDAY OR OTHERWISE DIRECTED TO TAKE BY ANTICOAGULATION CLINIC/MD Sertraline HCl 100 Mg Tab 100 Mg PO HS 06/21/16 Reported TAKE ONE 100 MG TABLET ALONG WITH ONE 25 MG TABLET TO EQUAL BEDTIME DOSE OF 125 MG Sertraline HCl 25 Mg Tab 25 Mg PO HS 06/21/16 Reported TAKE ONE 25 MG TABLET ALONG WITH ONE 100 MG TABLET TO EQUAL BEDTIME DOSE OF 125 MG Pantoprazole Sodium (Pantoprazole) 40 Mg Tab 40 Mg PO DAILY 06/21/16 Reported Simvastatin 10 Mg Tab 10 Mg PO HS 06/21/16 Reported Calcitriol 0.25 Mcg Cap 0.25 Mcg PO 3XWK 06/21/16 Reported TAKE THIS MEDICATION EVERY MONDAY,MONDAY AND MONDAY. Prednisone 5 Mg Tab 5 Mg PO DAILY 06/21/16 Reported Hydroxychloroquine Sulfat (Hydroxychloroquine Sulfate) 200 Mg Tab 400 Mg PO HS 06/21/16 Reported Levothyroxine Sodium 112 Mcg Tab 112 Mcg PO DAILY 03/04/14 Reported Aspirin 81 (Aspirin) 81 Mg Tab 81 Mg PO QAM 12/16/13 Reported Magnesium Oxide 400 Mg Cap 400 Mg PO HS 06/08/13 Reported Vitamin D 1000 Unit (Cholecalciferol) 1,000 Unit Cap 2,000 Inter.unit PO HS 06/08/13 Reported Pulmicort Respules 0.25MG/2ML (Budesonide) 0.25 Mg/2 Ml Nebu 2 Ml INH BID 09/10/12 Reported Physical Exam Vital Signs (Last 8hrs): Last 8 Hrs Date Time Temp Pulse Resp B/P (MAP) Pulse Ox O2 Delivery O2 Flow Rate FiO2 07/22/17 15:12 36.6 72 20 115/65 (82) 93 Nasal Cannula 3.0 07/22/17 14:24 84 20 95 Mask 3.0 07/22/17 11:15 Oxymask 3.0 Nasal Cannula Ambu-Bag 07/22/17 09:00 77 24 93 Nasal Cannula 3.0 07/22/17 08:39 77 127/68 (87) 07/22/17 07:46 93 Nasal Cannula 3.0 General Appearance: ill in appearance, somnolent Head: Significant nasal and periorbital ecchymosis Neck: No bruits Respiratory: Breath sounds clear to auscultation bilaterally. No w/r/r. Cardiovascular: Reg rate and rhythm. S1 and S2 noted. 2/6 systolic murmur Abdomen: Normal bowel sounds, soft nontender. no abdominal bruits. Extremities: No edema, no clubbing or cyanosis. distal pulses 2/4 bilaterally, healing thigh ulcers Neuro: Not performed Data Last Resulted 07/22/17 08:25 Red Blood Count 3.64, Mean Corpuscular Volume 78.3, Mean Corpuscular Hemoglobin 23.4, Mean Corpuscular Hemoglobin Concent 29.8, Neutrophils (%) (Auto) 90.9, Lymphocytes (%) (Auto) 2.0, Monocytes (%) (Auto) 6.6, Eosinophils (%) (Auto) 0.0 , Basophils (%) (Auto) 0.1, Neutrophils # (Auto) 16.57, Lymphocytes # (Auto) 0.37, Monocytes # (Auto) 1.21, Eosinophils # (Auto) 0.00, Basophils # (Auto) 0.01 Last Resulted 07/22/17 08:25 EKGs his admission AV sequential pacing Patient is not on telemetry. 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 Admitted with orthostatic hypotension, fall, with nasal fracture 2. Acute on chronic biventricular systolic heart failure, right ventricular dysfunction, pulmonary hypertension 3. Paroxysmal atrial fibrillation 4. Acute kidney injury on stage III chronic kidney disease with mild hyperkalemia Plan: Agree with holding diuretic therapy. Agree that he is at least not a Coumadin candidate in the short-term future. I suspect that he had made significant changes with limiting his fluid intake, and he was taking his higher dose of diuretic, and ultimately things caught up with him. It is noted that his weights on his home scales had been down significantly leading up to his fall compared to when he had been hospitalized for heart failure decompensation last month. He likely has an encephalopathy due to multiple factors, and she is able to tolerate his home CPAP machine we should add this back. I spoke to his daughter , Damaris, was quite abraded and tomorrow. I'm not sure if he'll tolerate it due to his nasal fracture, but I think it is worth a try, as he has significant right heart failure and sleep apnea. Will follow. Tayler Márquez, DO
[2017-07-22] MEDS: AMOXICILLIN/CLAVULANATE TAB 500 MG TAB PO SCH (16:39)
[2017-07-22] MEDS: DIGOXIN 0.125 MG TAB PO SCH (16:39)
--- NOTE | 2017-07-22 20:16 | Progress Note ---
Medicine Progress Note Date & Time of Visit: Jul 22, 2017 at 10:58. Subjective tolerating PO intermittent confusion per daughter who is at bedside hypoxic overnight requiring supplemental oxygen pt denies coughing, fevers or chills but is also a very poor historian knee pain is about the same to improved per his report Objective Last 8 Hrs Date Time Temp Pulse Resp B/P (MAP) Pulse Ox O2 Delivery O2 Flow Rate FiO2 07/22/17 09:00 77 24 93 Nasal Cannula 3.0 07/22/17 08:39 77 127/68 (87) 07/22/17 07:46 93 Nasal Cannula 3.0 07/22/17 07:11 36.3 77 18 94/51 (65) 93 Nasal Cannula 3.0 Physical Exam: GEN: WNWD, in no acute distress, alert and appropriate but does appear fatigued and falls asleep easily HEENT: facial bruising and nondisplaced nasal fracture appears to be healing well, normal sclerae, MMM, normal sclerae/conjunctivae CARDIO: reg rate, 3/6 [place] across precordium LUNGS: CTA bilaterally, no crackles, rales or wheezes, good diaphragmatic excursion ABD: soft, non-tender, non-distended, no rebound or guarding, +BS EXTREMITY: RP and DP palpable 2+ bilat, no LE swelling or edema, extremities are warm and well-perfused R KNEE examined with improvement in ROM and no overt effusion seen, no bruising present. NEURO: CN 2-12 grossly intact, sensation intact throughout, no gross focal deficits. MUSC: 5/5 strength throughout, no focal deficits SKIN: warm and dry Laboratory Results: 07/22/17 08:25 Red Blood Count 3.64, Mean Corpuscular Volume 78.3, Mean Corpuscular Hemoglobin 23.4, Mean Corpuscular Hemoglobin Concent 29.8, Neutrophils (%) (Auto) 90.9, Lymphocytes (%) (Auto) 2.0, Monocytes (%) (Auto) 6.6, Eosinophils (%) (Auto) 0.0 , Basophils (%) (Auto) 0.1, Neutrophils # (Auto) 16.57, Lymphocytes # (Auto) 0.37, Monocytes # (Auto) 1.21, Eosinophils # (Auto) 0.00, Basophils # (Auto) 0.01 07/22/17 08:25 Test 07/17/17 16:23 07/17/17 16:32 07/18/17 08:47 07/19/17 05:28 Microcytosis PRESENT Activated Partial Thromboplast Time 37.8 SECONDS (21.0-31.0) Partial Thromboplastin Ratio 1.5 Venous Blood pH 7.38 (7.36-7.41) Venous Blood Partial Pressure CO2 46 mmHg (38.0-50.0) Venous Blood Partial Pressure O2 78 mmHg Venous Blood HCO3 26 mmol/L Venous Blood Oxygen Saturation 92.5 % Venous Blood Base Excess 1.0 mEq/L Direct Bilirubin 0.3 mg/dl (0-0.2) Pro-B-Type Natriuretic Peptide 1743 pg/ml (0-1800) Bedside Lactic Acid Venous 1.31 mmol/L (0.90-1.70) Digoxin Level 0.8 ng/ml (0.8-2.0) Total Bilirubin 0.6 mg/dl (0.2-1) Aspartate Amino Transf (AST/SGOT) 22 U/L (15-37) Alanine Aminotransferase (ALT/SGPT) 19 U/L (12-78) Alkaline Phosphatase 92 U/L (45-117) Total Protein 6.7 gm/dl (6.4-8.2) Albumin 3.0 gm/dl (3.4-5.0) Globulin 3.7 gm/dl (2.5-4.0) Albumin/Globulin Ratio 0.8 (0.9-2) Test 07/19/17 20:10 07/19/17 20:29 07/20/17 03:27 07/20/17 08:19 Poikilocytosis PRESENT Ammonia 25.0 umol/L (11-32) Schistocytes OCCASIONAL Prothrombin Time 12.9 SECONDS (9.0-12.0) Prothromb Time International Ratio 1.2 (0.9-1.1) Total Creatine Kinase 50 U/L (39-308) Creatine Kinase MB 1.4 ng/ml (0.5-3.6) Creatine Kinase MB Ratio 2.8 (0-3.0) Troponin I 0.036 ng/ml (0-0.045) Test 07/21/17 05:30 07/22/17 08:25 07/22/17 16:47 Hypochromasia PRESENT Tear Drop Cells OCCASIONAL Ovalocytes 1+ White Blood Count 18.23 K/uL (4.8-10.8) Red Blood Count 3.64 M/uL (4.7-6.1) Hemoglobin 8.5 g/dL (14.0-18.0) Hematocrit 28.5 % (42-52) Mean Corpuscular Volume 78.3 fL (80-100) Mean Corpuscular Hemoglobin 23.4 pg (25-34) Mean Corpuscular Hemoglobin Concent 29.8 g/dl (32-36) Platelet Count 135 K/uL (130-400) Neutrophils (%) (Auto) 90.9 % Lymphocytes (%) (Auto) 2.0 % Monocytes (%) (Auto) 6.6 % Eosinophils (%) (Auto) 0.0 % Basophils (%) (Auto) 0.1 % Neutrophils # (Auto) 16.57 K/uL (1.4-6.5) Lymphocytes # (Auto) 0.37 K/uL (1.2-3.4) Monocytes # (Auto) 1.21 K/uL (0.11-0.59) Eosinophils # (Auto) 0.00 K/uL (0-0.5) Basophils # (Auto) 0.01 K/uL (0-0.2) RDW Standard Deviation 60.8 fL (36.4-46.3) RDW Coefficient of Variation 21.3 % (11.5-14.5) Immature Granulocyte % (Auto) 0.4 % Immature Granulocyte # (Auto) 0.07 K/uL (0.00-0.02) Nucleated RBC Absolute Count (auto) 0.10 K/uL (0-0) Nucleated Red Blood Cells % 0.5 % Platelet Estimate DECREASED Polychromasia 1+ Anisocytosis PRESENT Anion Gap 7.0 mmol/L (3-11) Est Creatinine Clear Calc Drug Dose 27.4 ml/min Estimated GFR () 26.0 Estimated GFR (Non- 22.4 BUN/Creatinine Ratio 23.8 (10-20) Calcium Level 9.1 mg/dl (8.5-10.1) Magnesium Level 2.9 mg/dl (1.8-2.4) Bedside Glucose 215 mg/dl (70-99) Last 24 Hours Test 07/21/17 11:58 07/21/17 16:13 07/21/17 20:27 07/22/17 08:25 Bedside Glucose 170 mg/dl 138 mg/dl 134 mg/dl White Blood Count 18.23 K/uL Red Blood Count 3.64 M/uL Hemoglobin 8.5 g/dL Hematocrit 28.5 % Mean Corpuscular Volume 78.3 fL Mean Corpuscular Hemoglobin 23.4 pg Mean Corpuscular Hemoglobin Concent 29.8 g/dl Platelet Count 135 K/uL Neutrophils (%) (Auto) 90.9 % Lymphocytes (%) (Auto) 2.0 % Monocytes (%) (Auto) 6.6 % Eosinophils (%) (Auto) 0.0 % Basophils (%) (Auto) 0.1 % Neutrophils # (Auto) 16.57 K/uL Lymphocytes # (Auto) 0.37 K/uL Monocytes # (Auto) 1.21 K/uL Eosinophils # (Auto) 0.00 K/uL Basophils # (Auto) 0.01 K/uL RDW Standard Deviation 60.8 fL RDW Coefficient of Variation 21.3 % Immature Granulocyte % (Auto) 0.4 % Immature Granulocyte # (Auto) 0.07 K/uL Nucleated RBC Absolute Count (auto) 0.10 K/uL Nucleated Red Blood Cells % 0.5 % Platelet Estimate DECREASED Polychromasia 1+ Anisocytosis PRESENT Sodium Level 135 mmol/L Potassium Level 5.0 mmol/L Chloride Level 100 mmol/L Carbon Dioxide Level 28 mmol/L Anion Gap 7.0 mmol/L Blood Urea Nitrogen 62 mg/dl Creatinine 2.60 mg/dl Est Creatinine Clear Calc Drug Dose 27.4 ml/min Estimated GFR () 26.0 Estimated GFR (Non- 22.4 BUN/Creatinine Ratio 23.8 Random Glucose 97 mg/dl Calcium Level 9.1 mg/dl Magnesium Level 2.9 mg/dl Test 07/22/17 08:31 Bedside Glucose 108 mg/dl Assessment & Plan 77 yo M admitted with acute blood loss anemia 2/2 fall likely 2/2 orthostatic hypotension which resulted in nasal fracture with severe epistaxis. As he was on coumadin he was reversed and ENT was asked to evaluate. Rhino rockets were placed in the ER. ENT evaluated him the following day and removed them; the patient was not bleeding and, therefore, did not require cauterization. He was given Afrin PRN and since that time has healed nicely without subsequent bleeding off coumadin. He did have evidence of pneumonitis on imaging and was thought to has possible aspiration pneumonitis 2/2 blood with persistent post- nasal bleeding for a short time after this. He was evaluated by pulm and was on Invanz via his PICC for leg wound coverage; this was covering any anaerobes from the upper airway which might be contributing to pulmonary issues. He was stable and was moved to the floor, however, shortly after arriving, he developed severe chest pain, especially with deep breaths which was not relieved by nitro or morphine. EKG was performed but was less helpful with paced rhythm. He was moved back to telemetry and serial cardiac enzymes were drawn and were negative. His chest pain was resolved by the following day. Since that time he appeared to have a flare of his RA with joint pain and R knee pain with effusion which was not improved with scheduled Tylenol and Tranadol. Therefore he was started on a prednisone taper on 07/21 with some improvement. He was doing well and was moved back to the floor where he developed worsening intermittent encephalopathy and some worsening shortness of breath on 07/22. A CXR revealed worsening pulmonary edema, however, his creat went from stable 2 to 2.6 so his Demedex and Losartan were held and Cardiology was consulted. 1. 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 EF 30%. Cards consulted. Hold Demedex in setting of JAVY. Sodium restrict. Support with oxygen, daily weights, salt restrict. Monitor progress over next 24 hours. 2. Encephalopathy-patient is clear and with it but has had some hallucinations and is lethargic and fatigued. May be related to his lack of CPAP use while in the hospital vs scheduled Ultram and APAP. Will allow use of home CPAP per Cards recs and will make pain meds PRN. 3. Hypoxia likely 2/2 acute on chronic biventricular heart failure vs aspiration pneumonitis-pulmonary edema on CXR, however, holding Demedex in setting of JAVY. Cards agrees with this. Cont low salt diet and use BIPAP overnight for now, oxygen support as needed during the day. May be related to fatigue level. Chest pain and pleurisy has resolved at this point. Cont Augmentin x 10 dy tot course of abx at renal dose. 4. JAVY on CKD III-holding Demedex and Losartan. Repeat PRP in am. 5. Acute blood loss anemia-stable, cont off coumadin. 6. Orthostatic hypotension-poss 2/2 meds versus recent diuretic use. Daily standing weights. 2gm Na restriction. Orthostatics qshift. Consider outpatient removal of certain meds that may be contributing such as gabapentin, sertraline, trazodone or ultram. To rehab for ambulatory dysfunction when medically stable. 7. Rheumatoid Arthritis flare-on prednisone taper. Ultram and Tylenol changed to PRN with intermittent encephalopathy. Cont hydroxychloroquine 8. CAD s/p CABG-cont medical management. h/o intolerance to beta shana 9. Cirrhosis-likely 2/2 NAFLD-repeat LFTs, NH3 in am in setting of encephalopathy. Discussed with GI and will send to them as outpatient 10. Pulmonary HTN-cont Revatio. 11. AFib-s/p Pacemaker with normal interrogation on admission. Cont amio and dig. Holding coumadin in setting of falls. 12. HTN-stable, hold losartan in setting of JAVY 13. DMII-cont ISS/Lantus with carb coverage. 14. Chronic LLE wound infection -POA. Resolved, Invanz stopped. Cont PICC access while hospitalized. 15. Hypothyroidism-cont Levothyroxine 16. DEPRESSION: Continue sertraline CODE STATUS: DNR DVT PROPHYLAXIS: SCD's due to epistaxis/ anemia DISPOSITION: cont hospitalization. Plan for rehab when medically stable. [facility] Consultants: Kassandra Cortez Current Inpatient Medications: Current Inpatient Medications Medications (Trade) Dose Ordered Sig/Nicolette Route Start Time Stop Time Status Last Admin Dose Admin Ondansetron HCl (Zofran Inj) 4 mg Q6H PRN IV 07/17/17 19:15 08/16/17 19:14 Polyethylene (Miralax Powder Packet) 17 gm DAILY PRN PO 07/17/17 19:15 08/16/17 19:14 07/22/17 09:40 17 GM Amiodarone HCl (Cordarone Tab) 200 mg DAILY PO 07/18/17 09:00 08/17/17 08:59 07/22/17 08:27 200 MG Aspirin (Ecotrin Tab) 81 mg QAM PO 07/18/17 09:00 08/17/17 08:59 07/22/17 08:31 81 MG Cholecalciferol (Vitamin D Tab) 2,000 inter.unit HS PO 07/18/17 21:00 08/17/17 20:59 07/21/17 20:57 2,000 INTER.UNIT Digoxin (Lanoxin Tab) 0.125 mg Q2D PO 07/18/17 16:00 08/17/17 15:59 07/20/17 15:52 0.125 MG Docusate Sodium (coLACE CAP) 100 mg DAILY PO 07/18/17 09:00 08/17/17 08:59 07/22/17 08:30 100 MG Hydroxychloroquine Sulfate (Plaquenil Tab) 400 mg HS PO 07/18/17 21:00 08/17/17 20:59 07/21/17 21:00 400 MG Insulin Human NPH (novoLIN-N NPH) 12 units BIDM SC 07/18/17 07:30 08/17/17 07:29 07/22/17 08:35 12 UNITS Levothyroxine Sodium (Synthroid Tab) 112 mcg DAILYBB PO 07/18/17 06:00 08/17/17 05:59 07/22/17 06:33 112 MCG Losartan Potassium (coZAAR TAB) 12.5 mg DAILY PO 07/18/17 09:00 08/17/17 08:59 07/22/17 08:30 12.5 MG Pantoprazole Sodium (Protonix Tab) 40 mg DAILY PO 07/18/17 09:00 08/17/17 08:59 07/22/17 08:27 40 MG Sertraline HCl (Zoloft Tab) 100 mg HS PO 07/18/17 21:00 08/17/17 20:59 07/21/17 23:33 100 MG Sildenafil Citrate (Revatio Tab) 20 mg BID PO 07/18/17 09:00 08/17/17 08:59 07/22/17 08:27 20 MG Simvastatin (Zocor Tab) 10 mg HS PO 07/18/17 21:00 08/17/17 20:59 07/21/17 22:23 10 MG Trazodone HCl (Desyrel Tab) 25 mg HS PO 07/18/17 21:00 08/17/17 20:59 07/21/17 20:58 25 MG Magnesium Oxide (Mag-Ox Tab) 400 mg HS PO 07/18/17 21:00 08/17/17 20:59 07/21/17 21:00 400 MG Sertraline HCl (Zoloft Tab) 25 mg HS PO 07/18/17 21:00 08/17/17 20:59 07/21/17 20:58 25 MG Glucose (Glucose 40% Gel) 15-30 GRAMS 15 GRAMS... UD PRN PO 07/17/17 21:45 08/16/17 21:44 Glucose (Glucose Chew Tab) 4-8 Tablets 4 Tabl... UD PRN PO 07/17/17 21:45 08/16/17 21:44 Dextrose (Dextrose 50% 50ML Syringe) 25-50ML OF 50% DW IV FOR... UD PRN IV 07/17/17 21:45 08/16/17 21:44 Glucagon (Glucagon Inj) 1 mg UD PRN SQ 07/17/17 21:45 08/16/17 21:44 Calcitriol (Rocaltrol Cap) 0.25 mcg MoWeFr PO 07/19/17 09:00 08/18/17 08:59 07/21/17 09:09 0.25 MCG Oxycodone/ Acetaminophen (Percocet 5-325mg Tab) 1 tab Q4H PRN PO 07/18/17 02:00 08/01/17 01:59 07/18/17 11:59 1 TAB Hydromorphone HCl (Dilaudid Inj) 0.5 mg Q3H PRN IV 07/18/17 02:00 08/01/17 01:59 Budesonide (Pulmicort Respules 0.5MG/ 2ML Neb Soln) 0.5 mg BIDR INH 07/18/17 20:00 08/17/17 19:59 07/22/17 08:00 0.5 MG Oxymetazoline HCl (Afrin 0.05% Nasal [place]) 2 sprays Q1HWA PRN NA 07/18/17 13:00 08/17/17 12:59 07/18/17 18:04 2 SPRAYS Nitroglycerin (Nitrostat Tab) 0.4 mg PRN PRN SL 07/19/17 18:30 08/18/17 18:29 07/19/17 18:43 0.4 MG Morphine Sulfate (MoRPHine SULFATE INJ) 4 mg Q2H PRN IV 07/19/17 18:30 08/02/17 18:29 07/20/17 20:14 4 MG Al Hydroxide/Mg Hydroxide/ Lidocaine HCl/ Barcode Q8H PRN PO 07/19/17 19:15 08/18/17 19:14 Ipratropium [place] (Atrovent 0.02% 0.5MG/2.5ML Neb) 0.5 mg Q6R INH 07/20/17 03:00 08/19/17 02:59 07/22/17 02:19 0.5 MG Levalbuterol (Xopenex 1.25MG/ 0.5ML Neb) 1.25 mg Q6R INH 07/20/17 03:00 08/19/17 02:59 07/22/17 02:19 1.25 MG Gabapentin (Neurontin Cap) 200 mg BID PO 07/20/17 09:00 08/19/17 08:59 07/22/17 08:27 200 MG Acetaminophen (Tylenol Tab) 500 mg Q8H PO 07/20/17 16:00 08/19/17 15:59 07/22/17 08:33 500 MG Tramadol HCl (Ultram Tab) 50 mg Q8H PO 07/20/17 16:00 08/19/17 15:59 07/22/17 09:39 50 MG Amoxicillin/ Clavulanate Potassium (Augmentin Tab) 875 mg BIDM PO 07/21/17 07:30 07/25/17 07:29 07/22/17 08:27 875 MG Torsemide (Demadex Tab) 20 mg DAILY PO 07/21/17 09:00 08/17/17 08:59 07/22/17 09:40 20 MG Guaifenesin (Mucinex Contr Rel Tab) 600 mg Q12 PO 07/21/17 21:00 08/20/17 20:59 07/22/17 08:27 600 MG Prednisone (PredniSONE TAB) 30 mg Taper QDD PO 07/21/17 16:45 07/27/17 16:44 07/21/17 17:08 30 MG Sodium Chloride ([place] Nasal [place]) 2 sprays PRN PRN NA 07/22/17 09:30 08/21/17 09:29 Miscellaneous Information 1 ea UD PRN N/A 07/22/17 11:00 08/21/17 10:59
[2017-07-22] MEDS: SIMVASTATIN 10 MG TAB PO SCH (21:01)
[2017-07-22] MEDS: TRAZODONE HCL 50 MG TAB PO SCH (21:02)
[2017-07-22] MEDS: HYDROXYCHLOROQUINE SULFATE 200 MG TAB PO SCH (21:02)
[2017-07-22] MEDS: MAGNESIUM OXIDE 400 MG TAB PO SCH (21:04)
[2017-07-22] MEDS: SERTRALINE HCL 50 MG TAB PO SCH (21:04)
[2017-07-22] MEDS: SERTRALINE HCL 100 MG TAB PO SCH (21:05)
[2017-07-22] MEDS: CHOLECALCIFEROL 1000 INTER.UNIT TAB PO SCH (21:05)
[2017-07-23] VITALS (8 sets, daily range): BP systolic 103–126; BP diastolic 60–76; PULSE 70–99; TEMP 36.4–36.5; O2SAT 92–99
[2017-07-23] MEDS ORDERED: TRAMADOL HCL 50 MG TAB PO PRN
[2017-07-23] MEDS: IPRATROPIUM BROMIDE NEB SOLN 0.02% 2.5 ML VIAL INH SCH ×4 (02:13→19:34)
[2017-07-23] MEDS: LEVALBUTEROL 1.25MG/0.5ML NEB INH SCH ×4 (02:14→19:34)
[2017-07-23] MEDS: LEVOTHYROXINE 112 MCG TAB PO SCH (06:05)
[2017-07-23] MEDS: BUDESONIDE 0.5 MG/2 ML VIAL (PULMICORT) INH SCH ×2 (07:56→19:35)
[2017-07-23] MEDS: ASPIRIN 81 MG ECTAB PO SCH (08:00)
[2017-07-23 08:43] LABS: ANISOCYTOSIS PRESENT; BASO % 0.1 %; BASO ABS # 0.01 K/uL (0-0.2); BUN/CREATININE RATIO 30.8 (10-20); CALCIUM 8.7 mg/dl (8.5-10.1); COMPLETE YES; CREATININE 2.4 mg/dl (0.60-1.40); HEMATOCRIT 29.3 % (42-52); IG% 0.3 %; LYMPH ABS # 0.41 K/uL (1.2-3.4); MAGNESIUM 2.9 mg/dl (1.8-2.4); MEAN CORPUSCULAR HEMOGLOBIN 22.6 pg (25-34); MEAN CORPUSCULAR HGB CONC 28.7 g/dl (32-36); MONO % 5.5 %; NEUT % 91.1 %; PHOSPHORUS 4.9 mg/dl (2.5-4.9); PLATELET COUNT 132 K/uL (130-400); PLT ESTIMATE DECREASED; POLYCHROMASIA 1+; POTASSIUM 4.6 mmol/L (3.5-5.1); RED BLOOD COUNT 3.71 M/uL (4.7-6.1); WHITE BLOOD COUNT 13.74 K/uL (4.8-10.8)
[2017-07-23] MEDS: AMOXICILLIN/CLAVULANATE TAB 500 MG TAB PO SCH ×2 (09:06→18:30)
[2017-07-23] MEDS: GABAPENTIN 100 MG CAP PO SCH ×2 (09:06→20:59)
[2017-07-23] MEDS: SILDENAFIL CITRATE 20 MG TAB PO SCH ×2 (09:06→21:01)
[2017-07-23] MEDS: PANTOprazole SOD 40 MG TAB PO SCH (09:06)
[2017-07-23] MEDS: DOCUSATE SODIUM 100 MG CAP PO SCH (09:07)
[2017-07-23] MEDS: AMIODARONE 200 MG TAB PO SCH (09:07)
[2017-07-23] MEDS: GUAIFENESIN 600 MG TABCR PO SCH ×2 (09:08→21:02)
[2017-07-23] MEDS: INSULIN HUMAN NPH SC SCH ×2 (09:10→18:44)
[2017-07-23] MEDS: ACETAMINOPHEN 500 MG TAB PO PRN (09:12)
[2017-07-23] MEDS: MAGNESIUM OXIDE 400 MG TAB PO SCH (21:03)
[2017-07-23] MEDS: TRAZODONE HCL 50 MG TAB PO SCH (21:04)
[2017-07-23] MEDS: HYDROXYCHLOROQUINE SULFATE 200 MG TAB PO SCH (21:04)
[2017-07-23] MEDS: CHOLECALCIFEROL 1000 INTER.UNIT TAB PO SCH (21:05)
[2017-07-23] MEDS: SIMVASTATIN 10 MG TAB PO SCH (21:05)
[2017-07-23] MEDS: SERTRALINE HCL 100 MG TAB PO SCH (21:05)
[2017-07-23] MEDS: SERTRALINE HCL 50 MG TAB PO SCH (21:29)
--- NOTE | 2017-07-23 23:56 | Progress Note ---
Medicine Progress Note Date & Time of Visit: Jul 23, 2017 at 13:58. Subjective tolerating PO afebrile hemodynamically stable is now off oxygen and doing well denies any worsening of pain at this time-tolerable appears more awake and energetic. Objective Last 8 Hrs Date Time Temp Pulse Resp B/P (MAP) Pulse Ox O2 Delivery O2 Flow Rate FiO2 07/23/17 08:28 82 20 92 Mask 4.0 07/23/17 08:00 Oxymask 4.0 07/23/17 06:55 36.5 70 19 107/60 (76) 98 Nasal Cannula 4.0 124/67 (86) 103/63 (76) Physical Exam: GEN: WNWD, in no acute distress, alert and appropriate HEENT: facial bruising and nondisplaced nasal fracture appears to be healing well, normal sclerae, MMM, normal sclerae/conjunctivae CARDIO: reg rate, 3/6 [place] across precordium LUNGS: CTA bilaterally, no crackles, rales or wheezes, good diaphragmatic excursion ABD: soft, non-tender, non-distended, no rebound or guarding, +BS EXTREMITY: RP and DP palpable 2+ bilat, no LE swelling or edema, extremities are warm and well-perfused R KNEE examined with improvement in ROM and no overt effusion seen, no bruising present. NEURO: CN 2-12 grossly intact, sensation intact throughout, no gross focal deficits. MUSC: 5/5 strength throughout, no focal deficits SKIN: warm and dry Laboratory Results: 07/23/17 07:40 Red Blood Count 3.71, Mean Corpuscular Volume 79.0, Mean Corpuscular Hemoglobin 22.6, Mean Corpuscular Hemoglobin Concent 28.7, Neutrophils (%) (Auto) 91.1, Lymphocytes (%) (Auto) 3.0, Monocytes (%) (Auto) 5.5, Eosinophils (%) (Auto) 0.0 , Basophils (%) (Auto) 0.1, Neutrophils # (Auto) 12.52, Lymphocytes # (Auto) 0.41, Monocytes # (Auto) 0.76, Eosinophils # (Auto) 0.00, Basophils # (Auto) 0.01 07/23/17 07:40 Test 07/17/17 16:23 07/17/17 16:32 07/18/17 08:47 07/19/17 05:28 Microcytosis PRESENT Activated Partial Thromboplast Time 37.8 SECONDS (21.0-31.0) Partial Thromboplastin Ratio 1.5 Venous Blood pH 7.38 (7.36-7.41) Venous Blood Partial Pressure CO2 46 mmHg (38.0-50.0) Venous Blood Partial Pressure O2 78 mmHg Venous Blood HCO3 26 mmol/L Venous Blood Oxygen Saturation 92.5 % Venous Blood Base Excess 1.0 mEq/L Pro-B-Type Natriuretic Peptide 1743 pg/ml (0-1800) Bedside Lactic Acid Venous 1.31 mmol/L (0.90-1.70) Digoxin Level 0.8 ng/ml (0.8-2.0) Globulin 3.7 gm/dl (2.5-4.0) Albumin/Globulin Ratio 0.8 (0.9-2) Test 07/19/17 20:10 07/20/17 03:27 07/20/17 08:19 07/21/17 05:30 Poikilocytosis PRESENT Schistocytes OCCASIONAL Prothrombin Time 12.9 SECONDS (9.0-12.0) Prothromb Time International Ratio 1.2 (0.9-1.1) Total Creatine Kinase 50 U/L (39-308) Creatine Kinase MB 1.4 ng/ml (0.5-3.6) Creatine Kinase MB Ratio 2.8 (0-3.0) Troponin I 0.036 ng/ml (0-0.045) Hypochromasia PRESENT Tear Drop Cells OCCASIONAL Ovalocytes 1+ Test 07/23/17 05:35 07/23/17 07:40 07/23/17 20:37 Urine Random Creatinine 81.0 mg/dl Urine Random Urea Nitrogen 684 mg/dl White Blood Count 13.74 K/uL (4.8-10.8) Red Blood Count 3.71 M/uL (4.7-6.1) Hemoglobin 8.4 g/dL (14.0-18.0) Hematocrit 29.3 % (42-52) Mean Corpuscular Volume 79.0 fL (80-100) Mean Corpuscular Hemoglobin 22.6 pg (25-34) Mean Corpuscular Hemoglobin Concent 28.7 g/dl (32-36) Platelet Count 132 K/uL (130-400) Neutrophils (%) (Auto) 91.1 % Lymphocytes (%) (Auto) 3.0 % Monocytes (%) (Auto) 5.5 % Eosinophils (%) (Auto) 0.0 % Basophils (%) (Auto) 0.1 % Neutrophils # (Auto) 12.52 K/uL (1.4-6.5) Lymphocytes # (Auto) 0.41 K/uL (1.2-3.4) Monocytes # (Auto) 0.76 K/uL (0.11-0.59) Eosinophils # (Auto) 0.00 K/uL (0-0.5) Basophils # (Auto) 0.01 K/uL (0-0.2) RDW Standard Deviation 61.9 fL (36.4-46.3) RDW Coefficient of Variation 21.4 % (11.5-14.5) Immature Granulocyte % (Auto) 0.3 % Immature Granulocyte # (Auto) 0.04 K/uL (0.00-0.02) Nucleated RBC Absolute Count (auto) 0.15 K/uL (0-0) Nucleated Red Blood Cells % 1.1 % Platelet Estimate DECREASED Polychromasia 1+ Anisocytosis PRESENT Anion Gap 9.0 mmol/L (3-11) Est Creatinine Clear Calc Drug Dose 29.8 ml/min Estimated GFR () 28.7 Estimated GFR (Non- 24.7 BUN/Creatinine Ratio 30.8 (10-20) Calcium Level 8.7 mg/dl (8.5-10.1) Phosphorus Level 4.9 mg/dl (2.5-4.9) Magnesium Level 2.9 mg/dl (1.8-2.4) Total Bilirubin 1.0 mg/dl (0.2-1) Direct Bilirubin 0.6 mg/dl (0-0.2) Aspartate Amino Transf (AST/SGOT) 25 U/L (15-37) Alanine Aminotransferase (ALT/SGPT) 21 U/L (12-78) Alkaline Phosphatase 102 U/L (45-117) Ammonia 22.0 umol/L (11-32) Total Protein 6.9 gm/dl (6.4-8.2) Albumin 2.8 gm/dl (3.4-5.0) Bedside Glucose 214 mg/dl (70-99) Last 24 Hours Test 07/22/17 16:47 07/22/17 20:32 07/22/17 23:08 07/23/17 05:35 Bedside Glucose 215 mg/dl 313 mg/dl 145 mg/dl Urine Random Creatinine 81.0 mg/dl Urine Random Urea Nitrogen 684 mg/dl Test 07/23/17 07:40 07/23/17 07:48 07/23/17 11:35 White Blood Count 13.74 K/uL Red Blood Count 3.71 M/uL Hemoglobin 8.4 g/dL Hematocrit 29.3 % Mean Corpuscular Volume 79.0 fL Mean Corpuscular Hemoglobin 22.6 pg Mean Corpuscular Hemoglobin Concent 28.7 g/dl Platelet Count 132 K/uL Neutrophils (%) (Auto) 91.1 % Lymphocytes (%) (Auto) 3.0 % Monocytes (%) (Auto) 5.5 % Eosinophils (%) (Auto) 0.0 % Basophils (%) (Auto) 0.1 % Neutrophils # (Auto) 12.52 K/uL Lymphocytes # (Auto) 0.41 K/uL Monocytes # (Auto) 0.76 K/uL Eosinophils # (Auto) 0.00 K/uL Basophils # (Auto) 0.01 K/uL RDW Standard Deviation 61.9 fL RDW Coefficient of Variation 21.4 % Immature Granulocyte % (Auto) 0.3 % Immature Granulocyte # (Auto) 0.04 K/uL Nucleated RBC Absolute Count (auto) 0.15 K/uL Nucleated Red Blood Cells % 1.1 % Platelet Estimate DECREASED Polychromasia 1+ Anisocytosis PRESENT Sodium Level 139 mmol/L Potassium Level 4.6 mmol/L Chloride Level 102 mmol/L Carbon Dioxide Level 28 mmol/L Anion Gap 9.0 mmol/L Blood Urea Nitrogen 74 mg/dl Creatinine 2.40 mg/dl Est Creatinine Clear Calc Drug Dose 29.8 ml/min Estimated GFR () 28.7 Estimated GFR (Non- 24.7 BUN/Creatinine Ratio 30.8 Random Glucose 125 mg/dl Calcium Level 8.7 mg/dl Phosphorus Level 4.9 mg/dl Magnesium Level 2.9 mg/dl Total Bilirubin 1.0 mg/dl Direct Bilirubin 0.6 mg/dl Aspartate Amino Transf (AST/SGOT) 25 U/L Alanine Aminotransferase (ALT/SGPT) 21 U/L Alkaline Phosphatase 102 U/L Ammonia 22.0 umol/L Total Protein 6.9 gm/dl Albumin 2.8 gm/dl Bedside Glucose 143 mg/dl 197 mg/dl Assessment & Plan 77 yo M admitted with acute blood loss anemia 2/2 fall likely 2/2 orthostatic hypotension which resulted in nasal fracture with severe epistaxis. As he was on coumadin he was reversed and ENT was asked to evaluate. Rhino rockets were placed in the ER. ENT evaluated him the following day and removed them; the patient was not bleeding and, therefore, did not require cauterization. He was given Afrin PRN and since that time has healed nicely without subsequent bleeding off coumadin. He did have evidence of pneumonitis on imaging and was thought to has possible aspiration pneumonitis 2/2 blood with persistent post- nasal bleeding for a short time after this. He was evaluated by pulm and was on Invanz via his PICC for leg wound coverage; this was covering any anaerobes from the upper airway which might be contributing to pulmonary issues. He was stable and was moved to the floor, however, shortly after arriving, he developed severe chest pain, especially with deep breaths which was not relieved by nitro or morphine. EKG was performed but was less helpful with paced rhythm. He was moved back to telemetry and serial cardiac enzymes were drawn and were negative. His chest pain was resolved by the following day. Since that time he appeared to have a flare of his RA with joint pain and R knee pain with effusion which was not improved with scheduled Tylenol and Tranadol. Therefore he was started on a prednisone taper on 07/21 with some improvement. He was doing well and was moved back to the floor where he developed worsening intermittent encephalopathy and some worsening shortness of breath on 07/22. A CXR revealed worsening pulmonary edema, however, his creat went from stable 2 to 2.6 so his Demedex and Losartan were held and Cardiology was consulted. Creatinine improved to 2.4. 1. 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 EF 30%. Cards consulted. Hold Demedex in setting of JAVY. Sodium restrict. Support with oxygen, daily weights, salt restrict. Improved clinically and on labwork. Cont to monitor progress. 2. Encephalopathy-resolved off scheduled Tylenol and Ultram. CPAP was not used last night. Setting up to use his latera tonight. 3. Hypoxia likely 2/2 acute on chronic biventricular heart failure vs aspiration pneumonitis-pulmonary edema on CXR, however, holding Demedex in setting of JAVY. Cards agrees with this. Cont low salt diet and use BIPAP overnight for now, oxygen support as needed during the day. May be related to fatigue level. Chest pain and pleurisy has resolved at this point. Cont Augmentin x 10 dy tot course of abx at renal dose. 4. JAVY on CKD III-holding Demedex and Losartan. Repeat PRP in am. 5. Acute blood loss anemia-stable, cont off coumadin. 6. Orthostatic hypotension-poss 2/2 meds versus recent diuretic use. Daily standing weights. 2gm Na restriction. Orthostatics qshift. Consider outpatient removal of certain meds that may be contributing such as gabapentin, sertraline, trazodone or ultram. To rehab for ambulatory dysfunction when medically stable. 7. Rheumatoid Arthritis flare-on prednisone taper. Ultram and Tylenol changed to PRN with intermittent encephalopathy. Cont hydroxychloroquine 8. CAD s/p CABG-cont medical management. h/o intolerance to beta shana 9. Cirrhosis-likely 2/2 NAFLD- Discussed with GI and will send to them as outpatient 10. Pulmonary HTN-cont Revatio. 11. AFib-s/p Pacemaker with normal interrogation on admission. Cont amio and dig. Holding coumadin in setting of falls. 12. HTN-stable, hold losartan in setting of JAVY 13. DMII-cont ISS/Lantus with carb coverage. 14. Chronic LLE wound infection -POA. Resolved, Invanz stopped. Cont PICC access while hospitalized. 15. Hypothyroidism-cont Levothyroxine 16. DEPRESSION: Continue sertraline CODE STATUS: DNR DVT PROPHYLAXIS: SCD's due to epistaxis/ anemia DISPOSITION: cont hospitalization. Plan for rehab when medically stable. Lillie Johnson DO [facility] Hospitalist Consultants: Kassandra Cortez Current Inpatient Medications: Current Inpatient Medications Medications (Trade) Dose Ordered Sig/Nicolette Route Start Time Stop Time Status Last Admin Dose Admin Ondansetron HCl (Zofran Inj) 4 mg Q6H PRN IV 07/17/17 19:15 08/16/17 19:14 Polyethylene (Miralax Powder Packet) 17 gm DAILY PRN PO 07/17/17 19:15 08/16/17 19:14 07/22/17 09:40 17 GM Amiodarone HCl (Cordarone Tab) 200 mg DAILY PO 07/18/17 09:00 08/17/17 08:59 07/23/17 09:07 200 MG Aspirin (Ecotrin Tab) 81 mg QAM PO 07/18/17 09:00 08/17/17 08:59 07/23/17 08:00 81 MG Cholecalciferol (Vitamin D Tab) 2,000 inter.unit HS PO 07/18/17 21:00 08/17/17 20:59 07/22/17 21:05 2,000 INTER.UNIT Digoxin (Lanoxin Tab) 0.125 mg Q2D PO 07/18/17 16:00 08/17/17 15:59 07/22/17 16:39 0.125 MG Docusate Sodium (coLACE CAP) 100 mg DAILY PO 07/18/17 09:00 08/17/17 08:59 07/23/17 09:07 100 MG Hydroxychloroquine Sulfate (Plaquenil Tab) 400 mg HS PO 07/18/17 21:00 08/17/17 20:59 07/22/17 21:02 400 MG Insulin Human NPH (novoLIN-N NPH) 12 units BIDM SC 07/18/17 07:30 08/17/17 07:29 07/23/17 09:10 12 UNITS Levothyroxine Sodium (Synthroid Tab) 112 mcg DAILYBB PO 07/18/17 06:00 08/17/17 05:59 07/23/17 06:05 112 MCG Losartan Potassium (coZAAR TAB) 12.5 mg DAILY PO 07/18/17 09:00 08/17/17 08:59 Future Hold 07/22/17 08:30 12.5 MG Pantoprazole Sodium (Protonix Tab) 40 mg DAILY PO 07/18/17 09:00 08/17/17 08:59 07/23/17 09:06 40 MG Sertraline HCl (Zoloft Tab) 100 mg HS PO 07/18/17 21:00 08/17/17 20:59 07/22/17 21:05 100 MG Sildenafil Citrate (Revatio Tab) 20 mg BID PO 07/18/17 09:00 08/17/17 08:59 07/23/17 09:06 20 MG Simvastatin (Zocor Tab) 10 mg HS PO 07/18/17 21:00 08/17/17 20:59 07/22/17 21:01 10 MG Trazodone HCl (Desyrel Tab) 25 mg HS PO 07/18/17 21:00 08/17/17 20:59 07/22/17 21:02 25 MG Magnesium Oxide (Mag-Ox Tab) 400 mg HS PO 07/18/17 21:00 08/17/17 20:59 07/22/17 21:04 400 MG Sertraline HCl (Zoloft Tab) 25 mg HS PO 07/18/17 21:00 08/17/17 20:59 07/22/17 21:04 25 MG Glucose (Glucose 40% Gel) 15-30 GRAMS 15 GRAMS... UD PRN PO 07/17/17 21:45 08/16/17 21:44 Glucose (Glucose Chew Tab) 4-8 Tablets 4 Tabl... UD PRN PO 07/17/17 21:45 08/16/17 21:44 Dextrose (Dextrose 50% 50ML Syringe) 25-50ML OF 50% DW IV FOR... UD PRN IV 07/17/17 21:45 08/16/17 21:44 Glucagon (Glucagon Inj) 1 mg UD PRN SQ 07/17/17 21:45 08/16/17 21:44 Calcitriol (Rocaltrol Cap) 0.25 mcg MoWeFr PO 07/19/17 09:00 08/18/17 08:59 07/21/17 09:09 0.25 MCG Oxycodone/ Acetaminophen (Percocet 5-325mg Tab) 1 tab Q4H PRN PO 07/18/17 02:00 08/01/17 01:59 07/18/17 11:59 1 TAB Hydromorphone HCl (Dilaudid Inj) 0.5 mg Q3H PRN IV 07/18/17 02:00 08/01/17 01:59 Budesonide (Pulmicort Respules 0.5MG/ 2ML Neb Soln) 0.5 mg BIDR INH 07/18/17 20:00 08/17/17 19:59 07/23/17 07:56 0.5 MG Oxymetazoline HCl (Afrin 0.05% Nasal [place]) 2 sprays Q1HWA PRN NA 07/18/17 13:00 08/17/17 12:59 07/18/17 18:04 2 SPRAYS Nitroglycerin (Nitrostat Tab) 0.4 mg PRN PRN SL 07/19/17 18:30 08/18/17 18:29 07/19/17 18:43 0.4 MG Morphine Sulfate (MoRPHine SULFATE INJ) 4 mg Q2H PRN IV 07/19/17 18:30 08/02/17 18:29 07/20/17 20:14 4 MG Al Hydroxide/Mg Hydroxide/ Lidocaine HCl/ Barcode Q8H PRN PO 07/19/17 19:15 08/18/17 19:14 Ipratropium Margie (Atrovent 0.02% 0.5MG/2.5ML Neb) 0.5 mg Q6R INH 07/20/17 03:00 08/19/17 02:59 07/23/17 07:56 0.5 MG Levalbuterol (Xopenex 1.25MG/ 0.5ML Neb) 1.25 mg Q6R INH 07/20/17 03:00 08/19/17 02:59 07/23/17 07:56 1.25 MG Gabapentin (Neurontin Cap) 200 mg BID PO 07/20/17 09:00 08/19/17 08:59 07/23/17 09:06 200 MG Torsemide (Demadex Tab) 20 mg DAILY PO 07/21/17 09:00 08/17/17 08:59 Future Hold 07/22/17 09:40 20 MG Guaifenesin (Mucinex Contr Rel Tab) 600 mg Q12 PO 07/21/17 21:00 08/20/17 20:59 07/23/17 09:08 600 MG Prednisone (PredniSONE TAB) 30 mg Taper QDD PO 07/21/17 16:45 07/27/17 16:44 07/22/17 17:45 30 MG Sodium Chloride (Steele Nasal [place]) 2 sprays PRN PRN NA 07/22/17 09:30 08/21/17 09:29 Miscellaneous Information 1 ea UD PRN N/A 07/22/17 11:00 08/21/17 10:59 Amoxicillin/ Clavulanate Potassium (Augmentin Tab) 500 mg BIDM PO 07/22/17 17:00 07/25/17 16:59 07/23/17 09:06 500 MG Acetaminophen (Tylenol Tab) 500 mg Q8H PRN PO 07/23/17 00:00 08/22/17 00:00 07/23/17 09:12 500 MG Tramadol HCl (Ultram Tab) 50 mg Q8H PRN PO 07/23/17 00:00 08/21/17 23:59
[2017-07-24] VITALS (7 sets, daily range): BP systolic 118–152; BP diastolic 66–70; PULSE 70–84; TEMP 36.4–36.5; O2SAT 94–100
[2017-07-24] MEDS: IPRATROPIUM BROMIDE NEB SOLN 0.02% 2.5 ML VIAL INH SCH ×4 (01:52→19:21)
[2017-07-24] MEDS: LEVALBUTEROL 1.25MG/0.5ML NEB INH SCH ×4 (01:52→19:21)
[2017-07-24] MEDS: LEVOTHYROXINE 112 MCG TAB PO SCH (06:31)
[2017-07-24 07:34] LABS: BASO % 0.1 %; BASO ABS # 0.01 K/uL (0-0.2); EOS % 0.1 %; HEMATOCRIT 29.9 % (42-52); IG% 0.5 %; LYMPH % 3.7 %; LYMPH ABS # 0.41 K/uL (1.2-3.4); MEAN CELL VOLUME 77.9 fL (80-100); MEAN CORPUSCULAR HEMOGLOBIN 22.7 pg (25-34); MEAN CORPUSCULAR HGB CONC 29.1 g/dl (32-36); MONO % 8.9 %; NEUT % 86.7 %; PLATELET COUNT 161 K/uL (130-400); RED BLOOD COUNT 3.84 M/uL (4.7-6.1); WHITE BLOOD COUNT 11.08 K/uL (4.8-10.8)
[2017-07-24] MEDS: BUDESONIDE 0.5 MG/2 ML VIAL (PULMICORT) INH SCH ×2 (07:39→19:21)
[2017-07-24 08:04] LABS: BUN/CREATININE RATIO 34.5 (10-20); CALCIUM 8.9 mg/dl (8.5-10.1); CREATININE 2.1 mg/dl (0.60-1.40)
[2017-07-24 08:20] LABS: ANISOCYTOSIS PRESENT; COMPLETE YES; HYPERSEGMENTED POLYS 1+; HYPOCHROMIA PRESENT; MICROCYTOSIS PRESENT; POIKILOCYTOSIS PRESENT
[2017-07-24] MEDS: AMOXICILLIN/CLAVULANATE TAB 500 MG TAB PO SCH ×2 (08:25→16:57)
[2017-07-24] MEDS: DOCUSATE SODIUM 100 MG CAP PO SCH (08:26)
[2017-07-24] MEDS: AMIODARONE 200 MG TAB PO SCH (08:26)
[2017-07-24] MEDS: PANTOprazole SOD 40 MG TAB PO SCH (08:26)
[2017-07-24] MEDS: GUAIFENESIN 600 MG TABCR PO SCH ×2 (08:27→20:15)
[2017-07-24] MEDS: GABAPENTIN 100 MG CAP PO SCH ×2 (08:27→20:14)
[2017-07-24] MEDS: SILDENAFIL CITRATE 20 MG TAB PO SCH ×2 (08:28→20:15)
[2017-07-24] MEDS: CALCITRIOL 0.25 MCG CAP PO SCH (08:29)
[2017-07-24] MEDS: ASPIRIN 81 MG ECTAB PO SCH (08:29)
[2017-07-24] MEDS: INSULIN HUMAN NPH SC SCH ×2 (08:31→17:04)
[2017-07-24] MEDS: ACETAMINOPHEN 500 MG TAB PO PRN (12:19)
--- NOTE | 2017-07-24 12:48 | Cardiology Follow-Up ---
Subjective General Date of Service: Jul 24, 2017. Chief Complaint: follow-up history of biventricular congestive heart failure Pt evaluation today including: conversation w/ patient, conversation w/ family , physical exam History of Present Illness The patient is a 77 year old male seen in follow-up. He is much more alert since I had seen him on Monday, 2 days ago. He is sitting upright and enjoying his noontime meal. He is conversant. He is tolerating CPAP therapy. Allergies Coded Allergies: Lisinopril (Unverified Allergy, Unknown, dizzy, 07/11/17) Social History Smoking Status: Never Smoker Hx Tobacco Use In Past Year?: No Hx Alcohol Use - Type And Amou: No Hx Substance Use - Type And Am: No Problem List Medical Problems: (1) Acute post-hemorrhagic anemia Status: Acute (2) Atrial flutter Status: Acute (3) Bleeding on Coumadin Status: Acute (4) Bradycardia Status: Acute (5) CHF (congestive heart failure) Status: Acute (6) CHF exacerbation Status: Acute (7) Nasal bone fracture Status: Acute (8) Shortness of breath Status: Acute (9) Warfarin-induced coagulopathy Status: Acute Physical Exam Vital Signs Last Vital Signs Documentation Date Time Temp Pulse Resp B/P (MAP) Pulse Ox O2 Delivery O2 Flow Rate FiO2 07/24/17 11:08 94 07/24/17 08:00 Room Air 07/24/17 07:39 80 20 07/24/17 07:25 36.5 152/70 (97) 07/23/17 19:37 95 07/23/17 17:41 2.0 Physical Exam Constitutional: Level of Distress: chronically ill Head: normocephalic Neck: supple Lungs: Auscultation: no wheezing, no rales/crackles Cardiovascular: Heart Auscultation: RRR, II/ [place] Extremities: pertinent finding (chronic venous stasis changes) Assessment and Plan Assessment and Plan Impression: 77-year-old male with multifactorial encephalopathy 1. Admitted with orthostatic hypotension, fall, with nasal fracture 2. Acute on chronic biventricular systolic heart failure, right ventricular dysfunction, pulmonary hypertension 3. Paroxysmal atrial fibrillation 4. Acute kidney injury on stage III chronic kidney disease Plan Renal function is trending toward baseline off of diuretic therapy. Would recommend that we continue to follow his renal function closely for several days, when his creatinine reaches closer to 1.7-1.9 mg/dL range, resume torsemide at a lower dose perhaps 10 or 20 mg daily as compared to 30. Agree that he is not a good candidate for Coumadin at present. Continue aspirin. Laboratory Results Last 24 Hours Test 07/23/17 16:28 07/23/17 20:37 07/24/17 06:55 07/24/17 07:17 Bedside Glucose 242 mg/dl 214 mg/dl 179 mg/dl White Blood Count 11.08 K/uL Red Blood Count 3.84 M/uL Hemoglobin 8.7 g/dL Hematocrit 29.9 % Mean Corpuscular Volume 77.9 fL Mean Corpuscular Hemoglobin 22.7 pg Mean Corpuscular Hemoglobin Concent 29.1 g/dl Platelet Count 161 K/uL Neutrophils (%) (Auto) 86.7 % Lymphocytes (%) (Auto) 3.7 % Monocytes (%) (Auto) 8.9 % Eosinophils (%) (Auto) 0.1 % Basophils (%) (Auto) 0.1 % Neutrophils # (Auto) 9.61 K/uL Lymphocytes # (Auto) 0.41 K/uL Monocytes # (Auto) 0.99 K/uL Eosinophils # (Auto) 0.01 K/uL Basophils # (Auto) 0.01 K/uL RDW Standard Deviation 60.9 fL RDW Coefficient of Variation 21.5 % Immature Granulocyte % (Auto) 0.5 % Immature Granulocyte # (Auto) 0.05 K/uL Nucleated RBC Absolute Count (auto) 0.18 K/uL Nucleated Red Blood Cells % 1.6 % Hypersegmented Polys 1+ Hypochromasia PRESENT Poikilocytosis PRESENT Anisocytosis PRESENT Microcytosis PRESENT Sodium Level 137 mmol/L Potassium Level 4.0 mmol/L Chloride Level 101 mmol/L Carbon Dioxide Level 31 mmol/L Anion Gap 5.0 mmol/L Blood Urea Nitrogen 72 mg/dl Creatinine 2.10 mg/dl Est Creatinine Clear Calc Drug Dose 34.1 ml/min Estimated GFR () 33.7 Estimated GFR (Non- 29.1 BUN/Creatinine Ratio 34.5 Random Glucose 152 mg/dl Calcium Level 8.9 mg/dl Test 07/24/17 11:32 Bedside Glucose 229 mg/dl
[2017-07-24] MEDS: DIGOXIN 0.125 MG TAB PO SCH (16:56)
[2017-07-24] MEDS: TRAZODONE HCL 50 MG TAB PO SCH (20:15)
[2017-07-24] MEDS: MAGNESIUM OXIDE 400 MG TAB PO SCH (20:16)
[2017-07-24] MEDS: HYDROXYCHLOROQUINE SULFATE 200 MG TAB PO SCH (20:16)
[2017-07-24] MEDS: SIMVASTATIN 10 MG TAB PO SCH (20:17)
[2017-07-24] MEDS: CHOLECALCIFEROL 1000 INTER.UNIT TAB PO SCH (20:17)
[2017-07-24] MEDS: SERTRALINE HCL 50 MG TAB PO SCH (20:17)
[2017-07-24] MEDS: SERTRALINE HCL 100 MG TAB PO SCH (20:17)
[2017-07-25] VITALS (8 sets, daily range): BP systolic 105–143; BP diastolic 53–79; PULSE 72–99; TEMP 36.5–36.7; O2SAT 94–100
[2017-07-25] MEDS: IPRATROPIUM BROMIDE NEB SOLN 0.02% 2.5 ML VIAL INH SCH ×4 (01:54→18:56)
[2017-07-25] MEDS: LEVALBUTEROL 1.25MG/0.5ML NEB INH SCH ×4 (01:54→18:56)
[2017-07-25] MEDS: LEVOTHYROXINE 112 MCG TAB PO SCH (06:11)
[2017-07-25 06:48] LABS: BUN/CREATININE RATIO 33.8 (10-20); CALCIUM 8.7 mg/dl (8.5-10.1); CREATININE 1.6 mg/dl (0.60-1.40); POTASSIUM 4.4 mmol/L (3.5-5.1)
[2017-07-25 07:29] LABS: HEMATOCRIT 30.1 % (42-52); MEAN CELL VOLUME 77.6 fL (80-100); MEAN CORPUSCULAR HEMOGLOBIN 22.7 pg (25-34); MEAN CORPUSCULAR HGB CONC 29.2 g/dl (32-36); PLATELET COUNT 133 K/uL (130-400); RED BLOOD COUNT 3.88 M/uL (4.7-6.1); WHITE BLOOD COUNT 10.46 K/uL (4.8-10.8)
[2017-07-25 07:30] LABS: ANISOCYTOSIS PRESENT; BASO % 0.1 %; BASO ABS # 0.01 K/uL (0-0.2); COMPLETE YES; HYPOCHROMIA PRESENT; IG% 0.4 %; LYMPH % 3.3 %; LYMPH ABS # 0.35 K/uL (1.2-3.4); MICROCYTOSIS PRESENT; MONO % 7.4 %; NEUT % 88.8 %; PLT ESTIMATE DECREASED; SPHEROCYTE 1+
[2017-07-25] MEDS: BUDESONIDE 0.5 MG/2 ML VIAL (PULMICORT) INH SCH ×2 (07:41→18:56)
[2017-07-25] MEDS: ASPIRIN 81 MG ECTAB PO SCH (08:40)
[2017-07-25] MEDS: AMOXICILLIN/CLAVULANATE TAB 500 MG TAB PO SCH (08:40)
[2017-07-25] MEDS: GUAIFENESIN 600 MG TABCR PO SCH ×2 (08:40→20:06)
[2017-07-25] MEDS: DOCUSATE SODIUM 100 MG CAP PO SCH (08:40)
[2017-07-25] MEDS: SILDENAFIL CITRATE 20 MG TAB PO SCH ×2 (08:41→20:09)
[2017-07-25] MEDS: PANTOprazole SOD 40 MG TAB PO SCH (08:42)
[2017-07-25] MEDS: GABAPENTIN 100 MG CAP PO SCH ×2 (08:42→20:10)
--- NOTE | 2017-07-25 08:46 | Progress Note ---
Medicine Progress Note Date & Time of Visit: Jul 24, 2017 at 1100. Subjective tolerating PO Mentating at baseline Nasal fracture is healing off oxygen daughter at bedside and has no concerns Objective Last 8 Hrs Date Time Temp Pulse Resp B/P (MAP) Pulse Ox O2 Delivery O2 Flow Rate FiO2 07/24/17 16:56 84 07/24/17 16:13 36.4 84 18 118/66 (83) 97 Room Air 07/24/17 14:30 70 20 100 Mask 3.0 07/24/17 11:08 94 Physical Exam: GEN: WNWD, in no acute distress, alert and appropriate HEENT: facial bruising and nondisplaced nasal fracture appears to be healing well, normal sclerae, MMM, normal sclerae/conjunctivae CARDIO: reg rate, 3/6 [place] across precordium LUNGS: CTA bilaterally, no crackles, rales or wheezes, good diaphragmatic excursion ABD: soft, non-tender, non-distended, no rebound or guarding, +BS EXTREMITY: RP and DP palpable 2+ bilat, no LE swelling or edema, extremities are warm and well-perfused R KNEE examined with improvement in ROM and no overt effusion seen, no bruising present. NEURO: CN 2-12 grossly intact, sensation intact throughout, no gross focal deficits. MUSC: 5/5 strength throughout, no focal deficits SKIN: warm and dry Laboratory Results: 07/24/17 06:55 Red Blood Count 3.84, Mean Corpuscular Volume 77.9, Mean Corpuscular Hemoglobin 22.7, Mean Corpuscular Hemoglobin Concent 29.1, Neutrophils (%) (Auto) 86.7, Lymphocytes (%) (Auto) 3.7, Monocytes (%) (Auto) 8.9, Eosinophils (%) (Auto) 0.1 , Basophils (%) (Auto) 0.1, Neutrophils # (Auto) 9.61, Lymphocytes # (Auto) 0.41 , Monocytes # (Auto) 0.99, Eosinophils # (Auto) 0.01, Basophils # (Auto) 0.01 07/24/17 06:55 Test 07/17/17 16:23 07/17/17 16:32 07/18/17 08:47 07/19/17 05:28 Activated Partial Thromboplast Time 37.8 SECONDS (21.0-31.0) Partial Thromboplastin Ratio 1.5 Venous Blood pH 7.38 (7.36-7.41) Venous Blood Partial Pressure CO2 46 mmHg (38.0-50.0) Venous Blood Partial Pressure O2 78 mmHg Venous Blood HCO3 26 mmol/L Venous Blood Oxygen Saturation 92.5 % Venous Blood Base Excess 1.0 mEq/L Pro-B-Type Natriuretic Peptide 1743 pg/ml (0-1800) Bedside Lactic Acid Venous 1.31 mmol/L (0.90-1.70) Digoxin Level 0.8 ng/ml (0.8-2.0) Globulin 3.7 gm/dl (2.5-4.0) Albumin/Globulin Ratio 0.8 (0.9-2) Test 07/20/17 03:27 07/20/17 08:19 07/21/17 05:30 07/23/17 05:35 Schistocytes OCCASIONAL Prothrombin Time 12.9 SECONDS (9.0-12.0) Prothromb Time International Ratio 1.2 (0.9-1.1) Total Creatine Kinase 50 U/L (39-308) Creatine Kinase MB 1.4 ng/ml (0.5-3.6) Creatine Kinase MB Ratio 2.8 (0-3.0) Troponin I 0.036 ng/ml (0-0.045) Tear Drop Cells OCCASIONAL Ovalocytes 1+ Urine Random Creatinine 81.0 mg/dl Urine Random Urea Nitrogen 684 mg/dl Test 07/23/17 07:40 07/24/17 06:55 07/24/17 20:12 Platelet Estimate DECREASED Polychromasia 1+ Phosphorus Level 4.9 mg/dl (2.5-4.9) Magnesium Level 2.9 mg/dl (1.8-2.4) Total Bilirubin 1.0 mg/dl (0.2-1) Direct Bilirubin 0.6 mg/dl (0-0.2) Aspartate Amino Transf (AST/SGOT) 25 U/L (15-37) Alanine Aminotransferase (ALT/SGPT) 21 U/L (12-78) Alkaline Phosphatase 102 U/L (45-117) Ammonia 22.0 umol/L (11-32) Total Protein 6.9 gm/dl (6.4-8.2) Albumin 2.8 gm/dl (3.4-5.0) White Blood Count 11.08 K/uL (4.8-10.8) Red Blood Count 3.84 M/uL (4.7-6.1) Hemoglobin 8.7 g/dL (14.0-18.0) Hematocrit 29.9 % (42-52) Mean Corpuscular Volume 77.9 fL (80-100) Mean Corpuscular Hemoglobin 22.7 pg (25-34) Mean Corpuscular Hemoglobin Concent 29.1 g/dl (32-36) Platelet Count 161 K/uL (130-400) Neutrophils (%) (Auto) 86.7 % Lymphocytes (%) (Auto) 3.7 % Monocytes (%) (Auto) 8.9 % Eosinophils (%) (Auto) 0.1 % Basophils (%) (Auto) 0.1 % Neutrophils # (Auto) 9.61 K/uL (1.4-6.5) Lymphocytes # (Auto) 0.41 K/uL (1.2-3.4) Monocytes # (Auto) 0.99 K/uL (0.11-0.59) Eosinophils # (Auto) 0.01 K/uL (0-0.5) Basophils # (Auto) 0.01 K/uL (0-0.2) RDW Standard Deviation 60.9 fL (36.4-46.3) RDW Coefficient of Variation 21.5 % (11.5-14.5) Immature Granulocyte % (Auto) 0.5 % Immature Granulocyte # (Auto) 0.05 K/uL (0.00-0.02) Nucleated RBC Absolute Count (auto) 0.18 K/uL (0-0) Nucleated Red Blood Cells % 1.6 % Hypersegmented Polys 1+ Hypochromasia PRESENT Poikilocytosis PRESENT Anisocytosis PRESENT Microcytosis PRESENT Anion Gap 5.0 mmol/L (3-11) Est Creatinine Clear Calc Drug Dose 34.1 ml/min Estimated GFR () 33.7 Estimated GFR (Non- 29.1 BUN/Creatinine Ratio 34.5 (10-20) Calcium Level 8.9 mg/dl (8.5-10.1) Bedside Glucose 185 mg/dl (70-99) Last 24 Hours Test 07/23/17 20:37 07/24/17 06:55 07/24/17 07:17 07/24/17 11:32 Bedside Glucose 214 mg/dl 179 mg/dl 229 mg/dl White Blood Count 11.08 K/uL Red Blood Count 3.84 M/uL Hemoglobin 8.7 g/dL Hematocrit 29.9 % Mean Corpuscular Volume 77.9 fL Mean Corpuscular Hemoglobin 22.7 pg Mean Corpuscular Hemoglobin Concent 29.1 g/dl Platelet Count 161 K/uL Neutrophils (%) (Auto) 86.7 % Lymphocytes (%) (Auto) 3.7 % Monocytes (%) (Auto) 8.9 % Eosinophils (%) (Auto) 0.1 % Basophils (%) (Auto) 0.1 % Neutrophils # (Auto) 9.61 K/uL Lymphocytes # (Auto) 0.41 K/uL Monocytes # (Auto) 0.99 K/uL Eosinophils # (Auto) 0.01 K/uL Basophils # (Auto) 0.01 K/uL RDW Standard Deviation 60.9 fL RDW Coefficient of Variation 21.5 % Immature Granulocyte % (Auto) 0.5 % Immature Granulocyte # (Auto) 0.05 K/uL Nucleated RBC Absolute Count (auto) 0.18 K/uL Nucleated Red Blood Cells % 1.6 % Hypersegmented Polys 1+ Hypochromasia PRESENT Poikilocytosis PRESENT Anisocytosis PRESENT Microcytosis PRESENT Sodium Level 137 mmol/L Potassium Level 4.0 mmol/L Chloride Level 101 mmol/L Carbon Dioxide Level 31 mmol/L Anion Gap 5.0 mmol/L Blood Urea Nitrogen 72 mg/dl Creatinine 2.10 mg/dl Est Creatinine Clear Calc Drug Dose 34.1 ml/min Estimated GFR () 33.7 Estimated GFR (Non- 29.1 BUN/Creatinine Ratio 34.5 Random Glucose 152 mg/dl Calcium Level 8.9 mg/dl Test 07/24/17 16:50 Bedside Glucose 124 mg/dl Assessment & Plan 77 yo M admitted with acute blood loss anemia 2/2 fall likely 2/2 orthostatic hypotension which resulted in nasal fracture with severe epistaxis. As he was on coumadin he was reversed and ENT was asked to evaluate. Rhino rockets were placed in the ER. ENT evaluated him the following day and removed them; the patient was not bleeding and, therefore, did not require cauterization. He was given Afrin PRN and since that time has healed nicely without subsequent bleeding off coumadin. He did have evidence of pneumonitis on imaging and was thought to has possible aspiration pneumonitis 2/2 blood with persistent post- nasal bleeding for a short time after this. He was evaluated by pulm and was on Invanz via his PICC for leg wound coverage; this was covering any anaerobes from the upper airway which might be contributing to pulmonary issues. He was stable and was moved to the floor, however, shortly after arriving, he developed severe chest pain, especially with deep breaths which was not relieved by nitro or morphine. EKG was performed but was less helpful with paced rhythm. He was moved back to telemetry and serial cardiac enzymes were drawn and were negative. His chest pain was resolved by the following day. Since that time he appeared to have a flare of his RA with joint pain and R knee pain with effusion which was not improved with scheduled Tylenol and Tranadol. Therefore he was started on a prednisone taper on 07/21 with some improvement. He was doing well and was moved back to the floor where he developed worsening intermittent encephalopathy and some worsening shortness of breath on 07/22. A CXR revealed worsening pulmonary edema, however, his creat went from stable 2 to 2.6 so his Demedex and Losartan were held and Cardiology was consulted. Creatinine improved to 2.4. 1. 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 EF 30%. Cards consulted. Hold Demedex in setting of JAVY. Sodium restrict. Support with oxygen, daily weights, salt restrict. Improved clinically and on labwork. Cont to monitor progress. Work with Dr. Márquez on diuretic dose moving forward. 2. Encephalopathy-resolved off scheduled Tylenol and Ultram. CPAP was not used last night. Setting up to use his latera tonight. 3. Hypoxia -resolved and off oxygen for the past 48 hours. Likely 2/2 acute on chronic biventricular heart failure vs aspiration pneumonitis-pulmonary edema on CXR, however, holding Demedex in setting of JAVY. Cards agrees with this. Cont low salt diet and use BIPAP overnight for now, oxygen support as needed during the day. May be related to fatigue level. Chest pain and pleurisy has resolved at this point. Cont Augmentin x 10 dy tot course of abx at renal dose. 4. JAVY on CKD III-holding Demedex and Losartan. Repeat PRP in am. 5. Acute blood loss anemia-stable, cont off coumadin. 6. Orthostatic hypotension-poss 2/2 meds versus recent diuretic use. Daily standing weights. 2gm Na restriction. Orthostatics qshift. Consider outpatient removal of certain meds that may be contributing such as gabapentin, sertraline, trazodone or ultram. To rehab for ambulatory dysfunction when medically stable. 7. Rheumatoid Arthritis flare-on prednisone taper. Ultram and Tylenol changed to PRN with intermittent encephalopathy. Cont hydroxychloroquine 8. CAD s/p CABG-cont medical management. h/o intolerance to beta shana 9. Cirrhosis-likely 2/2 NAFLD- Discussed with GI and will send to them as outpatient 10. Pulmonary HTN-cont Revatio. 11. AFib-s/p Pacemaker with normal interrogation on admission. Cont amio and dig. Holding coumadin in setting of falls. 12. HTN-stable, hold losartan in setting of JAVY 13. DMII-cont ISS/Lantus with carb coverage. 14. Chronic LLE wound infection -POA. Resolved, Invanz stopped. Cont PICC access while hospitalized. 15. Hypothyroidism-cont Levothyroxine 16. DEPRESSION: Continue sertraline CODE STATUS: DNR DVT PROPHYLAXIS: SCD's due to epistaxis/ anemia DISPOSITION: cont hospitalization. Plan for rehab when medically stable. Lillie Johnson DO [facility] Hospitalist Consultants: Kassandra Cortez Current Inpatient Medications: Current Inpatient Medications Medications (Trade) Dose Ordered Sig/Nicolette Route Start Time Stop Time Status Last Admin Dose Admin Ondansetron HCl (Zofran Inj) 4 mg Q6H PRN IV 07/17/17 19:15 08/16/17 19:14 Polyethylene (Miralax Powder Packet) 17 gm DAILY PRN PO 07/17/17 19:15 08/16/17 19:14 07/22/17 09:40 17 GM Amiodarone HCl (Cordarone Tab) 200 mg DAILY PO 07/18/17 09:00 08/17/17 08:59 07/24/17 08:26 200 MG Aspirin (Ecotrin Tab) 81 mg QAM PO 07/18/17 09:00 08/17/17 08:59 07/24/17 08:29 81 MG Cholecalciferol (Vitamin D Tab) 2,000 inter.unit HS PO 07/18/17 21:00 10/5/17 20:59 07/23/17 21:05 2,000 INTER.UNIT Digoxin (Lanoxin Tab) 0.125 mg Q2D PO 07/18/17 16:00 08/17/17 15:59 07/24/17 16:56 0.125 MG Docusate Sodium (coLACE CAP) 100 mg DAILY PO 07/18/17 09:00 08/17/17 08:59 07/24/17 08:26 100 MG Hydroxychloroquine Sulfate (Plaquenil Tab) 400 mg HS PO 07/18/17 21:00 08/17/17 20:59 07/23/17 21:04 400 MG Insulin Human NPH (novoLIN-N NPH) 12 units BIDM SC 07/18/17 07:30 08/17/17 07:29 07/24/17 17:04 12 UNITS Levothyroxine Sodium (Synthroid Tab) 112 mcg DAILYBB PO 07/18/17 06:00 08/17/17 05:59 07/24/17 06:31 112 MCG Losartan Potassium (coZAAR TAB) 12.5 mg DAILY PO 07/18/17 09:00 08/17/17 08:59 Future Hold 07/22/17 08:30 12.5 MG Pantoprazole Sodium (Protonix Tab) 40 mg DAILY PO 07/18/17 09:00 08/17/17 08:59 07/24/17 08:26 40 MG Sertraline HCl (Zoloft Tab) 100 mg HS PO 07/18/17 21:00 08/17/17 20:59 07/23/17 21:05 100 MG Sildenafil Citrate (Revatio Tab) 20 mg BID PO 07/18/17 09:00 08/17/17 08:59 07/24/17 08:28 20 MG Simvastatin (Zocor Tab) 10 mg HS PO 07/18/17 21:00 08/17/17 20:59 07/23/17 21:05 10 MG Trazodone HCl (Desyrel Tab) 25 mg HS PO 07/18/17 21:00 08/17/17 20:59 07/23/17 21:04 25 MG Magnesium Oxide (Mag-Ox Tab) 400 mg HS PO 07/18/17 21:00 08/17/17 20:59 07/23/17 21:03 400 MG Sertraline HCl (Zoloft Tab) 25 mg HS PO 07/18/17 21:00 08/17/17 20:59 07/23/17 21:29 25 MG Glucose (Glucose 40% Gel) 15-30 GRAMS 15 GRAMS... UD PRN PO 07/17/17 21:45 08/16/17 21:44 Glucose (Glucose Chew Tab) 4-8 Tablets 4 Tabl... UD PRN PO 07/17/17 21:45 08/16/17 21:44 Dextrose (Dextrose 50% 50ML Syringe) 25-50ML OF 50% DW IV FOR... UD PRN IV 07/17/17 21:45 08/16/17 21:44 Glucagon (Glucagon Inj) 1 mg UD PRN SQ 07/17/17 21:45 08/16/17 21:44 Calcitriol (Rocaltrol Cap) 0.25 mcg MoWeFr PO 07/19/17 09:00 08/18/17 08:59 07/24/17 08:29 0.25 MCG Oxycodone/ Acetaminophen (Percocet 5-325mg Tab) 1 tab Q4H PRN PO 07/18/17 02:00 08/01/17 01:59 07/18/17 11:59 1 TAB Hydromorphone HCl (Dilaudid Inj) 0.5 mg Q3H PRN IV 07/18/17 02:00 08/01/17 01:59 Budesonide (Pulmicort Respules 0.5MG/ 2ML Neb Soln) 0.5 mg BIDR INH 07/18/17 20:00 08/17/17 19:59 07/24/17 07:39 0.5 MG Oxymetazoline HCl (Afrin 0.05% Nasal [place]) 2 sprays Q1HWA PRN NA 07/18/17 13:00 08/17/17 12:59 07/18/17 18:04 2 SPRAYS Nitroglycerin (Nitrostat Tab) 0.4 mg PRN PRN SL 07/19/17 18:30 08/18/17 18:29 07/19/17 18:43 0.4 MG Morphine Sulfate (MoRPHine SULFATE INJ) 4 mg Q2H PRN IV 07/19/17 18:30 08/02/17 18:29 07/20/17 20:14 4 MG Al Hydroxide/Mg Hydroxide/ Lidocaine HCl/ Barcode Q8H PRN PO 07/19/17 19:15 08/18/17 19:14 Ipratropium [place] (Atrovent 0.02% 0.5MG/2.5ML Neb) 0.5 mg Q6R INH 07/20/17 03:00 08/19/17 02:59 07/24/17 14:21 0.5 MG Levalbuterol (Xopenex 1.25MG/ 0.5ML Neb) 1.25 mg Q6R INH 07/20/17 03:00 08/19/17 02:59 07/24/17 14:21 1.25 MG Gabapentin (Neurontin Cap) 200 mg BID PO 07/20/17 09:00 08/19/17 08:59 07/24/17 08:27 200 MG Torsemide (Demadex Tab) 20 mg DAILY PO 07/21/17 09:00 08/17/17 08:59 Future Hold 07/22/17 09:40 20 MG Guaifenesin (Mucinex Contr Rel Tab) 600 mg Q12 PO 07/21/17 21:00 08/20/17 20:59 07/24/17 08:27 600 MG Prednisone (PredniSONE TAB) 20 mg Taper QDD PO 07/21/17 16:45 07/27/17 16:44 07/24/17 16:58 20 MG Sodium Chloride ([place] Nasal [place]) 2 sprays PRN PRN NA 07/22/17 09:30 08/21/17 09:29 Miscellaneous Information 1 ea UD PRN N/A 07/22/17 11:00 08/21/17 10:59 Amoxicillin/ Clavulanate Potassium (Augmentin Tab) 500 mg BIDM PO 07/22/17 17:00 07/31/17 16:59 07/24/17 16:57 500 MG Acetaminophen (Tylenol Tab) 500 mg Q8H PRN PO 07/23/17 00:00 08/22/17 00:00 07/24/17 12:19 500 MG Tramadol HCl (Ultram Tab) 50 mg Q8H PRN PO 07/23/17 00:00 08/21/17 23:59
[2017-07-25] MEDS: INSULIN HUMAN NPH SC SCH ×2 (08:47→18:01)
[2017-07-25] MEDS: AMIODARONE 200 MG TAB PO SCH (08:48)
--- NOTE | 2017-07-25 14:10 | Progress Note ---
Internal Med Progress Note Date of Service: Jul 25, 2017. Provider Documentation: SUBJECTIVE: The patient was seen and examined More confused today with periods of Hallucinations He was seen ion presence of the Daughter and the grand daughter Confusion and hallucinations are new Denies any chest pain,palpitation,SOB OBJECTIVE: Vital Signs-as noted below Exam: General-Moderate SOB at rest Patient dinies Eyes-normal ENT-normal Neck-supple Lungs-Decreased breath sound bilaterally Heart-Regular, 2/6 ESM AA Abdomen-Madan in,no masses,bowel sound present Extremities-Chronic skin changes With exfoliation of skin No cellulitis Neuro-AA Pleasantly confused Denies any Hallucinations during this conversation Lab data as noted below. ASSESSMENT & PLAN: ACUTE BLOOD LOSS ANEMIA FROM EPISTAXIS S/P Fall : -Nasal packing placed in the ER which have tamponaded the epistaxis -Required 3 units of PRBC -ENT was consulted and appreciate the input -Bleeding resolved and Hb maintained Acute on chronic biventricular heart failure. -EF 30%.Hold Demedex in setting of JAVY. -Sodium restrict. Support with oxygen, daily weights, salt restrict. Improved clinically and on labwork. -Cardiology consulted-appreciate input -Diuretic dose will be reduced on discharge Encephalopathy-resolved -scheduled Tylenol and Ultram. CPAP was not used the previous night Hypoxia -resolved and off oxygen for the past 48 hours. Complicated by Biventricular failure Bronchitis,Improved on Augmentin JAVY on CKD III-holding Demedex and Losartan. Kidney function is improving Diuretic dose will be reduced on discharge Orthostatic hypotension- Multiple factors involved-Dehydration,acute blood loss and possible infection To rehab for ambulatory dysfunction when medically stable. Rheumatoid Arthritis flare-on prednisone taper. Ultram and Tylenol changed to PRN with intermittent encephalopathy. Cont hydroxychloroquine CAD s/p CABG-cont medical management. h/o intolerance to beta shana Cirrhosis-likely 2/2 NAFLD- Discussed with GI and will send to them as outpatient Pulmonary HTN-cont Revatio. AFib-s/p Pacemaker with normal interrogation on admission. Cont Amiodarone and Digoxin. No more Coumadin HTN-stable, hold losartan in setting of JAVY DMII -cont ISS/Lantus with carb coverage. Chronic LLE wound infection -POA. Resolved, Invanz stopped. Cont PICC access while hospitalized. Hypothyroidism-cont Levothyroxine DEPRESSION: Continue sertraline More confused and having frequent hallucinations Will ask for Psychiatric evaluation CODE STATUS: DNR DVT PROPHYLAXIS: SCD's due to epistaxis/ anemia DISPOSITION: cont hospitalization. Plan for rehab when medically stable. Discussed with the Daughter and the grand daughter Vital Signs: Date Time Temp Pulse Resp B/P (MAP) Pulse Ox O2 Delivery O2 Flow Rate FiO2 07/25/17 11:57 74 125/69 (87) 77 140/79 (99) 83 123/74 (90) 07/25/17 08:14 36.6 73 18 143/78 (99) 100 Nasal Cannula 2.0 07/25/17 08:00 Room Air 07/25/17 07:41 72 16 99 Room Air 07/25/17 01:54 84 16 97 Room Air 07/25/17 00:16 36.7 99 24 128/72 (90) 97 Room Air 138/72 (94) 138/72 (94) 07/25/17 00:00 Room Air 07/24/17 20:00 Room Air 07/24/17 19:56 72 20 96 Room Air 07/24/17 16:56 84 07/24/17 16:13 36.4 84 18 118/66 (83) 97 Room Air 07/24/17 16:00 Room Air 07/24/17 14:30 70 20 100 Mask 3.0 Lab Results: Results Past 24 Hours Test 07/24/17 16:50 07/24/17 20:12 07/25/17 05:40 07/25/17 05:43 Range/Units Bedside Glucose 124 185 156 70-99 mg/dl White Blood Count 10.46 4.8-10.8 K/uL Red Blood Count 3.88 4.7-6.1 M/uL Hemoglobin 8.8 14.0-18.0 g/dL Hematocrit 30.1 42-52 % Mean Corpuscular Volume 77.6 80-100 fL Mean Corpuscular Hemoglobin 22.7 25-34 pg Mean Corpuscular Hemoglobin Concent 29.2 32-36 g/dl Platelet Count 133 130-400 K/uL Neutrophils (%) (Auto) 88.8 % Lymphocytes (%) (Auto) 3.3 % Monocytes (%) (Auto) 7.4 % Eosinophils (%) (Auto) 0.0 % Basophils (%) (Auto) 0.1 % Neutrophils # (Auto) 9.29 1.4-6.5 K/uL Lymphocytes # (Auto) 0.35 1.2-3.4 K/uL Monocytes # (Auto) 0.77 0.11-0.59 K/uL Eosinophils # (Auto) 0.00 0-0.5 K/uL Basophils # (Auto) 0.01 0-0.2 K/uL RDW Standard Deviation 60.5 36.4-46.3 fL RDW Coefficient of Variation 21.5 11.5-14.5 % Immature Granulocyte % (Auto) 0.4 % Immature Granulocyte # (Auto) 0.04 0.00-0.02 K/uL Nucleated RBC Absolute Count (auto) 0.22 0-0 K/uL Nucleated Red Blood Cells % 2.1 % Platelet Estimate DECREASED Hypochromasia PRESENT Anisocytosis PRESENT Microcytosis PRESENT Spherocytes 1+ Sodium Level 140 136-145 mmol/L Potassium Level 4.4 3.5-5.1 mmol/L Chloride Level 105 98-107 mmol/L Carbon Dioxide Level 30 21-32 mmol/L Anion Gap 5.0 3-11 mmol/L Blood Urea Nitrogen 54 7-18 mg/dl Creatinine 1.60 0.60-1.40 mg/dl Est Creatinine Clear Calc Drug Dose 44.7 ml/min Estimated GFR () 46.8 Estimated GFR (Non- 40.4 BUN/Creatinine Ratio 33.8 10-20 Random Glucose 141 70-99 mg/dl Calcium Level 8.7 8.5-10.1 mg/dl
[2017-07-25] MEDS: AMOXICILLIN/CLAVULANATE TAB 875 MG TAB PO SCH (17:54)
--- NOTE | 2017-07-25 17:57 | Psychiatric Consultation ---
Consultation Date of Consultation Jul 25, 2017. Chief Complaint "I haven't been getting sleep." History of Present Illness Patient seen and assessed and reviewed with liaison nurse. Liaison nurse spoke with patient's daughter who reported that the patient had had some hallucinations when he was hospitalized 6 years ago and was in the ICU for a long period of time. The patient is cooperative and pleasant. He answers questions appropriately. He often says that he does not remember things. He is able to talk about memories from long ago but does not He remembers thinking that he saw a cat walking in his room last night. He does not recall seeing bugs on the wall. He denies any hallucinations during our interview. The patient does take Zoloft but does not remember how long he has been taking this medication. It is prescribed by his primary care physician he also takes trazodone at bedtime. He reports that his mood is good he denies anxiety he reports that he has a good appetite at home he denies any suicidal thoughts intention or plan. He reports that he has a difficult time with sleep at home and has not been sleeping well here in the hospital. He reports that he has discomfort and tingling in his toes which worsens at night time. The patient's daughter reported that he has been slipping lately and the patient agrees that his memory has been poor. The patient told me that he cannot read or write as a result of having pneumonia with a high fever when he was 7 years old. He reports that he had difficulty learning ever since. Patient's gabapentin could be titrated for Past Psychiatric History Current OP Treatment: no current treatment Prior Psych Hospitalizations: none Access to a Gun: No Suicide Attempts: No Past Medical/Surgical History History of Concussion/Seizure: Yes (history of falls) Allergies Allergies: Coded Allergies: Lisinopril (Unverified Allergy, Unknown, dizzy, 07/11/17) Home Medications Scheduled Amiodarone Hcl (Cordarone), 200 MG PO DAILY Aspirin (Aspirin 81), 81 MG PO QAM Budesonide (Pulmicort Respules 0.25MG/2ML), 2 ML INH BID Calcitriol (Calcitriol), 0.25 MCG PO 3XWK Cholecalciferol (Vitamin D 1000 Unit), 2,000 INTER.UNIT PO HS Digoxin (Digoxin), 0.125 MG PO Q2D Docusate Sodium (Colace), 100 MG PO DAILY Gabapentin (Gabapentin), 200 MG PO BID Hydroxychloroquine Sulfate (Hydroxychloroquine Sulfat), 400 MG PO HS Insulin Isophane (Human) (Humulin N Kwikpen), 12 UNITS SC BID Levothyroxine Sodium (Levothyroxine Sodium), 112 MCG PO DAILY Losartan Potassium (Losartan Potassium), 12.5 MG PO DAILY Magnesium Oxide (Magnesium Oxide), 400 MG PO HS Pantoprazole (Pantoprazole Sodium), 40 MG PO DAILY Polyethylene Glycol 3350 (Miralax), 1 PKT PO DAILY Prednisone (Prednisone), 5 MG PO DAILY Sertraline HCl (Sertraline HCl), 25 MG PO HS Sertraline HCl (Sertraline HCl), 100 MG PO HS Sildenafil Citrate (Pulmonary (Sildenafil Citrate), 20 MG PO BID Simvastatin (Simvastatin), 10 MG PO HS Torsemide (Demadex), 20 MG PO DAILY Trazodone Hcl (Desyrel), 25-50 MG PO HS Warfarin Sodium (Warfarin Sodium), 2.5 MG PO 2XWK Warfarin Sodium (Warfarin Sodium), 5 MG PO 5XWK Scheduled PRN Acetaminophen (Tylenol), 650 MG PO Q4H PRN for Mild Pain Ipratropium [place] (Atrovent 0.02% Soln), 2.5 ML NEB TID PRN for SOB/Wheezing Levalbuterol (Levalbuterol HCl), 3 ML NEB TID PRN for SOB/Wheezing Saline (Andrew Nasal Fluker), 2 SPRAYS NATALIO UD PRN for Nasal Dryness/Congestion Tramadol HCl (Tramadol HCl), 50 MG PO Q12 PRN for Pain Family History FH: COPD (chronic obstructive pulmonary disease) FATHER SISTER SISTER FH: coronary artery disease MOTHER FH: diabetes mellitus SISTER FH: heart disease BROTHER BROTHER BROTHER SISTER History of Suicide: No History of Substance Abuse: No Psychiatric History: No Alcohol Use Alcohol Use In Past 12 Months: No Smoking Use Smoking Status: Never Smoker Substance History no history of substance abuse. Denies ever using street drugs or abusing over the counter or prescription medication. 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 Children: 2 Spiritual Affiliation: adventism Legal History: none Review of Systems reports discomfort and tingling of toes bilaterally which worsens at night. Examination Physical Examination per medical team Vital Signs Vital Signs Past 12 Hours Date Time Temp Pulse Resp B/P (MAP) Pulse Ox O2 Delivery O2 Flow Rate FiO2 07/25/17 16:10 36.5 76 20 134/74 (94) 97 Room Air 140/77 (98) 129/55 (79) 07/25/17 16:00 Room Air 07/25/17 11:57 74 125/69 (87) 77 140/79 (99) 83 123/74 (90) 07/25/17 08:14 36.6 73 18 143/78 (99) 100 Nasal Cannula 2.0 07/25/17 08:00 Room Air 07/25/17 07:41 72 16 99 Room Air Laboratory Results Last 24 Hours Test 07/24/17 20:12 07/25/17 05:40 07/25/17 05:43 Bedside Glucose 185 mg/dl 156 mg/dl White Blood Count 10.46 K/uL Red Blood Count 3.88 M/uL Hemoglobin 8.8 g/dL Hematocrit 30.1 % Mean Corpuscular Volume 77.6 fL Mean Corpuscular Hemoglobin 22.7 pg Mean Corpuscular Hemoglobin Concent 29.2 g/dl Platelet Count 133 K/uL Neutrophils (%) (Auto) 88.8 % Lymphocytes (%) (Auto) 3.3 % Monocytes (%) (Auto) 7.4 % Eosinophils (%) (Auto) 0.0 % Basophils (%) (Auto) 0.1 % Neutrophils # (Auto) 9.29 K/uL Lymphocytes # (Auto) 0.35 K/uL Monocytes # (Auto) 0.77 K/uL Eosinophils # (Auto) 0.00 K/uL Basophils # (Auto) 0.01 K/uL RDW Standard Deviation 60.5 fL RDW Coefficient of Variation 21.5 % Immature Granulocyte % (Auto) 0.4 % Immature Granulocyte # (Auto) 0.04 K/uL Nucleated RBC Absolute Count (auto) 0.22 K/uL Nucleated Red Blood Cells % 2.1 % Platelet Estimate DECREASED Hypochromasia PRESENT Anisocytosis PRESENT Microcytosis PRESENT Spherocytes 1+ Sodium Level 140 mmol/L Potassium Level 4.4 mmol/L Chloride Level 105 mmol/L Carbon Dioxide Level 30 mmol/L Anion Gap 5.0 mmol/L Blood Urea Nitrogen 54 mg/dl Creatinine 1.60 mg/dl Est Creatinine Clear Calc Drug Dose 44.7 ml/min Estimated GFR () 46.8 Estimated GFR (Non- 40.4 BUN/Creatinine Ratio 33.8 Random Glucose 141 mg/dl Calcium Level 8.7 mg/dl Mental Examination During interview pt is: alert and oriented (oriented to place, year and day but not to month), cooperative Appearance: appropriately dressed Eye contact is: fair Motor behavior is: no abnormal motor movements Speech: normal in rate, rhythm & volume, other (speech impairment "r" sounds) Affect: mood congruent Mood is: other (normal) Thought process: goal directed, linear, logical Thought content: reality based without delusions Suicidal thought are: denied Homicidal thoughts are: denied Hallucinations: denies auditory, denies visual (remembers thinking he saw a cat in the room last night) Cognition: other (immediate recall intact but delayed recall impaired, but recalled 0/3 items after 5 minutes) Intelligence estimated to be: below average Insight: good Judgement: good Impression / Recommendations Impression Case reviewed with Dr. Damaris Louie. Delirium related to multiple medical condition, polypharmacy, hospital environment: Mr. Mays is a 77-year-old gentleman with multiple medical problems was been hospitalized for several days after a fall at home. He is treated for anxiety by his primary care physician with Zoloft 125 mg daily and trazodone at bedtime. He denies any symptoms of depression or anxiety currently. He denies any suicidal or homicidal ideation. He did experience an hallucination last night and remembers thinking that he saw a cat in his hospital room. The patient does demonstrate some cognitive impairment which according to family has been gradually worsening. The patient is most likely experiencing some delirium related to hospitalization, polypharmacy, and his sleep is impaired related to peripheral neuropathy. Recommendations are to employ standard delirium measures, including attempts to maintain regular circadian rhythms, keeping the room later in the day and darker at night, frequent reorientation. Remembering that the patient can neither read nor write so will need verbal instructions with repetition. Recommend minimizing noise on the nursing unit. Could consider titration of his gabapentin for peripheral neuropathy to improve sleep, however we will defer to medical team as kidney function is very poor. Otherwise I have no medication recommendations at this time. We will continue to follow this patient if he continues to have hallucinations. He has no criteria for inpatient mental health treatment.
[2017-07-25] MEDS: SERTRALINE HCL 100 MG TAB PO SCH (20:05)
[2017-07-25] MEDS: SERTRALINE HCL 50 MG TAB PO SCH (20:06)
[2017-07-25] MEDS: HYDROXYCHLOROQUINE SULFATE 200 MG TAB PO SCH (20:07)
[2017-07-25] MEDS: MAGNESIUM OXIDE 400 MG TAB PO SCH (20:08)
[2017-07-25] MEDS: CHOLECALCIFEROL 1000 INTER.UNIT TAB PO SCH (20:08)
[2017-07-25] MEDS: TRAZODONE HCL 50 MG TAB PO SCH (20:09)
[2017-07-25] MEDS: SIMVASTATIN 10 MG TAB PO SCH (20:11)
[2017-07-26] VITALS (8 sets, daily range): BP systolic 120–161; BP diastolic 63–82; PULSE 74–89; TEMP 36.3–36.5; O2SAT 94–98
[2017-07-26] MEDS: IPRATROPIUM BROMIDE NEB SOLN 0.02% 2.5 ML VIAL INH SCH ×4 (02:07→19:49)
[2017-07-26] MEDS: LEVALBUTEROL 1.25MG/0.5ML NEB INH SCH ×4 (02:07→19:49)
[2017-07-26] MEDS: LEVOTHYROXINE 112 MCG TAB PO SCH (06:15)
[2017-07-26 06:29] LABS: BASO % 0.1 %; BASO ABS # 0.01 K/uL (0-0.2); EOS % 0.1 %; HEMATOCRIT 30.8 % (42-52); IG% 0.3 %; LYMPH % 7.5 %; MEAN CORPUSCULAR HEMOGLOBIN 23.5 pg (25-34); MEAN CORPUSCULAR HGB CONC 30.2 g/dl (32-36); PLATELET COUNT 164 K/uL (130-400); RED BLOOD COUNT 3.95 M/uL (4.7-6.1); WHITE BLOOD COUNT 9.32 K/uL (4.8-10.8)
[2017-07-26] MEDS: BUDESONIDE 0.5 MG/2 ML VIAL (PULMICORT) INH SCH ×2 (07:02→19:49)
[2017-07-26 07:07] LABS: BUN/CREATININE RATIO 28.4 (10-20); CALCIUM 8.6 mg/dl (8.5-10.1); CREATININE 1.4 mg/dl (0.60-1.40); POTASSIUM 4.2 mmol/L (3.5-5.1)
[2017-07-26 07:09] LABS: ANISOCYTOSIS PRESENT; COMPLETE YES; HYPERSEGMENTED POLYS 1+; HYPOCHROMIA PRESENT; MICROCYTOSIS PRESENT; POIKILOCYTOSIS PRESENT
[2017-07-26] MEDS: INSULIN HUMAN NPH SC SCH ×2 (08:55→16:58)
[2017-07-26] MEDS: AMOXICILLIN/CLAVULANATE TAB 875 MG TAB PO SCH (08:57)
[2017-07-26] MEDS: DOCUSATE SODIUM 100 MG CAP PO SCH (08:58)
[2017-07-26] MEDS: AMIODARONE 200 MG TAB PO SCH (08:58)
[2017-07-26] MEDS: ASPIRIN 81 MG ECTAB PO SCH (08:58)
[2017-07-26] MEDS: PANTOprazole SOD 40 MG TAB PO SCH (08:59)
[2017-07-26] MEDS: GABAPENTIN 100 MG CAP PO SCH ×2 (08:59→21:27)
[2017-07-26] MEDS: CALCITRIOL 0.25 MCG CAP PO SCH (09:00)
[2017-07-26] MEDS: GUAIFENESIN 600 MG TABCR PO SCH ×2 (09:00→21:30)
[2017-07-26] MEDS: SILDENAFIL CITRATE 20 MG TAB PO SCH ×2 (09:00→21:29)
[2017-07-26] MEDS ORDERED: DOCUSATE SODIUM 100 MG CAP ONE (09:07)
--- NOTE | 2017-07-26 10:56 | Progress Note ---
Internal Med Progress Note Date of Service: Jul 26, 2017. Provider Documentation: SUBJECTIVE: The patient was seen and examined Feels much better No more hallucinations OBJECTIVE: Vital Signs-as noted below Exam: General-Moderate SOB at rest Patient denies it Eyes-normal ENT-normal Neck-supple Lungs-Decreased breath sound bilaterally Heart-Regular, 2/6 ESM AA Abdomen-Benign,Distended,soft,no masses,bowel sound present Extremities-Chronic skin changes With exfoliation of skin No cellulitis Neuro-AA Pleasantly confused Lab data as noted below. 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 -EF 30%.Hold Demedex in setting of JAVY. -Sodium restrict. Support with oxygen, daily weights, salt restrict. Improved clinically and on labwork. -Cardiology consulted-appreciate input -Diuretic dose will be reduced on discharge -No increasing swelling of the legs Encephalopathy-resolved -scheduled Tylenol and Ultram. CPAP was not used the previous night Hypoxia -resolved and off oxygen for the past 48 hours. Complicated by Biventricular failure Bronchitis,Improved on Augmentin JAVY on CKD III-holding Demedex and Losartan. Kidney function is improving Diuretic dose will be reduced on discharge Renal function is normalized Orthostatic hypotension- Multiple factors involved-Dehydration,acute blood loss and possible infection To rehab for ambulatory dysfunction when medically stable. Rheumatoid Arthritis flare-on prednisone taper. Ultram and Tylenol changed to PRN with intermittent encephalopathy. Cont hydroxychloroquine CAD s/p CABG-cont medical management. h/o intolerance to beta shana No acute symptoms Cirrhosis-likely 2/2 NAFLD- Discussed with GI and will send to them as outpatient Pulmonary HTN-cont Revatio. AFib-s/p Pacemaker with normal interrogation on admission. Cont Amiodarone and Digoxin. No more Coumadin HTN-stable, hold losartan in setting of JAVY DMII -cont ISS/Lantus with carb coverage. Chronic LLE wound infection -POA. Resolved, Invanz stopped. Cont PICC access while hospitalized. Hypothyroidism-cont Levothyroxine DEPRESSION: Continue sertraline More confused and having frequent hallucinations Will ask for Psychiatric evaluation CODE STATUS: DNR DVT PROPHYLAXIS: SCD's due to epistaxis/ anemia DISPOSITION: cont hospitalization. Plan for rehab when medically stable. Discussed with the Daughter and the grand daughter Will discharge today Vital Signs: Date Time Temp Pulse Resp B/P (MAP) Pulse Ox O2 Delivery O2 Flow Rate FiO2 07/26/17 07:48 36.4 74 20 134/63 (86) 98 Room Air 07/26/17 07:05 85 16 97 Room Air 07/26/17 02:07 78 16 95 Room Air 07/26/17 00:00 CPAP 07/25/17 23:41 36.6 77 18 115/68 (84) 94 Room Air 120/67 (84) 105/53 (70) 07/25/17 18:56 77 16 97 Room Air 07/25/17 16:10 36.5 76 20 134/74 (94) 97 Room Air 140/77 (98) 129/55 (79) 07/25/17 16:00 Room Air 07/25/17 11:57 74 125/69 (87) 77 140/79 (99) 83 123/74 (90) Lab Results: Results Past 24 Hours Test 07/25/17 11:26 07/25/17 17:01 07/25/17 20:09 07/26/17 06:03 Range/Units Bedside Glucose 162 102 128 70-99 mg/dl White Blood Count 9.32 4.8-10.8 K/uL Red Blood Count 3.95 4.7-6.1 M/uL Hemoglobin 9.3 14.0-18.0 g/dL Hematocrit 30.8 42-52 % Mean Corpuscular Volume 78.0 80-100 fL Mean Corpuscular Hemoglobin 23.5 25-34 pg Mean Corpuscular Hemoglobin Concent 30.2 32-36 g/dl Platelet Count 164 130-400 K/uL Neutrophils (%) (Auto) 82.0 % Lymphocytes (%) (Auto) 7.5 % Monocytes (%) (Auto) 10.0 % Eosinophils (%) (Auto) 0.1 % Basophils (%) (Auto) 0.1 % Neutrophils # (Auto) 7.64 1.4-6.5 K/uL Lymphocytes # (Auto) 0.70 1.2-3.4 K/uL Monocytes # (Auto) 0.93 0.11-0.59 K/uL Eosinophils # (Auto) 0.01 0-0.5 K/uL Basophils # (Auto) 0.01 0-0.2 K/uL RDW Standard Deviation 60.4 36.4-46.3 fL RDW Coefficient of Variation 21.1 11.5-14.5 % Immature Granulocyte % (Auto) 0.3 % Immature Granulocyte # (Auto) 0.03 0.00-0.02 K/uL Nucleated RBC Absolute Count (auto) 0.21 0-0 K/uL Nucleated Red Blood Cells % 2.3 % Hypersegmented Polys 1+ Hypochromasia PRESENT Poikilocytosis PRESENT Anisocytosis PRESENT Microcytosis PRESENT Sodium Level 142 136-145 mmol/L Potassium Level 4.2 3.5-5.1 mmol/L Chloride Level 107 98-107 mmol/L Carbon Dioxide Level 29 21-32 mmol/L Anion Gap 6.0 3-11 mmol/L Blood Urea Nitrogen 40 7-18 mg/dl Creatinine 1.40 0.60-1.40 mg/dl Est Creatinine Clear Calc Drug Dose 50.8 ml/min Estimated GFR () 55.0 Estimated GFR (Non- 47.5 BUN/Creatinine Ratio 28.4 10-20 Random Glucose 111 70-99 mg/dl Calcium Level 8.6 8.5-10.1 mg/dl
[2017-07-26] MEDS ORDERED: TORS20TA2 PO (11:00)
--- NOTE | 2017-07-26 11:09 | Discharge Instructions ---
Discharge Instructions Date of Service Jul 26, 2017. Admission Reason for Admission: Fall, Severe Epistaxis Discharge Discharge Diagnosis / Problem: Epistaxis,Acute Blood loss Anemia,Chronic Biventricular failure Discharge Goals Goal(s): Prevent Disease Progression Activity Recommendations Activity Limitations: resume your previous activity . Instructions / Follow-Up Instructions / Follow-Up Dr Valerio on 07/31/17 at 12:45 PM Current Hospital Diet Patient's current hospital diet: Diabetes Type 2 Diet, Low Sodium Diet (2gm Na) Discharge Diet Recommended Diet: Low Sodium Diet (2gm Na), Diabetes Type 2 Diet Fluid Restriction: 1500 ml (6 cups) Pending Studies Studies pending at discharge: no Laboratory Results Hemoglobin A1c Test 06/29/17 05:40 Range/Units Estimated Average Glucose 166 mg/dl Hemoglobin A1c 7.4 H 4.5-5.6 % Medical Emergencies . Who to Call and When: Medical Emergencies: If at any time you feel your situation is an emergency, please call 911 immediately. . Non-Emergent Contact Non-Emergency issues call your: Primary Care Provider . Past History Medical & Surgical History: (1) CHF (congestive heart failure) (2) Diabetic peripheral neuropathy associated with type 2 diabetes mellitus (3) Fall (4) Acute post-hemorrhagic anemia (5) Warfarin-induced coagulopathy (6) Severe epistaxis (7) Atrial fibrillation (8) Benign hypertension (9) Coronary artery disease (10) Diabetes mellitus type 2 (11) Hyperlipidemia (12) Hypothyroidism (13) CKD (chronic kidney disease) stage 3, GFR 30-59 ml/min (14) Depression (15) Status post coronary artery bypass grafting (16) Status post Maze operation for atrial fibrillation (17) Status post tracheostomy (18) Status post A-V fisutla LUE (19) Aortic stenosis . "Provider Documentation" section prepared by Ester Carrion. . VTE Core Measure Inpt VTE Proph given/why not?: SCD's
[2017-07-26 13:44] LABS: HEMATOCRIT 32.5 % (42-52)
[2017-07-26] MEDS: DIGOXIN 0.125 MG TAB PO SCH (16:53)
[2017-07-26] MEDS: ACETAMINOPHEN 500 MG TAB PO PRN (21:26)
[2017-07-26] MEDS: MAGNESIUM OXIDE 400 MG TAB PO SCH (21:27)
[2017-07-26] MEDS: HYDROXYCHLOROQUINE SULFATE 200 MG TAB PO SCH (21:28)
[2017-07-26] MEDS: CHOLECALCIFEROL 1000 INTER.UNIT TAB PO SCH (21:28)
[2017-07-26] MEDS: TRAZODONE HCL 50 MG TAB PO SCH (21:29)
[2017-07-26] MEDS: SERTRALINE HCL 100 MG TAB PO SCH (21:30)
[2017-07-26] MEDS: SIMVASTATIN 10 MG TAB PO SCH (21:30)
[2017-07-26] MEDS: SERTRALINE HCL 50 MG TAB PO SCH (21:30)
[2017-07-27] MEDS: IPRATROPIUM BROMIDE NEB SOLN 0.02% 2.5 ML VIAL INH SCH ×2 (01:17→07:43)
[2017-07-27] MEDS: LEVALBUTEROL 1.25MG/0.5ML NEB INH SCH ×2 (01:17→07:43)
[2017-07-27 01:20] VITALS: PULSE 79; O2SAT 95
[2017-07-27 02:50] LABS: BASO % 0.1 %; BASO ABS # 0.01 K/uL (0-0.2); HEMATOCRIT 28.8 % (42-52); IG% 0.5 %; LYMPH % 4.5 %; LYMPH ABS # 0.46 K/uL (1.2-3.4); MEAN CELL VOLUME 77.2 fL (80-100); MEAN CORPUSCULAR HEMOGLOBIN 22.8 pg (25-34); MEAN CORPUSCULAR HGB CONC 29.5 g/dl (32-36); MEAN PLATELET VOLUME 10.7 fL (7.4-10.4); MONO % 10.3 %; NEUT % 84.6 %; PLATELET COUNT 164 K/uL (130-400); RED BLOOD COUNT 3.73 M/uL (4.7-6.1); WHITE BLOOD COUNT 10.21 K/uL (4.8-10.8)
[2017-07-27 03:07] LABS: BUN/CREATININE RATIO 25.4 (10-20); CALCIUM 8.7 mg/dl (8.5-10.1); CREATININE 1.6 mg/dl (0.60-1.40); POTASSIUM 4.4 mmol/L (3.5-5.1)
[2017-07-27 03:22] LABS: COMPLETE YES; HYPOCHROMIA PRESENT; OVALOCYTES 1+; POLYCHROMASIA 1+
[2017-07-27] MEDS: LEVOTHYROXINE 112 MCG TAB PO SCH (04:00)
[2017-07-27 07:28] VITALS: BP 135/73; PULSE 73; TEMP 36.5; O2SAT 97
[2017-07-27] MEDS: BUDESONIDE 0.5 MG/2 ML VIAL (PULMICORT) INH SCH (07:43)
[2017-07-27 07:53] VITALS: PULSE 78; O2SAT 96
[2017-07-27] MEDS ORDERED: INSULIN HUMAN NPH SC SCH (08:00)
--- NOTE | 2017-07-27 08:03 | Progress Note ---
Internal Med Progress Note Date of Service: Jul 27, 2017. Provider Documentation: Made aware by RN of 2 bloody bowel movements No pain as per RN AP LGIB Rule out C. difficile Follow H&H Stool C. difficile Clear Liquids for now Will relay to a.m. provider. Vital Signs: Date Time Temp Pulse Resp B/P (MAP) Pulse Ox O2 Delivery O2 Flow Rate FiO2 07/27/17 07:53 78 18 96 Room Air 07/27/17 07:28 36.5 73 22 135/73 (93) 97 Room Air 07/27/17 01:20 79 18 95 BiPAP/CPAP 07/27/17 00:00 Room Air 07/26/17 23:01 36.5 84 22 120/70 (87) 94 Room Air 89 161/82 (108) 86 153/77 (102) 07/26/17 19:49 80 20 94 Room Air 07/26/17 16:53 80 07/26/17 16:00 Room Air 07/26/17 15:47 36.3 83 22 136/72 (93) 96 Room Air 150/79 (102) 152/75 (100) 07/26/17 14:35 74 16 94 Room Air 07/26/17 11:00 36.4 85 20 123/73 (90) 95 Room Air 131/76 (94) 138/76 (96) Lab Results: Results Past 24 Hours Test 07/26/17 08:02 07/26/17 11:46 07/26/17 12:41 07/26/17 16:32 Range/Units Bedside Glucose 109 202 130 70-99 mg/dl Hemoglobin 9.0 14.0-18.0 g/dL Hematocrit 32.5 42-52 % Test 07/26/17 20:15 07/27/17 02:39 07/27/17 08:00 Range/Units Bedside Glucose 219 70-99 mg/dl White Blood Count 10.21 4.8-10.8 K/uL Red Blood Count 3.73 4.7-6.1 M/uL Hemoglobin 8.5 14.0-18.0 g/dL Hematocrit 28.8 42-52 % Mean Corpuscular Volume 77.2 80-100 fL Mean Corpuscular Hemoglobin 22.8 25-34 pg Mean Corpuscular Hemoglobin Concent 29.5 32-36 g/dl Platelet Count 164 130-400 K/uL Mean Platelet Volume 10.7 7.4-10.4 fL Neutrophils (%) (Auto) 84.6 % Lymphocytes (%) (Auto) 4.5 % Monocytes (%) (Auto) 10.3 % Eosinophils (%) (Auto) 0.0 % Basophils (%) (Auto) 0.1 % Neutrophils # (Auto) 8.64 1.4-6.5 K/uL Lymphocytes # (Auto) 0.46 1.2-3.4 K/uL Monocytes # (Auto) 1.05 0.11-0.59 K/uL Eosinophils # (Auto) 0.00 0-0.5 K/uL Basophils # (Auto) 0.01 0-0.2 K/uL RDW Standard Deviation 60.1 36.4-46.3 fL RDW Coefficient of Variation 21.3 11.5-14.5 % Immature Granulocyte % (Auto) 0.5 % Immature Granulocyte # (Auto) 0.05 0.00-0.02 K/uL Nucleated RBC Absolute Count (auto) 0.32 0-0 K/uL Nucleated Red Blood Cells % 3.1 % Polychromasia 1+ Hypochromasia PRESENT Ovalocytes 1+ Sodium Level 142 136-145 mmol/L Potassium Level 4.4 3.5-5.1 mmol/L Chloride Level 108 98-107 mmol/L Carbon Dioxide Level 28 21-32 mmol/L Anion Gap 6.0 3-11 mmol/L Blood Urea Nitrogen 41 7-18 mg/dl Creatinine 1.60 0.60-1.40 mg/dl Est Creatinine Clear Calc Drug Dose 44.5 ml/min Estimated GFR () 46.8 Estimated GFR (Non- 40.4 BUN/Creatinine Ratio 25.4 10-20 Random Glucose 100 70-99 mg/dl Calcium Level 8.7 8.5-10.1 mg/dl
[2017-07-27 08:42] LABS: HEMATOCRIT 30.1 % (42-52)
[2017-07-27] MEDS: AMIODARONE 200 MG TAB PO SCH (08:52)
[2017-07-27] MEDS: SILDENAFIL CITRATE 20 MG TAB PO SCH (08:52)
[2017-07-27] MEDS: PANTOprazole SOD 40 MG TAB PO SCH (08:52)
[2017-07-27] MEDS: GUAIFENESIN 600 MG TABCR PO SCH (08:52)
[2017-07-27] MEDS: DOCUSATE SODIUM 100 MG CAP PO SCH (08:53)
[2017-07-27] MEDS: GABAPENTIN 100 MG CAP PO SCH (08:53)
[2017-07-27 11:29] VITALS: O2SAT 96
--- NOTE | 2017-07-27 12:07 | Progress Note ---
Internal Med Progress Note Date of Service: Jul 27, 2017. Provider Documentation: SUBJECTIVE: The patient was seen and examined Feels much better No more hallucinations Has had Bright red Blood Per rectum yeaterday Hb did not drop and bleeding stopped OBJECTIVE: Vital Signs-as noted below Exam: General-Moderate SOB at rest Patient denies it and no change compared with before Eyes-normal ENT-normal Neck-supple Lungs-Decreased breath sound bilaterally Heart-Regular, 2/6 ESM AA Abdomen-Benign,Distended,soft,no masses,bowel sound present Extremities-Chronic skin changes With exfoliation of skin No cellulitis Neuro-AA Pleasantly confused Lab data as noted below. 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 -EF 30%.Hold Demedex in setting of JAVY. -Sodium restrict. Support with oxygen, daily weights, salt restrict. Improved clinically and on labwork. -Cardiology consulted-appreciate input -Diuretic dose will be reduced on discharge -No increasing swelling of the legs Encephalopathy-resolved -scheduled Tylenol and Ultram. CPAP was not used the previous night Has baseline confusion Hypoxia -resolved and off oxygen for the past 48 hours. Complicated by Biventricular failure Bronchitis,Improved on Augmentin JAVY on CKD III-holding Demedex and Losartan. Kidney function is improving Diuretic dose will be reduced on discharge Renal function is normalized Orthostatic hypotension- Multiple factors involved-Dehydration,acute blood loss and possible infection To rehab for ambulatory dysfunction when medically stable. Rheumatoid Arthritis flare-on prednisone taper. Ultram and Tylenol changed to PRN with intermittent encephalopathy. Cont hydroxychloroquine CAD s/p CABG-cont medical management. h/o intolerance to beta shana No acute symptoms Cirrhosis-likely 2/2 NAFLD- Discussed with GI and will send to them as outpatient Pulmonary HTN-cont Revatio. AFib-s/p Pacemaker with normal interrogation on admission. Cont Amiodarone and Digoxin. No more Coumadin HTN-stable, hold losartan in setting of JAVY DMII -cont ISS/Lantus with carb coverage. Chronic LLE wound infection -POA. Resolved, Invanz stopped. Cont PICC access while hospitalized. Hypothyroidism-cont Levothyroxine DEPRESSION: Continue sertraline More confused and having frequent hallucinations Will ask for Psychiatric evaluation No Medications advised CODE STATUS: DNR DVT PROPHYLAXIS: SCD's due to epistaxis/ anemia DISPOSITION: cont hospitalization. Plan for rehab when medically stable. Discussed with the Daughter and the grand daughter Will discharge today Discussed with the Daughter Vital Signs: Date Time Temp Pulse Resp B/P (MAP) Pulse Ox O2 Delivery O2 Flow Rate FiO2 07/27/17 11:29 96 Room Air 2.0 95 07/27/17 07:53 78 18 96 Room Air 07/27/17 07:28 36.5 73 22 135/73 (93) 97 Room Air 07/27/17 01:20 79 18 95 BiPAP/CPAP 07/27/17 00:00 Room Air 07/26/17 23:01 36.5 84 22 120/70 (87) 94 Room Air 89 161/82 (108) 86 153/77 (102) 07/26/17 19:49 80 20 94 Room Air 07/26/17 16:53 80 07/26/17 16:00 Room Air 07/26/17 15:47 36.3 83 22 136/72 (93) 96 Room Air 150/79 (102) 152/75 (100) 07/26/17 14:35 74 16 94 Room Air Lab Results: Results Past 24 Hours Test 07/26/17 12:41 07/26/17 16:32 07/26/17 20:15 07/27/17 02:39 Range/Units Hemoglobin 9.0 8.5 14.0-18.0 g/dL Hematocrit 32.5 28.8 42-52 % Bedside Glucose 130 219 70-99 mg/dl White Blood Count 10.21 4.8-10.8 K/uL Red Blood Count 3.73 4.7-6.1 M/uL Mean Corpuscular Volume 77.2 80-100 fL Mean Corpuscular Hemoglobin 22.8 25-34 pg Mean Corpuscular Hemoglobin Concent 29.5 32-36 g/dl Platelet Count 164 130-400 K/uL Mean Platelet Volume 10.7 7.4-10.4 fL Neutrophils (%) (Auto) 84.6 % Lymphocytes (%) (Auto) 4.5 % Monocytes (%) (Auto) 10.3 % Eosinophils (%) (Auto) 0.0 % Basophils (%) (Auto) 0.1 % Neutrophils # (Auto) 8.64 1.4-6.5 K/uL Lymphocytes # (Auto) 0.46 1.2-3.4 K/uL Monocytes # (Auto) 1.05 0.11-0.59 K/uL Eosinophils # (Auto) 0.00 0-0.5 K/uL Basophils # (Auto) 0.01 0-0.2 K/uL RDW Standard Deviation 60.1 36.4-46.3 fL RDW Coefficient of Variation 21.3 11.5-14.5 % Immature Granulocyte % (Auto) 0.5 % Immature Granulocyte # (Auto) 0.05 0.00-0.02 K/uL Nucleated RBC Absolute Count (auto) 0.32 0-0 K/uL Nucleated Red Blood Cells % 3.1 % Polychromasia 1+ Hypochromasia PRESENT Ovalocytes 1+ Sodium Level 142 136-145 mmol/L Potassium Level 4.4 3.5-5.1 mmol/L Chloride Level 108 98-107 mmol/L Carbon Dioxide Level 28 21-32 mmol/L Anion Gap 6.0 3-11 mmol/L Blood Urea Nitrogen 41 7-18 mg/dl Creatinine 1.60 0.60-1.40 mg/dl Est Creatinine Clear Calc Drug Dose 44.5 ml/min Estimated GFR () 46.8 Estimated GFR (Non- 40.4 BUN/Creatinine Ratio 25.4 10-20 Random Glucose 100 70-99 mg/dl Calcium Level 8.7 8.5-10.1 mg/dl Test 07/27/17 07:54 07/27/17 08:01 Range/Units Bedside Glucose 83 70-99 mg/dl Hemoglobin 8.6 14.0-18.0 g/dL Hematocrit 30.1 42-52 % Microbiology Results 07/27/17 C.difficile Toxin B Gene (PCR), Received Pending
[2017-07-27 13:29] VITALS: BP 135/73; PULSE 78; TEMP 36.5; O2SAT 96
--- NOTE | 2017-07-28 08:41 | Discharge Summary ---
Discharge Summary Date of Service Jul 28, 2017. Discharge Summary Admission Date: Jul 17, 2017 at 19:13 Discharge Date: Jul 27, 2017 Discharge Disposition: Personal care Principal Diagnosis: Epistaxis,Acute Blood loss Anemia,Chronic Biventricular failure Secondary Diagnoses/Problems: Please see H&P and Hospital progress note Consultations: Cards, Pulmonary,Psychiatry,ID,Ortho and ENT Medication Reconciliation Changed Medications: Torsemide (Demadex) 20 Mg Tab 10 MG PO DAILY for 30 Days, #30 TAB (Changed from: 20 MG) Continued Medications: Acetaminophen (Tylenol) 325 Mg Tab 650 MG PO Q4H PRN for Mild Pain, TAB NEEDED FOR MILD PAIN RATED 1-3 ON A SCALE OF "0-10" Amiodarone Hcl (Cordarone) 200 Mg Tab 200 MG PO DAILY, TAB Aspirin (Aspirin 81) 81 Mg Tab 81 MG PO QAM Budesonide (Pulmicort Respules 0.25MG/2ML) 0.25 Mg/2 Ml Nebu 2 ML INH BID, EA Calcitriol (Calcitriol) 0.25 Mcg Cap 0.25 MCG PO 3XWK TAKE THIS MEDICATION EVERY MONDAY,MONDAY AND MONDAY. Cholecalciferol (Vitamin D 1000 Unit) 1,000 Unit Cap 2000 INTER.UNIT PO HS, CAP Digoxin (Digoxin) 0.125 Mg Tab 0.125 MG PO Q2D Docusate Sodium (Colace) 100 Mg Cap 100 MG PO DAILY Gabapentin (Gabapentin) 100 Mg Cap 200 MG PO BID Hydroxychloroquine Sulfate (Hydroxychloroquine Sulfat) 200 Mg Tab 400 MG PO HS Insulin Isophane (Human) (Humulin N Kwikpen) 100 Unit/Ml Inj 12 UNITS SC BID Ipratropium [place] (Atrovent 0.02% Soln) 2.5 Ml Nebu 2.5 ML NEB TID PRN for SOB/Wheezing, #1 Levalbuterol (Levalbuterol HCl) 1.25 Mg/3 Ml Nebu 3 ML NEB TID PRN for SOB/Wheezing, #1 Levothyroxine Sodium (Levothyroxine Sodium) 112 Mcg Tab 112 MCG PO DAILY Losartan Potassium (Losartan Potassium) 25 Mg Tab 12.5 MG PO DAILY Magnesium Oxide (Magnesium Oxide) 400 Mg Cap 400 MG PO HS Pantoprazole (Pantoprazole Sodium) 40 Mg Tab 40 MG PO DAILY Polyethylene Glycol 3350 (Miralax) 1 Pow Pow 1 PKT PO DAILY, GM Prednisone (Prednisone) 5 Mg Tab 5 MG PO DAILY Saline (Dane Nasal [place]) 0.65 % Spr 2 SPRAYS NATALIO UD PRN for Nasal Dryness/Congestion Sertraline HCl (Sertraline HCl) 25 Mg Tab 25 MG PO HS TAKE ONE 25 MG TABLET ALONG WITH ONE 100 MG TABLET TO EQUAL BEDTIME DOSE OF 125 MG Sertraline HCl (Sertraline HCl) 100 Mg Tab 100 MG PO HS TAKE ONE 100 MG TABLET ALONG WITH ONE 25 MG TABLET TO EQUAL BEDTIME DOSE OF 125 MG Sildenafil Citrate (Pulmonary (Sildenafil Citrate) 20 Mg Tab 20 MG PO BID Simvastatin (Simvastatin) 10 Mg Tab 10 MG PO HS Tramadol HCl (Tramadol HCl) 50 Mg Tab 50 MG PO Q12 PRN for Pain Trazodone Hcl (Desyrel) 50 Mg Tab 25-50 MG PO HS Discontinued Medications: Warfarin Sodium (Warfarin Sodium) 2.5 Mg Tab 2.5 MG PO 2XWK TAKE 2.5 MG EVERY MONDAY AND MONDAY OR OTHERWISE DIRECTED TO TAKE BY ANTICOAGULATION CLINIC/MD Warfarin Sodium (Warfarin Sodium) 5 Mg Tab 5 MG PO 5XWK TAKE 5 MG EVERY MONDAY,MONDAY,MONDAY,MONDAY AND MONDAY OR OTHERWISE DIRECTED TO TAKE BY ANTICOAGULATION CLINIC/MD Admission Information HPI (per Admitting provider): Patient is a 77 yo male who was brought the ER today for complaints of fall and severe epistaxis that ensued right after. The patient states he was on his tractor cutting grass earlier today when it ran out of gas, he parked it and began walking up a ramp into his apartment when he had a slight feeling of dizziness so he went to reach for the hand rail on the ramp and missed, and ended up falling on his right side across the ramp, his abdomen was against the edge of the ramp and half his body was in the flower bed next to the ramp. His daughter lives in the same building and another daughter right next door; they attempted to hold pressure but the bleeding did not stop so they came to the ER. The patient was bleeding from his nose close to 90 minutes before he came to the ER and had rocket packing placed. He denies feeling any bleeding in his posterior pharynx any longer. States he did not feel any difficulty breathing until after the epistaxis occurred. He denied any CP or additional dizziness/ lightheadedness. He denies any symptoms of palpitations, DIETRICH, N/V/D, melena, hematochezia, urinary symptoms, or fever/chills. He states he has a slight headache now after the fall but otherwise has no complaints. He reports having some difficulty breathing since the fall as well which he relates to feeling irritation/mucus and probably blood in his airway that he can't seem to expectorate. Past Medical/Surgical History Medical Problems: (1) Anticoagulated on warfarin Status: Chronic (2) Aortic stenosis Permanent Comment: moderate on echo 03/17/2016 Status: Chronic (3) Atrial fibrillation Status: Chronic (4) Benign hypertension Status: Chronic (5) Chronic systolic heart failure Permanent Comment: LV EF 45-49% by echo 03/17/2016 Status: Chronic (6) CKD (chronic kidney disease) stage 3, GFR 30-59 ml/min Permanent Comment: baseline creatinine 1.5 12/30/13 Status: Chronic (7) Coronary artery disease Status: Chronic (8) Depression Status: Chronic (9) Diabetes mellitus type 2 Status: Chronic (10) Diabetic peripheral neuropathy Status: Chronic (11) History of acute renal failure Permanent Comment: required hemodialysis 2012 after CABG Status: Chronic (12) History of MRSA infection of lungs Status: Chronic (13) Hyperlipidemia Status: Chronic (14) Hypothyroidism Status: Chronic (15) Mild obstructive sleep apnea Status: Chronic (16) Pulmonary hypertension Status: Chronic (17) Rheumatoid arthritis Status: Chronic (18) Secondary pulmonary hypertension Status: Chronic Surgical Problems: (1) Status post A-V fisutla LUE Status: Chronic (2) Status post coronary artery bypass grafting Permanent Comment: 06[place]12 [facility] [place] CABG x 3 PERSAUD - LAD, SVG - PL, SVG - PDA Status: Chronic (3) Status post Maze operation for atrial fibrillation Permanent Comment: 06/01/12 [facility] [place] [place] Status: Chronic (4)Pacemaker placement (5) Status post tracheostomy Permanent Comment: after CABG 2011 Status: Chronic Family History FH: COPD (chronic obstructive pulmonary disease) FATHER SISTER SISTER FH: coronary artery disease MOTHER FH: diabetes mellitus SISTER FH: heart disease BROTHER BROTHER BROTHER SISTER Social History Smoking Status: Never Smoker Drug Use: none Marital Status: Housing status: lives with family Occupational Status: retired Immunizations History of Influenza Vaccine: Yes Influenza Vaccine Date: Aug 08, 2013 History of Tetanus Vaccine?: Yes Tetanus Immunization Date: Jun 09, 2012 History of Pneumococcal: Yes Pneumococcal Date: Oct 08, 2012 History of Hepatitis B Vaccine: No Multi-Drug Resistant Organisms History of MDRO: Yes Type of MDRO: MRSA, CRE Allergies Coded Allergies: Lisinopril (Unverified Allergy, Unknown, dizzy, 07/11/17) Home Medications Scheduled Amiodarone Hcl (Cordarone), 200 MG PO DAILY Aspirin (Aspirin 81), 81 MG PO QAM Budesonide (Pulmicort Respules 0.25MG/2ML), 2 ML INH BID Calcitriol (Calcitriol), 0.25 MCG PO 3XWK Cholecalciferol (Vitamin D 1000 Unit), 2,000 INTER.UNIT PO HS Digoxin (Digoxin), 0.125 MG PO Q2D Docusate Sodium (Colace), 100 MG PO DAILY Gabapentin (Gabapentin), 200 MG PO BID Hydroxychloroquine Sulfate (Hydroxychloroquine Sulfat), 400 MG PO HS Insulin Isophane (Human) (Humulin N Kwikpen), 12 UNITS SC BID Levothyroxine Sodium (Levothyroxine Sodium), 112 MCG PO DAILY Losartan Potassium (Losartan Potassium), 12.5 MG PO DAILY Magnesium Oxide (Magnesium Oxide), 400 MG PO HS Pantoprazole (Pantoprazole Sodium), 40 MG PO DAILY Polyethylene Glycol 3350 (Miralax), 1 PKT PO DAILY Prednisone (Prednisone), 5 MG PO DAILY Sertraline HCl (Sertraline HCl), 25 MG PO HS Sertraline HCl (Sertraline HCl), 100 MG PO HS Sildenafil Citrate (Pulmonary (Sildenafil Citrate), 20 MG PO BID Simvastatin (Simvastatin), 10 MG PO HS Torsemide (Demadex), 20 MG PO DAILY Trazodone Hcl (Desyrel), 25-50 MG PO HS Warfarin Sodium (Warfarin Sodium), 2.5 MG PO 2XWK Warfarin Sodium (Warfarin Sodium), 5 MG PO 5XWK Scheduled PRN Acetaminophen (Tylenol), 650 MG PO Q4H PRN for Mild Pain Ipratropium [place] (Atrovent 0.02% Soln), 2.5 ML NEB TID PRN for SOB/Wheezing Levalbuterol (Levalbuterol HCl), 3 ML NEB TID PRN for SOB/Wheezing Saline (Dane Nasal [place]), 2 SPRAYS NATALIO UD PRN for Nasal Dryness/Congestion Tramadol HCl (Tramadol HCl), 50 MG PO Q12 PRN for Pain Review of Systems 10 systems reviewed; pertinent positives are in the HPI, all other reviewed systems negative Physical Exam Vital Signs Date Time Temp Pulse Resp B/P (MAP) Pulse Ox O2 Delivery O2 Flow Rate FiO2 07/17/17 20:53 36.4 70 18 120/66 99 07/17/17 19:39 36.0 70 20 134/71 100 5.0 07/17/17 19:11 36.2 70 21 120/69 100 Partial Rebreather 5.0 Mask 07/17/17 19:10 36.7 70 21 120/69 100 5.0 07/17/17 18:48 70 20 121/70 99 Oxymask 5.0 07/17/17 18:45 36.3 70 20 125/69 99 5.0 07/17/17 18:34 36.5 70 18 138/72 99 5.0 07/17/17 18:27 36.6 70 18 114/63 98 5.0 07/17/17 18:16 36.6 70 22 119/67 94 0.0 07/17/17 18:10 99 Oxymask 5.0 07/17/17 18:09 36.7 70 22 119/67 100 11.0 07/17/17 17:46 70 20 107/53 100 Non-Rebreather 11.0 07/17/17 17:04 70 15 107/53 99 Partial Rebreather 11.0 07/17/17 16:54 70 07/17/17 15:18 71 20 102/57 87 Room Air General Appearance: WD/WN, no apparent distress Head: normocephalic, + evidence of trama Eyes: PERRL, EOMI, sclerae normal ENT: hearing grossly normal, + nasal drainage (bilateral rhinorockets with dried blood surrounding the packs), + trismus Neck: supple, no JVD, no carotid bruits, trachea midline Respiratory/Chest: chest non-tender, no respiratory distress, no accessory muscle use, + decreased breath sounds Cardiovascular: regular rate, rhythm, no edema, no gallop, + systolic murmur, + abnormal peripheral pulses (LE distal pulses not palpable) Abdomen/GI: normal bowel sounds, non tender, soft, no organomegaly Back: normal inspection, no CVA tenderness Extremities/Musculoskelatal: no calf tenderness, normal capillary refill, no pedal edema, non-tender Neurologic/Psych: no motor/sensory deficits, alert, normal mood/affect, oriented x 3 Skin: warm/dry, no rash, + pallor Diagnostics Laboratory Results Results Past 24 Hours Test 07/17/17 16:23 07/17/17 16:32 Range/Units White Blood Count 8.99 4.8-10.8 K/uL Red Blood Count 3.29 4.7-6.1 M/uL Hemoglobin 6.8 14.0-18.0 g/dL Hematocrit 25.2 42-52 % Mean Corpuscular Volume 76.6 80-100 fL Mean Corpuscular Hemoglobin 20.7 25-34 pg Mean Corpuscular Hemoglobin Concent 27.0 32-36 g/dl Platelet Count 141 130-400 K/uL Neutrophils (%) (Auto) 81.6 % Lymphocytes (%) (Auto) 8.7 % Monocytes (%) (Auto) 8.3 % Eosinophils (%) (Auto) 0.7 % Basophils (%) (Auto) 0.3 % Neutrophils # (Auto) 7.33 1.4-6.5 K/uL Lymphocytes # (Auto) 0.78 1.2-3.4 K/uL Monocytes # (Auto) 0.75 0.11-0.59 K/uL Eosinophils # (Auto) 0.06 0-0.5 K/uL Basophils # (Auto) 0.03 0-0.2 K/uL RDW Standard Deviation 56.8 36.4-46.3 fL RDW Coefficient of Variation 20.5 11.5-14.5 % Immature Granulocyte % (Auto) 0.4 % Immature Granulocyte # (Auto) 0.04 0.00-0.02 K/uL Nucleated RBC Absolute Count (auto) 0.07 0-0 K/uL Nucleated Red Blood Cells % 0.8 % Platelet Estimate NORMAL Polychromasia 1+ Hypochromasia PRESENT Anisocytosis PRESENT Microcytosis PRESENT Ovalocytes 1+ Schistocytes OCCASIONAL Prothrombin Time 34.2 9.0-12.0 SECONDS Prothromb Time International Ratio 3.1 0.9-1.1 Activated Partial Thromboplast Time 37.8 21.0-31.0 SECONDS Partial Thromboplastin Ratio 1.5 Venous Blood pH 7.38 7.36-7.41 Venous Blood Partial Pressure CO2 46 38.0-50.0 mmHg Venous Blood Partial Pressure O2 78 mmHg Venous Blood HCO3 26 mmol/L Venous Blood Oxygen Saturation 92.5 % Venous Blood Base Excess 1.0 mEq/L Sodium Level 141 136-145 mmol/L Potassium Level 4.2 3.5-5.1 mmol/L Chloride Level 106 98-107 mmol/L Carbon Dioxide Level 28 21-32 mmol/L Anion Gap 7.0 3-11 mmol/L Blood Urea Nitrogen 47 7-18 mg/dl Creatinine 1.70 0.60-1.40 mg/dl Est Creatinine Clear Calc Drug Dose 38.7 ml/min Estimated GFR () 43.5 Estimated GFR (Non- 37.5 BUN/Creatinine Ratio 27.7 10-20 Random Glucose 103 70-99 mg/dl Calcium Level 8.5 8.5-10.1 mg/dl Magnesium Level 2.5 1.8-2.4 mg/dl Total Bilirubin 0.5 0.2-1 mg/dl Direct Bilirubin 0.3 0-0.2 mg/dl Aspartate Amino Transf (AST/SGOT) 20 15-37 U/L Alanine Aminotransferase (ALT/SGPT) 18 12-78 U/L Alkaline Phosphatase 109 45-117 U/L Troponin I 0.038 0-0.045 ng/ml Pro-B-Type Natriuretic Peptide 1743 0-1800 pg/ml Total Protein 6.6 6.4-8.2 gm/dl Albumin 3.0 3.4-5.0 gm/dl Bedside Lactic Acid Venous 1.31 0.90-1.70 mmol/L Impression Assessment and Plan ACUTE BLOOD LOSS ANEMIA FROM EPISTAXIS: -has nasal packing placed in the ER which have tamponaded the epistaxis -recheck CBC in AM -receiving transfusion with 2 unit PRBCs -baseline Hb in 9's FALL: -due to dizziness and inability to grab onto the hand rail while the patient was walking up a ramp -monitor in tele -pacemaker interrogation (recently placed) -obtain serial CM -check orthostatics HYPOXIA: -likely secondary to pneumonitis as per CT chest -no PE -questionable aspiration during the epistaxis -will continue clindamycin to cover for open nasal bone fracture as well as possibility of aspiration CHRONIC SYSTOLIC CHF: -CXR negative -last TTE EF 30-34% -daily weights -monitor intake and output -not in exacerbation at this time -continue fluid restriction CKD STAGE III: -recent baseline creatinine of 1.6-1.7; at baseline presently -has had prior history of chf exacerbation and cardiorenal syndrome -monitor fluid status and renal function closely ATRIAL FIBRILLATION: -was on warfarin, INR supratherapeutic; Dr. Montero spoke with Cardiology and were ok with reversing INR; hold coumadin until epistaxis and Hb stable -s/p pacemaker -s/p maze (in 2011) -continued on amiodarone and digoxin; check dig level HTN: -stable -continue losartan -monitor and titrate PULMONARY HTN: -continue revatio CHRONIC THROMBOCYTOPENIA: -platelet count stable -monitor DM TYPE II: -last HbA1c -at home on insulin isophane; will hold and use lantus + SSI CHRONIC LLE WOUND INFECTION: -on invanz for 4 more days -has a PICC line -follows with ID and wound care clinic CAD: -prior history of CABG -continue aspirin and statin -not on BB due to intolerance/bradycardia HYPOTHYROIDISM: -continue levothyroxine CECILIA: -cpap qHS RA: -continue hydroxychloroquine and prednisone DEPRESSION: -continue sertraline and trazodone VTE Prophylaxis VTE Risk Assessment Done? Y/N: Yes Risk Level: Moderate <Electronically signed by Heike Loco D.O.> Signed: 07/18/17 1110 Physical Exam (per Admitting): General Appearance: WD/WN, no apparent distress Head: normocephalic, + evidence of trama Eyes: PERRL, EOMI, sclerae normal ENT: hearing grossly normal, + nasal drainage (bilateral rhinorockets with dried blood surrounding the packs), + trismus Neck: supple, no JVD, no carotid bruits, trachea midline Respiratory/Chest: chest non-tender, no respiratory distress, no accessory muscle use, + decreased breath sounds Cardiovascular: regular rate, rhythm, no edema, no gallop, + systolic murmur , + abnormal peripheral pulses (LE distal pulses not palpable) Abdomen/GI: normal bowel sounds, non tender, soft, no organomegaly Back: normal inspection, no CVA tenderness Extremities/Musculoskelatal: no calf tenderness, normal capillary refill, no pedal edema, non-tender Neurologic/Psych: no motor/sensory deficits, alert, normal mood/affect, oriented x 3 Skin: warm/dry, no rash, + pallor Hospital Course ACUTE BLOOD LOSS ANEMIA FROM EPISTAXIS S/P Fall : -Nasal packing placed in the ER which have tamponaded the epistaxis -Required 3 units of PRBC -ENT was consulted and appreciate the input -Bleeding resolved and Hb maintained -Ready to be discharged Bright red blood per rectum Happened for a few times yesterday No drop in Hb and stopped Likely due to Hemorrhoids Stool checked for C Diff Acute on chronic biventricular heart failure. -EF 30%.Hold Demedex in setting of JAVY. -Sodium restrict. Support with oxygen, daily weights, salt restrict. Improved clinically and on labwork. -Cardiology consulted-appreciate input -Diuretic dose will be reduced on discharge -No increasing swelling of the legs Encephalopathy-resolved -scheduled Tylenol and Ultram. CPAP was not used the previous night Has baseline confusion Hypoxia -resolved and off oxygen for the past 48 hours. Complicated by Biventricular failure Bronchitis,Improved on Augmentin JAVY on CKD III-holding Demedex and Losartan. Kidney function is improving Diuretic dose will be reduced on discharge Renal function is normalized Orthostatic hypotension- Multiple factors involved-Dehydration,acute blood loss and possible infection To rehab for ambulatory dysfunction when medically stable. Rheumatoid Arthritis flare-on prednisone taper. Ultram and Tylenol changed to PRN with intermittent encephalopathy. Cont hydroxychloroquine CAD s/p CABG-cont medical management. h/o intolerance to beta shana No acute symptoms Cirrhosis-likely 2/2 NAFLD- Discussed with GI and will send to them as outpatient Pulmonary HTN-cont Revatio. AFib-s/p Pacemaker with normal interrogation on admission. Cont Amiodarone and Digoxin. No more Coumadin HTN-stable, hold losartan in setting of JAVY DMII -cont ISS/Lantus with carb coverage. Chronic LLE wound infection -POA. Resolved, Invanz stopped. Cont PICC access while hospitalized. Hypothyroidism-cont Levothyroxine DEPRESSION: Continue sertraline More confused and having frequent hallucinations Will ask for Psychiatric evaluation No Medications advised CODE STATUS: DNR DVT PROPHYLAXIS: SCD's due to epistaxis/ anemia DISPOSITION: cont hospitalization. Plan for rehab when medically stable. Discussed with the Daughter and the grand daughter Will discharge today Discussed with the Daughter Total time spent on discharge = 35 minutes This includes examination of the patient, discharge planning, medication reconciliation, and communication with other providers. Discharge Instructions Date of Service Jul 26, 2017. Admission Reason for Admission: Fall, Severe Epistaxis Discharge Discharge Diagnosis / Problem: Epistaxis,Acute Blood loss Anemia,Chronic Biventricular failure Discharge Goals Goal(s): Prevent Disease Progression Activity Recommendations Activity Limitations: resume your previous activity . Instructions / Follow-Up Instructions / Follow-Up Dr Valerio on 07/31/17 at 12:45 PM Current Hospital Diet Patient's current hospital diet: Diabetes Type 2 Diet, Low Sodium Diet (2gm Na) Discharge Diet Recommended Diet: Low Sodium Diet (2gm Na), Diabetes Type 2 Diet Fluid Restriction: 1500 ml (6 cups) Pending Studies Studies pending at discharge: no Laboratory Results Hemoglobin A1c Test 06/29/17 05:40 Range/Units Estimated Average Glucose 166 mg/dl Hemoglobin A1c 7.4 H 4.5-5.6 % Medical Emergencies . Who to Call and When: Medical Emergencies: If at any time you feel your situation is an emergency, please call 911 immediately. . Non-Emergent Contact Non-Emergency issues call your: Primary Care Provider . Past History Medical & Surgical History: (1) CHF (congestive heart failure) (2) Diabetic peripheral neuropathy associated with type 2 diabetes mellitus (3) Fall (4) Acute post-hemorrhagic anemia (5) Warfarin-induced coagulopathy (6) Severe epistaxis (7) Atrial fibrillation (8) Benign hypertension (9) Coronary artery disease (10) Diabetes mellitus type 2 (11) Hyperlipidemia (12) Hypothyroidism (13) CKD (chronic kidney disease) stage 3, GFR 30-59 ml/min (14) Depression (15) Status post coronary artery bypass grafting (16) Status post Maze operation for atrial fibrillation (17) Status post tracheostomy (18) Status post A-V fisutla LUE (19) Aortic stenosis . "Provider Documentation" section prepared by Ester Carrion. . VTE Core Measure Inpt VTE Proph given/why not?: SCD's <Electronically signed by Ester Carrion M.D.> Additional Copies To Bryan Valerio MD
== END 2017-07-27 14:20 | DRG 150 ==
LOC: C.EDB 15:17 → C.2T 19:13 → ENRESERV 19:18 → C.4E 07-19 13:06 → ENRESERV 07-19 20:39 → C.2T 07-19 21:28 → ENRESERV 07-21 18:32 → C.MS4W 07-21 19:12
PROVIDERS: ADMIT Internal Medicine; ATTEND Internal Medicine
DX: R04.0 Epistaxis (principal); J69.0 Pneumonitis due to inhalation of food and vomit; D62 Acute posthemorrhagic anemia; N17.9 Acute kidney failure, unspecified; I50.22 Chronic systolic (congestive) heart failure; I48.91 Unspecified atrial fibrillation; N18.3 Chronic kidney disease, stage 3 (moderate); F32.9 Major depressive disorder, single episode, unspecified; M06.9 Rheumatoid arthritis, unspecified; I25.10 Atherosclerotic heart disease of native coronary artery without angina pectoris; E78.5 Hyperlipidemia, unspecified; Z79.4 Long term (current) use of insulin; Z93.0 Tracheostomy status; Z79.01 Long term (current) use of anticoagulants; Z83.6 Family history of other diseases of the respiratory system; Z83.3 Family history of diabetes mellitus; Z82.49 Family history of ischemic heart disease and other diseases of the circulatory system; W19.XXXA Unspecified fall, initial encounter; L97.929 Non-pressure chronic ulcer of unspecified part of left lower leg with unspecified severity; L03.116 Cellulitis of left lower limb; B96.1 Klebsiella pneumoniae [K. pneumoniae] as the cause of diseases classified elsewhere; I48.92 Unspecified atrial flutter; I13.0 Hypertensive heart and chronic kidney disease with heart failure and stage 1 through stage 4 chronic kidney disease, or unspecified chronic kidney disease; E03.9 Hypothyroidism, unspecified; I27.2 Other secondary pulmonary hypertension; G47.33 Obstructive sleep apnea (adult) (pediatric); I44.7 Left bundle-branch block, unspecified; E11.40 Type 2 diabetes mellitus with diabetic neuropathy, unspecified; Z95.1 Presence of aortocoronary bypass graft; Z79.899 Other long term (current) drug therapy; Z79.82 Long term (current) use of aspirin; Z95.0 Presence of cardiac pacemaker

== ENCOUNTER 2017-08-24 12:38 | Inpatient (IN) | payer OTHER ==
[~2017-08-24] VITALS: Ht 182.9 cm; Wt 94.2 kg
[~2017-08-24 12:38] MED LIST changes: +ACET-1311 PO; +AMIO200T4 PO; +CALC1CAP36 PO; +CHOL100027 PO; -CRD200 PO; -DMD20 PO; +DOCU-94 PO; -DSY50 PO; -GABA-112 PO; -INSHNI SQ; +INSU1INJ23 SC; +LEVO112T4 PO; +MAGN400C2 PO; +NRN100 PO; +PLQ200 PO; +POLY335019 PO; +PRED-301 PO; +PRT/40 PO; +SALI0.6510 NAE; +SERT1TAB88 PO; +SIMV-150 PO; +TORS20TA2 PO; -TRAM-10 PO; +TRAZ1TAB5 PO; +ULT50 PO; +ZLF/100 PO
[2017-08-24] MEDS ORDERED: XPNINS125 INH (13:07)
[2017-08-24] MEDS ORDERED: ATRINSX INH (13:12)
--- NOTE | 2017-08-24 13:37 | DIAGNOSTIC IMAGING REPORT ---
SINGLE VIEW CHEST CLINICAL HISTORY: Dyspnea. FINDINGS: An AP, portable, upright chest radiograph is compared to study dated 07/22/2017. Correlation is made with chest CT dated 07/17/2017. The examination is significantly degraded by portable technique and patient rotation. A cardiac pacemaker is unchanged in position and partially obscures the left upper chest. The patient is status post midline sternotomy. The heart is enlarged and there is atherosclerotic calcification of the thoracic aorta. There is pulmonary vascular congestion with mild interstitial edema. Findings suggest emphysema. No airspace consolidation is identified. Small pleural effusions are noted and there are bibasilar opacities. No pneumothorax is seen. The skeletal structures are osteopenic. The bony thorax is grossly intact. IMPRESSION: 1. Cardiomegaly and cardiac pacemaker with evidence of congestive failure and mild interstitial edema. 2. Small pleural effusions are identified. Bibasilar airspace opacities likely represent atelectasis. Correlate clinically for evidence of superimposed for pneumonia. Electronically signed by: Alhaji Holm M.D. 08/24/2017 1:35 PM Dictated Date/Time: 08/24/2017 1:34 PM
[2017-08-24 14:38] LABS: HEMATOCRIT 29.8 % (42-52); MEAN CELL VOLUME 75.4 fL (80-100); MEAN CORPUSCULAR HEMOGLOBIN 20.8 pg (25-34); MEAN CORPUSCULAR HGB CONC 27.5 g/dl (32-36); PLATELET COUNT 114 K/uL (130-400); RED BLOOD COUNT 3.95 M/uL (4.7-6.1); WHITE BLOOD COUNT 8.87 K/uL (4.8-10.8)
[2017-08-24 14:39] LABS: ANISOCYTOSIS PRESENT; BASO % 0.1 %; BASO ABS # 0.01 K/uL (0-0.2); CALCIUM 8.7 mg/dl (8.5-10.1); COMPLETE YES; CREATININE 1.6 mg/dl (0.60-1.40); EOS % 0.6 %; HYPOCHROMIA PRESENT; IG% 0.8 %; LYMPH % 11.5 %; LYMPH ABS # 1.02 K/uL (1.2-3.4); MAGNESIUM 2.1 mg/dl (1.8-2.4); MONO % 9.6 %; NEUT % 77.4 %; PLT ESTIMATE DECREASED; POIKILOCYTOSIS PRESENT
[2017-08-24] MEDS ORDERED: FUROSEMIDE 40 MG/4 ML VIAL IV STA (15:11)
[2017-08-24 16:12] VITALS: Ht 182.9 cm; Wt 94.2 kg
[2017-08-24] MEDS ORDERED: ACETAMINOPHEN 325 MG TAB PO PRN (16:30)
[2017-08-24] MEDS ORDERED: ONDANSETRON INJ 2 MG/ML 2 ML VIAL IV PRN (16:30)
[2017-08-24] MEDS ORDERED: TORS10TA14 PO (16:50)
[2017-08-24] MEDS ORDERED: SODIUM CHLORIDE 0.65% NA SOLN 45 ML (OCEAN) NAE PRN (17:00)
[2017-08-24] MEDS ORDERED: IPRATROPIUM BROMIDE NEB SOLN 0.02% 2.5 ML VIAL INH PRN (17:00)
[2017-08-24] MEDS ORDERED: GLUCOSE 10 TABS/TUBE PO PRN (17:00)
[2017-08-24] MEDS ORDERED: LEVALBUTEROL 1.25MG/3ML NEB INH PRN (17:00)
[2017-08-24] MEDS ORDERED: DEXTROSE 50% 50 ML SYR IV PRN (17:00)
[2017-08-24] MEDS ORDERED: GLUCOSE 40% GEL 15 GM TUBE PO PRN (17:00)
[2017-08-24] MEDS ORDERED: TRAMADOL HCL 50 MG TAB PO PRN (17:00)
[2017-08-24] MEDS ORDERED: GLUCAGON FOR INJ 1 MG VIAL SQ PRN (17:00)
[2017-08-24 17:13] LABS: INR 1.1 (0.9-1.1); PROTHROMBIN TIME (PATIENT) 11.7 SECONDS (9.0-12.0)
[2017-08-24 17:21] LABS: THYROID STIMULATING HORMONE 3.3 uIu/ml (0.300-4.500)
--- NOTE | 2017-08-24 18:13 | History and Physical ---
History & Physical Date & Time of Service: Aug 24, 2017 at 16:43 Chief Complaint: FLUID Primary Care Physician: Bryan Valerio MD History of Present Illness Source: patient, family (daughter at bedside), clinic records, hospital records This is a 77 y/o male with PMH of chronic systolic and diastolic CHF (EF 30-34% on 12/2016 echo), pulmonary HTN, Afib no longer on anticoagulation, s/p pacemaker , CAD s/p CABG, DM type 2, CKD stage III, recently diagnosed cirrhosis likely secondary to NAFLD, hypothyroidism, depression, and other problems listed below who presents to the ED with fluid retention. Patient was recently admitted to [facility] from Jul 17-2016 for acute blood loss anemia from epistaxis requiring 3 units pRBC, acute on chronic CHF, JAVY. Coumadin was discontinued and torsemide was decreased from 20 mg daily to 10 mg daily. Pt was discharged to [facility] on 08/16/17, at which time pt's weight was 208 lb per daughter. At home pt's weight was noted to be 214 lb, then today he is 220 lb on chair scale. Pt was seen by PCP Dr. Valerio 2 days ago at which time torsemide was increased to 20 mg daily through today. Despite the increased diuretic, pt reports increasing abdominal girth and bilateral LE edema with seeping of the RLE. He reports ROSALES while ambulating across a room with his cane which is unusual for him. Has chronic cough with clear sputum unchanged from baseline. Has chronic dizziness when standing. No syncope or falls. Denies dietary indiscretion. Following 1500 mL fluid restriction. Denies fever, chills, rhinorrhea, chest pain, dyspnea at rest, orthopnea, abdominal pain, appetite loss, N/V/D/C, dysuria, frequency, abnormal bleeding. Past Medical/Surgical History Medical Problems: (1) Aortic stenosis Permanent Comment: moderate on echo 12/30/2016 Status: Chronic (2) Atrial fibrillation Status: Chronic (3) Benign hypertension Status: Chronic (4) Chronic diastolic CHF (congestive heart failure) Permanent Comment: grade III diastolic dysfunction on echo 12/2016 Status: Chronic (5) Chronic systolic heart failure Permanent Comment: EF 30-34%by echo 12/30/2016 Status: Chronic (6) CKD (chronic kidney disease) stage 3, GFR 30-59 ml/min Permanent Comment: baseline creatinine 1.5 12/30/13 Status: Chronic (7) Coronary artery disease Status: Chronic (8) Depression Status: Chronic (9) Diabetes mellitus type 2 Status: Chronic (10) Diabetic peripheral neuropathy Status: Chronic (11) History of acute renal failure Permanent Comment: required hemodialysis 2012 after CABG Status: Chronic (12) History of MRSA infection of lungs Status: Chronic (13) Hyperlipidemia Status: Chronic (14) Hypothyroidism Status: Chronic (15) Mild obstructive sleep apnea Status: Chronic (16) Pulmonary hypertension Status: Chronic (17) Rheumatoid arthritis Status: Chronic (18) Secondary pulmonary hypertension Status: Chronic Surgical Problems: (1) Status post A-V fisutla LUE Status: Chronic (2) Status post coronary artery bypass grafting Permanent Comment: 06/01/12 [facility] Dr. Frank CABG x 3 PERSAUD - LAD, SVG - PL, SVG - PDA Status: Chronic (3) Status post Maze operation for atrial fibrillation Permanent Comment: 06/01/12 [facility] Dr. Frank Status: Chronic (4) Status post tracheostomy Permanent Comment: after CABG 2011 Status: Chronic Family History FH: COPD (chronic obstructive pulmonary disease) FATHER SISTER SISTER FH: coronary artery disease MOTHER FH: diabetes mellitus SISTER FH: heart disease BROTHER BROTHER BROTHER SISTER Social History Smoking Status: Never Smoker Drug Use: none Marital Status: Housing status: lives with family Occupational Status: retired Immunizations History of Influenza Vaccine: Yes Influenza Vaccine Date: Aug 08, 2013 History of Tetanus Vaccine?: Yes Tetanus Immunization Date: Jun 09, 2012 History of Pneumococcal: Yes Pneumococcal Date: Oct 08, 2012 History of Hepatitis B Vaccine: No Multi-Drug Resistant Organisms History of MDRO: Yes Type of MDRO: MRSA, CRE Allergies Coded Allergies: Lisinopril (Unverified Allergy, Unknown, dizzy, 08/24/17) Home Medications Scheduled Amiodarone Hcl (Cordarone), 200 MG PO DAILY Aspirin (Aspirin 81), 81 MG PO QAM Budesonide (Pulmicort Respules 0.25MG/2ML), 2 ML INH BID Calcitriol (Calcitriol), 0.25 MCG PO 3XWK Cholecalciferol (Vitamin D 1000 Unit), 2,000 INTER.UNIT PO HS Digoxin (Digoxin), 0.125 MG PO Q2D Docusate Sodium (Colace), 100 MG PO DAILY Gabapentin (Gabapentin), 200 MG PO BID Hydroxychloroquine Sulfate (Hydroxychloroquine Sulfat), 400 MG PO HS Insulin Isophane (Human) (Humulin N Kwikpen), 12 UNITS SC BID Levothyroxine Sodium (Levothyroxine Sodium), 112 MCG PO DAILY Losartan Potassium (Losartan Potassium), 12.5 MG PO DAILY Magnesium Oxide (Magnesium Oxide), 400 MG PO HS Pantoprazole (Pantoprazole Sodium), 40 MG PO DAILY Polyethylene Glycol 3350 (Miralax), 1 PKT PO DAILY Prednisone (Prednisone), 5 MG PO DAILY Sertraline HCl (Sertraline HCl), 25 MG PO HS Sertraline HCl (Sertraline HCl), 100 MG PO HS Sildenafil Citrate (Pulmonary (Sildenafil Citrate), 20 MG PO BID Simvastatin (Simvastatin), 10 MG PO HS Torsemide (Demadex), 20 MG PO UD Trazodone Hcl (Desyrel), 25-50 MG PO HS Scheduled PRN Acetaminophen (Tylenol), 650 MG PO Q4H PRN for Mild Pain Ipratropium [place] (Atrovent 0.02% Soln), 2.5 ML INH TID PRN for SOB/Wheezing Levalbuterol (Levalbuterol HCl), 3 ML INH BID PRN for SOB/Wheezing Saline (Preemption Nasal [place]), 2 SPRAYS NATALIO UD PRN for Nasal Dryness/Congestion Tramadol HCl (Tramadol HCl), 50 MG PO Q12 PRN for Pain Review of Systems Ten systems reviewed and negative except as noted in HPI. Physical Exam Vital Signs Date Time Temp Pulse Resp B/P (MAP) Pulse Ox O2 Delivery O2 Flow Rate FiO2 08/24/17 16:28 71 20 138/83 96 Room Air 08/24/17 16:12 Room Air 08/24/17 15:36 78 20 142/77 99 Room Air 08/24/17 14:19 79 20 122/73 97 Room Air 08/24/17 13:11 79 08/24/17 13:10 79 22 126/70 99 Room Air 08/24/17 12:46 36.6 74 20 101/59 96 Room Air General Appearance: no apparent distress, + pertinent finding (fail appearing elderly male, lying in bed, no distress, daughter at bedside) Head: normocephalic, atraumatic Eyes: normal inspection, PERRL, sclerae normal ENT: hearing grossly normal, pharynx normal Neck: supple, trachea midline, + JVD Respiratory/Chest: no respiratory distress, no accessory muscle use, + decreased breath sounds (bilateral lower lung mora), + pertinent finding (no adventitious sounds auscultated) Cardiovascular: regular rate, rhythm, + systolic murmur (grade III throughout precordium) Abdomen/GI: normal bowel sounds, non tender, soft, + pertinent finding ( increased abdominal girth) Extremities/Musculoskelatal: no calf tenderness, + pertinent finding (3+ pitting edema to above the knee bilaterally) Neurologic/Psych: alert, normal mood/affect, oriented x 3 Skin: normal color, + pertinent finding (areas of clear fluid seeping on right anterior lower leg) Diagnostics Laboratory Results Results Past 24 Hours Test 08/24/17 13:36 Range/Units White Blood Count 8.87 4.8-10.8 K/uL Red Blood Count 3.95 4.7-6.1 M/uL Hemoglobin 8.2 14.0-18.0 g/dL Hematocrit 29.8 42-52 % Mean Corpuscular Volume 75.4 80-100 fL Mean Corpuscular Hemoglobin 20.8 25-34 pg Mean Corpuscular Hemoglobin Concent 27.5 32-36 g/dl Platelet Count 114 130-400 K/uL Neutrophils (%) (Auto) 77.4 % Lymphocytes (%) (Auto) 11.5 % Monocytes (%) (Auto) 9.6 % Eosinophils (%) (Auto) 0.6 % Basophils (%) (Auto) 0.1 % Neutrophils # (Auto) 6.87 1.4-6.5 K/uL Lymphocytes # (Auto) 1.02 1.2-3.4 K/uL Monocytes # (Auto) 0.85 0.11-0.59 K/uL Eosinophils # (Auto) 0.05 0-0.5 K/uL Basophils # (Auto) 0.01 0-0.2 K/uL RDW Standard Deviation 55.5 36.4-46.3 fL RDW Coefficient of Variation 20.4 11.5-14.5 % Immature Granulocyte % (Auto) 0.8 % Immature Granulocyte # (Auto) 0.07 0.00-0.02 K/uL Platelet Estimate DECREASED Hypochromasia PRESENT Poikilocytosis PRESENT Anisocytosis PRESENT Sodium Level 143 136-145 mmol/L Potassium Level 4.0 3.5-5.1 mmol/L Chloride Level 106 98-107 mmol/L Carbon Dioxide Level 27 21-32 mmol/L Anion Gap 10.0 3-11 mmol/L Blood Urea Nitrogen 35 7-18 mg/dl Creatinine 1.60 0.60-1.40 mg/dl Est Creatinine Clear Calc Drug Dose 45.8 ml/min Estimated GFR () 46.8 Estimated GFR (Non- 40.4 BUN/Creatinine Ratio 22.0 10-20 Random Glucose 143 70-99 mg/dl Calcium Level 8.7 8.5-10.1 mg/dl Magnesium Level 2.1 1.8-2.4 mg/dl Troponin I 0.061 0-0.045 ng/ml Pro-B-Type Natriuretic Peptide 2801 0-1800 pg/ml Digoxin Level 0.8 0.8-2.0 ng/ml Diagnostic Radiology SINGLE VIEW CHEST CLINICAL HISTORY: Dyspnea. FINDINGS: An AP, portable, upright chest radiograph is compared to study dated 07/22/2017. Correlation is made with chest CT dated 07/17/2017. The examination is significantly degraded by portable technique and patient rotation. A cardiac pacemaker is unchanged in position and partially obscures the left upper chest. The patient is status post midline sternotomy. The heart is enlarged and there is atherosclerotic calcification of the thoracic aorta. There is pulmonary vascular congestion with mild interstitial edema. Findings suggest emphysema. No airspace consolidation is identified. Small pleural effusions are noted and there are bibasilar opacities. No pneumothorax is seen. The skeletal structures are osteopenic. The bony thorax is grossly intact. IMPRESSION: 1. Cardiomegaly and cardiac pacemaker with evidence of congestive failure and mild interstitial edema. 2. Small pleural effusions are identified. Bibasilar airspace opacities likely represent atelectasis. Correlate clinically for evidence of superimposed for pneumonia. EKG poor data quality, V-paced rhythm, when compared to prior EKG 07/20/17 no significant change was found, as confirmed by cardiology read, also reviewed by me Impression Assessment and Plan VOLUME OVERLOAD secondary to ACUTE ON CHRONIC COMBINED SYSTOLIC & DIASTOLIC CHF with PULMONARY HTN Likely due to recent decrease in torsemide (20 mg daily ->10 mg daily), failed outpatient increase to 20 mg over past 3 days, cirrhosis may also be contributing CXR shows evidence of CHF with mild interstitial edema, small pleural effusions , bibasilar opacities likely atelectasis Pro-BNP 2801, troponin 0.061 IV Lasix 40 mg given in ER Continue with Lasix 40 mg IV daily Trend serial cardiac enzymes Strict I/O's, daily standing weights Fluid restriction 1500 mL and sodium restriction Continue sildenafil for pulmonary HTN Consult cardiology 12/30/2016 echo- The examination is adequate to evaluate the referral indication. The LV wall thickness is mildly increased (concentric). The septal motion is abnormal consistent with right ventricular pressure and volume overload as well as left bundle branch block. The remaining left ventricular wall segments are mildly to moderately hypokinetic. The qualitative LV ejection fraction is 30-34% (moderately reduced). The right ventricular cavity is severely dilated. The right ventricular systolic function is moderately reduced . The left ventricular diastolic function is severely abnormal (grade III). Moderate aortic valve stenosis is present. Mild aortic valve regurgitation is present. Moderate mitral regurgitation is present. Moderate to severe tricuspid regurgitation is present. Intermediate IVC size and collapsability. Right atrial pressure estimated at 8 mmHg. Moderate to severe pulmonary hypertension is present. The estimated pulmonary artery systolic pressure is 54mm Hg. Compared to the prior study dated 09/09/2016, there has been an interval decline in the overall left ventricular and right ventricular systolic function. The severity of the aortic stenosis appears to have progressed to some degree, but is still in the range of moderate. CKD STAGE III Creatinine increased from 1.2 on 08/09 to 1.6 as outpatient on 08/22, remains 1.6 in ER today, baseline varies, mostly mid- 1's Monitor renal function ATRIAL FIBRILLATION S/p pacemaker Rate is controlled Continue amiodarone and digoxin (dig level normal) No longer on anticoagulation- d/c last hospitalization due to severe epistaxis CAD S/P CABG Denies chest pain Hx BB intolerance Continue aspirin, statin CHRONIC ANEMIA Hg 8.2 stable from baseline Monitor CBC HYPERTENSION Stable, continue losartan RESTRICTIVE LUNG DISEASE Continue home nebs DM TYPE 2 Hold Humulin Novolog sliding scale HYPOTHYROIDISM Check TSH Continue levothyroxine RLE SEEPING Consult wound care nurse RHEUMATOID ARTHRITIS Continue prednisone 5 mg daily DEPRESSION Continue sertraline DVT PROPHYLAXIS SCD thigh due to chronic anemia, hx of severe epistaxis, mild thrombocytopenia, with skin breakdown of R lower leg CODE STATUS DNR per preference on recent admission Pt seen in collaboration with Dr. Carrion. Please see his addendum. Attending Addendum: The patient was seen and examined Admitted with SOB , Weight gain and increasing leg Edema with sipping of fluid No Chest pain,palpitation O/E Malnourished with minimal SOD at rest HEENT-unremarkable Chest-decreased breath sound bilaterally Heart-regular Abdomen-benign,mild ascites Extremities-1 + edema bilaterally Left more than right with sipping of fluid from right Labs and imaging studies were reviewed Has decompensated CHF Agree with assessment and plan. Dr Alok Carrion Advanced Directives Existing Living Will: Yes Existing Power of Recruit Instructor: Yes Resuscitation Status DO NOT RESUSCITATE VTE Prophylaxis VTE Risk Assessment Done? Y/N: Yes Risk Level: Moderate Given or contraindicated: SCD's
[2017-08-24 18:22] VITALS: BP 121/66; PULSE 72; TEMP 36.5; O2SAT 93
[2017-08-24 19:25] VITALS: BP 114/65; PULSE 80; TEMP 36.7; O2SAT 98
[2017-08-24] MEDS: BUDESONIDE 0.5 MG/2 ML VIAL (PULMICORT) INH SCH (19:36)
[2017-08-24 19:42] VITALS: PULSE 71; O2SAT 98
[2017-08-24 20:00] VITALS: O2SAT 98
[2017-08-24] MEDS ORDERED: BUDESONIDE 0.25 MG/2 ML VIAL (PULMICORT) INH SCH (20:00)
--- NOTE | 2017-08-24 20:02 | EMERGENCY ROOM VISIT NOTE ---
History Report prepared by Smiley: Anthony Clement Under the Supervision of: Dr. Kal Houston M.D. First contact with patient: 12:55 Chief Complaint: OTHER COMPLAINT Stated Complaint: FLUID History of Present Illness The patient is a 77 year old male who presents to the Emergency Room with complaints of worsening generalized fluid retention beginning last week. He states that he has gained 5-10 pounds in the past eight days. He also complains of shortness of breath, and leg swelling. The patient denies any chest pain, or abdominal pain. He denies any recent falls or trauma. He notes that his abdomen has been leaking some fluid. The patient is on Lasix and recently had his dosage increased a few days ago. He was previously on Warfarin but was taken off of it three weeks ago after an uncontrollable nosebleed s/p fall. Source of History: patient Onset: Last week Position: other (generalized) Quality: other (fluid retention) Timing: worsening Associated Symptoms: + SOB, No chest pain, No abdominal pain Note: Additional symptoms: leg swelling. Review of Systems See HPI for pertinent positives & negatives. A total of 10 systems reviewed and were otherwise negative. Past Medical & Surgical Medical Problems: (1) Aortic stenosis (2) Atrial fibrillation (3) Balance disorder (4) Benign hypertension (5) CHF (congestive heart failure) (6) CHF exacerbation (7) Chronic diastolic CHF (congestive heart failure) (8) Chronic systolic heart failure (9) CKD (chronic kidney disease) stage 3, GFR 30-59 ml/min (10) Coronary artery disease (11) Depression (12) Diabetes mellitus type 2 (13) Diabetic peripheral neuropathy (14) Diabetic peripheral neuropathy associated with type 2 diabetes mellitus (15) Fall (16) Foot deformity (17) History of acute renal failure (18) History of diabetic ulcer of foot (19) History of MRSA infection of lungs (20) Hyperlipidemia (21) Hypothyroidism (22) LBBB (left bundle branch block) (23) Loss of sensation (24) Mild obstructive sleep apnea (25) Pulmonary hypertension (26) Rheumatoid arthritis (27) Secondary pulmonary hypertension (28) Severe epistaxis Surgical Problems: (1) Status post A-V fisutla LUE (2) Status post coronary artery bypass grafting (3) Status post Maze operation for atrial fibrillation (4) Status post tracheostomy Family History FH: COPD (chronic obstructive pulmonary disease) FATHER SISTER SISTER FH: coronary artery disease MOTHER FH: diabetes mellitus SISTER FH: heart disease BROTHER BROTHER BROTHER SISTER Social History Smoking Status: Never Smoker Alcohol Use: none Drug Use: none Marital Status: Housing Status: lives with family Occupation Status: retired Current/Historical Medications Scheduled Amiodarone Hcl (Cordarone), 200 MG PO DAILY Aspirin (Aspirin 81), 81 MG PO QAM Budesonide (Pulmicort Respules 0.25MG/2ML), 2 ML INH BID Calcitriol (Calcitriol), 0.25 MCG PO 3XWK Cholecalciferol (Vitamin D 1000 Unit), 2,000 INTER.UNIT PO HS Digoxin (Digoxin), 0.125 MG PO Q2D Docusate Sodium (Colace), 100 MG PO DAILY Gabapentin (Gabapentin), 200 MG PO BID Hydroxychloroquine Sulfate (Hydroxychloroquine Sulfat), 400 MG PO HS Insulin Isophane (Human) (Humulin N Kwikpen), 12 UNITS SC BID Levothyroxine Sodium (Levothyroxine Sodium), 112 MCG PO DAILY Losartan Potassium (Losartan Potassium), 12.5 MG PO DAILY Magnesium Oxide (Magnesium Oxide), 400 MG PO HS Pantoprazole (Pantoprazole Sodium), 40 MG PO DAILY Polyethylene Glycol 3350 (Miralax), 1 PKT PO DAILY Prednisone (Prednisone), 5 MG PO DAILY Sertraline HCl (Sertraline HCl), 25 MG PO HS Sertraline HCl (Sertraline HCl), 100 MG PO HS Sildenafil Citrate (Pulmonary (Sildenafil Citrate), 20 MG PO BID Simvastatin (Simvastatin), 10 MG PO HS Torsemide (Demadex), 20 MG PO UD Trazodone Hcl (Desyrel), 25-50 MG PO HS Scheduled PRN Acetaminophen (Tylenol), 650 MG PO Q4H PRN for Mild Pain Ipratropium [place] (Atrovent 0.02% Soln), 2.5 ML INH TID PRN for SOB/Wheezing Levalbuterol (Levalbuterol HCl), 3 ML INH BID PRN for SOB/Wheezing Saline ([place] Nasal [place]), 2 SPRAYS NATALIO UD PRN for Nasal Dryness/Congestion Tramadol HCl (Tramadol HCl), 50 MG PO Q12 PRN for Pain Allergies Coded Allergies: Lisinopril (Unverified Allergy, Unknown, dizzy, 08/24/17) Physical Exam Vital Signs Date Time Temp Pulse Resp B/P (MAP) Pulse Ox O2 Delivery O2 Flow Rate FiO2 08/24/17 15:36 78 20 142/77 99 Room Air 08/24/17 14:19 79 20 122/73 97 Room Air 08/24/17 13:11 79 08/24/17 13:10 79 22 126/70 99 Room Air 08/24/17 12:46 36.6 74 20 101/59 96 Room Air Physical Exam GENERAL: Patient is chronically unwell appearing and in no acute distress. HEENT: No acute trauma, normocephalic atraumatic, mucous membranes moist, no nasal congestion, no scleral icterus. NECK: No stridor, no adenopathy, no meningismus, trachea is midline. LUNGS: Rales bilateral lower lungs. HEART: Regular rate and rhythm. Systolic murmur. ABDOMEN: Nontender, no masses appreciated, no peritonitis. Large abdomen with pitting edema and distant bowel sounds. BACK: No midline tenderness, no CVA tenderness. Pitting edema in the low back. EXTREMITIES: Normal motion all extremities. 3+ edema with weeping bilateral lower extremities. NEUROLOGIC: Alert and oriented, no acute motor or sensory deficits, no focal weakness, cranial nerves grossly intact. SKIN: Poor skin turgor. Old skin bruising. Lipoma left mid back. Medical Decision & Procedures ER Provider Diagnostic Interpretation: X ray results are stated below per my interpretation and the radiologist's interpretation. SINGLE VIEW CHEST FINDINGS: An AP, portable, upright chest radiograph is compared to study dated 07/22/2017. Correlation is made with chest CT dated 07/17/2017. The examination is significantly degraded by portable technique and patient rotation. A cardiac pacemaker is unchanged in position and partially obscures the left upper chest. The patient is status post midline sternotomy. The heart is enlarged and there is atherosclerotic calcification of the thoracic aorta. There is pulmonary vascular congestion with mild interstitial edema. Findings suggest emphysema. No airspace consolidation is identified. Small pleural effusions are noted and there are bibasilar opacities. No pneumothorax is seen. The skeletal structures are osteopenic. The bony thorax is grossly intact. IMPRESSION: 1. Cardiomegaly and cardiac pacemaker with evidence of congestive failure and mild interstitial edema. 2. Small pleural effusions are identified. Bibasilar airspace opacities likely represent atelectasis. Correlate clinically for evidence of superimposed for pneumonia. Electronically signed by: Alhaji Holm M.D. 08/24/2017 1:35 PM Laboratory Results 08/24/17 13:36 Red Blood Count 3.95, Mean Corpuscular Volume 75.4, Mean Corpuscular Hemoglobin 20.8, Mean Corpuscular Hemoglobin Concent 27.5, Neutrophils (%) (Auto) 77.4, Lymphocytes (%) (Auto) 11.5, Monocytes (%) (Auto) 9.6, Eosinophils (%) (Auto) 0.6, Basophils (%) (Auto) 0.1, Neutrophils # (Auto) 6.87, Lymphocytes # (Auto) 1.02, Monocytes # (Auto) 0.85, Eosinophils # (Auto) 0.05, Basophils # (Auto) 0.01 08/24/17 13:36 Test 08/24/17 13:36 White Blood Count 8.87 K/uL (4.8-10.8) Red Blood Count 3.95 M/uL (4.7-6.1) Hemoglobin 8.2 g/dL (14.0-18.0) Hematocrit 29.8 % (42-52) Mean Corpuscular Volume 75.4 fL (80-100) Mean Corpuscular Hemoglobin 20.8 pg (25-34) Mean Corpuscular Hemoglobin Concent 27.5 g/dl (32-36) Platelet Count 114 K/uL (130-400) Neutrophils (%) (Auto) 77.4 % Lymphocytes (%) (Auto) 11.5 % Monocytes (%) (Auto) 9.6 % Eosinophils (%) (Auto) 0.6 % Basophils (%) (Auto) 0.1 % Neutrophils # (Auto) 6.87 K/uL (1.4-6.5) Lymphocytes # (Auto) 1.02 K/uL (1.2-3.4) Monocytes # (Auto) 0.85 K/uL (0.11-0.59) Eosinophils # (Auto) 0.05 K/uL (0-0.5) Basophils # (Auto) 0.01 K/uL (0-0.2) RDW Standard Deviation 55.5 fL (36.4-46.3) RDW Coefficient of Variation 20.4 % (11.5-14.5) Immature Granulocyte % (Auto) 0.8 % Immature Granulocyte # (Auto) 0.07 K/uL (0.00-0.02) Platelet Estimate DECREASED Hypochromasia PRESENT Poikilocytosis PRESENT Anisocytosis PRESENT Prothrombin Time 11.7 SECONDS (9.0-12.0) Prothromb Time International Ratio 1.1 (0.9-1.1) Anion Gap 10.0 mmol/L (3-11) Est Creatinine Clear Calc Drug Dose 45.8 ml/min Estimated GFR () 46.8 Estimated GFR (Non- 40.4 BUN/Creatinine Ratio 22.0 (10-20) Calcium Level 8.7 mg/dl (8.5-10.1) Magnesium Level 2.1 mg/dl (1.8-2.4) Total Bilirubin 0.7 mg/dl (0.2-1) Direct Bilirubin 0.4 mg/dl (0-0.2) Aspartate Amino Transf (AST/SGOT) 19 U/L (15-37) Alanine Aminotransferase (ALT/SGPT) 26 U/L (12-78) Alkaline Phosphatase 134 U/L (45-117) Pro-B-Type Natriuretic Peptide 2801 pg/ml (0-1800) Total Protein 6.9 gm/dl (6.4-8.2) Albumin 3.1 gm/dl (3.4-5.0) Thyroid Stimulating Hormone (TSH) 3.300 uIu/ml (0.300-4.500) Digoxin Level 0.8 ng/ml (0.8-2.0) Laboratory results as reviewed by me. Medications Administered Medications (Trade) Dose Ordered Sig/Nicolette Route Start Time Stop Time Status Last Admin Dose Admin Furosemide (Lasix Inj) 40 mg NOW STAT IV 08/24/17 15:11 08/24/17 15:13 DC 08/24/17 15:39 40 MG ECG Indication: SOB/dyspnea Rate (beats per minute): 71 Rhythm: other (ventricular paced ) Findings: no acute ischemic change, no ectopy ED Course 1256: The patient was evaluated in room B8. A complete history and physical exam was performed. 1439: I reassessed the patient. He is sleeping and in no distress. He is easily awoken. 1511: Ordered Lasix Inj 40 mg IV. 1545: Upon reevaluation, the patient is resting comfortably. Discussed results and treatment plan with the patient. He verbalized understanding and agreement with the treatment plan. The patient will be evaluated for further management. Medical Decision Differential: Sepsis, Infectious (UTI/Pneumonia/Meningitis/etc), Metabolic/ Electrolyte Abnormality, Cardiac, Hepatic, Endocrine, Toxicologic, Neurologic, amongst other pathologies entertained. 77 yr old male arrives with complaint of generalized weakness in setting of increasing weight gain over the last few days since he was discharged from nursing facility. He is so overloaded that he is weeping from his abdomen and legs with pitting edema in low back. Kidney function is doing OK and otherwise labs stable. CXR clearly overloaded. Doing well O2 fonseca. Discussed with cards who notes patient very brittle and that while he should received IV lasix while here, he will need to be watched in hospital for this. Hosptialist consulted. Patient without evidence of sepsis, acs, pe, etc. Medication Reconcilliation Current Medication List: was personally reviewed by me Blood Pressure Screening Patient's blood pressure: Normal blood pressure Blood pressure disposition: Did not require urgent referral Consults Time Called: 1455 Consulting Physician: Dr. Márquez -Cardiology Returned Call: [phone] Discussed the patient's case. Dr. Márquez recommends the patient be given 40 mg of Lasix and be brought into the hospital for further evaluation. Additional Consults: Time Called: 1545 Consulted Physician: Peace Auguste Returned Call: [phone] Additional Comments: Discussed the patient's case. The patient will be evaluated for further treatment and disposition. Impression Primary Impression: CHF (congestive heart failure) Additional Impression: Failure of outpatient treatment Scribe Attestation The scribe's documentation has been prepared under my direction and personally reviewed by me in its entirety. I confirm that the note above accurately reflects all work, treatment, procedures, and medical decision making performed by me. Departure Information Dispostion Being Evaluated By Hospitalist Referrals Bryan Valerio MD (PCP) Patient Instructions My [facility] Problem Qualifiers
[2017-08-24 20:03] LABS: CKMB/CK RATIO 5.3 (0-3.0)
[2017-08-24] MEDS: DIGOXIN 0.125 MG TAB PO SCH (21:04)
[2017-08-24] MEDS: TRAZODONE HCL 50 MG TAB PO SCH (21:05)
[2017-08-24] MEDS: GABAPENTIN 100 MG CAP PO SCH (21:06)
[2017-08-24] MEDS: SERTRALINE HCL 100 MG TAB PO SCH (21:06)
[2017-08-24] MEDS: CHOLECALCIFEROL 1000 INTER.UNIT TAB PO SCH (21:07)
[2017-08-24] MEDS: SIMVASTATIN 10 MG TAB PO SCH (21:07)
[2017-08-24] MEDS: MAGNESIUM OXIDE 400 MG TAB PO SCH (21:08)
[2017-08-24] MEDS: HYDROXYCHLOROQUINE SULFATE 200 MG TAB PO SCH (21:08)
[2017-08-24] MEDS: SILDENAFIL CITRATE 20 MG TAB PO SCH (21:09)
[2017-08-24] MEDS: SERTRALINE HCL 50 MG TAB PO SCH (21:09)
[2017-08-24] MEDS: INSULIN ASPART 100 UNITS/ML 3 ML PEN SC SCH (21:13)
[2017-08-25] VITALS (9 sets, daily range): BP systolic 101–128; BP diastolic 56–68; PULSE 70–87; TEMP 36.4–36.8; O2SAT 92–97
[2017-08-25 01:00] LABS: CKMB/CK RATIO 5.6 (0-3.0)
[2017-08-25] MEDS: LEVOTHYROXINE 112 MCG TAB PO SCH (05:56)
[2017-08-25] MEDS: BUDESONIDE 0.5 MG/2 ML VIAL (PULMICORT) INH SCH ×2 (07:02→19:07)
[2017-08-25 08:03] LABS: HEMATOCRIT 29.3 % (42-52); MEAN CELL VOLUME 75.7 fL (80-100); MEAN CORPUSCULAR HEMOGLOBIN 21.2 pg (25-34); PLATELET COUNT 114 K/uL (130-400); RED BLOOD COUNT 3.87 M/uL (4.7-6.1); WHITE BLOOD COUNT 8.01 K/uL (4.8-10.8)
[2017-08-25 08:04] LABS: BUN/CREATININE RATIO 21.1 (10-20); CALCIUM 8.6 mg/dl (8.5-10.1); CREATININE 1.5 mg/dl (0.60-1.40); MAGNESIUM 2.2 mg/dl (1.8-2.4); PLT ESTIMATE DECREASED; POTASSIUM 3.8 mmol/L (3.5-5.1)
[2017-08-25] MEDS: ASPIRIN 81 MG ECTAB PO SCH (08:14)
[2017-08-25] MEDS: DOCUSATE SODIUM 100 MG CAP PO SCH (08:14)
[2017-08-25] MEDS: GABAPENTIN 100 MG CAP PO SCH ×2 (08:14→20:55)
[2017-08-25] MEDS: CALCITRIOL 0.25 MCG CAP PO SCH (08:14)
[2017-08-25] MEDS: AMIODARONE 200 MG TAB PO SCH (08:15)
[2017-08-25] MEDS: PANTOprazole SOD 40 MG TAB PO SCH (08:15)
[2017-08-25] MEDS: LOSARTAN POTASSIUM 25 MG TAB PO SCH (08:15)
[2017-08-25] MEDS: SILDENAFIL CITRATE 20 MG TAB PO SCH ×2 (08:15→20:58)
[2017-08-25] MEDS: FUROSEMIDE INJ 40 MG in SYRINGE 0 ML IV SCH (08:15)
[2017-08-25] MEDS: POLYETHYLENE (MIRALAX) 17 GM PACK PO SCH (08:16)
[2017-08-25] MEDS: INSULIN ASPART 100 UNITS/ML 3 ML PEN SC SCH ×2 (08:22→20:53)
--- NOTE | 2017-08-25 10:12 | Clinical Documentation Query ---
CLINICAL DOCUMENTATION QUERY 77 yo male admitted with worsening generalized fluid retention beginning last week. In your clinical opinion is this patient being managed for: ( ) Arterial hypertension ( + ) Not Agree ( ) Other explanation of clinical findings (Please Explain) ( ) Unable to determine (Please Define) ( ) Need to Discuss I do not know The medical record reflects the following clinical findings, treatment, and risk factors. Clinical Indicators: Cozaar PO, documented HTN in previous records Treatment: Cozaar PO Risk Factors: Age, CKD, CHF Please clarify and document your clinical opinion in the progress notes and discharge summary. Terms such as "probable", "suspected", "likely", "questionable", "possible", or "still to be ruled out" are acceptable. IF IN AGREEMENT, YOU MUST DOCUMENT ABOVE DIAGNOSTIC STATEMENT IN DAILY PROGRESS NOTES AND DISCHARGE SUMMARY. This document is not part of the patient's record. Thank You, Joanne Mancini RN [phone]
--- NOTE | 2017-08-25 11:21 | Cardiology Consultation ---
Cardiology Consultation Date of Service Aug 25, 2017. (Medina Desir, KAROLYN) Cardiology Consultation History of Present Illness Mason Sanders is a 77 year old male who is well known to [facility] cardiology service, typically following with Dr. Márquez for complex cardiac issues, detailed below, and including ischemic cardiomyopathy, biventricular CHF, history of CABG, moderate , paroxysmal afib, with tachybrady and PPM implant. Patient was most recently admitted to [facility] in June for acute on chronic biventricular CHF and symptoms improved with IV diuretics. Symptoms improved and on discharge, his torsemide dose was increased from 20 to 30mg. Due to improved fluid adherence at home (previously non compliant) and diuretic adjustment, this resulted in volume depletion/syncopal episode with resultant facial trauma, nasal fracture and severe epistaxis. He was admitted in Jul after fall and evaluated by Dr. Márquez at that time. Coumadin was stopped at that time due to facial trauma and fall risk. Unfortunately he was also noted to have decline in renal function with creatinine 2.6. Diuretics were reduced on discharge to 10 mg daily. He was discharged to [facility] for rehab. Last week he was discharged from Nursing facility to home. On discharge on 08/16 , weight was 96 kg and he had been receiving torsemide 10 mg with additional 10 mg for weight > 211. He was feeling well at that time. Unfortunately over the last few days patient noted progressive weight gain, approx 8-10 lbs, and despite increased diuretic dose from 10 to 20 mg, symptoms failed to improve. He was therefore referred to ER for evaluation and admitted. He was started on IV furosemide on admission, with notable improvement in his symptoms overnight. Still has LE edema with seeping legs, but improving. SOB slowly improving. Good outputs. Denies chest pain. Review of systems: See HPI for pertinent positives. All other 10 point review of systems is negative. History: Past Medical History, taking from prior records/admission from Jul 2017 and prior cardio consult: His cardiac history dates back to June, when he was seen by the undersigned in outpatient consultation due to findings of atrial fibrillation in recent abnormal nuclear stress test. He had transitioned to a new primary care provider just before that and had not been followed by Cardiology in the past. At that point he described having been on Coumadin for atrial fibrillation for approximately 8 years. A nuclear stress test was performed as part of an ongoing evaluation of atrial fibrillation which was abnormal. Cardiac catheterization was performed in May, at [facility] with findings of multivessel disease. On 06/01/12 patient underwent CABG x 3 (PERSAUD to LAD, SVG to PL CX, and SVG to PDA ) and bi atrial Ching -Maze with left atrial appendage clip. Over the years he has been followed closely for biventricular systolic heart failure with progressive decline in his LVEF over the years most recent in the 30% range. He also has progressive right heart failure with right ventricular chamber enlargement and findings of pulmonary hypertension felt to be due to a mixed picture of left heart failure/diastolic and systolic dysfunction as well as underlying lung disease. His diuretic dose has been limited by underlying chronic kidney disease. He has had arrhythmia issues with having had paroxysmal atrial fibrillation despite having had the surgical Ching Maze procedure , and early in 2016 atrial flutter was noted. He developed progressive conduction system disease with sinus bradycardia, atrial flutter with slow ventricular rates, and left bundle branch block. This ultimately prompted placement of a biventricular pacemaker on 03/02/[address] Null at [facility], with successful reversion back to sinus rhythm post procedure on amiodarone therapy. Moderate aortic valve stenosis. Left thigh ulcers with resistant Klebsiella pneumoniae on wound culture. Past Surgical History: As noted above Social History: , his spouse of cancer a few years ago. He has 2 children. His daughter typically accompanies him and assists in his care. His lifelong nonsmoker. Family History: History of COPD and mother and coronary heart disease in father both of whom passed with her 70s. Review Of Systems See HPI for pertinent positives. All other 10 point review of systems is negative. Allergies Coded Allergies: Lisinopril (Unverified Allergy, Unknown, dizzy, 07/11/17) Medications Reported Home Medications Medications Dose Route/Sig Max Daily Dose Days Date Category Dose Instructions Demadex (Torsemide) 10 Mg Tab 20 Mg PO UD 08/24/17 Reported Take 20 mg daily on 08/22, 08/23, and 08/24 then resume 10 mg daily. Atrovent 0.02% Soln (Ipratropium [place]) 2.5 Ml Nebu 2.5 Ml INH TID PRN 08/24/17 Reported Levalbuterol HCl (Levalbuterol) 1.25 Mg/3 Ml Nebu 3 Ml INH BID PRN 08/24/17 Reported Cordarone (Amiodarone Hcl) 200 Mg Tab 200 Mg PO DAILY 07/17/17 Reported Digoxin 0.125 Mg Tab 0.125 Mg PO Q2D 07/17/17 Reported Desyrel (Trazodone Hcl) 50 Mg Tab 25-50 Mg PO HS 07/17/17 Reported Gabapentin 100 Mg Cap 200 Mg PO BID 07/17/17 Reported Tramadol HCl 50 Mg Tab 50 Mg PO Q12 PRN 07/17/17 Reported Humulin N Kwikpen (Insulin Isophane (Human)) 100 Unit/Ml Inj 12 Units SC BID 07/17/17 Reported Colace (Docusate Sodium) 100 Mg Cap 100 Mg PO DAILY 07/11/17 Reported Sildenafil Citrate (Sildenafil Citrate (Pulmonary) 20 Mg Tab 20 Mg PO BID 06/27/17 Reported Losartan Potassium 25 Mg Tab 12.5 Mg PO DAILY 06/27/17 Reported Tylenol (Acetaminophen) 325 Mg Tab 650 Mg PO Q4H PRN 06/21/16 Reported NEEDED FOR MILD PAIN RATED 1-3 ON A SCALE OF "0-10" [place] Nasal [place] (Saline) 0.65 % Spr 2 Sprays NATALIO UD PRN 06/21/16 Reported Miralax (Polyethylene Glycol 3350) 1 Pow Pow 1 Pkt PO DAILY 06/21/16 Reported Sertraline HCl 100 Mg Tab 100 Mg PO HS 06/21/16 Reported TAKE ONE 100 MG TABLET ALONG WITH ONE 25 MG TABLET TO EQUAL BEDTIME DOSE OF 125 MG Sertraline HCl 25 Mg Tab 25 Mg PO HS 06/21/16 Reported TAKE ONE 25 MG TABLET ALONG WITH ONE 100 MG TABLET TO EQUAL BEDTIME DOSE OF 125 MG Pantoprazole Sodium (Pantoprazole) 40 Mg Tab 40 Mg PO DAILY 06/21/16 Reported Simvastatin 10 Mg Tab 10 Mg PO HS 06/21/16 Reported Calcitriol 0.25 Mcg Cap 0.25 Mcg PO 3XWK 06/21/16 Reported TAKE THIS MEDICATION EVERY MONDAY,MONDAY AND MONDAY. Prednisone 5 Mg Tab 5 Mg PO DAILY 06/21/16 Reported Hydroxychloroquine Sulfat (Hydroxychloroquine Sulfate) 200 Mg Tab 400 Mg PO HS 06/21/16 Reported Levothyroxine Sodium 112 Mcg Tab 112 Mcg PO DAILY 03/04/14 Reported Aspirin 81 (Aspirin) 81 Mg Tab 81 Mg PO QAM 12/16/13 Reported Magnesium Oxide 400 Mg Cap 400 Mg PO HS 06/08/13 Reported Vitamin D 1000 Unit (Cholecalciferol) 1,000 Unit Cap 2,000 Inter.unit PO HS 06/08/13 Reported Pulmicort Respules 0.25MG/2ML (Budesonide) 0.25 Mg/2 Ml Nebu 2 Ml INH BID 09/10/12 Reported Physical Exam Last 8 Hrs Date Time Temp Pulse Resp B/P (MAP) Pulse Ox O2 Delivery O2 Flow Rate FiO2 08/25/17 07:02 76 16 96 Room Air 08/25/17 04:00 Room Air 08/25/17 03:24 36.5 74 24 117/62 (80) 92 Room Air General Appearance: NAD. Head: Significant nasal and periorbital ecchymosis Neck: No bruits Respiratory: Breath sounds clear to auscultation bilaterally. No w/r/r. Cardiovascular: Reg rate and rhythm. S1 and S2 noted. 2/6 systolic murmur Abdomen: Normal bowel sounds, soft nontender. no abdominal bruits. Extremities: No edema, no clubbing or cyanosis. distal pulses 2/4 bilaterally, healing thigh ulcers Neuro: Not performed DATA reviewed: EKG on admission: Ventricular pacing at 71 bpm, no change from prior Chest xray on admission: IMPRESSION: 1. Cardiomegaly and cardiac pacemaker with evidence of congestive failure and mild interstitial edema. 2. Small pleural effusions are identified. Bibasilar airspace opacities likely represent atelectasis. Correlate clinically for evidence of superimposed for pneumonia. Telemetry: Ventricular paced in the 70's. The patient's biventricular pacemaker was interrogated on 07/19/2017: Normal biventricular pacemaker (new defibrillator capability) function Patient is AV sequential paced 97% the time since last device check, and is biventricular paced 99.9% of the time, occasional episodes of atrial fibrillation are noted, the burden is 2.6% Assessment & Plan 77-year-old male 1.Acute on chronic biventricular systolic heart failure, right ventricular dysfunction, pulmonary hypertension 2. Ischemic cardiomyopathy 3. Paroxysmal atrial fibrillation, on amiodarone. With underlying tachybrady s/ p Biventricular pacemaker, off anticoagulation therapy in Jul 2017 after fall/ syncope with resultant facial fracture/trauma. 4 CKD 5. Moderate 6. Anemia Plan: Continue IV furosemide. Monitor I+O's Fluid restriction of 1500 ml Low sodium diet. Daily weight with standing scale. Continue all other home cardiac medications. Will likely need higher dose torsemide on discharge. 10 mg not effective, resulting in CHF. 30 mg apparently caused overdiuresis/syncope - however this was with strict fluid restriction at home as well. Case to be discussed with Dr. Coleman. Will follow. (Medina Desir PA-C) CARDIOLOGY ATTENDING ADDENDUM: The patient was seen and personally examined. Agree with Medina Desir PA-C's findings and plans as documented above. Fluid management is the issue with this patient (Cedric Coleman, DO)
--- NOTE | 2017-08-25 16:21 | Progress Note ---
Subjective Date of Service: Aug 25, 2017. Subjective Pt evaluation today including: conversation w/ patient, physical exam, lab review, review of studies, review of inpatient medication list Saw/examined the patient in room 221 He's doing okay; states he feels better than yesterday mild respiratory distress persists, has to stop and cannot complete sentences due to breathing He states his fluid in his stomach and legs are better; the leakage in his RLE has subsided Good PO intake Problem List Medical Problems: (1) Acute post-hemorrhagic anemia Status: Acute (2) Atrial flutter Status: Acute (3) Bleeding on Coumadin Status: Acute (4) Bradycardia Status: Acute (5) CHF (congestive heart failure) Status: Acute (6) CHF exacerbation Status: Acute (7) Failure of outpatient treatment Status: Acute (8) Nasal bone fracture Status: Acute (9) Shortness of breath Status: Acute (10) Warfarin-induced coagulopathy Status: Acute Review of Systems Constitutional: No fever, No chills Respiratory: + wheezing, + shortness of breath, + dyspnea on exertion, + dyspnea at rest, No cough, No sputum, No hemoptysis Cardiac: + edema, No chest pain, No palpitations Abdomen: No pain, No nausea, No vomiting, No diarrhea, No constipation, No GI bleeding Heme: No abnormal bleeding/bruising Medications Current Inpatient Medications Medications (Trade) Dose Ordered Sig/Nicolette Route Start Time Stop Time Status Last Admin Dose Admin Acetaminophen (Tylenol Tab) 650 mg Q4H PRN PO 08/24/17 16:30 09/23/17 16:29 08/25/17 05:57 650 MG Ondansetron HCl (Zofran Inj) 4 mg Q6H PRN IV 08/24/17 16:30 09/23/17 16:29 08/24/17 22:33 4 MG Furosemide 40 mg/ Syringe 4 ml @ 4 mls/min DAILY@0900 IV 08/25/17 09:00 09/24/17 08:59 08/25/17 08:15 4 MLS/MIN Amiodarone HCl (Cordarone Tab) 200 mg DAILY PO 08/25/17 09:00 09/24/17 08:59 08/25/17 08:15 200 MG Aspirin (Ecotrin Tab) 81 mg QAM PO 08/25/17 09:00 09/24/17 08:59 08/25/17 08:14 81 MG Calcitriol (Rocaltrol Cap) 0.25 mcg MoWeFr@0900 PO 08/25/17 09:00 09/24/17 08:59 08/25/17 08:14 0.25 MCG Cholecalciferol (Vitamin D Tab) 2,000 inter.unit HS PO 08/24/17 21:00 09/23/17 20:59 08/24/17 21:07 2,000 INTER.UNIT Digoxin (Lanoxin Tab) 0.125 mg Q2D@1600 PO 08/24/17 17:00 09/23/17 16:59 08/24/17 21:04 0.125 MG Docusate Sodium (coLACE CAP) 100 mg DAILY PO 08/25/17 09:00 09/24/17 08:59 08/25/17 08:14 100 MG Gabapentin (Neurontin Cap) 200 mg BID PO 08/24/17 21:00 09/23/17 20:59 08/25/17 08:14 200 MG Hydroxychloroquine Sulfate (Plaquenil Tab) 400 mg HS PO 08/24/17 21:00 09/23/17 20:59 08/24/17 21:08 400 MG Ipratropium [place] (Atrovent 0.02% 0.5MG/2.5ML Neb) 0.5 mg TIDR PRN INH 08/24/17 17:00 09/23/17 16:59 Levalbuterol (Xopenex 1.25MG/ 3ML Neb) 3.75 mg BIDR PRN INH 08/24/17 17:00 09/23/17 16:59 Levothyroxine Sodium (Synthroid Tab) 112 mcg DAILYBB PO 08/25/17 06:00 09/24/17 06:59 08/25/17 05:56 112 MCG Losartan Potassium (coZAAR TAB) 12.5 mg DAILY PO 08/25/17 09:00 09/24/17 08:59 08/25/17 08:15 12.5 MG Pantoprazole Sodium (Protonix Tab) 40 mg DAILY PO 08/25/17 09:00 09/24/17 08:59 08/25/17 08:15 40 MG Prednisone (PredniSONE TAB) 5 mg DAILY PO 08/25/17 09:00 09/24/17 08:59 08/25/17 08:14 5 MG Sodium Chloride ([place] Nasal [place]) 2 sprays DAILY PRN NATALIO 08/24/17 17:00 09/23/17 16:59 Sertraline HCl (Zoloft Tab) 100 mg HS PO 08/24/17 21:00 09/23/17 20:59 08/24/17 21:06 100 MG Sildenafil Citrate (Revatio Tab) 20 mg BID PO 08/24/17 21:00 09/23/17 20:59 08/25/17 08:15 20 MG Simvastatin (Zocor Tab) 10 mg HS PO 08/24/17 21:00 09/23/17 20:59 08/24/17 21:07 10 MG Tramadol HCl (Ultram Tab) 50 mg Q12 PRN PO 08/24/17 17:00 09/23/17 16:59 Trazodone HCl (Desyrel Tab) 25 mg HS PO 08/24/17 21:00 09/23/17 20:59 08/24/17 21:05 25 MG Magnesium Oxide (Mag-Ox Tab) 400 mg HS PO 08/24/17 21:00 09/23/17 20:59 08/24/17 21:08 400 MG Polyethylene (Miralax Powder Packet) 17 gm DAILY PO 08/25/17 09:00 09/24/17 08:59 08/25/17 08:16 17 GM Sertraline HCl (Zoloft Tab) 25 mg HS PO 08/24/17 21:00 09/23/17 20:59 08/24/17 21:09 25 MG Insulin Aspart (novoLOG ASPART) SLIDING SCALE If C... ACHS SC 08/24/17 21:00 09/23/17 20:59 08/25/17 08:22 5 UNITS Glucose (Glucose 40% Gel) 15-30 GRAMS 15 GRAMS... UD PRN PO 08/24/17 17:00 09/23/17 16:59 Glucose (Glucose Chew Tab) 4-8 Tablets 4 Tabl... UD PRN PO 08/24/17 17:00 09/23/17 16:59 Dextrose (Dextrose 50% 50ML Syringe) 25-50ML OF 50% DW IV FOR... UD PRN IV 08/24/17 17:00 09/23/17 16:59 Glucagon (Glucagon Inj) 1 mg UD PRN SQ 08/24/17 17:00 09/23/17 16:59 Budesonide (Pulmicort Respules 0.5MG/ 2ML Neb Soln) 0.5 mg BIDR INH 08/24/17 20:00 09/23/17 19:59 08/25/17 07:02 0.5 MG Objective Vital Signs Date Time Temp Pulse Resp B/P (MAP) Pulse Ox O2 Delivery O2 Flow Rate FiO2 08/25/17 12:00 Room Air 08/25/17 11:02 36.6 75 20 101/56 (71) 96 Room Air 08/25/17 08:00 Room Air 08/25/17 07:40 36.5 71 20 122/68 (86) 95 Room Air 08/25/17 07:02 76 16 96 Room Air 08/25/17 04:00 Room Air 08/25/17 03:24 36.5 74 24 117/62 (80) 92 Room Air 08/25/17 00:10 36.6 87 22 128/66 (86) 92 Room Air 08/25/17 00:00 Room Air 08/24/17 21:04 82 08/24/17 20:00 98 Room Air 08/24/17 19:42 71 16 98 Room Air 08/24/17 19:25 36.7 80 19 114/65 (81) 98 Room Air 08/24/17 18:22 36.5 72 20 121/66 (84) 93 Room Air 08/24/17 16:28 71 20 138/83 96 Room Air 08/24/17 16:12 Room Air 08/24/17 15:36 78 20 142/77 99 Room Air Physical Exam General Appearance: + mild distress (mild respiratory distress - incomplete sentences due to SOB) Respiratory/Chest: no accessory muscle use, + respiratory distress, + decreased breath sounds, + crackles Cardiovascular: regular rate, rhythm, no murmur Abdomen: soft, + distended Extremities: + pertinent finding (+2 pitting edema b/l LE; RLE is wrapped/ bandaged) Neurologic/Psychiatric: no motor/sensory deficits, alert, normal mood/affect Laboratory Results Last 24 Hours Test 08/24/17 18:23 08/24/17 19:09 08/24/17 20:12 08/25/17 00:25 Bedside Glucose 151 mg/dl 176 mg/dl Total Creatine Kinase 60 U/L 61 U/L Creatine Kinase MB 3.2 ng/ml 3.4 ng/ml Creatine Kinase MB Ratio 5.3 5.6 Troponin I 0.063 ng/ml 0.061 ng/ml Test 08/25/17 06:42 08/25/17 07:23 08/25/17 10:59 Bedside Glucose 151 mg/dl 134 mg/dl White Blood Count 8.01 K/uL Red Blood Count 3.87 M/uL Hemoglobin 8.2 g/dL Hematocrit 29.3 % Mean Corpuscular Volume 75.7 fL Mean Corpuscular Hemoglobin 21.2 pg Mean Corpuscular Hemoglobin Concent 28.0 g/dl RDW Standard Deviation 56.2 fL RDW Coefficient of Variation 20.6 % Platelet Count 114 K/uL Platelet Estimate DECREASED Sodium Level 143 mmol/L Potassium Level 3.8 mmol/L Chloride Level 105 mmol/L Carbon Dioxide Level 32 mmol/L Anion Gap 6.0 mmol/L Blood Urea Nitrogen 32 mg/dl Creatinine 1.50 mg/dl Est Creatinine Clear Calc Drug Dose 48.9 ml/min Estimated GFR () 50.6 Estimated GFR (Non- 43.7 BUN/Creatinine Ratio 21.1 Random Glucose 141 mg/dl Calcium Level 8.6 mg/dl Magnesium Level 2.2 mg/dl Assessment and Plan This is a 77 year old male with a PMH of biventricular CHF, CAD s/p CABG, paroxysmal A. 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 Pulmonary HTN recently decreased dose of torsemide from 20mg to 10mg CXR - evidence of CHF; edema of LE, and fluid in the abdomen combination of cirrhosis and CHF exacerbation started on IV Lasix continue IV diuretics, monitor I's and O's and fluid restriction monitor kidney function appreciate cardiology consultation - switch to oral torsemide when able CKD stage 3 Creatinine increased from 1.2 on 08/09 to 1.6 as outpatient on 08/22, remains 1.6 in ER today, baseline varies, mostly mid- 1's Monitor renal function Atrial Fibrillation S/p pacemaker Rate is controlled Continue amiodarone and digoxin (dig level normal) No longer on anticoagulation- d/c last hospitalization due to severe epistaxis CAD s/p CABG Denies chest pain Hx BB intolerance Continue aspirin, statin CHRONIC ANEMIA Hg 8.2 stable from baseline Monitor CBC HYPERTENSION Stable, continue losartan RESTRICTIVE LUNG DISEASE Continue home nebs DM TYPE 2 Hold Humulin Novolog sliding scale HYPOTHYROIDISM TSH wnl Continue levothyroxine RLE SEEPING Consult wound care nurse RHEUMATOID ARTHRITIS Continue prednisone 5 mg daily DEPRESSION Continue sertraline DVT PROPHYLAXIS SCD thigh due to chronic anemia, hx of severe epistaxis, mild thrombocytopenia, with skin breakdown of R lower leg DNR
[2017-08-25] MEDS: MAGNESIUM OXIDE 400 MG TAB PO SCH (20:55)
[2017-08-25] MEDS: TRAZODONE HCL 50 MG TAB PO SCH (20:57)
[2017-08-25] MEDS: HYDROXYCHLOROQUINE SULFATE 200 MG TAB PO SCH (20:58)
[2017-08-25] MEDS: CHOLECALCIFEROL 1000 INTER.UNIT TAB PO SCH (20:59)
[2017-08-25] MEDS: SERTRALINE HCL 100 MG TAB PO SCH (21:00)
[2017-08-25] MEDS: SIMVASTATIN 10 MG TAB PO SCH (21:01)
[2017-08-25] MEDS: SERTRALINE HCL 50 MG TAB PO SCH (21:01)
[2017-08-26] VITALS (7 sets, daily range): BP systolic 88–144; BP diastolic 40–84; PULSE 71–86; TEMP 36.3–37; O2SAT 92–99
[2017-08-26] MEDS: LEVOTHYROXINE 112 MCG TAB PO SCH (05:59)
[2017-08-26] MEDS: BUDESONIDE 0.5 MG/2 ML VIAL (PULMICORT) INH SCH ×2 (06:59→18:53)
[2017-08-26 07:17] LABS: BUN/CREATININE RATIO 22.3 (10-20); CALCIUM 8.7 mg/dl (8.5-10.1); CREATININE 1.5 mg/dl (0.60-1.40); MAGNESIUM 2.3 mg/dl (1.8-2.4); POTASSIUM 3.8 mmol/L (3.5-5.1)
[2017-08-26 07:27] LABS: HEMATOCRIT 29.6 % (42-52); MEAN CELL VOLUME 75.7 fL (80-100); MEAN CORPUSCULAR HEMOGLOBIN 21.2 pg (25-34); PLATELET COUNT 109 K/uL (130-400); RED BLOOD COUNT 3.91 M/uL (4.7-6.1); WHITE BLOOD COUNT 7.99 K/uL (4.8-10.8)
[2017-08-26] MEDS: PANTOprazole SOD 40 MG TAB PO SCH (07:48)
[2017-08-26] MEDS: DOCUSATE SODIUM 100 MG CAP PO SCH (07:48)
[2017-08-26] MEDS: AMIODARONE 200 MG TAB PO SCH (07:49)
[2017-08-26] MEDS: ASPIRIN 81 MG ECTAB PO SCH (07:49)
[2017-08-26] MEDS: LOSARTAN POTASSIUM 25 MG TAB PO SCH (07:50)
[2017-08-26] MEDS: SILDENAFIL CITRATE 20 MG TAB PO SCH ×2 (07:50→21:08)
[2017-08-26] MEDS: GABAPENTIN 100 MG CAP PO SCH ×2 (07:51→21:09)
[2017-08-26] MEDS: POLYETHYLENE (MIRALAX) 17 GM PACK PO SCH (07:52)
[2017-08-26] MEDS: INSULIN ASPART 100 UNITS/ML 3 ML PEN SC SCH ×4 (07:58→21:12)
[2017-08-26] MEDS: FUROSEMIDE INJ 40 MG in SYRINGE 0 ML IV SCH (08:11)
--- NOTE | 2017-08-26 10:07 | PROGRESS NOTE ---
DATE: 08/26/2017 FOLLOWUP VISIT SUBJECTIVE: The patient is a 77-year-old male who is well known to the [facility] cardiology service with an ischemic cardiomyopathy and severe biventricular heart failure. The patient is part of our heart failure clinic. He had volume overload and was admitted to the hospital. After several days of intravenous diuretics, he has diuresed approximately 7 kilograms of fluid weight. He has no complaints this morning. OBJECTIVE: GENERAL: He is alert and oriented. VITAL SIGNS: Blood pressure is 120/70. Pulse is regular at 71. He is afebrile. HEENT: He is normocephalic. Pupils are equal and reactive to light. Extraocular muscles are intact bilaterally. NECK: The neck veins are flat. Carotids have good upstrokes bilaterally without bruits. Thyroid is nonpalpable. RESPIRATORY: Breath sounds equal bilaterally and clear to auscultation. CARDIOVASCULAR: Heart has a regular rhythm. The PMI is diffuse. There is a systolic murmur at the apex of the heart. GASTROINTESTINAL: Abdomen is soft and nontender without organomegaly. EXTREMITIES: Have minimal edema bilaterally. NEUROLOGIC: Grossly intact. SKIN: Warm to touch. LYMPH NODES: Negative to palpation. IMPRESSION: 1. Ischemic cardiomyopathy. 2. Acute on chronic systolic heart failure. 3. Status post ICD pacemaker. 4. Paroxysmal atrial fibrillation. 5. Cardiorenal syndrome. 6. Moderate aortic stenosis. 7. Anemia. RECOMMENDATIONS: The patient is heading in the right direction. I believe that he requires additional diuresis today and we will reevaluate him tomorrow. He is at higher risk for hospital readmissions due to heart failure and he should be completely diuresed and stable before discharge with good followup.
[2017-08-26 11:06] LABS: FERRITIN 61.6 ng/ml (8.0-388.0)
[2017-08-26] MEDS: DIGOXIN 0.125 MG TAB PO SCH (15:15)
--- NOTE | 2017-08-26 15:58 | Progress Note ---
Subjective Date of Service: Aug 26, 2017. Subjective Pt evaluation today including: conversation w/ patient, physical exam, lab review, review of studies, review of inpatient medication list Saw/examined the patient in room 221 He is doing well Swelling in the abdomen and lower extremities improving No other issues to note Problem List Medical Problems: (1) Acute post-hemorrhagic anemia Status: Acute (2) Atrial flutter Status: Acute (3) Bleeding on Coumadin Status: Acute (4) Bradycardia Status: Acute (5) CHF (congestive heart failure) Status: Acute (6) CHF exacerbation Status: Acute (7) Failure of outpatient treatment Status: Acute (8) Nasal bone fracture Status: Acute (9) Shortness of breath Status: Acute (10) Warfarin-induced coagulopathy Status: Acute Review of Systems Constitutional: No fever, No chills Respiratory: No cough, No sputum, No wheezing, No shortness of breath, No dyspnea on exertion, No dyspnea at rest, No hemoptysis Cardiac: + edema, No chest pain Abdomen: No pain, No nausea, No vomiting, No diarrhea Medications Current Inpatient Medications Medications (Trade) Dose Ordered Sig/Nicolette Route Start Time Stop Time Status Last Admin Dose Admin Acetaminophen (Tylenol Tab) 650 mg Q4H PRN PO 08/24/17 16:30 09/23/17 16:29 08/25/17 05:57 650 MG Ondansetron HCl (Zofran Inj) 4 mg Q6H PRN IV 08/24/17 16:30 09/23/17 16:29 08/24/17 22:33 4 MG Furosemide 40 mg/ Syringe 4 ml @ 4 mls/min DAILY@0900 IV 08/25/17 09:00 09/24/17 08:59 08/26/17 08:11 4 MLS/MIN Amiodarone HCl (Cordarone Tab) 200 mg DAILY PO 08/25/17 09:00 09/24/17 08:59 08/26/17 07:49 200 MG Aspirin (Ecotrin Tab) 81 mg QAM PO 08/25/17 09:00 09/24/17 08:59 08/26/17 07:49 81 MG Calcitriol (Rocaltrol Cap) 0.25 mcg MoWeFr@0900 PO 08/25/17 09:00 09/24/17 08:59 08/25/17 08:14 0.25 MCG Cholecalciferol (Vitamin D Tab) 2,000 inter.unit HS PO 08/24/17 21:00 09/23/17 20:59 08/25/17 20:59 2,000 INTER.UNIT Digoxin (Lanoxin Tab) 0.125 mg Q2D@1600 PO 08/24/17 17:00 09/23/17 16:59 08/26/17 15:15 0.125 MG Docusate Sodium (coLACE CAP) 100 mg DAILY PO 08/25/17 09:00 09/24/17 08:59 08/26/17 07:48 100 MG Gabapentin (Neurontin Cap) 200 mg BID PO 08/24/17 21:00 09/23/17 20:59 08/26/17 07:51 200 MG Hydroxychloroquine Sulfate (Plaquenil Tab) 400 mg HS PO 08/24/17 21:00 09/23/17 20:59 08/25/17 20:58 400 MG Ipratropium [place] (Atrovent 0.02% 0.5MG/2.5ML Neb) 0.5 mg TIDR PRN INH 08/24/17 17:00 09/23/17 16:59 Levalbuterol (Xopenex 1.25MG/ 3ML Neb) 3.75 mg BIDR PRN INH 08/24/17 17:00 09/23/17 16:59 Levothyroxine Sodium (Synthroid Tab) 112 mcg DAILYBB PO 08/25/17 06:00 09/24/17 06:59 08/26/17 05:59 112 MCG Losartan Potassium (coZAAR TAB) 12.5 mg DAILY PO 08/25/17 09:00 09/24/17 08:59 08/26/17 07:50 12.5 MG Pantoprazole Sodium (Protonix Tab) 40 mg DAILY PO 08/25/17 09:00 09/24/17 08:59 08/26/17 07:48 40 MG Prednisone (PredniSONE TAB) 5 mg DAILY PO 08/25/17 09:00 09/24/17 08:59 08/26/17 07:50 5 MG Sodium Chloride ([place] Nasal [place]) 2 sprays DAILY PRN NATALIO 08/24/17 17:00 09/23/17 16:59 Sertraline HCl (Zoloft Tab) 100 mg HS PO 08/24/17 21:00 09/23/17 20:59 08/25/17 21:00 100 MG Sildenafil Citrate (Revatio Tab) 20 mg BID PO 08/24/17 21:00 09/23/17 20:59 08/26/17 07:50 20 MG Simvastatin (Zocor Tab) 10 mg HS PO 08/24/17 21:00 09/23/17 20:59 08/25/17 21:01 10 MG Tramadol HCl (Ultram Tab) 50 mg Q12 PRN PO 08/24/17 17:00 09/23/17 16:59 Trazodone HCl (Desyrel Tab) 25 mg HS PO 08/24/17 21:00 09/23/17 20:59 08/25/17 20:57 25 MG Magnesium Oxide (Mag-Ox Tab) 400 mg HS PO 08/24/17 21:00 09/23/17 20:59 08/25/17 20:55 400 MG Polyethylene (Miralax Powder Packet) 17 gm DAILY PO 08/25/17 09:00 09/24/17 08:59 08/26/17 07:52 17 GM Sertraline HCl (Zoloft Tab) 25 mg HS PO 08/24/17 21:00 09/23/17 20:59 08/25/17 21:01 25 MG Insulin Aspart (novoLOG ASPART) SLIDING SCALE If C... ACHS SC 08/24/17 21:00 09/23/17 20:59 08/26/17 07:58 7 UNITS Glucose (Glucose 40% Gel) 15-30 GRAMS 15 GRAMS... UD PRN PO 08/24/17 17:00 09/23/17 16:59 Glucose (Glucose Chew Tab) 4-8 Tablets 4 Tabl... UD PRN PO 08/24/17 17:00 09/23/17 16:59 Dextrose (Dextrose 50% 50ML Syringe) 25-50ML OF 50% DW IV FOR... UD PRN IV 08/24/17 17:00 09/23/17 16:59 Glucagon (Glucagon Inj) 1 mg UD PRN SQ 08/24/17 17:00 09/23/17 16:59 Budesonide (Pulmicort Respules 0.5MG/ 2ML Neb Soln) 0.5 mg BIDR INH 08/24/17 20:00 09/23/17 19:59 08/26/17 06:59 0.5 MG Objective Vital Signs Date Time Temp Pulse Resp B/P (MAP) Pulse Ox O2 Delivery O2 Flow Rate FiO2 08/26/17 15:15 70 08/26/17 14:50 36.7 71 16 120/70 (87) 96 Room Air 08/26/17 12:00 Room Air 08/26/17 11:42 36.9 79 18 118/70 (86) 99 08/26/17 08:03 37.0 86 18 144/84 (104) 96 08/26/17 08:00 Room Air 08/26/17 07:03 74 16 96 Room Air 08/26/17 04:00 Room Air 08/26/17 03:20 36.3 73 18 88/40 (56) 94 CPAP 08/26/17 00:00 Room Air 08/25/17 23:20 36.8 71 18 105/67 (80) 97 Room Air 08/25/17 20:00 Room Air 08/25/17 20:00 36.6 74 16 123/67 (85) 96 08/25/17 19:08 70 16 95 Room Air 08/25/17 16:00 Room Air 08/25/17 16:00 36.4 74 16 112/67 (82) 92 Physical Exam General Appearance: no apparent distress Respiratory/Chest: no respiratory distress, no accessory muscle use, + decreased breath sounds Cardiovascular: regular rate, rhythm, no murmur Abdomen: non tender, soft, + distended Extremities: + pertinent finding (+1 pitting edema b/l LE) Laboratory Results Last 24 Hours Test 08/25/17 16:45 08/25/17 20:07 08/26/17 00:00 08/26/17 06:31 Bedside Glucose 196 mg/dl 197 mg/dl 154 mg/dl Stool Occult Blood NEGATIVE Test 08/26/17 06:33 08/26/17 10:07 08/26/17 11:29 White Blood Count 7.99 K/uL Red Blood Count 3.91 M/uL Hemoglobin 8.3 g/dL Hematocrit 29.6 % Mean Corpuscular Volume 75.7 fL Mean Corpuscular Hemoglobin 21.2 pg Mean Corpuscular Hemoglobin Concent 28.0 g/dl RDW Standard Deviation 56.5 fL RDW Coefficient of Variation 20.7 % Platelet Count 109 K/uL Sodium Level 141 mmol/L Potassium Level 3.8 mmol/L Chloride Level 103 mmol/L Carbon Dioxide Level 32 mmol/L Anion Gap 6.0 mmol/L Blood Urea Nitrogen 33 mg/dl Creatinine 1.50 mg/dl Est Creatinine Clear Calc Drug Dose 47.5 ml/min Estimated GFR () 50.6 Estimated GFR (Non- 43.7 BUN/Creatinine Ratio 22.3 Random Glucose 131 mg/dl Calcium Level 8.7 mg/dl Magnesium Level 2.3 mg/dl Absolute Reticulocyte Count 0.07 10^6/uL Percent Reticulocyte Count 1.8 % Iron Level 23 mcg/dl Total Iron Binding Capacity 372 mcg/dl Ferritin 61.6 ng/ml Vitamin B12 Level 784 pg/mL Folate 14.25 ng/mL Bedside Glucose 167 mg/dl Assessment and Plan This is a 77 year old male with a PMH of biventricular CHF, CAD s/p CABG, paroxysmal A. 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 Pulmonary HTN recently decreased dose of torsemide from 20mg to 10mg CXR - evidence of CHF; edema of LE, and fluid in the abdomen combination of cirrhosis and CHF exacerbation started on IV Lasix continue IV diuretics, monitor I's and O's and fluid restriction monitor kidney function appreciate cardiology consultation - switch to oral torsemide when able will continue IV Lasix today (08/26) - transition in 1-2 days - monitor kidney function CKD stage 3 Creatinine increased from 1.2 on 08/09 to 1.6 as outpatient on 08/22, remains 1.6 in ER today, baseline varies, mostly mid- 1's Monitor renal function Atrial Fibrillation S/p pacemaker Rate is controlled Continue amiodarone and digoxin (dig level normal) No longer on anticoagulation- d/c last hospitalization due to severe epistaxis CAD s/p CABG Denies chest pain Hx BB intolerance Continue aspirin, statin CHRONIC ANEMIA Hg 8.2 stable from baseline Monitor CBC HYPERTENSION Stable, continue losartan RESTRICTIVE LUNG DISEASE Continue home nebs DM TYPE 2 Hold Humulin Novolog sliding scale HYPOTHYROIDISM TSH wnl Continue levothyroxine RLE SEEPING Consult wound care nurse RHEUMATOID ARTHRITIS Continue prednisone 5 mg daily DEPRESSION Continue sertraline DVT PROPHYLAXIS SCD thigh due to chronic anemia, hx of severe epistaxis, mild thrombocytopenia, with skin breakdown of R lower leg DNR
[2017-08-26] MEDS: SERTRALINE HCL 100 MG TAB PO SCH (21:07)
[2017-08-26] MEDS: SIMVASTATIN 10 MG TAB PO SCH (21:08)
[2017-08-26] MEDS: CHOLECALCIFEROL 1000 INTER.UNIT TAB PO SCH (21:08)
[2017-08-26] MEDS: SERTRALINE HCL 50 MG TAB PO SCH (21:08)
[2017-08-26] MEDS: HYDROXYCHLOROQUINE SULFATE 200 MG TAB PO SCH (21:09)
[2017-08-26] MEDS: MAGNESIUM OXIDE 400 MG TAB PO SCH (21:09)
[2017-08-26] MEDS: TRAZODONE HCL 50 MG TAB PO SCH (21:09)
[2017-08-27] VITALS (9 sets, daily range): BP systolic 97–128; BP diastolic 55–77; PULSE 68–85; TEMP 36.2–37.2; O2SAT 93–99
[2017-08-27 06:14] LABS: BUN/CREATININE RATIO 22.9 (10-20); CALCIUM 8.5 mg/dl (8.5-10.1); CREATININE 1.4 mg/dl (0.60-1.40); POTASSIUM 3.9 mmol/L (3.5-5.1)
[2017-08-27] MEDS: LEVOTHYROXINE 112 MCG TAB PO SCH (06:28)
[2017-08-27 06:40] LABS: HEMATOCRIT 30.1 % (42-52); MEAN CELL VOLUME 76.2 fL (80-100); MEAN CORPUSCULAR HEMOGLOBIN 21.3 pg (25-34); MEAN CORPUSCULAR HGB CONC 27.9 g/dl (32-36); PLATELET COUNT 125 K/uL (130-400); PLT ESTIMATE DECREASED; RED BLOOD COUNT 3.95 M/uL (4.7-6.1)
[2017-08-27] MEDS: BUDESONIDE 0.5 MG/2 ML VIAL (PULMICORT) INH SCH ×2 (07:00→19:05)
[2017-08-27] MEDS: PANTOprazole SOD 40 MG TAB PO SCH (07:47)
[2017-08-27] MEDS: DOCUSATE SODIUM 100 MG CAP PO SCH (07:48)
[2017-08-27] MEDS: AMIODARONE 200 MG TAB PO SCH (07:48)
[2017-08-27] MEDS: LOSARTAN POTASSIUM 25 MG TAB PO SCH (07:49)
[2017-08-27] MEDS: GABAPENTIN 100 MG CAP PO SCH ×2 (07:49→20:57)
[2017-08-27] MEDS: ASPIRIN 81 MG ECTAB PO SCH (07:50)
[2017-08-27] MEDS: SILDENAFIL CITRATE 20 MG TAB PO SCH ×2 (07:50→20:57)
[2017-08-27] MEDS: POLYETHYLENE (MIRALAX) 17 GM PACK PO SCH (07:50)
[2017-08-27] MEDS: INSULIN ASPART 100 UNITS/ML 3 ML PEN SC SCH ×4 (07:57→21:00)
[2017-08-27] MEDS: FUROSEMIDE INJ 40 MG in SYRINGE 0 ML IV SCH (08:16)
--- NOTE | 2017-08-27 09:58 | Progress Note ---
Subjective Date of Service: Aug 27, 2017. Subjective Pt evaluation today including: conversation w/ patient, physical exam, lab review, review of studies, review of inpatient medication list Saw/examined the patient in room 221 Feeling well this morning, denies chest pain/shortness of breath Swelling of legs and abdomen improving good PO intake; no other issues to note Problem List Medical Problems: (1) Acute post-hemorrhagic anemia Status: Acute (2) Atrial flutter Status: Acute (3) Bleeding on Coumadin Status: Acute (4) Bradycardia Status: Acute (5) CHF (congestive heart failure) Status: Acute (6) CHF exacerbation Status: Acute (7) Failure of outpatient treatment Status: Acute (8) Nasal bone fracture Status: Acute (9) Shortness of breath Status: Acute (10) Warfarin-induced coagulopathy Status: Acute Review of Systems Constitutional: No fever, No chills Respiratory: No cough, No sputum, No shortness of breath Cardiac: + edema, No chest pain Abdomen: No pain, No nausea, No vomiting, No diarrhea, No constipation Medications Current Inpatient Medications Medications (Trade) Dose Ordered Sig/Nicolette Route Start Time Stop Time Status Last Admin Dose Admin Acetaminophen (Tylenol Tab) 650 mg Q4H PRN PO 08/24/17 16:30 09/23/17 16:29 08/25/17 05:57 650 MG Ondansetron HCl (Zofran Inj) 4 mg Q6H PRN IV 08/24/17 16:30 09/23/17 16:29 08/24/17 22:33 4 MG Furosemide 40 mg/ Syringe 4 ml @ 4 mls/min DAILY@0900 IV 08/25/17 09:00 09/24/17 08:59 08/27/17 08:16 4 MLS/MIN Amiodarone HCl (Cordarone Tab) 200 mg DAILY PO 08/25/17 09:00 09/24/17 08:59 08/27/17 07:48 200 MG Aspirin (Ecotrin Tab) 81 mg QAM PO 08/25/17 09:00 09/24/17 08:59 08/27/17 07:50 81 MG Calcitriol (Rocaltrol Cap) 0.25 mcg MoWeFr@0900 PO 08/25/17 09:00 09/24/17 08:59 08/25/17 08:14 0.25 MCG Cholecalciferol (Vitamin D Tab) 2,000 inter.unit HS PO 08/24/17 21:00 09/23/17 20:59 08/26/17 21:08 2,000 INTER.UNIT Digoxin (Lanoxin Tab) 0.125 mg Q2D@1600 PO 08/24/17 17:00 09/23/17 16:59 08/26/17 15:15 0.125 MG Docusate Sodium (coLACE CAP) 100 mg DAILY PO 08/25/17 09:00 09/24/17 08:59 08/27/17 07:48 100 MG Gabapentin (Neurontin Cap) 200 mg BID PO 08/24/17 21:00 09/23/17 20:59 08/27/17 07:49 200 MG Hydroxychloroquine Sulfate (Plaquenil Tab) 400 mg HS PO 08/24/17 21:00 09/23/17 20:59 08/26/17 21:09 400 MG Ipratropium [place] (Atrovent 0.02% 0.5MG/2.5ML Neb) 0.5 mg TIDR PRN INH 08/24/17 17:00 09/23/17 16:59 Levalbuterol (Xopenex 1.25MG/ 3ML Neb) 3.75 mg BIDR PRN INH 08/24/17 17:00 09/23/17 16:59 Levothyroxine Sodium (Synthroid Tab) 112 mcg DAILYBB PO 08/25/17 06:00 09/24/17 06:59 08/27/17 06:28 112 MCG Losartan Potassium (coZAAR TAB) 12.5 mg DAILY PO 08/25/17 09:00 09/24/17 08:59 08/27/17 07:49 12.5 MG Pantoprazole Sodium (Protonix Tab) 40 mg DAILY PO 08/25/17 09:00 09/24/17 08:59 08/27/17 07:47 40 MG Prednisone (PredniSONE TAB) 5 mg DAILY PO 08/25/17 09:00 09/24/17 08:59 08/27/17 07:47 5 MG Sodium Chloride ([place] Nasal [place]) 2 sprays DAILY PRN NATALIO 08/24/17 17:00 09/23/17 16:59 Sertraline HCl (Zoloft Tab) 100 mg HS PO 08/24/17 21:00 09/23/17 20:59 08/26/17 21:07 100 MG Sildenafil Citrate (Revatio Tab) 20 mg BID PO 08/24/17 21:00 09/23/17 20:59 08/27/17 07:50 20 MG Simvastatin (Zocor Tab) 10 mg HS PO 08/24/17 21:00 09/23/17 20:59 08/26/17 21:08 10 MG Tramadol HCl (Ultram Tab) 50 mg Q12 PRN PO 08/24/17 17:00 09/23/17 16:59 Trazodone HCl (Desyrel Tab) 25 mg HS PO 08/24/17 21:00 09/23/17 20:59 08/26/17 21:09 25 MG Magnesium Oxide (Mag-Ox Tab) 400 mg HS PO 08/24/17 21:00 09/23/17 20:59 08/26/17 21:09 400 MG Polyethylene (Miralax Powder Packet) 17 gm DAILY PO 08/25/17 09:00 09/24/17 08:59 08/27/17 07:50 17 GM Sertraline HCl (Zoloft Tab) 25 mg HS PO 08/24/17 21:00 09/23/17 20:59 08/26/17 21:08 25 MG Insulin Aspart (novoLOG ASPART) SLIDING SCALE If C... ACHS SC 08/24/17 21:00 09/23/17 20:59 08/27/17 07:57 4 UNITS Glucose (Glucose 40% Gel) 15-30 GRAMS 15 GRAMS... UD PRN PO 08/24/17 17:00 09/23/17 16:59 Glucose (Glucose Chew Tab) 4-8 Tablets 4 Tabl... UD PRN PO 08/24/17 17:00 09/23/17 16:59 Dextrose (Dextrose 50% 50ML Syringe) 25-50ML OF 50% DW IV FOR... UD PRN IV 08/24/17 17:00 09/23/17 16:59 Glucagon (Glucagon Inj) 1 mg UD PRN SQ 08/24/17 17:00 09/23/17 16:59 Budesonide (Pulmicort Respules 0.5MG/ 2ML Neb Soln) 0.5 mg BIDR INH 08/24/17 20:00 09/23/17 19:59 08/27/17 07:00 0.5 MG Objective Vital Signs Date Time Temp Pulse Resp B/P (MAP) Pulse Ox O2 Delivery O2 Flow Rate FiO2 08/27/17 08:00 Room Air 08/27/17 07:48 36.9 85 18 128/77 (94) 96 08/27/17 07:00 71 18 93 Room Air 08/27/17 04:25 37.2 81 18 111/67 (82) 94 CPAP 08/27/17 04:00 Room Air CPAP 08/27/17 00:17 37.0 73 18 116/69 (85) 93 CPAP 08/27/17 00:02 Room Air CPAP 08/26/17 20:00 Room Air 08/26/17 19:01 36.6 71 16 125/74 (91) 99 Nebulizer 08/26/17 18:53 78 18 92 Room Air 08/26/17 16:00 Room Air 08/26/17 15:15 70 08/26/17 14:50 36.7 71 16 120/70 (87) 96 Room Air 08/26/17 12:00 Room Air 08/26/17 11:42 36.9 79 18 118/70 (86) 99 Physical Exam General Appearance: no apparent distress Respiratory/Chest: chest non-tender, lungs clear, normal breath sounds, no respiratory distress, no accessory muscle use Cardiovascular: regular rate, rhythm, no edema, no murmur Abdomen: normal bowel sounds, non tender, + distended Extremities: + pertinent finding (+tight, hard b/l LE, swelling improving; +1 pitting edema b/l LE) Laboratory Results Last 24 Hours Test 08/26/17 10:07 08/26/17 11:29 08/26/17 16:23 08/26/17 20:21 Absolute Reticulocyte Count 0.07 10^6/uL Percent Reticulocyte Count 1.8 % Iron Level 23 mcg/dl Total Iron Binding Capacity 372 mcg/dl Ferritin 61.6 ng/ml Vitamin B12 Level 784 pg/mL Folate 14.25 ng/mL Bedside Glucose 167 mg/dl 194 mg/dl 204 mg/dl Test 08/27/17 05:23 08/27/17 06:33 White Blood Count 7.40 K/uL Red Blood Count 3.95 M/uL Hemoglobin 8.4 g/dL Hematocrit 30.1 % Mean Corpuscular Volume 76.2 fL Mean Corpuscular Hemoglobin 21.3 pg Mean Corpuscular Hemoglobin Concent 27.9 g/dl RDW Standard Deviation 57.7 fL RDW Coefficient of Variation 20.7 % Platelet Count 125 K/uL Platelet Estimate DECREASED Sodium Level 140 mmol/L Potassium Level 3.9 mmol/L Chloride Level 102 mmol/L Carbon Dioxide Level 33 mmol/L Anion Gap 5.0 mmol/L Blood Urea Nitrogen 32 mg/dl Creatinine 1.40 mg/dl Est Creatinine Clear Calc Drug Dose 50.9 ml/min Estimated GFR () 55.0 Estimated GFR (Non- 47.5 BUN/Creatinine Ratio 22.9 Random Glucose 137 mg/dl Calcium Level 8.5 mg/dl Bedside Glucose 157 mg/dl Assessment and Plan This is a 77 year old male with a PMH of biventricular CHF, CAD s/p CABG, paroxysmal A. 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 Pulmonary HTN 08/27 kidney function actually improving will continue IV diuretics in hopes of a negative balance appreciate cardiology input 08/26 recently decreased dose of torsemide from 20mg to 10mg CXR - evidence of CHF; edema of LE, and fluid in the abdomen combination of cirrhosis and CHF exacerbation started on IV Lasix continue IV diuretics, monitor I's and O's and fluid restriction monitor kidney function appreciate cardiology consultation - switch to oral torsemide when able will continue IV Lasix today (08/26) - transition in 1-2 days - monitor kidney function CKD stage 3 Creatinine increased from 1.2 on 08/09 to 1.6 as outpatient on 08/22, remains 1.6 in ER today, baseline varies, mostly mid- 1's Monitor renal function Atrial Fibrillation S/p pacemaker Rate is controlled Continue amiodarone and digoxin (dig level normal) No longer on anticoagulation- d/c last hospitalization due to severe epistaxis CAD s/p CABG Denies chest pain Hx BB intolerance Continue aspirin, statin CHRONIC ANEMIA Hg 8.2 stable from baseline Monitor CBC HYPERTENSION Stable, continue losartan RESTRICTIVE LUNG DISEASE Continue home nebs DM TYPE 2 Hold Humulin Novolog sliding scale HYPOTHYROIDISM TSH wnl Continue levothyroxine RLE SEEPING Consult wound care nurse RHEUMATOID ARTHRITIS Continue prednisone 5 mg daily DEPRESSION Continue sertraline DVT PROPHYLAXIS SCD thigh due to chronic anemia, hx of severe epistaxis, mild thrombocytopenia, with skin breakdown of R lower leg DNR
--- NOTE | 2017-08-27 12:56 | PROGRESS NOTE ---
DATE: 08/27/2017 FOLLOWUP VISIT SUBJECTIVE: The patient is a 77-year-old with a history of ischemic cardiomyopathy and severe biventricular heart failure. He presented with volume overload and has been diuresing for several days. He has no new complaints today. OBJECTIVE: GENERAL: He is alert and oriented. VITAL SIGNS: Blood pressure 110/70. Pulse is regular at 71. He is afebrile. HEENT: He is normocephalic. Pupils are equal and reactive to light. Extraocular movements are muscles are intact bilaterally. NECK: The neck veins are flat. Carotids have good upstrokes bilaterally without bruits. Thyroids are not palpable. RESPIRATORY: Breath sounds equal bilaterally and clear to auscultation. CARDIOVASCULAR: Heart has a regular rhythm. Normal S1 and S2. No S3 or S4. No cardiac rubs or murmurs. GASTROINTESTINAL: Abdomen is soft and nontender without organomegaly. EXTREMITIES: Have minimal edema bilaterally. NEUROLOGIC: Grossly intact. SKIN: Warm to touch. LYMPH NODES: Negative to palpation. IMPRESSION: 1. Ischemic cardiomyopathy. 2. Acute on chronic systolic heart failure. 3. Status post ICD for primary prevention. 4. Paroxysmal atrial fibrillation. 5. Cardiorenal syndrome. 6. Moderate aortic stenosis. 7. Anemia. RECOMMENDATIONS: The patient continues to improve daily. I will switch him off of IV Lasix and put him on an oral b.i.d. dose. He should be able to be discharged soon with close followup post-discharge. MADONNAD
[2017-08-27] MEDS: FUROSEMIDE 40 MG TAB PO SCH (18:46)
[2017-08-27] MEDS: CHOLECALCIFEROL 1000 INTER.UNIT TAB PO SCH (20:57)
[2017-08-27] MEDS: HYDROXYCHLOROQUINE SULFATE 200 MG TAB PO SCH (20:58)
[2017-08-27] MEDS: SERTRALINE HCL 50 MG TAB PO SCH (20:59)
[2017-08-27] MEDS: TRAZODONE HCL 50 MG TAB PO SCH (20:59)
[2017-08-27] MEDS: SIMVASTATIN 10 MG TAB PO SCH (21:00)
[2017-08-27] MEDS: SERTRALINE HCL 100 MG TAB PO SCH (21:00)
[2017-08-27] MEDS: MAGNESIUM OXIDE 400 MG TAB PO SCH (21:25)
[2017-08-28] MEDS: LEVOTHYROXINE 112 MCG TAB PO SCH (05:49)
[2017-08-28] MEDS: BUDESONIDE 0.5 MG/2 ML VIAL (PULMICORT) INH SCH (06:56)
[2017-08-28 07:00] VITALS: PULSE 69; O2SAT 93
[2017-08-28] MEDS: FUROSEMIDE 40 MG TAB PO SCH (07:15)
[2017-08-28] MEDS: SILDENAFIL CITRATE 20 MG TAB PO SCH (07:16)
[2017-08-28] MEDS: AMIODARONE 200 MG TAB PO SCH (07:16)
[2017-08-28] MEDS: PANTOprazole SOD 40 MG TAB PO SCH (07:16)
[2017-08-28] MEDS: ASPIRIN 81 MG ECTAB PO SCH (07:16)
[2017-08-28] MEDS: LOSARTAN POTASSIUM 25 MG TAB PO SCH (07:16)
[2017-08-28] MEDS: DOCUSATE SODIUM 100 MG CAP PO SCH (07:16)
[2017-08-28] MEDS: POLYETHYLENE (MIRALAX) 17 GM PACK PO SCH (07:17)
[2017-08-28] MEDS: GABAPENTIN 100 MG CAP PO SCH (07:17)
[2017-08-28] MEDS: CALCITRIOL 0.25 MCG CAP PO SCH (07:17)
[2017-08-28 07:36] LABS: HEMATOCRIT 30.3 % (42-52); MEAN CELL VOLUME 76.1 fL (80-100); MEAN CORPUSCULAR HEMOGLOBIN 20.6 pg (25-34); MEAN CORPUSCULAR HGB CONC 27.1 g/dl (32-36); PLATELET COUNT 113 K/uL (130-400); RED BLOOD COUNT 3.98 M/uL (4.7-6.1); WHITE BLOOD COUNT 7.26 K/uL (4.8-10.8)
[2017-08-28 07:38] LABS: PLT ESTIMATE NORMAL
[2017-08-28 07:40] VITALS: BP 124/71; PULSE 71; TEMP 36.4; O2SAT 100
[2017-08-28 07:45] LABS: BUN/CREATININE RATIO 19.5 (10-20); CALCIUM 8.8 mg/dl (8.5-10.1); CREATININE 1.68 mg/dl (0.60-1.40); MAGNESIUM 2.6 mg/dl (1.8-2.4); POTASSIUM 3.7 mmol/L (3.5-5.1)
[2017-08-28] MEDS: INSULIN ASPART 100 UNITS/ML 3 ML PEN SC SCH ×2 (08:44→13:16)
--- NOTE | 2017-08-28 10:32 | Cardiology Follow-Up ---
Subjective General Date of Service: Aug 28, 2017. Chief Complaint: follow up CHF Pt evaluation today including: conversation w/ patient, conversation w/ family History of Present Illness The patient is a 77 year old male seen in follow up. Pt feels much improved. Less abdominal bloating. R LE less swollen and no longer draining clear fluid from tibia ulcer. Allergies Coded Allergies: Lisinopril (Unverified Allergy, Unknown, dizzy, 08/24/17) Social History Smoking Status: Never Smoker Hx Tobacco Use In Past Year?: No Hx Alcohol Use - Type And Amou: No Hx Substance Use - Type And Am: No Problem List Medical Problems: (1) Acute post-hemorrhagic anemia Status: Acute (2) Atrial flutter Status: Acute (3) Bleeding on Coumadin Status: Acute (4) Bradycardia Status: Acute (5) CHF (congestive heart failure) Status: Acute (6) CHF exacerbation Status: Acute (7) Failure of outpatient treatment Status: Acute (8) Nasal bone fracture Status: Acute (9) Shortness of breath Status: Acute (10) Warfarin-induced coagulopathy Status: Acute Physical Exam Vital Signs Last Vital Signs Documentation Date Time Temp Pulse Resp B/P (MAP) Pulse Ox O2 Delivery O2 Flow Rate FiO2 08/28/17 07:40 36.4 71 18 124/71 (88) 100 Room Air Physical Exam Constitutional: Level of Distress: chronically ill Neck: supple Lungs: Auscultation: no wheezing, no rales/crackles, no rhonchi Cardiovascular: Heart Auscultation: RRR, II/ [place] Extremities: pertinent finding (trace to 1+ LE edema, uclers noted, but improved per comparison of other descriptions in his chart) Assessment and Plan Assessment and Plan 77-year-old male 1.Acute on chronic biventricular systolic heart failure, right ventricular dysfunction, pulmonary hypertension 2. Ischemic cardiomyopathy 3. Paroxysmal atrial fibrillation, on amiodarone. With underlying tachybrady s/ p Biventricular pacemaker, off anticoagulation therapy in Jul 2017 after fall/ syncope with resultant facial fracture/trauma. 4 CKD 5. Moderate 6. Anemia Plan: EKG this admission reviewed. V-pacing, with no clear P waves, suspect underlying AF. Recent outpt device check on 08/08/17 revealed AF burden of 21%. Regarding stroke prevention, he is at high risk for cardioembolic stroke. I went back and reviewed his CABG op note from [facility] [place], pt did have left atrial appendage ligation (atriclip) which in part should improve his stroke risk however if there is a rudimentary amount of residual appendage thrombus could still forme, and he is at risk for LA mural thrombus. He however, has difficulty with his gait, and had serious fall with facial bone fracture last last month. Will therefore remain off of coumadin for now. Remain on ASA 81 mg daily. DC PO furosemide and return to PO torsemide, 20 mg PO q am, and 10 mg PO q PM. Need to maintain current volume status. Stable for DC , will need [facility] PCP cardio follow up. Laboratory Results Last 24 Hours Test 08/27/17 11:10 08/27/17 16:42 08/27/17 20:30 08/28/17 06:55 Bedside Glucose 158 mg/dl 189 mg/dl 129 mg/dl White Blood Count 7.26 K/uL Red Blood Count 3.98 M/uL Hemoglobin 8.2 g/dL Hematocrit 30.3 % Mean Corpuscular Volume 76.1 fL Mean Corpuscular Hemoglobin 20.6 pg Mean Corpuscular Hemoglobin Concent 27.1 g/dl RDW Standard Deviation 57.9 fL RDW Coefficient of Variation 20.7 % Platelet Count 113 K/uL Platelet Estimate NORMAL Sodium Level 143 mmol/L Potassium Level 3.7 mmol/L Chloride Level 103 mmol/L Carbon Dioxide Level 33 mmol/L Anion Gap 7.0 mmol/L Blood Urea Nitrogen 33 mg/dl Creatinine 1.68 mg/dl Est Creatinine Clear Calc Drug Dose 42.5 ml/min Estimated GFR () 44.1 Estimated GFR (Non- 38.1 BUN/Creatinine Ratio 19.5 Random Glucose 126 mg/dl Calcium Level 8.8 mg/dl Magnesium Level 2.6 mg/dl
[2017-08-28] MEDS ORDERED: TORS10TA14 PO (13:26)
[2017-08-28] MEDS ORDERED: DMD20 PO (13:26)
[2017-08-28 13:36] VITALS: BP 124/71; PULSE 71; TEMP 36.4; O2SAT 100
--- NOTE | 2017-08-28 13:37 | Discharge Instructions ---
Discharge Instructions Date of Service Aug 28, 2017. Admission Reason for Admission: Chf Exacerbation Discharge Discharge Diagnosis / Problem: Congestive Heart Failure Discharge Goals Goal(s): Decrease discomfort, Improve function, Diagnostic testing, Therapeutic intervention Activity Recommendations Activity Limitations: resume your previous activity . Instructions / Follow-Up Instructions / Follow-Up Please follow-up with Dr. Murillo (covering for Dr. Valerio) on August 30 at 12:45PM * Your dose of Torsemide has changed to 20mg in the morning and 10mg in the evening Follow-up with cardiology in 2-3 weeks Current Hospital Diet Patient's current hospital diet: Diabetes Type 2 Diet, AHA Diet (Heart Healthy) , Low Sodium Diet (2gm Na) Discharge Diet Recommended Diet: AHA Diet (Heart Healthy), Low Sodium Diet (2gm Na), Diabetes Type 2 Diet Pending Studies Studies pending at discharge: no Laboratory Results Hemoglobin A1c Test 06/29/17 05:40 Range/Units Estimated Average Glucose 166 mg/dl Hemoglobin A1c 7.4 H 4.5-5.6 % Medical Emergencies . Who to Call and When: Medical Emergencies: If at any time you feel your situation is an emergency, please call 911 immediately. . Non-Emergent Contact Non-Emergency issues call your: Primary Care Provider, Clinical Outcomes Manager . . "Provider Documentation" section prepared by Aisha Hull. . VTE Core Measure Inpt VTE Proph given/why not?: SCD's
--- NOTE | 2017-08-28 13:52 | Progress Note ---
Subjective Date of Service: Aug 28, 2017. Subjective Pt evaluation today including: conversation w/ patient, physical exam, lab review, review of studies, review of inpatient medication list Saw/examined the patient in room 454 He's doing well, no breathing issues, no chest pain, no other issues to note Problem List Medical Problems: (1) Acute post-hemorrhagic anemia Status: Acute (2) Atrial flutter Status: Acute (3) Bleeding on Coumadin Status: Acute (4) Bradycardia Status: Acute (5) CHF (congestive heart failure) Status: Acute (6) CHF exacerbation Status: Acute (7) Failure of outpatient treatment Status: Acute (8) Nasal bone fracture Status: Acute (9) Shortness of breath Status: Acute (10) Warfarin-induced coagulopathy Status: Acute Review of Systems Respiratory: No cough, No sputum, No shortness of breath Cardiac: + edema, No chest pain Medications Current Inpatient Medications Medications (Trade) Dose Ordered Sig/Nicolette Route Start Time Stop Time Status Last Admin Dose Admin Acetaminophen (Tylenol Tab) 650 mg Q4H PRN PO 08/24/17 16:30 09/23/17 16:29 08/25/17 05:57 650 MG Ondansetron HCl (Zofran Inj) 4 mg Q6H PRN IV 08/24/17 16:30 09/23/17 16:29 08/24/17 22:33 4 MG Amiodarone HCl (Cordarone Tab) 200 mg DAILY PO 08/25/17 09:00 09/24/17 08:59 08/28/17 07:16 200 MG Aspirin (Ecotrin Tab) 81 mg QAM PO 08/25/17 09:00 09/24/17 08:59 08/28/17 07:16 81 MG Calcitriol (Rocaltrol Cap) 0.25 mcg MoWeFr@0900 PO 08/25/17 09:00 09/24/17 08:59 08/28/17 07:17 0.25 MCG Cholecalciferol (Vitamin D Tab) 2,000 inter.unit HS PO 08/24/17 21:00 09/23/17 20:59 08/27/17 20:57 2,000 INTER.UNIT Digoxin (Lanoxin Tab) 0.125 mg Q2D@1600 PO 08/24/17 17:00 09/23/17 16:59 08/26/17 15:15 0.125 MG Docusate Sodium (coLACE CAP) 100 mg DAILY PO 08/25/17 09:00 09/24/17 08:59 08/28/17 07:16 100 MG Gabapentin (Neurontin Cap) 200 mg BID PO 08/24/17 21:00 09/23/17 20:59 08/28/17 07:17 200 MG Hydroxychloroquine Sulfate (Plaquenil Tab) 400 mg HS PO 08/24/17 21:00 09/23/17 20:59 08/27/17 20:58 400 MG Ipratropium [place] (Atrovent 0.02% 0.5MG/2.5ML Neb) 0.5 mg TIDR PRN INH 08/24/17 17:00 09/23/17 16:59 08/28/17 06:56 0.5 MG Levalbuterol (Xopenex 1.25MG/ 3ML Neb) 3.75 mg BIDR PRN INH 08/24/17 17:00 09/23/17 16:59 08/28/17 06:56 1.25 MG Levothyroxine Sodium (Synthroid Tab) 112 mcg DAILYBB PO 08/25/17 06:00 09/24/17 06:59 08/28/17 05:49 112 MCG Losartan Potassium (coZAAR TAB) 12.5 mg DAILY PO 08/25/17 09:00 09/24/17 08:59 08/28/17 07:16 12.5 MG Pantoprazole Sodium (Protonix Tab) 40 mg DAILY PO 08/25/17 09:00 09/24/17 08:59 08/28/17 07:16 40 MG Prednisone (PredniSONE TAB) 5 mg DAILY PO 08/25/17 09:00 09/24/17 08:59 08/28/17 07:16 5 MG Sodium Chloride ([place] Nasal [place]) 2 sprays DAILY PRN NATALIO 08/24/17 17:00 09/23/17 16:59 Sertraline HCl (Zoloft Tab) 100 mg HS PO 08/24/17 21:00 09/23/17 20:59 08/27/17 21:00 100 MG Sildenafil Citrate (Revatio Tab) 20 mg BID PO 08/24/17 21:00 09/23/17 20:59 08/28/17 07:16 20 MG Simvastatin (Zocor Tab) 10 mg HS PO 08/24/17 21:00 09/23/17 20:59 08/27/17 21:00 10 MG Tramadol HCl (Ultram Tab) 50 mg Q12 PRN PO 08/24/17 17:00 09/23/17 16:59 Trazodone HCl (Desyrel Tab) 25 mg HS PO 08/24/17 21:00 09/23/17 20:59 08/27/17 20:59 25 MG Magnesium Oxide (Mag-Ox Tab) 400 mg HS PO 08/24/17 21:00 09/23/17 20:59 08/27/17 21:25 400 MG Polyethylene (Miralax Powder Packet) 17 gm DAILY PO 08/25/17 09:00 09/24/17 08:59 08/28/17 07:17 17 GM Sertraline HCl (Zoloft Tab) 25 mg HS PO 08/24/17 21:00 09/23/17 20:59 08/27/17 20:59 25 MG Insulin Aspart (novoLOG ASPART) SLIDING SCALE If C... ACHS SC 08/24/17 21:00 09/23/17 20:59 08/28/17 13:16 2 UNITS Glucose (Glucose 40% Gel) 15-30 GRAMS 15 GRAMS... UD PRN PO 08/24/17 17:00 09/23/17 16:59 Glucose (Glucose Chew Tab) 4-8 Tablets 4 Tabl... UD PRN PO 08/24/17 17:00 09/23/17 16:59 Dextrose (Dextrose 50% 50ML Syringe) 25-50ML OF 50% DW IV FOR... UD PRN IV 08/24/17 17:00 09/23/17 16:59 Glucagon (Glucagon Inj) 1 mg UD PRN SQ 08/24/17 17:00 09/23/17 16:59 Budesonide (Pulmicort Respules 0.5MG/ 2ML Neb Soln) 0.5 mg BIDR INH 08/24/17 20:00 09/23/17 19:59 08/28/17 06:56 0.5 MG Torsemide (Demadex Tab) 20 mg QAM PO 08/29/17 08:00 09/28/17 07:59 Torsemide (Demadex Tab) 10 mg DAILY@1400 PO 08/28/17 14:00 09/27/17 13:59 08/28/17 13:13 10 MG Objective Vital Signs Date Time Temp Pulse Resp B/P (MAP) Pulse Ox O2 Delivery O2 Flow Rate FiO2 08/28/17 13:36 36.4 71 18 100 Room Air 08/28/17 07:40 36.4 71 18 124/71 (88) 100 Room Air 08/28/17 07:00 69 18 93 Room Air 08/28/17 00:00 CPAP 08/27/17 23:55 36.2 73 20 111/65 (80) 96 CPAP 08/27/17 19:07 68 18 94 Room Air 08/27/17 16:01 36.5 77 20 108/55 (72) 99 Room Air 08/27/17 14:49 36.6 69 16 98 Physical Exam General Appearance: no apparent distress Respiratory/Chest: lungs clear, normal breath sounds, no respiratory distress, no accessory muscle use Cardiovascular: regular rate, rhythm, + pertinent finding (+1 pitting edema b/ l LE) Abdomen: normal bowel sounds, non tender, soft Laboratory Results Last 24 Hours Test 08/27/17 16:42 08/27/17 20:30 08/28/17 06:55 08/28/17 13:10 Bedside Glucose 189 mg/dl 129 mg/dl 215 mg/dl White Blood Count 7.26 K/uL Red Blood Count 3.98 M/uL Hemoglobin 8.2 g/dL Hematocrit 30.3 % Mean Corpuscular Volume 76.1 fL Mean Corpuscular Hemoglobin 20.6 pg Mean Corpuscular Hemoglobin Concent 27.1 g/dl RDW Standard Deviation 57.9 fL RDW Coefficient of Variation 20.7 % Platelet Count 113 K/uL Platelet Estimate NORMAL Sodium Level 143 mmol/L Potassium Level 3.7 mmol/L Chloride Level 103 mmol/L Carbon Dioxide Level 33 mmol/L Anion Gap 7.0 mmol/L Blood Urea Nitrogen 33 mg/dl Creatinine 1.68 mg/dl Est Creatinine Clear Calc Drug Dose 42.5 ml/min Estimated GFR () 44.1 Estimated GFR (Non- 38.1 BUN/Creatinine Ratio 19.5 Random Glucose 126 mg/dl Calcium Level 8.8 mg/dl Magnesium Level 2.6 mg/dl Assessment and Plan This is a 77 year old male with a PMH of biventricular CHF, CAD s/p CABG, paroxysmal A. 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 Pulmonary HTN 08/28 doing well transitioned to Torsemide 20mg AM and 10mg in the PM plan for d/c home with home health 08/27 kidney function actually improving will continue IV diuretics in hopes of a negative balance appreciate cardiology input 08/26 recently decreased dose of torsemide from 20mg to 10mg CXR - evidence of CHF; edema of LE, and fluid in the abdomen combination of cirrhosis and CHF exacerbation started on IV Lasix continue IV diuretics, monitor I's and O's and fluid restriction monitor kidney function appreciate cardiology consultation - switch to oral torsemide when able will continue IV Lasix today (08/26) - transition in 1-2 days - monitor kidney function CKD stage 3 Creatinine increased from 1.2 on 08/09 to 1.6 as outpatient on 08/22, remains 1.6 in ER today, baseline varies, mostly mid- 1's Monitor renal function Atrial Fibrillation S/p pacemaker Rate is controlled Continue amiodarone and digoxin (dig level normal) No longer on anticoagulation- d/c last hospitalization due to severe epistaxis CAD s/p CABG Denies chest pain Hx BB intolerance Continue aspirin, statin CHRONIC ANEMIA Hg 8.2 stable from baseline Monitor CBC HYPERTENSION Stable, continue losartan RESTRICTIVE LUNG DISEASE Continue home nebs DM TYPE 2 Hold Humulin Novolog sliding scale HYPOTHYROIDISM TSH wnl Continue levothyroxine RLE SEEPING Consult wound care nurse RHEUMATOID ARTHRITIS Continue prednisone 5 mg daily DEPRESSION Continue sertraline DVT PROPHYLAXIS SCD thigh due to chronic anemia, hx of severe epistaxis, mild thrombocytopenia, with skin breakdown of R lower leg DNR
--- NOTE | 2017-08-28 13:57 | Discharge Summary ---
Discharge Summary Date of Service Aug 28, 2017. 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 Fib Hx. of CAD and CABG Medication Reconciliation New Medications: Torsemide (Torsemide) 20 Mg Tab 20 MG PO QAM for 30 Days, #30 TAB Torsemide (Demadex) 10 Mg Tab 10 MG PO HS for 30 Days, #30 TAB Continued Medications: Acetaminophen (Tylenol) 325 Mg Tab 650 MG PO Q4H PRN for Mild Pain, TAB NEEDED FOR MILD PAIN RATED 1-3 ON A SCALE OF "0-10" Amiodarone Hcl (Cordarone) 200 Mg Tab 200 MG PO DAILY, TAB Aspirin (Aspirin 81) 81 Mg Tab 81 MG PO QAM Budesonide (Pulmicort Respules 0.25MG/2ML) 0.25 Mg/2 Ml Nebu 2 ML INH BID, EA Calcitriol (Calcitriol) 0.25 Mcg Cap 0.25 MCG PO 3XWK TAKE THIS MEDICATION EVERY MONDAY,MONDAY AND MONDAY. Cholecalciferol (Vitamin D 1000 Unit) 1,000 Unit Cap 2000 INTER.UNIT PO HS, CAP Digoxin (Digoxin) 0.125 Mg Tab 0.125 MG PO Q2D Docusate Sodium (Colace) 100 Mg Cap 100 MG PO DAILY Gabapentin (Gabapentin) 100 Mg Cap 200 MG PO BID Hydroxychloroquine Sulfate (Hydroxychloroquine Sulfat) 200 Mg Tab 400 MG PO HS Insulin Isophane (Human) (Humulin N Kwikpen) 100 Unit/Ml Inj 12 UNITS SC BID Ipratropium [place] (Atrovent 0.02% Soln) 2.5 Ml Nebu 2.5 ML INH TID PRN for SOB/Wheezing Levalbuterol (Levalbuterol HCl) 1.25 Mg/3 Ml Nebu 3 ML INH BID PRN for SOB/Wheezing Levothyroxine Sodium (Levothyroxine Sodium) 112 Mcg Tab 112 MCG PO DAILY Losartan Potassium (Losartan Potassium) 25 Mg Tab 12.5 MG PO DAILY Magnesium Oxide (Magnesium Oxide) 400 Mg Cap 400 MG PO HS Pantoprazole (Pantoprazole Sodium) 40 Mg Tab 40 MG PO DAILY Polyethylene Glycol 3350 (Miralax) 1 Pow Pow 1 PKT PO DAILY, GM Prednisone (Prednisone) 5 Mg Tab 5 MG PO DAILY Saline ([place] Nasal [place]) 0.65 % Spr 2 SPRAYS NATALIO UD PRN for Nasal Dryness/Congestion Sertraline HCl (Sertraline HCl) 25 Mg Tab 25 MG PO HS TAKE ONE 25 MG TABLET ALONG WITH ONE 100 MG TABLET TO EQUAL BEDTIME DOSE OF 125 MG Sertraline HCl (Sertraline HCl) 100 Mg Tab 100 MG PO HS TAKE ONE 100 MG TABLET ALONG WITH ONE 25 MG TABLET TO EQUAL BEDTIME DOSE OF 125 MG Sildenafil Citrate (Pulmonary (Sildenafil Citrate) 20 Mg Tab 20 MG PO BID Simvastatin (Simvastatin) 10 Mg Tab 10 MG PO HS Tramadol HCl (Tramadol HCl) 50 Mg Tab 50 MG PO Q12 PRN for Pain Trazodone Hcl (Desyrel) 50 Mg Tab 25-50 MG PO HS Discontinued Medications: Torsemide (Demadex) 10 Mg Tab 20 MG PO UD, TAB Take 20 mg daily on 08/22, 08/23, and 08/24 then resume 10 mg daily. Admission Information HPI (per Admitting provider): This is a 77 y/o male with PMH of chronic systolic and diastolic CHF (EF 30-34% on 12/2016 echo), pulmonary HTN, Afib no longer on anticoagulation, s/p pacemaker , CAD s/p CABG, DM type 2, CKD stage III, recently diagnosed cirrhosis likely secondary to NAFLD, hypothyroidism, depression, and other problems listed below who presents to the ED with fluid retention. Patient was recently admitted to [facility] from Jul 17-2016 for acute blood loss anemia from epistaxis requiring 3 units pRBC, acute on chronic CHF, JAVY. Coumadin was discontinued and torsemide was decreased from 20 mg daily to 10 mg daily. Pt was discharged to [facility] on 08/16/17, at which time pt's weight was 208 lb per daughter. At home pt's weight was noted to be 214 lb, then today he is 220 lb on chair scale. Pt was seen by PCP Dr. Valerio 2 days ago at which time torsemide was increased to 20 mg daily through today. Despite the increased diuretic, pt reports increasing abdominal girth and bilateral LE edema with seeping of the RLE. He reports ROSALES while ambulating across a room with his cane which is unusual for him. Has chronic cough with clear sputum unchanged from baseline. Has chronic dizziness when standing. No syncope or falls. Denies dietary indiscretion. Following 1500 mL fluid restriction. Denies fever, chills, rhinorrhea, chest pain, dyspnea at rest, orthopnea, abdominal pain, appetite loss, N/V/D/C, dysuria, frequency, abnormal bleeding. Physical Exam (per Admitting): General Appearance: no apparent distress, + pertinent finding (fail appearing elderly male, lying in bed, no distress, daughter at bedside) Head: normocephalic, atraumatic Eyes: normal inspection, PERRL, sclerae normal ENT: hearing grossly normal, pharynx normal Neck: supple, trachea midline, + JVD Respiratory/Chest: no respiratory distress, no accessory muscle use, + decreased breath sounds (bilateral lower lung mora), + pertinent finding (no adventitious sounds auscultated) Cardiovascular: regular rate, rhythm, + systolic murmur (grade III throughout precordium) Abdomen/GI: normal bowel sounds, non tender, soft, + pertinent finding ( increased abdominal girth) Extremities/Musculoskelatal: no calf tenderness, + pertinent finding (3+ pitting edema to above the knee bilaterally) Neurologic/Psych: alert, normal mood/affect, oriented x 3 Skin: normal color, + pertinent finding (areas of clear fluid seeping on right anterior lower leg) Hospital Course This is a 77 year old male with a PMH of biventricular CHF, CAD s/p CABG, paroxysmal A. 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 Pulmonary HTN 08/28 doing well transitioned to Torsemide 20mg AM and 10mg in the PM plan for d/c home with home health 08/27 kidney function actually improving will continue IV diuretics in hopes of a negative balance appreciate cardiology input 08/26 recently decreased dose of torsemide from 20mg to 10mg CXR - evidence of CHF; edema of LE, and fluid in the abdomen combination of cirrhosis and CHF exacerbation started on IV Lasix continue IV diuretics, monitor I's and O's and fluid restriction monitor kidney function appreciate cardiology consultation - switch to oral torsemide when able will continue IV Lasix today (10/14) - transition in 1-2 days - monitor kidney function CKD stage 3 Creatinine increased from 1.2 on 08/09 to 1.6 as outpatient on 08/22, remains 1.6 in ER today, baseline varies, mostly mid- 1's Monitor renal function Atrial Fibrillation S/p pacemaker Rate is controlled Continue amiodarone and digoxin (dig level normal) No longer on anticoagulation- d/c last hospitalization due to severe epistaxis CAD s/p CABG Denies chest pain Hx BB intolerance Continue aspirin, statin CHRONIC ANEMIA Hg 8.2 stable from baseline Monitor CBC HYPERTENSION Stable, continue losartan RESTRICTIVE LUNG DISEASE Continue home nebs DM TYPE 2 Hold Humulin Novolog sliding scale HYPOTHYROIDISM TSH wnl Continue levothyroxine RLE SEEPING Consult wound care nurse RHEUMATOID ARTHRITIS Continue prednisone 5 mg daily DEPRESSION Continue sertraline DVT PROPHYLAXIS SCD thigh due to chronic anemia, hx of severe epistaxis, mild thrombocytopenia, with skin breakdown of R lower leg DNR Total time spent on discharge = 45 minutes This includes examination of the patient, discharge planning, medication reconciliation, and communication with other providers. Discharge Instructions Please follow-up with Dr. Murillo (covering for Dr. Valerio) on August 30 at 12:45PM * Your dose of Torsemide has changed to 20mg in the morning and 10mg in the evening Follow-up with cardiology in 2-3 weeks
[2017-08-28] MEDS ORDERED: TORSEMIDE 20 MG TAB PO SCH (14:00)
[2017-08-29] MEDS ORDERED: TORSEMIDE 20 MG TAB PO SCH (08:00)
== END 2017-08-28 14:13 | disposition home health service (06) | DRG 291 ==
LOC: C.EDB 12:39 → C.2T 16:00 → ENRESERV 16:06 → C.MS4W 08-27 15:23
PROVIDERS: ADMIT Internal Medicine; ATTEND Family Medicine
DX: I13.0 Hypertensive heart and chronic kidney disease with heart failure and stage 1 through stage 4 chronic kidney disease, or unspecified chronic kidney disease (principal); I50.23 Acute on chronic systolic (congestive) heart failure; J98.11 Atelectasis; L97.129 Non-pressure chronic ulcer of left thigh with unspecified severity; I48.0 Paroxysmal atrial fibrillation; I25.10 Atherosclerotic heart disease of native coronary artery without angina pectoris; I25.5 Ischemic cardiomyopathy; I35.0 Nonrheumatic aortic (valve) stenosis; I27.20 Pulmonary hypertension, unspecified; E11.22 Type 2 diabetes mellitus with diabetic chronic kidney disease; N18.3 Chronic kidney disease, stage 3 (moderate); E11.40 Type 2 diabetes mellitus with diabetic neuropathy, unspecified; K75.81 Nonalcoholic steatohepatitis (NASH); K74.69 Other cirrhosis of liver; J98.4 Other disorders of lung; E03.9 Hypothyroidism, unspecified; M06.9 Rheumatoid arthritis, unspecified; D53.9 Nutritional anemia, unspecified; F32.9 Major depressive disorder, single episode, unspecified; Z66 Do not resuscitate; Z95.1 Presence of aortocoronary bypass graft; Z95.0 Presence of cardiac pacemaker; Z86.14 Personal history of Methicillin resistant Staphylococcus aureus infection; Z82.49 Family history of ischemic heart disease and other diseases of the circulatory system; Z79.82 Long term (current) use of aspirin; Z79.51 Long term (current) use of inhaled steroids; Z79.4 Long term (current) use of insulin; Z79.52 Long term (current) use of systemic steroids; Z79.891 Long term (current) use of opiate analgesic; Z79.899 Other long term (current) drug therapy